=== PATIENT | female | born 1945 | race Two or more races ===

== ENCOUNTER 2016-08-28 11:53 | Inpatient (IN) | payer MEDICARE, OTHER ==
[~2016-08-28] VITALS: Ht 152.4 cm; Wt 54.4 kg
[2016-08-28] MEDS ORDERED: Solu-MEDROL 125mg Inj IVP ONE (12:00)
[2016-08-28] MEDS: Ipratropium 0.02% Inh Soln 2.5ml UD HHN SCH ×3 (12:10→12:48)
[2016-08-28] MEDS: Levalbuterol Inh UD 1.25mg/0.5ml HHN SCH ×3 (12:11→12:48)
[2016-08-28] MEDS ORDERED: ASPIR 8181 MG ORAL (12:30)
[2016-08-28] MEDS ORDERED: ATORVASTATIN CA20 MG ORAL (12:30)
[2016-08-28] MEDS ORDERED: ATENOLOL25 MG ORAL (12:30)
[2016-08-28] MEDS ORDERED: ALBUTEROL2.5 MG/3 M INH (12:30)
[2016-08-28] MEDS ORDERED: FUROSEMIDE20 M1 ORAL (12:30)
[2016-08-28] MEDS ORDERED: ATIVAN0.5 MG ORAL (12:30)
[2016-08-28] MEDS ORDERED: FLUOXETINE HCL10 MG ORAL (12:30)
[2016-08-28] MEDS ORDERED: HYDROCHLOROTH12.5 M2 ORAL (12:30)
[2016-08-28 12:40] VITALS: BP 137/40
[2016-08-28 12:50] LABS: BASOPHILS % (AUTO) 1.8 % (0.0-2.0); EOSINOPHILS % (AUTO) 12.5 % (0.0-3.0); LYMPHOCYTES % (AUTO) 28.3 % (20.0-45.0); MEAN CORPUSCULAR HEMOGLOBIN 31.3 PG (27.0-31.0); MEAN CORPUSCULAR HGB CONC 33.2 G/DL (32.0-36.0); MEAN CORPUSCULAR VOLUME 94 FL (80-99); MEAN PLATELET VOLUME 6.8 FL (6.5-10.1); MONOCYTES % (AUTO) 7.5 % (1.0-10.0); NEUTROPHILS % (AUTO) 49.9 % (45.0-75.0); PLATELET COUNT 323 K/UL (150-450); RED BLOOD COUNT 4.31 M/UL (4.20-5.40); RED CELL DISTRIBUTION WIDTH 11.5 % (11.6-14.8); WHITE BLOOD COUNT 7.8 K/UL (4.8-10.8)
[2016-08-28 13:07] LABS: TROPONIN I < 0.30 ng/mL (<=0.30)
[2016-08-28 13:10] LABS: ALANINE AMINOTRANSFERASE 5 U/L (3-33); ALBUMIN/GLOBULIN RATIO 1.3 (1.0-2.7); ANION GAP 14 (5-15); ASPARTATE AMINO TRANSFERASE 24 U/L (5-40); CALCIUM 9.8 mg/dL (8.6-10.2); CARBON DIOXIDE 30 mEQ/L (20-30); CHLORIDE 90 mEQ/L (98-107); CREATININE 0.7 mg/dL (0.5-0.9); HEMOLYSIS 4; POTASSIUM 3.8 mEQ/L (3.4-4.9); SODIUM 134 mEQ/L (135-145); TOTAL PROTEIN 7.6 g/dL (6.6-8.7)
[2016-08-28 13:32] VITALS: BP 137/48
[2016-08-28 13:44] LABS: APPEARANCE,URINE CLEAR; KETONES,URINE NEGATIVE (NEGATIVE); LEUKOCYTE ESTERASE ,URINE 1+ (NEGATIVE); NITRITE,URINE NEGATIVE (NEGATIVE); PH,URINE 8 (4.5-8.0); PROTEIN,URINE NEGATIVE (NEGATIVE); UROBILINOGEN,URINE NORMAL MG/DL (0.0-1.0)
[2016-08-28 14:09] LABS: BACTERIA,URINE FEW /HPF; SQUAMOUS EPITHELIAL CELL,UR FEW /LPF (NONE/OCC); WBC,URINE 0-2 /HPF (0 - 2)
--- NOTE | 2016-08-28 14:22 | Emergency Room Report ---
History of Present Illness General Chief Complaint: Upper Respiratory Illness Source: Patient, EMS Present Illness HPI 71-year-old female presents to ED for evaluation. Per EMS patient's pain short breaths and this morning. History of asthma. Per EMS patient was wheezing diffusely. Labored breathing. Patient was given breathing treatment x2 by EMS. Patient states she is still wheezing. Denies any fevers or chills. Denies chest pain. Denies sick contacts or recent travel. Denies cough. No other aggravating relieving factors. Denies any other associated symptom Allergies: Coded Allergies: MORPHINE (Verified Allergy, Unknown, 11/07/15) Patient History Past Medical History: DM, HTN, asthma Past Surgical History: none Pertinent Family History: none Social History: Denies: alcohol use, drug use, smoking Now: No Immunizations: UTD Reviewed Nursing Documentation: PMH: Agreed, PSxH: Agreed Nursing Documentation-PMH Past Medical History: No History, Except For Hx Hypertension: Yes Hx Asthma: Yes Hx Diabetes: Yes - Pre diabetic Hx Neurological Problems: Yes - PARKINSON Review of Systems All Other Systems: negative except mentioned in HPI Physical Exam Vital Signs Date Time Temp Pulse Resp B/P Pulse Ox O2 Delivery O2 Flow Rate FiO2 08/28/16 11:48 104 16 159/92 98 Room Air 08/28/16 12:11 21 08/28/16 12:48 2.0 Sp02 EP Interpretation: reviewed, normal General Appearance: no apparent distress, alert, GCS 15, non-toxic Head: normocephalic Eyes: bilateral eye PERRL, bilateral eye normal inspection ENT: normal ENT inspection Neck: normal inspection Respiratory: wheezing Cardiovascular #1: tachycardia Gastrointestinal: normal inspection Rectal: deferred Genitourinary: no CVA tenderness Musculoskeletal: normal inspection Neurologic: alert, oriented x3, responsive, motor strength/tone normal, sensory intact, speech normal Psychiatric: normal inspection Skin: normal inspection Lymphatic: normal inspection Medical Decision Making Diagnostic Impression: Primary Impression: Asthma exacerbation ER Course Hospital Course 71-year-old F presenting to ED with SOB. h/o asthma Differential diagnoses include: Pneumonia, CHF exacerbation, pneumothorax, fluid overload Clinical course Patient placed on stretcher. 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 After initial history and physical, I ordered nebulizer treatments. I ordered labs, IV fluids, EKG, chest x-ray, blood cultures, UA. Labs - no leukocytosis noted, hemoglobin/hematocrit stable, electrolytes okay, lactate okay, troponins negative CXR - no infiltrates EKG - tachycardia, no acute changes abx given. after multiple rounds of nebulizer treatment patient continues wheezing. Given Solu-Medrol and magnesium. Case discussed with Dr. Cloud and he agreed to the patient to his service for further care and support I feel this is a highly complex case requiring extensive working including EKG/ Rhythm strip, Xray/CT/US, Blood/urine lab work, repeat exams while in ED, and administration of strong opiates/narcotics for pain control, admission to hospital or close patient follow up. Diagnosis - asthma exacerbation Patient admitted to telemetry in serious condition Labs Test 08/28/16 12:15 08/28/16 13:25 White Blood Count 7.8 K/UL (4.8-10.8) Red Blood Count 4.31 M/UL (4.20-5.40) Hemoglobin 13.5 G/DL (12.0-16.0) Hematocrit 40.6 % (37.0-47.0) Mean Corpuscular Volume 94 FL (80-99) Mean Corpuscular Hemoglobin 31.3 PG (27.0-31.0) Mean Corpuscular Hemoglobin Concent 33.2 G/DL (32.0-36.0) Red Cell Distribution Width 11.5 % (11.6-14.8) Platelet Count 323 K/UL (150-450) Mean Platelet Volume 6.8 FL (6.5-10.1) Neutrophils (%) (Auto) 49.9 % (45.0-75.0) Lymphocytes (%) (Auto) 28.3 % (20.0-45.0) Monocytes (%) (Auto) 7.5 % (1.0-10.0) Eosinophils (%) (Auto) 12.5 % (0.0-3.0) Basophils (%) (Auto) 1.8 % (0.0-2.0) Sodium Level 134 mEQ/L (135-145) Potassium Level 3.8 mEQ/L (3.4-4.9) Chloride Level 90 mEQ/L (98-107) Carbon Dioxide Level 30 mEQ/L (20-30) Anion Gap 14 (5-15) Blood Urea Nitrogen 11 mg/dL (7-23) Creatinine 0.7 mg/dL (0.5-0.9) Estimat Glomerular Filtration Rate mL/min (>60) Glucose Level 100 mg/dL (74-106) Lactic Acid Level 1.40 mmol/L (0.66-2.22) Calcium Level 9.8 mg/dL (8.6-10.2) Total Bilirubin 0.9 mg/dL (0.0-1.2) Aspartate Amino Transf (AST/SGOT) 24 U/L (5-40) Alanine Aminotransferase (ALT/SGPT) 5 U/L (3-33) Alkaline Phosphatase 102 U/L (35-104) Total Creatine Kinase 200 U/L (26-140) Creatine Kinase MB 6.0 ng/mL (< 3.8) Creatine Kinase MB Relative Index 3.0 Troponin I < 0.30 ng/mL (<=0.30) Pro-B-Type Natriuretic Peptide 177 pg/mL (0-125) Total Protein 7.6 g/dL (6.6-8.7) Albumin 4.3 g/dL (3.5-5.2) Globulin 3.3 g/dL Albumin/Globulin Ratio 1.3 (1.0-2.7) Urine Color Pale yellow Urine Appearance Clear Urine pH 8 (4.5-8.0) Urine Specific [place] 1.010 (1.005-1.035) Urine Protein Negative (NEGATIVE) Urine Glucose (UA) Negative (NEGATIVE) Urine Ketones Negative (NEGATIVE) Urine Occult Blood 1+ (NEGATIVE) Urine Nitrite Negative (NEGATIVE) Urine Bilirubin Negative (NEGATIVE) Urine Urobilinogen Normal MG/DL (0.0-1.0) Urine Leukocyte Esterase 1+ (NEGATIVE) Urine RBC 2-4 /HPF (0 - 2) Urine WBC 0-2 /HPF (0 - 2) Urine Squamous Epithelial Cells Few /LPF (NONE/OCC) Urine Bacteria Few /HPF (NONE) EKG Diagnostic Results Rate: tachycardiac Rhythm: NSR ST Segments: no acute changes ASA given to the pt in ED: No Rhythm Strip Diag. Results EP Interpretation: yes Rhythm: NSR, no PVC's, no ectopy Chest X-Ray Diagnostic Results EP Interpretation: Yes Findings: no consolidation, no effusion, no pneumothorax, no acute cardiopulmonary disease Number of Views: 1 Last Vital Signs Date Time Temp Pulse Resp B/P Pulse Ox O2 Delivery O2 Flow Rate FiO2 08/28/16 13:32 128 25 137/48 100 Room Air 08/28/16 12:58 2.0 28 Status: improved Disposition: ADMITTED INPATIENT Condition: Serious MASHA JAIMES M.D. August 28, 2016 14:22
[2016-08-28 14:30] VITALS: BP 147/62
[2016-08-28] MEDS ORDERED: Promethazine/Codeine 5ml UD ORAL PRN ×2 (14:45→19:45)
[2016-08-28] MEDS ORDERED: Nitroglycerin Subl 0.4mg tab (Bottle Of 25) SL PRN (14:45)
[2016-08-28] MEDS ORDERED: LORazepam Inj 2mg/ml 1ml IV PRN (14:45)
[2016-08-28] MEDS ORDERED: Ketorolac 30mg Inj IV PRN (14:45)
[2016-08-28] MEDS ORDERED: DuoNeb 0.5-3(2.5)mg/3ml neb HHN PRN (14:45)
[2016-08-28 15:30] VITALS: BP 167/56
[2016-08-28 16:30] VITALS: BP 157/50
--- NOTE | 2016-08-28 16:35 | Diagnostic Imaging Report ---
Indications: Shortness of breath Technique: Portable AP chest Findings: Comparison: 11/07/2015 Cardiac silhouette remains normal in size. Pulmonary vasculature remains within normal limits. Lungs and pleura remain clear. Mild calcification and elongation of the aortic arch, mild scoliosis, fixation hardware left humerus and scapular glenoid process again noted. IMPRESSION: No evidence of acute disease, unchanged Stable chronic changes as described
[2016-08-28] MEDS ORDERED: SINEMET 25-1001 EAC1 ORAL (18:02)
--- NOTE | 2016-08-28 19:42 | History & Physical ---
History and Physical History & Physicial Dictated for Int Med - Dr Cloud no. [id number]. JOSÉ MIGUEL GUZMAN August 28, 2016 19:42
[2016-08-28] MEDS ORDERED: Norco 5mg/325mg tab ORAL PRN (19:45)
[2016-08-28] MEDS ORDERED: Atorvastatin 20mg tab ORAL SCH (21:00)
[2016-08-28] MEDS: Theophylline ER 100mg ORAL SCH (21:03)
[2016-08-28] MEDS: Solu-MEDROL 125mg Inj IV SCH (21:03)
[2016-08-28] MEDS: Zosyn 3.375gm q8h **Extended infusion IVPB SCH ×2 (21:04)
[2016-08-28] MEDS: Heparin 5000 units/ml inj SUBQ SCH (21:06)
--- NOTE | 2016-08-28 21:38 | Consultation ---
History of Present Illness General Date patient seen: August 28, 2016 Chief Complaint: Upper Respiratory Illness Referring physician: Dr. Cloud Reason for Consultation: dyspnea Present Illness HPI 71-year-old female with hx of asthma, Parkinson presented to ED for evaluation of short breaths and this morning. Per EMS patient was wheezing diffusely and had abored breathing. Patient was given breathing treatment x2 by EMS. Patient states she is still wheezing. She also has cough with yellow sputum. Pt is admitted to [facility] for acute respiratory failure. Allergies: Coded Allergies: MORPHINE (Verified Allergy, Unknown, 11/07/15) Medication History Scheduled Aspirin* (Aspir 81*), 81 MG ORAL DAILY, (Reported) Atenolol* (Tenormin*), Unknown Dose ORAL DAILY, (Reported) Atorvastatin Calcium* (Atorvastatin Calcium*), Unknown Dose ORAL BEDTIME, ( Reported) Carbidopa/Levodopa 25-100 Mg* (Sinemet 25-100 Mg Tablet*), 1 TAB ORAL THREE TIMES A DAY, (Reported) Fluoxetine Hcl* (Fluoxetine Hcl*), Unknown Dose ORAL DAILY, (Reported) Furosemide* (Lasix*), Unknown Dose ORAL DAILY, (Reported) Hydrochlorothiazide* (Hydrochlorothiazide*), Unknown Dose ORAL DAILY, (Reported) Lorazepam* (Ativan*), Unknown Dose ORAL THREE TIMES A DAY, (Reported) Scheduled PRN Albuterol Sulfate* (Albuterol Sulfate Hhn*), 3 ML INH Q4H PRN for Shortness of Breath, (Reported) Patient History Healthcare decision maker Resuscitation status Advanced Directive on File Past Medical/Surgical History Past Medical/Surgical History: (1) History of asthma (2) Parkinson disease Review of Systems Respiratory: Reports: shortness of breath, wheezing Physical Exam General Appearance: WD/WN Lines, tubes and drains: peripheral HEENT: normocephalic, atraumatic Neck: non-tender, normal alignment Respiratory/Chest: chest wall non-tender, rhonchi - left, rhonchi - right Cardiovascular/Chest: normal peripheral pulses, normal rate Abdomen: normal bowel sounds Genitourinary/Rectal: normal genital exam, normal rectal exam Extremities: normal range of motion, non-tender 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 grossly normal Last 24 Hour Vital Signs Date Time Temp Pulse Resp B/P Pulse Ox O2 Delivery O2 Flow Rate FiO2 08/28/16 19:58 Nasal Cannula 2.0 28 5/25/17 19:57 99 Nasal Cannula 2.0 08/28/16 19:55 123 16 Nasal Cannula 2.0 08/28/16 18:45 126 16 157/50 100 Nasal Cannula 2.0 08/28/16 16:30 126 16 157/50 100 Nasal Cannula 2.0 08/28/16 15:30 123 16 167/56 100 Nasal Cannula 2.0 08/28/16 14:30 123 16 147/62 99 Nasal Cannula 2.0 08/28/16 13:32 128 25 137/48 100 Nasal Cannula 2.0 08/28/16 12:58 118 20 100 Nasal Cannula 2.0 08/28/16 12:48 126 19 100 Nasal Cannula 2.0 08/28/16 12:48 21 08/28/16 12:40 126 19 137/40 100 Nasal Cannula 2.0 08/28/16 12:11 21 08/28/16 12:11 104 16 98 Room Air 08/28/16 12:11 104 16 Room Air 21 08/28/16 12:00 104 16 Room Air 08/28/16 11:48 104 16 159/92 98 Room Air Laboratory Tests Test 08/28/16 12:15 08/28/16 13:25 White Blood Count 7.8 K/UL (4.8-10.8) Red Blood Count 4.31 M/UL (4.20-5.40) Hemoglobin 13.5 G/DL (12.0-16.0) Hematocrit 40.6 % (37.0-47.0) Mean Corpuscular Volume 94 FL (80-99) Mean Corpuscular Hemoglobin 31.3 PG (27.0-31.0) H Mean Corpuscular Hemoglobin Concent 33.2 G/DL (32.0-36.0) Red Cell Distribution Width 11.5 % (11.6-14.8) L Platelet Count 323 K/UL (150-450) Mean Platelet Volume 6.8 FL (6.5-10.1) Neutrophils (%) (Auto) 49.9 % (45.0-75.0) Lymphocytes (%) (Auto) 28.3 % (20.0-45.0) Monocytes (%) (Auto) 7.5 % (1.0-10.0) Eosinophils (%) (Auto) 12.5 % (0.0-3.0) H Basophils (%) (Auto) 1.8 % (0.0-2.0) Sodium Level 134 mEQ/L (135-145) L Potassium Level 3.8 mEQ/L (3.4-4.9) Chloride Level 90 mEQ/L (98-107) L Carbon Dioxide Level 30 mEQ/L (20-30) Anion Gap 14 (5-15) Blood Urea Nitrogen 11 mg/dL (7-23) Creatinine 0.7 mg/dL (0.5-0.9) Estimat Glomerular Filtration Rate mL/min (>60) Glucose Level 100 mg/dL (74-106) Lactic Acid Level 1.40 mmol/L (0.66-2.22) Calcium Level 9.8 mg/dL (8.6-10.2) Total Bilirubin 0.9 mg/dL (0.0-1.2) Aspartate Amino Transf (AST/SGOT) 24 U/L (5-40) Alanine Aminotransferase (ALT/SGPT) 5 U/L (3-33) Alkaline Phosphatase 102 U/L (35-104) Total Creatine Kinase 200 U/L (26-140) H Creatine Kinase MB 6.0 ng/mL (< 3.8) H Creatine Kinase MB Relative Index 3.0 Troponin I < 0.30 ng/mL (<=0.30) Pro-B-Type Natriuretic Peptide 177 pg/mL (0-125) H Total Protein 7.6 g/dL (6.6-8.7) Albumin 4.3 g/dL (3.5-5.2) Globulin 3.3 g/dL Albumin/Globulin Ratio 1.3 (1.0-2.7) Urine Color Pale yellow Urine Appearance Clear Urine pH 8 (4.5-8.0) Urine Specific [place] 1.010 (1.005-1.035) Urine Protein Negative (NEGATIVE) Urine Glucose (UA) Negative (NEGATIVE) Urine Ketones Negative (NEGATIVE) Urine Occult Blood 1+ (NEGATIVE) H Urine Nitrite Negative (NEGATIVE) Urine Bilirubin Negative (NEGATIVE) Urine Urobilinogen Normal MG/DL (0.0-1.0) Urine Leukocyte Esterase 1+ (NEGATIVE) H Urine RBC 2-4 /HPF (0 - 2) H Urine WBC 0-2 /HPF (0 - 2) Urine Squamous Epithelial Cells Few /LPF (NONE/OCC) Urine Bacteria Few /HPF (NONE) Height (Feet): 5 Weight (Pounds): 120 Medications Current Medications Medications (Trade) Dose Ordered Sig/Isaiah Route PRN Reason Start Time Stop Time Status Last Admin Dose Admin Acetaminophen/ Hydrocodone Bitart ([place] 5/325) 1 tab Q4H PRN ORAL Moderate Pain (Pain Scale 4-6) 08/28/16 19:45 09/04/16 19:44 UNV Albuterol/ Ipratropium (DuoNeb 0.5-3(2.5)mg/3ml) 3 ml Q4H PRN HHN dyspnea 08/28/16 14:45 09/02/16 14:44 Atorvastatin Calcium (Lipitor) 20 mg BEDTIME ORAL 08/28/16 21:00 09/27/16 20:59 08/28/16 21:04 Dextrose STAT PRN IV Hypoglycemia 08/28/16 14:45 09/27/16 14:44 Fluoxetine HCl (PROzac) 10 mg DAILY ORAL 08/29/16 09:00 09/28/16 08:59 Furosemide (Lasix) 20 mg DAILY ORAL 08/29/16 09:00 09/28/16 08:59 Heparin Sodium (Porcine) (Heparin 5000 units/ml) 5,000 units EVERY 12 HOURS SUBQ 08/28/16 21:00 09/27/16 20:59 08/28/16 21:06 Ketorolac Tromethamine (Toradol 30mg) 30 mg Q8H PRN IV Moderate Pain (Pain Scale 4-6) 08/28/16 14:45 09/02/16 14:44 Lorazepam (Ativan 2mg/ml 1ml) 0.5 mg Q4H PRN IV Breakthrough anxiety 08/28/16 14:45 09/04/16 14:44 Lorazepam (Ativan) 1 mg THREE TIMES A DAY ORAL 08/28/16 18:00 09/04/16 17:59 Methylprednisolone Sodium Succinate (Solu-MEDROL) 60 mg EVERY 6 HOURS IV 08/28/16 18:00 09/27/16 17:59 08/28/16 21:03 Nitroglycerin (Ntg) 0.4 mg Q5M X 3 DOSES PRN SL Prn Chest Pain 08/28/16 14:45 09/27/16 14:44 Ondansetron HCl (Zofran) 4 mg Q6H PRN IVP Nausea & Vomiting 08/28/16 14:45 09/27/16 14:44 Piperacillin Sod/ Tazobactam Sod/ Dextrose (Zosyn/D5W) 110 ml @ 27.5 mls/hr EVERY 8 HOURS IVPB 08/28/16 20:00 09/02/16 19:59 08/28/16 21:04 Promethazine HCl/ Codeine (Phenergan with Codeine) 5 ml Q4H PRN ORAL For Cough 08/28/16 19:45 09/27/16 19:44 UNV Temazepam (Restoril) 15 mg HSPRN PRN ORAL Insomnia 08/28/16 21:00 09/04/16 20:59 Theophylline (Edilson-Dur) 100 mg EVERY 12 HOURS ORAL 08/28/16 21:00 09/27/16 20:59 08/28/16 21:03 Assessment/Plan Problem List: (1) Asthma exacerbation ICD Codes: J45.901 - Unspecified asthma with (acute) exacerbation SNOMED: 807091930 (2) Purulent bronchitis ICD Codes: J41.1 - Mucopurulent chronic bronchitis SNOMED: 57929560 (3) Generalized weakness ICD Codes: R53.1 - Weakness SNOMED: 47751132 (4) Parkinson disease ICD Codes: G20 - Parkinson's disease SNOMED: 06608519 Assessment/Plan IV antibiotics check sputum IV steroids neuro evaluation titrate fio2 to sat of 92% dvt prophylaxis. ELLEN RANDALL August 28, 2016 21:38
[2016-08-28] MEDS ORDERED: Piperacillin/Tazobactam 2.25 GM in D5W 55 ML IV SCH (22:00)
--- NOTE | 2016-08-28 22:17 | History and Physical Report ---
DATE OF ADMISSION: 08/28/2016 CHIEF COMPLAINT: The patient is a 71-year-old female who presents with chief complaint of cough and shortness of breath. HISTORY OF PRESENT ILLNESS: Began two weeks prior to admission, the patient began to experience nonproductive cough. The patient states she feels phlegm however is not able to bring it up. The patient also has shortness of breath. The patient complains of subjective fevers and chills. The patient presented to [place] emergency room. The patient was admitted for cough and shortness of breath to rule out pneumonia. REVIEW OF SYSTEMS: Constitutional: The patient denies weight loss or weight gain. The patient complains of subjective fevers and chills as above. HEENT: The patient denies ear or throat pain. The patient denies headache. Cardiovascular: The patient denies palpitations or chest pain. Chest: The patient complains of shortness of breath as above. The patient complains of cough as above. The patient denies wheezes. Abdomen: The patient denies nausea, vomiting, diarrhea, or constipation. Genitourinary: The patient denies dysuria or increased frequency of urination. Neuromuscular: The patient denies seizures or generalized weakness. The patient does have a history of Parkinson's. PAST MEDICAL HISTORY: Significant for: 1. Hypertension. 2. Asthma. 3. Parkinson disease. PAST SURGICAL HISTORY: Significant for left humerus fracture x2. CURRENT MEDICATIONS: 1. Albuterol metered-dose inhaler two puffs p.o. q.i.d. p.r.n. 2. Aspirin 81 mg one tablet p.o. daily. 3. Atenolol 25 mg one tablet p.o. daily. 4. Atorvastatin 20 mg one tablet p.o. at bedtime. 5. Carbidopa/levodopa 25/100 one tablet p.o. three times daily. 6. 10 mg one tablet p.o. daily. 7. Lasix 20 mg one tablet p.o. daily. 8. Hydrochlorothiazide 12.5 mg one tablet p.o. daily. 9. Lorazepam 0.5 mg one tablet p.o. daily. ALLERGIES: To morphine. SOCIAL HISTORY: The patient is . The patient is retired. The patient denies tobacco or alcohol use. PHYSICAL EXAMINATION: VITAL SIGNS: Temperature is 98.6, respirations 16, pulse 104, blood pressure 159/92. GENERAL: The patient is well-developed and well-nourished female, in no apparent distress. HEENT: Eyes, pupils are equal and responsive to light and accommodation. Extraocular movements are intact. NECK: Supple without lymphadenopathy. CHEST: Few wheezes in bilateral lung sousa. Otherwise, clear to auscultation without rales. CARDIOVASCULAR: Tachycardic. S1 and S2 normal without murmurs, rubs, or gallops. ABDOMEN: Soft, nontender, nondistended. Positive bowel sounds. No evidence of hepatosplenomegaly. Currently, no rebound or guarding. EXTREMITIES: Negative for clubbing, cyanosis, or edema. RECTAL: Refused. GENITALIA: Refused. NEUROLOGIC: Cranial nerves II through XII are grossly intact without focal deficits. Motor strength is 5/5 bilaterally. Deep tendon reflexes 2+ plantar. The patient does have a resting tremor noted. LABORATORY AND DIAGNOSTIC DATA: WBC 7.8, hemoglobin 13.5, hematocrit 40.6, platelets 323,000. Sodium 134, potassium 3.8, chloride , CO2 30, BUN 11, creatinine 0.7, glucose 100. Troponin less than 0.3. Chest x-ray, revealed no acute disease. ASSESSMENT: This is a 71-year-old female. 1. Cough. 2. Shortness of breath. 3. Right knee pain. 4. Hypertension. 5. Asthma. 6. Parkinson disease. TREATMENT: 1. Cough/shortness of breath. A Pulmonary consultation obtained with Dr. Klarissa Bose. The patient has been placed empirically on albuterol nebulized q.4 h. p.r.n. The patient is also on intravenous Solu-Medrol. We will follow recommendation of Pulmonary. This is probably bronchitis versus pneumonia. The patient has been started empirically on Zosyn. 2. Right knee pain. An x-ray of the right knee is pending. 3. Hypertension. Continue furosemide and atenolol as above. 4. Asthma and shortness of breath as above. 5. Parkinson disease. Continue Sinemet as above. Franky Saba M.D. DR: Stephanie JOB#: [id number] CC:
[2016-08-28] MEDS: LORazepam 1mg tab ORAL SCH (22:22)
[2016-08-29] VITALS (9 sets, daily range): BP systolic 123–153; BP diastolic 70–89
[2016-08-29] MEDS: Solu-MEDROL 125mg Inj IV SCH ×4 (01:01→20:12)
[2016-08-29] MEDS: Zosyn 3.375gm q8h **Extended infusion IVPB SCH ×6 (06:23→17:43)
[2016-08-29 07:23] LABS: BASOPHILS % (AUTO) 0.3 % (0.0-2.0); EOSINOPHILS % (AUTO) 0.1 % (0.0-3.0); LYMPHOCYTES % (AUTO) 13.3 % (20.0-45.0); MEAN CORPUSCULAR HEMOGLOBIN 31.9 PG (27.0-31.0); MEAN CORPUSCULAR VOLUME 94 FL (80-99); MEAN PLATELET VOLUME 6.9 FL (6.5-10.1); NEUTROPHILS % (AUTO) 84.3 % (45.0-75.0); PLATELET COUNT 306 K/UL (150-450); RED BLOOD COUNT 3.84 M/UL (4.20-5.40); RED CELL DISTRIBUTION WIDTH 11.5 % (11.6-14.8); WHITE BLOOD COUNT 5.8 K/UL (4.8-10.8)
[2016-08-29 07:43] LABS: ALANINE AMINOTRANSFERASE 15 U/L (3-33); ALBUMIN/GLOBULIN RATIO 1.3 (1.0-2.7); ANION GAP 17 (5-15); ASPARTATE AMINO TRANSFERASE 19 U/L (5-40); CARBON DIOXIDE 26 mEQ/L (20-30); CHLORIDE 91 mEQ/L (98-107); CREATININE 0.7 mg/dL (0.5-0.9); HEMOLYSIS 3; POTASSIUM 3.3 mEQ/L (3.4-4.9); SODIUM 134 mEQ/L (135-145)
[2016-08-29] MEDS ORDERED: FLUoxetine 10mg cap ORAL SCH (09:00)
[2016-08-29] MEDS: LORazepam 1mg tab ORAL SCH ×3 (09:14→20:28)
[2016-08-29] MEDS: Theophylline ER 100mg ORAL SCH (09:19)
[2016-08-29] MEDS: Heparin 5000 units/ml inj SUBQ SCH ×2 (09:22→20:11)
--- NOTE | 2016-08-29 11:09 | Diagnostic Imaging Report ---
Indication: DYSPNEA Technique: One view of the chest Comparison: 08/28/2016 Findings: Lungs and pleural spaces are clear. Heart size is borderline enlarged. Aorta is elongated tortuous and calcified. Left shoulder hardware is again demonstrated. Findings are unchanged Impression: No acute process. No significant environmental change analyst one day
--- NOTE | 2016-08-29 12:16 | Diagnostic Imaging Report ---
Indication: PAIN Technique: 3 views of the right knee Comparison: None Findings:There is severe medial compartmental degenerative change, with severe loss of the joint space, and extensive irregularity of the articular surfaces. There are associated proliferative changes. No acute fractures. No dislocations. No gross suprapatellar effusion. The bones are osteoporotic. Impression:Degenerative changes, as described. No acute bony trauma
[2016-08-29] MEDS ORDERED: guaiFENesin DM 100mg/5ml ORAL PRN ×2 (13:00→19:05)
--- NOTE | 2016-08-29 15:01 | Pulmonology Progress Note ---
Assessment/Plan Problems: (1) Asthma exacerbation (2) Purulent bronchitis (3) Generalized weakness (4) Parkinson disease Assessment/Plan improving much less wheezing IV antibiotics check sputum IV steroids neuro evaluation titrate fio2 to sat of 92% dvt prophylaxis. Subjective ROS Limited/Unobtainable: No Interval Events: feels much better, less short of breath Allergies: Coded Allergies: MORPHINE (Verified Allergy, Unknown, 11/07/15) Objective Last 24 Hour Vital Signs Date Time Temp Pulse Resp B/P Pulse Ox O2 Delivery O2 Flow Rate FiO2 08/29/16 11:39 97.2 110 20 138/81 95 Nasal Cannula 2.0 08/29/16 08:07 97.9 114 20 149/79 95 Nasal Cannula 2.0 08/29/16 07:30 112 18 Nasal Cannula 2.0 28 08/29/16 07:30 Nasal Cannula 2.0 28 08/29/16 07:30 97 Nasal Cannula 2.0 28 08/29/16 04:27 97.7 101 20 141/72 95 Room Air 08/29/16 04:00 102 08/29/16 00:00 117 08/29/16 00:00 97.0 67 20 146/72 100 Room Air 08/28/16 20:00 117 08/28/16 19:58 Nasal Cannula 2.0 28 08/28/16 19:57 99 Nasal Cannula 2.0 08/28/16 19:55 123 16 Nasal Cannula 2.0 08/28/16 18:45 126 16 157/50 100 Nasal Cannula 2.0 28 08/28/16 16:30 126 16 157/50 100 Nasal Cannula 2.0 08/28/16 15:30 123 16 167/56 100 Nasal Cannula 2.0 Intake and Output 08/28/16 08/29/16 19:00 07:00 Intake Total 1600 ml 110 ml Balance 1600 ml 110 ml IV Total 1600 ml 110 ml # Voids 3 # Bowel Movements 1 General Appearance: WD/WN HEENT: normocephalic, atraumatic Respiratory/Chest: chest wall non-tender, lungs clear, crackles/rales Cardiovascular: normal peripheral pulses, normal rate Abdomen: normal bowel sounds, soft, non tender Genitourinary: normal external genitalia Skin: no rash Neurologic/Psychiatric: 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 II-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 grossly normal Laboratory Tests 08/29/16 06:10: White Blood Count 5.8, Red Blood Count 3.84L, Hemoglobin 12.3, Hematocrit 36.0L , Mean Corpuscular Volume 94, Mean Corpuscular Hemoglobin 31.9H, Mean Corpuscular Hemoglobin Concent 34.0, Red Cell Distribution Width 11.5L, Platelet Count 306, Mean Platelet Volume 6.9, Neutrophils (%) (Auto) 84.3H, Lymphocytes (%) (Auto) 13.3L, Monocytes (%) (Auto) 2.0, Eosinophils (%) (Auto) 0.1, Basophils (%) (Auto) 0.3, Sodium Level 134L, Potassium Level 3.3L, Chloride Level 91L, Carbon Dioxide Level 26, Anion Gap 17H, Blood Urea Nitrogen 13, Creatinine 0.7, Estimat Glomerular Filtration Rate , Glucose Level 158H, Calcium Level 9.0, Total Bilirubin 0.7, Aspartate Amino Transf (AST/SGOT) 19, Alanine Aminotransferase (ALT/SGPT) 15, Alkaline Phosphatase 85, Pro-B-Type Natriuretic Peptide 742H, Total Protein 7.0, Albumin 4.0, Globulin 3.0, Albumin/ Globulin Ratio 1.3 Current Medications Medications (Trade) Dose Ordered Sig/Isaiah Route PRN Reason Start Time Stop Time Status Last Admin Dose Admin Acetaminophen/ Hydrocodone Bitart ([place] 5/325) 1 tab Q4H PRN ORAL Moderate Pain (Pain Scale 4-6) 08/28/16 19:45 09/04/16 19:44 UNV Albuterol/ Ipratropium (DuoNeb 0.5-3(2.5)mg/3ml) 3 ml Q4H PRN HHN dyspnea 08/28/16 14:45 09/02/16 14:44 Atorvastatin Calcium (Lipitor) 20 mg BEDTIME ORAL 08/28/16 21:00 09/27/16 20:59 08/28/16 21:04 Dextrose STAT PRN IV Hypoglycemia 08/28/16 14:45 09/27/16 14:44 Fluoxetine HCl (PROzac) 10 mg DAILY ORAL 08/29/16 09:00 09/28/16 08:59 08/29/16 09:14 Furosemide (Lasix) 20 mg DAILY ORAL 08/29/16 09:00 09/28/16 08:59 Guaifenesin/ Dextromethorphan (Robitussin DM) 5 ml Q4H PRN ORAL For Cough 08/29/16 13:00 09/28/16 12:59 Heparin Sodium (Porcine) (Heparin 5000 units/ml) 5,000 units EVERY 12 HOURS SUBQ 08/28/16 21:00 09/27/16 20:59 08/29/16 09:22 Ketorolac Tromethamine (Toradol 30mg) 30 mg Q8H PRN IV Moderate Pain (Pain Scale 4-6) 08/28/16 14:45 09/02/16 14:44 08/28/16 21:54 Lorazepam (Ativan 2mg/ml 1ml) 0.5 mg Q4H PRN IV Breakthrough anxiety 08/28/16 14:45 09/04/16 14:44 Lorazepam (Ativan) 1 mg THREE TIMES A DAY ORAL 08/28/16 18:00 09/04/16 17:59 08/29/16 13:08 Methylprednisolone Sodium Succinate (Solu-MEDROL) 60 mg EVERY 6 HOURS IV 08/28/16 18:00 09/27/16 17:59 08/29/16 13:08 Nitroglycerin (Ntg) 0.4 mg Q5M X 3 DOSES PRN SL Prn Chest Pain 08/28/16 14:45 09/27/16 14:44 Ondansetron HCl (Zofran) 4 mg Q6H PRN IVP Nausea & Vomiting 08/28/16 14:45 09/27/16 14:44 Piperacillin Sod/ Tazobactam Sod/ Dextrose (Zosyn/D5W) 110 ml @ 27.5 mls/hr EVERY 8 HOURS IVPB 08/28/16 20:00 09/02/16 19:59 08/29/16 07:10 Potassium Chloride (K-Dur) 40 meq TWICE A DAY ORAL 08/29/16 13:00 09/28/16 12:59 08/29/16 13:11 Temazepam (Restoril) 15 mg HSPRN PRN ORAL Insomnia 08/28/16 21:00 09/04/16 20:59 Theophylline ([place]il[place]-Dur) 100 mg EVERY 12 HOURS ORAL 08/28/16 21:00 09/27/16 20:59 08/29/16 09:19 ELLEN RANDALL August 29, 2016 15:01
--- NOTE | 2016-08-29 18:25 | Internal Med Progress Note ---
Subjective Physician Name Isaiah Cloud Attending Physician Isaiah Cloud MD Current Medications Medications (Trade) Dose Ordered Sig/Isaiah Route PRN Reason Start Time Stop Time Status Last Admin Dose Admin Albuterol/ Ipratropium (DuoNeb 0.5-3(2.5)mg/3ml) 3 ml Q4H PRN HHN dyspnea 08/28/16 14:45 09/02/16 14:44 Atorvastatin Calcium (Lipitor) 20 mg BEDTIME ORAL 08/28/16 21:00 09/27/16 20:59 08/28/16 21:04 Dextrose STAT PRN IV Hypoglycemia 08/28/16 14:45 09/27/16 14:44 Fluoxetine HCl (PROzac) 10 mg DAILY ORAL 08/29/16 09:00 09/28/16 08:59 08/29/16 09:14 Furosemide (Lasix) 20 mg DAILY ORAL 08/29/16 09:00 09/28/16 08:59 Guaifenesin/ Dextromethorphan (Robitussin DM) 5 ml Q4H PRN ORAL For Cough 08/29/16 13:00 09/28/16 12:59 Heparin Sodium (Porcine) (Heparin 5000 units/ml) 5,000 units EVERY 12 HOURS SUBQ 08/28/16 21:00 09/27/16 20:59 08/29/16 09:22 Ketorolac Tromethamine (Toradol 30mg) 30 mg Q8H PRN IV Moderate Pain (Pain Scale 4-6) 08/28/16 14:45 09/02/16 14:44 08/28/16 21:54 Lorazepam (Ativan 2mg/ml 1ml) 0.5 mg Q4H PRN IV Breakthrough anxiety 08/28/16 14:45 09/04/16 14:44 Lorazepam (Ativan) 1 mg THREE TIMES A DAY ORAL 08/28/16 18:00 09/04/16 17:59 08/29/16 13:08 Methylprednisolone Sodium Succinate (Solu-MEDROL) 60 mg EVERY 12 HOURS IV 08/29/16 21:00 09/28/16 20:59 Nitroglycerin (Ntg) 0.4 mg Q5M X 3 DOSES PRN SL Prn Chest Pain 08/28/16 14:45 09/27/16 14:44 Ondansetron HCl (Zofran) 4 mg Q6H PRN IVP Nausea & Vomiting 08/28/16 14:45 09/27/16 14:44 Piperacillin Sod/ Tazobactam Sod/ Dextrose (Zosyn/D5W) 110 ml @ 27.5 mls/hr EVERY 8 HOURS IVPB 08/28/16 20:00 09/02/16 19:59 08/29/16 17:43 Potassium Chloride (K-Dur) 40 meq TWICE A DAY ORAL 08/29/16 13:00 09/28/16 12:59 08/29/16 13:11 Temazepam (Restoril) 15 mg HSPRN PRN ORAL Insomnia 08/28/16 21:00 09/04/16 20:59 Theophylline (Edilson-Dur) 100 mg EVERY 12 HOURS ORAL 08/28/16 21:00 09/27/16 20:59 08/29/16 09:19 Allergies: Coded Allergies: MORPHINE (Verified Allergy, Unknown, 11/07/15) Subjective awake, alert, responsive, less SOB, less wheezing, K: 3.3, Na 134 Objective Last Vital Signs Date Time Temp Pulse Resp B/P Pulse Ox O2 Delivery O2 Flow Rate FiO2 08/29/16 15:22 97.2 107 20 144/76 96 Nasal Cannula 2.0 08/29/16 07:30 28 Laboratory Tests Test 08/29/16 06:10 White Blood Count 5.8 K/UL (4.8-10.8) Red Blood Count 3.84 M/UL (4.20-5.40) L Hemoglobin 12.3 G/DL (12.0-16.0) Hematocrit 36.0 % (37.0-47.0) L Mean Corpuscular Volume 94 FL (80-99) Mean Corpuscular Hemoglobin 31.9 PG (27.0-31.0) H Mean Corpuscular Hemoglobin Concent 34.0 G/DL (32.0-36.0) Red Cell Distribution Width 11.5 % (11.6-14.8) L Platelet Count 306 K/UL (150-450) Mean Platelet Volume 6.9 FL (6.5-10.1) Neutrophils (%) (Auto) 84.3 % (45.0-75.0) H Lymphocytes (%) (Auto) 13.3 % (20.0-45.0) L Monocytes (%) (Auto) 2.0 % (1.0-10.0) Eosinophils (%) (Auto) 0.1 % (0.0-3.0) Basophils (%) (Auto) 0.3 % (0.0-2.0) Sodium Level 134 mEQ/L (135-145) L Potassium Level 3.3 mEQ/L (3.4-4.9) L Chloride Level 91 mEQ/L (98-107) L Carbon Dioxide Level 26 mEQ/L (20-30) Anion Gap 17 (5-15) H Blood Urea Nitrogen 13 mg/dL (7-23) Creatinine 0.7 mg/dL (0.5-0.9) Estimat Glomerular Filtration Rate mL/min (>60) Glucose Level 158 mg/dL (74-106) H Calcium Level 9.0 mg/dL (8.6-10.2) Total Bilirubin 0.7 mg/dL (0.0-1.2) Aspartate Amino Transf (AST/SGOT) 19 U/L (5-40) Alanine Aminotransferase (ALT/SGPT) 15 U/L (3-33) Alkaline Phosphatase 85 U/L (35-104) Pro-B-Type Natriuretic Peptide 742 pg/mL (0-125) H Total Protein 7.0 g/dL (6.6-8.7) Albumin 4.0 g/dL (3.5-5.2) Globulin 3.0 g/dL Albumin/Globulin Ratio 1.3 (1.0-2.7) Intake and Output 08/28/16 08/29/16 19:00 07:00 Intake Total 1600 ml 110 ml Balance 1600 ml 110 ml IV Total 1600 ml 110 ml # Voids 3 # Bowel Movements 1 Objective GENERAL: The patient is well-developed and well-nourished female, in no apparent distress. HEENT: Eyes, pupils are equal and responsive to light and accommodation. Extraocular movements are intact. NECK: Supple without lymphadenopathy. CHEST: end expiratory wheezes in bilateral lung sousa. No rales, Bilateral air entry. CARDIOVASCULAR: S1 and S2 RR, no without murmurs ABDOMEN: Soft, nontender, nondistended. Positive bowel sounds. no rebound or guarding. EXTREMITIES: Negative for clubbing, cyanosis, or edema. RECTAL: Refused. GENITALIA: Refused. NEUROLOGIC: Cranial nerves II through XII are grossly intact without focal deficits. Motor strength is 5/5 bilaterally. resting tremor on UE's. Assessment/Plan Assessment/Plan 1. Acute asthma exacerbation 2. Purulent Bronchitis. 3. Right knee pain. 4. Hypertension. 5. hypokalemia 6. Parkinson disease. TREATMENT: Pulmonary consultation with Dr. Klarissa Bose. intravenous Solu-Medrol 60mg IV bid Neb [place] Abx: Zosyn IV Heparin SQ Full code, DC telemetry and transfer to med / surg Kcl supplements Isaiah Cloud MD August 29, 2016 18:25
[2016-08-29] MEDS ORDERED: Nitroglycerin Subl 0.4mg tab (Bottle Of 25) SL PRN (18:30)
[2016-08-29] MEDS ORDERED: rOPINIRole 0.25mg tab ORAL SCH (19:00)
--- NOTE | 2016-08-29 19:02 | Cardiology Report ---
APPROVED REPORT EKG Measurement Heart [id number] Sinus tachycardia Septal infarct, age undetermined Abnormal ECG
[2016-08-29] MEDS ORDERED: Ketorolac 30mg Inj IV PRN (19:05)
[2016-08-29] MEDS ORDERED: DuoNeb 0.5-3(2.5)mg/3ml neb HHN PRN (19:05)
[2016-08-29] MEDS ORDERED: LORazepam Inj 2mg/ml 1ml IV PRN (19:08)
[2016-08-29] MEDS: Atorvastatin 20mg tab ORAL SCH (20:12)
[2016-08-29] MEDS ORDERED: Theophylline ER 100mg ORAL SCH (21:00)
[2016-08-29] MEDS ORDERED: Solu-MEDROL 125mg Inj IV SCH (21:00)
[2016-08-29] MEDS ORDERED: Zosyn 3.375gm inj ONE (23:11)
[2016-08-29] MEDS: Piperacillin/Tazobactam 3.375 GM in D5W 110 ML IVPB SCH (23:26)
[2016-08-30] VITALS: BP 157/81
--- NOTE | 2016-08-30 03:32 | Consultation ---
DATE OF CONSULTATION: 08/29/2016 REFERRING PHYSICIAN: Isaiah Cloud M.D. HISTORY OF PRESENT ILLNESS: The patient is a 71 years old female, seen in neurological consultation for evaluation of exacerbation of Parkinson disease. The patient informs me that she was diagnosed initially with Parkinson disease about 4 years ago, but since then she progressively worsened and last couple months, she is actually unable to ambulate being wheelchair bound. There was some further worsening of shaking and tremors in the last few days coinciding with respiratory difficulties. She developed wheezing, labored breathing, and was brought to emergency room. Her vital signs on admission were stable. Heart rate 104. Her chest x-ray revealed no infiltrates. EKG, sinus tachycardia. Laboratory work included normal CBC, chemistry panel with elevated CK 200, CK-MB 6.0, and BNP 177. Her urinalysis, 1+ leukocyte esterase. Imaging studies including repeated chest x-ray, no acute process noted and no significant changes over the last day. TREATMENT PRIOR TO ADMISSION: Included albuterol, aspirin, atenolol atorvastatin, Sinemet 25/100 t.i.d., fluoxetine 10 mg, furosemide 20 mg, hydrochlorothiazide 12.5 mg, and lorazepam 0.5 mg t.i.d. The patient is unaware of using other empiric Parkinson medications in the past. Her last adjustment of her treatment was approximately year ago. The patient has a history of bronchial asthma, hypertension, hyperlipidemia, and history of depression. FAMILY HISTORY: Noncontributory. SOCIAL HISTORY: Lives at home with her . No alcohol and drug abuse. Nonsmoker. REVIEW OF SYSTEMS: Increasing difficulty ambulation, tremors of both upper extremities, being depressed, and shortness of breath on exertion. No chest pain. No palpitations. PHYSICAL EXAMINATION: GENERAL: A well developed, well nourished, pleasant lady, not in acute distress, lying comfortably in bed. HEENT: Head normocephalic. No evidence of trauma. Eyes, ears, and throat are clear. NECK: Rigid in all directions. MUSCULOSKELETAL: Examination unremarkable. There is no deformities noted. Peripheral pulses 1+, symmetric. MENTAL STATUS: The patient is alert and oriented x3. Her speech is fluent. Language is intact. There is no aphasia. No apraxia. Cognitive function normal. Mood depressed. CRANIAL NERVE II: Pupils both responding to light and accommodation. Extraocular movement intact. No nystagmus. CRANIAL NERVE V: Normal corneal responses. CRANIAL NERVE VII: Drooped nasolabial fold, poor facial expression. CRANIAL NERVE IX THROUGH XII: Tongue is in midline. Symmetric palate elevation. MOTOR EXAMINATION: Diffuse rigidity with the resting tremor of both upper extremity, more on the right side, history of bradykinesia, strength 5/5. Deep tendon reflexes 1+ bilaterally. Plantar response is flexor. No pathological responses. Sensory examination normal to pinprick light touch. Gait not tested. IMPRESSION: 1. Parkinson disease, progressive. 2. Bronchial asthma, exacerbation. 3. Bronchitis. 4. History of hypertension. 5. History of hyperlipidemia. RECOMMENDATION: Increase Sinemet 50/200 mg every morning followed by 25/100 twice a day. Start on ropinirole 0.25 mg t.i.d. PT/OT. Start mobility protocol. Continue with antidepressants. Thank you for allowing me to see this interesting patient in neurological consultation. Tone Wan M.D. DR: SUSAN JOB#: [id number] CC:
[2016-08-30 04:00] VITALS: BP 127/47
[2016-08-30] MEDS ORDERED: Zosyn 3.375gm inj ONE (05:56)
[2016-08-30] MEDS: Piperacillin/Tazobactam 3.375 GM in D5W 110 ML IVPB SCH ×3 (06:22→22:04)
[2016-08-30 08:30] VITALS: BP 125/68
[2016-08-30] MEDS: Solu-MEDROL 125mg Inj IV SCH ×2 (09:15→21:59)
[2016-08-30] MEDS: LORazepam 1mg tab ORAL SCH ×3 (09:15→17:32)
[2016-08-30] MEDS: FLUoxetine 10mg cap ORAL SCH (09:16)
[2016-08-30] MEDS: rOPINIRole 0.25mg tab ORAL SCH ×3 (09:16→17:32)
[2016-08-30] MEDS: Heparin 5000 units/ml inj SUBQ SCH ×2 (09:17→22:02)
--- NOTE | 2016-08-30 12:19 | Pulmonology Progress Note ---
Assessment/Plan Problems: (1) Asthma exacerbation (2) Purulent bronchitis (3) Generalized weakness (4) Parkinson disease Assessment/Plan improving much less wheezing IV antibiotics check sputum IV steroids neuro evaluation titrate fio2 to sat of 92% dvt prophylaxis. pt stated that she was under hospice care at home Subjective ROS Limited/Unobtainable: No Constitutional: Reports: no symptoms HEENT: Repors: no symptoms Respiratory: Reports: no symptoms Allergies: Coded Allergies: MORPHINE (Verified Allergy, Unknown, 11/07/15) Objective Last 24 Hour Vital Signs Date Time Temp Pulse Resp B/P Pulse Ox O2 Delivery O2 Flow Rate FiO2 08/30/16 08:30 97.0 105 20 125/68 99 Room Air 08/30/16 06:58 Nasal Cannula 2.0 08/30/16 06:57 102 18 Nasal Cannula 2.0 08/30/16 06:57 99 Nasal Cannula 2.0 08/30/16 04:00 97.7 97 18 127/47 96 Nasal Cannula 2.0 08/30/16 00:00 98.2 99 20 157/81 99 Nasal Cannula 2.0 08/29/16 22:30 Nasal Cannula 2.0 28 08/29/16 22:30 99 Nasal Cannula 2.0 28 08/29/16 22:30 99 16 Nasal Cannula 2.0 28 08/29/16 20:00 97.7 101 18 129/70 95 Nasal Cannula 2.0 08/29/16 18:52 98.2 100 20 153/74 95 Nasal Cannula 2.0 08/29/16 16:00 114 08/29/16 15:22 97.2 107 20 144/76 96 Nasal Cannula 2.0 Intake and Output 08/29/16 08/30/16 19:00 07:00 Intake Total 240 ml Balance 240 ml Intake Oral 240 ml # Voids 2 2 General Appearance: WD/WN HEENT: normocephalic, atraumatic Respiratory/Chest: decreased breath sounds, crackles/rales Cardiovascular: normal peripheral pulses Abdomen: normal bowel sounds, soft, non tender, no organomegaly, no scars Extremities: no cyanosis, no clubbing Skin: no rash Microbiology Date/Time Source Procedure Growth Status 08/28/16 13:00 Blood Blood Culture - Preliminary NO GROWTH AFTER 24 HOURS Resulted 08/28/16 12:45 Blood Blood Culture - Preliminary NO GROWTH AFTER 24 HOURS Resulted Current Medications Medications (Trade) Dose Ordered Sig/Isaiah Route PRN Reason Start Time Stop Time Status Last Admin Dose Admin Albuterol/ Ipratropium (DuoNeb 0.5-3(2.5)mg/3ml) 3 ml Q4H PRN HHN dyspnea 08/29/16 19:05 09/03/16 19:04 Atorvastatin Calcium (Lipitor) 20 mg BEDTIME ORAL 08/29/16 21:00 09/28/16 20:59 08/29/16 20:12 Carbidopa/Levodopa (Sinemet 25/100) 1 ea BID@1300,1800 ORAL 08/30/16 13:00 09/29/16 12:59 Carbidopa/Levodopa (Sinemet 25/250) 1 ea ACBREAKFAST ORAL 08/30/16 06:30 09/29/16 06:29 08/30/16 06:22 Dextrose (Dextrose 50%) STAT PRN IV Hypoglycemia 08/29/16 19:05 09/28/16 19:04 Fluoxetine HCl (PROzac) 10 mg DAILY ORAL 08/30/16 09:00 09/29/16 08:59 08/30/16 09:16 Furosemide (Lasix) 20 mg DAILY ORAL 08/30/16 09:00 09/29/16 08:59 08/30/16 09:16 Guaifenesin/ Dextromethorphan (Robitussin DM) 5 ml Q4H PRN ORAL For Cough 08/29/16 19:05 09/28/16 19:04 Heparin Sodium (Porcine) (Heparin 5000 units/ml) 5,000 units EVERY 12 HOURS SUBQ 08/29/16 21:00 09/28/16 20:59 08/30/16 09:17 Ketorolac Tromethamine (Toradol 30mg) 30 mg Q8H PRN IV Moderate Pain (Pain Scale 4-6) 08/29/16 19:05 09/03/16 19:04 Lorazepam (Ativan 2mg/ml 1ml) 0.5 mg Q4H PRN IV Breakthrough anxiety 08/29/16 19:08 09/05/16 19:07 Lorazepam (Ativan) 1 mg THREE TIMES A DAY ORAL 08/29/16 19:30 09/05/16 19:29 08/30/16 09:15 Methylprednisolone Sodium Succinate (Solu-MEDROL) 60 mg EVERY 12 HOURS IV 08/29/16 21:00 09/28/16 20:59 08/30/16 09:15 Nitroglycerin (Ntg) 0.4 mg Q5M X 3 DOSES PRN SL Prn Chest Pain 08/29/16 18:30 09/28/16 18:29 Ondansetron HCl (Zofran) 4 mg Q6H PRN IVP Nausea & Vomiting 08/29/16 19:07 09/28/16 19:06 Piperacillin Sod/ Tazobactam Sod/ Dextrose (Zosyn/D5W) 110 ml @ 27.5 mls/hr EVERY 8 HOURS IVPB 08/29/16 22:00 09/05/16 21:59 08/30/16 06:22 Potassium Chloride (K-Dur) 40 meq TWICE A DAY ORAL 08/29/16 19:30 09/28/16 19:29 08/30/16 09:16 Ropinirole HCl 0.25 mg 0.25 mg THREE TIMES A DAY ORAL 08/30/16 09:00 09/29/16 08:59 08/30/16 09:16 Temazepam (Restoril) 15 mg HSPRN PRN ORAL Insomnia 08/29/16 19:07 09/05/16 19:06 ELLEN RANDALL August 30, 2016 12:19
[2016-08-30 12:49] VITALS: BP 158/83
[2016-08-30] MEDS: Sinemet 25/100 tab ORAL SCH ×2 (12:56→17:32)
[2016-08-30] MEDS ORDERED: Sinemet 25/100 tab ORAL SCH (13:00)
[2016-08-30] MEDS ORDERED: Tubing IV Secondary IV ONE (16:13)
[2016-08-30] MEDS ORDERED: NS 275ml ONE (16:13)
[2016-08-30 16:51] VITALS: BP 148/93
--- NOTE | 2016-08-30 17:37 | Internal Med Progress Note ---
Subjective Date of Service: August 30, 2016 Physician Name Guzman,José Miguel Attending Physician Isaiah Cloud MD Current Medications Medications (Trade) Dose Ordered Sig/Isaiah Route PRN Reason Start Time Stop Time Status Last Admin Dose Admin Albuterol/ Ipratropium (DuoNeb 0.5-3(2.5)mg/3ml) 3 ml Q4H PRN HHN dyspnea 08/29/16 19:05 09/03/16 19:04 Atorvastatin Calcium (Lipitor) 20 mg BEDTIME ORAL 08/29/16 21:00 09/28/16 20:59 08/29/16 20:12 Carbidopa/Levodopa (Sinemet 25/100) 1 ea BID@1300,1800 ORAL 08/30/16 13:00 09/29/16 12:59 08/30/16 12:56 Carbidopa/Levodopa (Sinemet 25/250) 1 ea ACBREAKFAST ORAL 08/30/16 06:30 09/29/16 06:29 08/30/16 06:22 Dextrose (Dextrose 50%) STAT PRN IV Hypoglycemia 08/29/16 19:05 09/28/16 19:04 Fluoxetine HCl (PROzac) 10 mg DAILY ORAL 08/30/16 09:00 09/29/16 08:59 08/30/16 09:16 Furosemide (Lasix) 20 mg DAILY ORAL 08/30/16 09:00 09/29/16 08:59 08/30/16 09:16 Guaifenesin/ Dextromethorphan (Robitussin DM) 5 ml Q4H PRN ORAL For Cough 08/29/16 19:05 09/28/16 19:04 Heparin Sodium (Porcine) (Heparin 5000 units/ml) 5,000 units EVERY 12 HOURS SUBQ 08/29/16 21:00 09/28/16 20:59 08/30/16 09:17 Ketorolac Tromethamine (Toradol 30mg) 30 mg Q8H PRN IV Moderate Pain (Pain Scale 4-6) 08/29/16 19:05 09/03/16 19:04 Lorazepam (Ativan 2mg/ml 1ml) 0.5 mg Q4H PRN IV Breakthrough anxiety 08/29/16 19:08 09/05/16 19:07 Lorazepam (Ativan) 1 mg THREE TIMES A DAY ORAL 08/29/16 19:30 6/2/17 19:29 08/30/16 12:56 Methylprednisolone Sodium Succinate (Solu-MEDROL) 60 mg EVERY 12 HOURS IV 08/29/16 21:00 09/28/16 20:59 08/30/16 09:15 Nitroglycerin (Ntg) 0.4 mg Q5M X 3 DOSES PRN SL Prn Chest Pain 08/29/16 18:30 09/28/16 18:29 Ondansetron HCl (Zofran) 4 mg Q6H PRN IVP Nausea & Vomiting 08/29/16 19:07 09/28/16 19:06 Piperacillin Sod/ Tazobactam Sod/ Dextrose (Zosyn/D5W) 110 ml @ 27.5 mls/hr EVERY 8 HOURS IVPB 08/29/16 22:00 09/05/16 21:59 08/30/16 14:58 Potassium Chloride (K-Dur) 40 meq TWICE A DAY ORAL 08/29/16 19:30 09/28/16 19:29 08/30/16 09:16 Ropinirole HCl 0.25 mg 0.25 mg THREE TIMES A DAY ORAL 08/30/16 09:00 09/29/16 08:59 08/30/16 12:56 Temazepam (Restoril) 15 mg HSPRN PRN ORAL Insomnia 08/29/16 19:07 09/05/16 19:06 Allergies: Coded Allergies: MORPHINE (Verified Allergy, Unknown, 11/07/15) ROS Limited/Unobtainable: No Constitutional: Reports: no symptoms HEENT: Reports: no symptoms Cardiovascular: Reports: no symptoms Respiratory: Reports: shortness of breath Gastrointestinal/Abdominal: Reports: no symptoms Genitourinary: Reports: no symptoms Neurologic/Psychiatric: Reports: tremors Subjective 71 YO F admitted with shortness of breath. Now asthma exacerbation. Cover for Int Geovanni - Dr Cloud. Objective Last Vital Signs Date Time Temp Pulse Resp B/P Pulse Ox O2 Delivery O2 Flow Rate FiO2 08/30/16 16:51 97.7 99 15 148/93 95 Room Air 08/30/16 06:58 2.0 08/29/16 22:30 28 Microbiology Date/Time Source Procedure Growth Status 08/28/16 13:00 Blood Blood Culture - Preliminary NO GROWTH AFTER 24 HOURS Resulted 08/28/16 12:45 Blood Blood Culture - Preliminary NO GROWTH AFTER 24 HOURS Resulted Intake and Output 08/29/16 08/30/16 19:00 07:00 Intake Total 240 ml Balance 240 ml Intake Oral 240 ml # Voids 2 2 Objective General: alert, cooperative, no distress, appears stated age Head: normocephalic, without obvious abnormality, atraumatic Eyes: conjunctivae/corneas clear. PERRL, EOM's intact Throat: lips, mucosa, and tongue normal. MMM Neck: supple, symmetrical, trachea midline, and no JVD Lungs: clear to auscultation bilaterally Heart: regular rate and rhythm, S1, S2 normal, no murmur, click, rub or gallop Abdomen: soft, non-tender, non-distended, bowel sounds normal; no masses or organomegaly Extremities: extremities normal, atraumatic, no cyanosis or edema Pulses: 2+ and symmetric Skin: skin color, texture, turgor normal; no rashes or lesions Neurologic: grossly normal, no focal deficits; resting tremor Assessment/Plan Problem List: (1) Pain in right knee (2) Parkinson disease Assessment & Plan: See neuro note. Increase sinemet. Start requip (3) Asthma exacerbation (4) Purulent bronchitis Assessment & Plan: Cont zosyn (5) HTN (hypertension) Status: progressing JOSÉ MIGUEL GUZMAN August 30, 2016 17:37
[2016-08-30 20:00] VITALS: BP 143/81
[2016-08-30] MEDS: Atorvastatin 20mg tab ORAL SCH (22:04)
[2016-08-31] VITALS (7 sets, daily range): BP systolic 138–163; BP diastolic 66–91
[2016-08-31] MEDS: Piperacillin/Tazobactam 3.375 GM in D5W 110 ML IVPB SCH ×3 (06:16→21:55)
[2016-08-31 09:17] LABS: MEAN CORPUSCULAR HEMOGLOBIN 33.5 PG (27.0-31.0); MEAN CORPUSCULAR HGB CONC 35.2 G/DL (32.0-36.0); MEAN CORPUSCULAR VOLUME 95 FL (80-99); MEAN PLATELET VOLUME 6.9 FL (6.5-10.1); PLATELET COUNT 303 K/UL (150-450); RED BLOOD COUNT 3.84 M/UL (4.20-5.40); RED CELL DISTRIBUTION WIDTH 11.3 % (11.6-14.8); WHITE BLOOD COUNT 10.8 K/UL (4.8-10.8)
[2016-08-31 09:43] LABS: ANION GAP 17 (5-15); CALCIUM 8.9 mg/dL (8.6-10.2); CARBON DIOXIDE 23 mEQ/L (20-30); CHLORIDE 95 mEQ/L (98-107); CREATININE 0.7 mg/dL (0.5-0.9); HEMOLYSIS 17; SODIUM 135 mEQ/L (135-145)
[2016-08-31 09:51] LABS: BAND NEUTROPHILS % (MANUAL) 0 % (0-8); BASOPHILS % (MANUAL) 0 % (0-2); EOSINOPHILS % (MANUAL) 0 % (0-3); LYMPHOCYTES % (MANUAL) 12 % (20-45); NEUTROPHILS % (MANUAL) 87 % (45-75); PLATELET ESTIMATE ADEQUATE; PLATELET MORPHOLOGY NORMAL; TOTAL CELLS COUNTED 100
[2016-08-31] MEDS: FLUoxetine 10mg cap ORAL SCH (09:56)
[2016-08-31] MEDS: rOPINIRole 0.25mg tab ORAL SCH ×3 (09:56→17:48)
[2016-08-31] MEDS: Solu-MEDROL 125mg Inj IV SCH ×2 (09:56→21:55)
[2016-08-31] MEDS: LORazepam 1mg tab ORAL SCH ×3 (09:57→17:47)
[2016-08-31] MEDS: Heparin 5000 units/ml inj SUBQ SCH ×2 (09:58→21:58)
[2016-08-31] MEDS: Sinemet 25/100 tab ORAL SCH ×2 (13:13→17:47)
--- NOTE | 2016-08-31 17:03 | Internal Med Progress Note ---
Subjective Date of Service: August 31, 2016 Physician Name Guzman,José Miguel Attending Physician Isaiah Cloud MD Current Medications Medications (Trade) Dose Ordered Sig/Isaiah Route PRN Reason Start Time Stop Time Status Last Admin Dose Admin Albuterol/ Ipratropium (DuoNeb 0.5-3(2.5)mg/3ml) 3 ml Q4H PRN HHN dyspnea 08/29/16 19:05 09/03/16 19:04 Atorvastatin Calcium (Lipitor) 20 mg BEDTIME ORAL 08/29/16 21:00 09/28/16 20:59 08/30/16 22:04 Carbidopa/Levodopa (Sinemet 25/100) 1 ea BID@1300,1800 ORAL 08/30/16 13:00 09/29/16 12:59 08/31/16 13:13 Carbidopa/Levodopa (Sinemet 25/250) 1 ea ACBREAKFAST ORAL 08/30/16 06:30 09/29/16 06:29 08/31/16 06:16 Dextrose (Dextrose 50%) STAT PRN IV Hypoglycemia 08/29/16 19:05 09/28/16 19:04 Fluoxetine HCl (PROzac) 10 mg DAILY ORAL 08/30/16 09:00 09/29/16 08:59 08/31/16 09:56 Furosemide (Lasix) 20 mg DAILY ORAL 08/30/16 09:00 09/29/16 08:59 08/31/16 09:56 Guaifenesin/ Dextromethorphan (Robitussin DM) 5 ml Q4H PRN ORAL For Cough 08/29/16 19:05 09/28/16 19:04 Heparin Sodium (Porcine) (Heparin 5000 units/ml) 5,000 units EVERY 12 HOURS SUBQ 08/29/16 21:00 09/28/16 20:59 08/31/16 09:58 Ketorolac Tromethamine (Toradol 30mg) 30 mg Q8H PRN IV Moderate Pain (Pain Scale 4-6) 08/29/16 19:05 09/03/16 19:04 Lorazepam (Ativan 2mg/ml 1ml) 0.5 mg Q4H PRN IV Breakthrough anxiety 08/29/16 19:08 09/05/16 19:07 Lorazepam (Ativan) 1 mg THREE TIMES A DAY ORAL 08/29/16 19:30 6/2/17 19:29 08/31/16 13:13 Methylprednisolone Sodium Succinate (Solu-MEDROL) 60 mg EVERY 12 HOURS IV 08/29/16 21:00 09/28/16 20:59 08/31/16 09:56 Nitroglycerin (Ntg) 0.4 mg Q5M X 3 DOSES PRN SL Prn Chest Pain 08/29/16 18:30 09/28/16 18:29 Ondansetron HCl (Zofran) 4 mg Q6H PRN IVP Nausea & Vomiting 08/29/16 19:07 09/28/16 19:06 Piperacillin Sod/ Tazobactam Sod/ Dextrose (Zosyn/D5W) 110 ml @ 27.5 mls/hr EVERY 8 HOURS IVPB 08/29/16 22:00 09/05/16 21:59 08/31/16 14:15 Potassium Chloride (KCl 10% 40mEq Oral solution) 40 meq TWICE A DAY NG 08/31/16 18:00 09/30/16 17:59 Ropinirole HCl 0.25 mg 0.25 mg THREE TIMES A DAY ORAL 08/30/16 09:00 09/29/16 08:59 08/31/16 13:13 Temazepam (Restoril) 15 mg HSPRN PRN ORAL Insomnia 08/29/16 19:07 09/05/16 19:06 Allergies: Coded Allergies: MORPHINE (Verified Allergy, Unknown, 11/07/15) ROS Limited/Unobtainable: No Constitutional: Reports: no symptoms HEENT: Reports: no symptoms Cardiovascular: Reports: no symptoms Respiratory: Reports: cough, shortness of breath Gastrointestinal/Abdominal: Reports: no symptoms Genitourinary: Reports: no symptoms Neurologic/Psychiatric: Reports: no symptoms Subjective 71 YO F admitted with shortness of breath. Now asthma exacerbation. Cover for Int Geovanni - Dr Cloud. Objective Last Vital Signs Date Time Temp Pulse Resp B/P Pulse Ox O2 Delivery O2 Flow Rate FiO2 08/31/16 16:07 97.6 93 20 140/77 96 Nasal Cannula 2.0 08/31/16 07:42 28 Laboratory Tests Test 08/31/16 08:55 White Blood Count 10.8 K/UL (4.8-10.8) Red Blood Count 3.84 M/UL (4.20-5.40) L Hemoglobin 12.9 G/DL (12.0-16.0) Hematocrit 36.5 % (37.0-47.0) L Mean Corpuscular Volume 95 FL (80-99) Mean Corpuscular Hemoglobin 33.5 PG (27.0-31.0) H Mean Corpuscular Hemoglobin Concent 35.2 G/DL (32.0-36.0) Red Cell Distribution Width 11.3 % (11.6-14.8) L Platelet Count 303 K/UL (150-450) Mean Platelet Volume 6.9 FL (6.5-10.1) Neutrophils (%) (Auto) % (45.0-75.0) Lymphocytes (%) (Auto) % (20.0-45.0) Monocytes (%) (Auto) % (1.0-10.0) Eosinophils (%) (Auto) % (0.0-3.0) Basophils (%) (Auto) % (0.0-2.0) Differential Total Cells Counted 100 Neutrophils % (Manual) 87 % (45-75) H Lymphocytes % (Manual) 12 % (20-45) L Monocytes % (Manual) 1 % (1-10) Eosinophils % (Manual) 0 % (0-3) Basophils % (Manual) 0 % (0-2) Band Neutrophils 0 % (0-8) Platelet Estimate Adequate Platelet Morphology Normal Red Blood Cell Morphology Normal Sodium Level 135 mEQ/L (135-145) Potassium Level 4.0 mEQ/L (3.4-4.9) Chloride Level 95 mEQ/L (98-107) L Carbon Dioxide Level 23 mEQ/L (20-30) Anion Gap 17 (5-15) H Blood Urea Nitrogen 26 mg/dL (7-23) H Creatinine 0.7 mg/dL (0.5-0.9) Estimat Glomerular Filtration Rate mL/min (>60) Glucose Level 208 mg/dL (74-106) H Calcium Level 8.9 mg/dL (8.6-10.2) Microbiology Date/Time Source Procedure Growth Status 08/30/16 00:00 Sputum Gram Stain - Final Resulted 08/30/16 00:00 Sputum Sputum Culture - Preliminary NORMAL UPPER RESPIRATORY JANELLE PRESENT Resulted Intake and Output 5/27/17 5/28/17 19:00 07:00 Intake Total 1000 ml 110.0 ml Balance 1000 ml 110.0 ml Intake Oral 1000 ml IV Total 110.0 ml # Voids 50 3 # Bowel Movements 1 Objective General: alert, cooperative, no distress, appears stated age Head: normocephalic, without obvious abnormality, atraumatic Eyes: conjunctivae/corneas clear. PERRL, EOM's intact Throat: lips, mucosa, and tongue normal. MMM Neck: supple, symmetrical, trachea midline, and no JVD Lungs: clear to auscultation bilaterally Heart: regular rate and rhythm, S1, S2 normal, no murmur, click, rub or gallop Abdomen: soft, non-tender, non-distended, bowel sounds normal; no masses or organomegaly Extremities: extremities normal, atraumatic, no cyanosis or edema Pulses: 2+ and symmetric Skin: skin color, texture, turgor normal; no rashes or lesions Neurologic: grossly normal, no focal deficits; resting tremor Assessment/Plan Problem List: (1) Pain in right knee (2) Parkinson disease Assessment & Plan: See neuro note. Increase sinemet. Start requip (3) Asthma exacerbation Assessment & Plan: Continue albuterol nebs prn (4) Purulent bronchitis Assessment & Plan: Cont zosyn (5) HTN (hypertension) JOSÉ MIGUEL GUZMAN August 31, 2016 17:03
[2016-08-31] MEDS: KCl 10% 40mEq/30ml liquid NG SCH (17:47)
--- NOTE | 2016-08-31 18:34 | Pulmonology Progress Note ---
Assessment/Plan Problems: (1) Asthma exacerbation (2) Purulent bronchitis (3) Generalized weakness (4) Parkinson disease Assessment/Plan improving much less wheezing IV antibiotics check sputum IV steroids neuro evaluation titrate fio2 to sat of 92% dvt prophylaxis. pt stated that she was under hospice care at home Subjective ROS Limited/Unobtainable: No Constitutional: Reports: no symptoms HEENT: Repors: no symptoms Allergies: Coded Allergies: MORPHINE (Verified Allergy, Unknown, 11/07/15) Objective Last 24 Hour Vital Signs Date Time Temp Pulse Resp B/P Pulse Ox O2 Delivery O2 Flow Rate FiO2 08/31/16 17:11 99 20 100 Nasal Cannula 2.0 08/31/16 17:02 28 08/31/16 17:02 95 18 96 Nasal Cannula 2.0 08/31/16 16:07 97.6 93 20 140/77 96 Nasal Cannula 2.0 08/31/16 12:17 98.3 95 21 152/89 97 Nasal Cannula 2.0 08/31/16 09:53 90 138/66 08/31/16 08:15 97.6 92 20 160/87 95 Nasal Cannula 2.0 08/31/16 07:42 95 18 Nasal Cannula 2.0 08/31/16 07:42 98 Nasal Cannula 2.0 08/31/16 07:42 Nasal Cannula 2.0 08/31/16 04:00 97.5 87 20 157/91 98 Nasal Cannula 2.0 08/31/16 00:00 97.0 85 20 163/88 99 Nasal Cannula 2.0 08/30/16 20:00 98.1 93 20 143/81 99 Nasal Cannula 2.0 Intake and Output 08/30/16 08/31/16 19:00 07:00 Intake Total 1000 ml 110.0 ml Balance 1000 ml 110.0 ml Intake Oral 1000 ml IV Total 110.0 ml # Voids 50 3 # Bowel Movements 1 General Appearance: cachetic HEENT: normocephalic, atraumatic Respiratory/Chest: chest wall non-tender, crackles/rales Cardiovascular: normal peripheral pulses Abdomen: normal bowel sounds, soft, non tender Extremities: no cyanosis Skin: no rash 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 Microbiology Date/Time Source Procedure Growth Status 08/30/16 00:00 Sputum Gram Stain - Final Resulted 08/30/16 00:00 Sputum Sputum Culture - Preliminary NORMAL UPPER RESPIRATORY JANELLE PRESENT Resulted Laboratory Tests 08/31/16 08:55: White Blood Count 10.8, Red Blood Count 3.84L, Hemoglobin 12.9, Hematocrit 36.5L , Mean Corpuscular Volume 95, Mean Corpuscular Hemoglobin 33.5H, Mean Corpuscular Hemoglobin Concent 35.2, Red Cell Distribution Width 11.3L, Platelet Count 303, Mean Platelet Volume 6.9, Neutrophils (%) (Auto) , Lymphocytes (%) (Auto) , Monocytes (%) (Auto) , Eosinophils (%) (Auto) , Basophils (%) (Auto) , Differential Total Cells Counted 100, Neutrophils % ( Manual) 87H, Lymphocytes % (Manual) 12L, Monocytes % (Manual) 1, Eosinophils % ( Manual) 0, Basophils % (Manual) 0, Band Neutrophils 0, Platelet Estimate Adequate, Platelet Morphology Normal, Red Blood Cell Morphology Normal, Sodium Level 135, Potassium Level 4.0, Chloride Level 95L, Carbon Dioxide Level 23, Anion Gap 17H, Blood Urea Nitrogen 26H, Creatinine 0.7, Estimat Glomerular Filtration Rate , Glucose Level 208H, Calcium Level 8.9 Current Medications Medications (Trade) Dose Ordered Sig/Isaiah Route PRN Reason Start Time Stop Time Status Last Admin Dose Admin Albuterol/ Ipratropium (DuoNeb 0.5-3(2.5)mg/3ml) 3 ml Q4H PRN HHN dyspnea 08/29/16 19:05 09/03/16 19:04 08/31/16 17:02 Atorvastatin Calcium (Lipitor) 20 mg BEDTIME ORAL 08/29/16 21:00 09/28/16 20:59 08/30/16 22:04 Carbidopa/Levodopa (Sinemet 25/100) 1 ea BID@1300,1800 ORAL 08/30/16 13:00 09/29/16 12:59 08/31/16 17:47 Carbidopa/Levodopa (Sinemet 25/250) 1 ea ACBREAKFAST ORAL 08/30/16 06:30 09/29/16 06:29 08/31/16 06:16 Dextrose (Dextrose 50%) STAT PRN IV Hypoglycemia 08/29/16 19:05 09/28/16 19:04 Fluoxetine HCl (PROzac) 10 mg DAILY ORAL 08/30/16 09:00 09/29/16 08:59 08/31/16 09:56 Furosemide (Lasix) 20 mg DAILY ORAL 08/30/16 09:00 09/29/16 08:59 08/31/16 09:56 Guaifenesin/ Dextromethorphan (Robitussin DM) 5 ml Q4H PRN ORAL For Cough 08/29/16 19:05 09/28/16 19:04 08/31/16 17:01 Heparin Sodium (Porcine) (Heparin 5000 units/ml) 5,000 units EVERY 12 HOURS SUBQ 08/29/16 21:00 09/28/16 20:59 08/31/16 09:58 Ketorolac Tromethamine (Toradol 30mg) 30 mg Q8H PRN IV Moderate Pain (Pain Scale 4-6) 08/29/16 19:05 09/03/16 19:04 Lorazepam (Ativan 2mg/ml 1ml) 0.5 mg Q4H PRN IV Breakthrough anxiety 08/29/16 19:08 09/05/16 19:07 Lorazepam (Ativan) 1 mg THREE TIMES A DAY ORAL 08/29/16 19:30 09/05/16 19:29 08/31/16 17:47 Methylprednisolone Sodium Succinate (Solu-MEDROL) 60 mg EVERY 12 HOURS IV 08/29/16 21:00 09/28/16 20:59 08/31/16 09:56 Nitroglycerin (Ntg) 0.4 mg Q5M X 3 DOSES PRN SL Prn Chest Pain 08/29/16 18:30 09/28/16 18:29 Ondansetron HCl (Zofran) 4 mg Q6H PRN IVP Nausea & Vomiting 08/29/16 19:07 09/28/16 19:06 Piperacillin Sod/ Tazobactam Sod/ Dextrose (Zosyn/D5W) 110 ml @ 27.5 mls/hr EVERY 8 HOURS IVPB 08/29/16 22:00 09/05/16 21:59 08/31/16 14:15 Potassium Chloride (KCl 10% 40mEq Oral solution) 40 meq TWICE A DAY NG 08/31/16 18:00 09/30/16 17:59 08/31/16 17:47 Ropinirole HCl 0.25 mg 0.25 mg THREE TIMES A DAY ORAL 08/30/16 09:00 09/29/16 08:59 08/31/16 17:48 Temazepam (Restoril) 15 mg HSPRN PRN ORAL Insomnia 08/29/16 19:07 09/05/16 19:06 ELLEN RANDALL August 31, 2016 18:34
[2016-08-31] MEDS: Atorvastatin 20mg tab ORAL SCH (21:56)
[2016-09-01] VITALS: BP 159/87
[2016-09-01 04:00] VITALS: BP 139/88
[2016-09-01 06:17] LABS: MEAN CORPUSCULAR HEMOGLOBIN 32.4 PG (27.0-31.0); MEAN CORPUSCULAR HGB CONC 34.2 G/DL (32.0-36.0); MEAN CORPUSCULAR VOLUME 95 FL (80-99); PLATELET COUNT 319 K/UL (150-450); RED BLOOD COUNT 4.06 M/UL (4.20-5.40); RED CELL DISTRIBUTION WIDTH 11.4 % (11.6-14.8); WHITE BLOOD COUNT 10.4 K/UL (4.8-10.8)
[2016-09-01] MEDS: Piperacillin/Tazobactam 3.375 GM in D5W 110 ML IVPB SCH ×3 (06:19→21:13)
[2016-09-01 06:36] LABS: ANION GAP 15 (5-15); CALCIUM 9.1 mg/dL (8.6-10.2); CARBON DIOXIDE 26 mEQ/L (20-30); CHLORIDE 94 mEQ/L (98-107); CREATININE 0.9 mg/dL (0.5-0.9); HEMOLYSIS 5; POTASSIUM 4.3 mEQ/L (3.4-4.9); SODIUM 135 mEQ/L (135-145)
[2016-09-01 08:00] VITALS: BP 143/70
[2016-09-01] MEDS: rOPINIRole 0.25mg tab ORAL SCH ×3 (08:47→17:54)
[2016-09-01] MEDS: KCl 10% 40mEq/30ml liquid NG SCH ×2 (08:47→17:54)
[2016-09-01] MEDS: FLUoxetine 10mg cap ORAL SCH (08:47)
[2016-09-01] MEDS: LORazepam 1mg tab ORAL SCH ×3 (08:48→17:54)
[2016-09-01] MEDS: Solu-MEDROL 125mg Inj IV SCH ×2 (08:49→21:13)
[2016-09-01] MEDS: Heparin 5000 units/ml inj SUBQ SCH ×2 (08:52→21:12)
[2016-09-01] MEDS: Sinemet 25/100 tab ORAL SCH ×2 (12:03→17:54)
[2016-09-01 12:33] VITALS: BP 143/79
[2016-09-01 16:27] VITALS: BP 154/97
--- NOTE | 2016-09-01 17:02 | Internal Med Progress Note ---
Subjective Date of Service: September 01, 2016 Physician Name José Miguel Guzman Attending Physician Isaiah Cloud MD Current Medications Medications (Trade) Dose Ordered Sig/Isaiah Route PRN Reason Start Time Stop Time Status Last Admin Dose Admin Albuterol/ Ipratropium (DuoNeb 0.5-3(2.5)mg/3ml) 3 ml Q4H PRN HHN dyspnea 08/29/16 19:05 09/03/16 19:04 08/31/16 17:02 Atorvastatin Calcium (Lipitor) 20 mg BEDTIME ORAL 08/29/16 21:00 09/28/16 20:59 08/31/16 21:56 Bisacodyl (Dulcolax) 10 mg DAILYPRN PRN RECTAL Constipation 09/01/16 11:45 10/01/16 11:44 09/01/16 12:03 Carbidopa/Levodopa (Sinemet 25/100) 1 ea BID@1300,1800 ORAL 08/30/16 13:00 09/29/16 12:59 09/01/16 12:03 Carbidopa/Levodopa (Sinemet 25/250) 1 ea ACBREAKFAST ORAL 08/30/16 06:30 09/29/16 06:29 09/01/16 06:19 Dextrose (Dextrose 50%) STAT PRN IV Hypoglycemia 08/29/16 19:05 09/28/16 19:04 Fluoxetine HCl (PROzac) 10 mg DAILY ORAL 08/30/16 09:00 09/29/16 08:59 09/01/16 08:47 Furosemide (Lasix) 20 mg DAILY ORAL 08/30/16 09:00 09/29/16 08:59 09/01/16 08:47 Guaifenesin/ Dextromethorphan (Robitussin DM) 5 ml Q4H PRN ORAL For Cough 08/29/16 19:05 09/28/16 19:04 08/31/16 17:01 Heparin Sodium (Porcine) (Heparin 5000 units/ml) 5,000 units EVERY 12 HOURS SUBQ 08/29/16 21:00 09/28/16 20:59 09/01/16 08:52 Ketorolac Tromethamine (Toradol 30mg) 30 mg Q8H PRN IV Moderate Pain (Pain Scale 4-6) 08/29/16 19:05 09/03/16 19:04 Lorazepam (Ativan 2mg/ml 1ml) 0.5 mg Q4H PRN IV Breakthrough anxiety 08/29/16 19:08 09/05/16 19:07 Lorazepam (Ativan) 1 mg THREE TIMES A DAY ORAL 08/29/16 19:30 09/05/16 19:29 09/01/16 12:03 Methylprednisolone Sodium Succinate (Solu-MEDROL) 60 mg EVERY 12 HOURS IV 08/29/16 21:00 09/28/16 20:59 09/01/16 08:49 Nitroglycerin (Ntg) 0.4 mg Q5M X 3 DOSES PRN SL Prn Chest Pain 08/29/16 18:30 09/28/16 18:29 Ondansetron HCl (Zofran) 4 mg Q6H PRN IVP Nausea & Vomiting 08/29/16 19:07 09/28/16 19:06 Piperacillin Sod/ Tazobactam Sod/ Dextrose (Zosyn/D5W) 110 ml @ 27.5 mls/hr EVERY 8 HOURS IVPB 08/29/16 22:00 09/05/16 21:59 09/01/16 14:04 Potassium Chloride (KCl 10% 40mEq Oral solution) 40 meq TWICE A DAY NG 08/31/16 18:00 09/30/16 17:59 09/01/16 08:47 Ropinirole HCl 0.25 mg 0.25 mg THREE TIMES A DAY ORAL 08/30/16 09:00 09/29/16 08:59 09/01/16 12:03 Temazepam (Restoril) 15 mg HSPRN PRN ORAL Insomnia 08/29/16 19:07 09/05/16 19:06 Allergies: Coded Allergies: MORPHINE (Verified Allergy, Unknown, 11/07/15) ROS Limited/Unobtainable: No Constitutional: Reports: no symptoms HEENT: Reports: no symptoms Cardiovascular: Reports: no symptoms Respiratory: Reports: cough, shortness of breath Gastrointestinal/Abdominal: Reports: no symptoms Genitourinary: Reports: no symptoms Neurologic/Psychiatric: Reports: no symptoms Subjective 71 YO F admitted with shortness of breath. Now asthma exacerbation. Cover for Riley Galarza - Dr Cloud. Objective Last Vital Signs Date Time Temp Pulse Resp B/P Pulse Ox O2 Delivery O2 Flow Rate FiO2 09/01/16 16:27 96.9 99 20 154/97 96 Nasal Cannula 2.0 09/01/16 07:42 28 Laboratory Tests Test 09/01/16 05:25 White Blood Count 10.4 K/UL (4.8-10.8) Red Blood Count 4.06 M/UL (4.20-5.40) L Hemoglobin 13.2 G/DL (12.0-16.0) Hematocrit 38.4 % (37.0-47.0) Mean Corpuscular Volume 95 FL (80-99) Mean Corpuscular Hemoglobin 32.4 PG (27.0-31.0) H Mean Corpuscular Hemoglobin Concent 34.2 G/DL (32.0-36.0) Red Cell Distribution Width 11.4 % (11.6-14.8) L Platelet Count 319 K/UL (150-450) Mean Platelet Volume 7.0 FL (6.5-10.1) Neutrophils (%) (Auto) % (45.0-75.0) Lymphocytes (%) (Auto) % (20.0-45.0) Monocytes (%) (Auto) % (1.0-10.0) Eosinophils (%) (Auto) % (0.0-3.0) Basophils (%) (Auto) % (0.0-2.0) Sodium Level 135 mEQ/L (135-145) Potassium Level 4.3 mEQ/L (3.4-4.9) Chloride Level 94 mEQ/L (98-107) L Carbon Dioxide Level 26 mEQ/L (20-30) Anion Gap 15 (5-15) Blood Urea Nitrogen 24 mg/dL (7-23) H Creatinine 0.9 mg/dL (0.5-0.9) Estimat Glomerular Filtration Rate mL/min (>60) Glucose Level 152 mg/dL (74-106) H Calcium Level 9.1 mg/dL (8.6-10.2) Microbiology Date/Time Source Procedure Growth Status 08/30/16 00:00 Sputum Gram Stain - Final Resulted 08/30/16 00:00 Sputum Sputum Culture - Preliminary Resulted Intake and Output 08/31/16 09/01/16 19:00 07:00 Intake Total 747.5 ml 137.5 ml Balance 747.5 ml 137.5 ml Intake Oral 720 ml IV Total 27.5 ml 137.5 ml # Voids 6 Objective General: alert, cooperative, no distress, appears stated age Head: normocephalic, without obvious abnormality, atraumatic Eyes: conjunctivae/corneas clear. PERRL, EOM's intact Throat: lips, mucosa, and tongue normal. MMM Neck: supple, symmetrical, trachea midline, and no JVD Lungs: clear to auscultation bilaterally Heart: regular rate and rhythm, S1, S2 normal, no murmur, click, rub or gallop Abdomen: soft, non-tender, non-distended, bowel sounds normal; no masses or organomegaly Extremities: extremities normal, atraumatic, no cyanosis or edema Pulses: 2+ and symmetric Skin: skin color, texture, turgor normal; no rashes or lesions Neurologic: grossly normal, no focal deficits; resting tremor Assessment/Plan Problem List: (1) Pain in right knee (2) Parkinson disease Assessment & Plan: See neuro note. Increase sinemet. Start requip (3) Asthma exacerbation Assessment & Plan: Continue albuterol nebs prn (4) Purulent bronchitis Assessment & Plan: Cont zosyn (5) HTN (hypertension) Status: progressing JOSÉ MIGUEL GUZMAN September 01, 2016 17:02
[2016-09-01 18:49] LABS: ANION GAP 18 (5-15); CALCIUM 9.2 mg/dL (8.6-10.2); CARBON DIOXIDE 25 mEQ/L (20-30); CHLORIDE 89 mEQ/L (98-107); CREATININE 1.1 mg/dL (0.5-0.9); HEMOLYSIS 5; POTASSIUM 3.9 mEQ/L (3.4-4.9); SODIUM 132 mEQ/L (135-145)
[2016-09-01 20:00] VITALS: BP 149/79
[2016-09-01] MEDS: Atorvastatin 20mg tab ORAL SCH (21:13)
--- NOTE | 2016-09-01 22:42 | Pulmonology Progress Note ---
Assessment/Plan Problems: (1) Asthma exacerbation (2) Purulent bronchitis (3) Generalized weakness (4) Parkinson disease Assessment/Plan improving slowly much less wheezing IV antibiotics check sputum taper steroids neuro evaluation titrate fio2 to sat of 92% dvt prophylaxis. 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 Subjective ROS Limited/Unobtainable: No Interval Events: improving slowly Allergies: Coded Allergies: MORPHINE (Verified Allergy, Unknown, 11/07/15) Objective Last 24 Hour Vital Signs Date Time Temp Pulse Resp B/P Pulse Ox O2 Delivery O2 Flow Rate FiO2 09/01/16 20:00 97.2 96 16 149/79 94 Room Air 09/01/16 19:43 Nasal Cannula 2.0 09/01/16 19:43 97 Nasal Cannula 2.0 09/01/16 19:42 90 16 Nasal Cannula 2.0 09/01/16 16:27 96.9 99 20 154/97 96 Nasal Cannula 2.0 09/01/16 12:33 98.4 100 22 143/79 97 Nasal Cannula 2.0 09/01/16 08:00 97.9 107 20 143/70 95 Nasal Cannula 2.0 09/01/16 07:42 Nasal Cannula 2.0 09/01/16 07:42 97 Nasal Cannula 2.0 09/01/16 07:42 91 16 Nasal Cannula 2.0 09/01/16 04:00 97.7 97 20 139/88 98 Nasal Cannula 2.0 09/01/16 00:00 97.0 89 20 159/87 95 Room Air Intake and Output 08/31/16 09/01/16 19:00 07:00 Intake Total 747.5 ml 137.5 ml Balance 747.5 ml 137.5 ml Intake Oral 720 ml IV Total 27.5 ml 137.5 ml # Voids 6 General Appearance: cachetic HEENT: normocephalic, atraumatic Respiratory/Chest: decreased breath sounds, crackles/rales Cardiovascular: normal peripheral pulses, normal rate Abdomen: normal bowel sounds, soft, non tender, no organomegaly Extremities: no cyanosis Skin: no rash Microbiology Date/Time Source Procedure Growth Status 08/30/16 00:00 Sputum Gram Stain - Final Resulted 08/30/16 00:00 Sputum Sputum Culture - Preliminary Resulted Laboratory Tests 09/01/16 05:25: White Blood Count 10.4, Red Blood Count 4.06L, Hemoglobin 13.2, Hematocrit 38.4 , Mean Corpuscular Volume 95, Mean Corpuscular Hemoglobin 32.4H, Mean Corpuscular Hemoglobin Concent 34.2, Red Cell Distribution Width 11.4L, Platelet Count 319, Mean Platelet Volume 7.0, Neutrophils (%) (Auto) , Lymphocytes (%) (Auto) , Monocytes (%) (Auto) , Eosinophils (%) (Auto) , Basophils (%) (Auto) , Sodium Level 135, Potassium Level 4.3, Chloride Level 94L , Carbon Dioxide Level 26, Anion Gap 15, Blood Urea Nitrogen 24H, Creatinine 0.9 , Estimat Glomerular Filtration Rate , Glucose Level 152H, Calcium Level 9.1 09/01/16 17:45: Sodium Level 132L, Potassium Level 3.9, Chloride Level 89L, Carbon Dioxide Level 25, Anion Gap 18H, Blood Urea Nitrogen 26H, Creatinine 1.1H, Estimat Glomerular Filtration Rate , Glucose Level 163H, Calcium Level 9.2 Current Medications Medications (Trade) Dose Ordered Sig/Isaiah Route PRN Reason Start Time Stop Time Status Last Admin Dose Admin Albuterol/ Ipratropium (DuoNeb 0.5-3(2.5)mg/3ml) 3 ml Q4H PRN HHN dyspnea 08/29/16 19:05 09/03/16 19:04 08/31/16 17:02 Atorvastatin Calcium (Lipitor) 20 mg BEDTIME ORAL 08/29/16 21:00 09/28/16 20:59 09/01/16 21:13 Bisacodyl (Dulcolax) 10 mg DAILYPRN PRN RECTAL Constipation 09/01/16 11:45 10/01/16 11:44 09/01/16 12:03 Carbidopa/Levodopa (Sinemet 25/100) 1 ea BID@1300,1800 ORAL 08/30/16 13:00 09/29/16 12:59 09/01/16 17:54 Carbidopa/Levodopa (Sinemet 25/250) 1 ea ACBREAKFAST ORAL 08/30/16 06:30 09/29/16 06:29 09/01/16 06:19 Dextrose (Dextrose 50%) STAT PRN IV Hypoglycemia 08/29/16 19:05 09/28/16 19:04 Fluoxetine HCl (PROzac) 10 mg DAILY ORAL 08/30/16 09:00 09/29/16 08:59 09/01/16 08:47 Furosemide (Lasix) 20 mg DAILY ORAL 08/30/16 09:00 09/29/16 08:59 09/01/16 08:47 Guaifenesin/ Dextromethorphan (Robitussin DM) 5 ml Q4H PRN ORAL For Cough 08/29/16 19:05 09/28/16 19:04 08/31/16 17:01 Heparin Sodium (Porcine) (Heparin 5000 units/ml) 5,000 units EVERY 12 HOURS SUBQ 08/29/16 21:00 09/28/16 20:59 09/01/16 21:12 Ketorolac Tromethamine (Toradol 30mg) 30 mg Q8H PRN IV Moderate Pain (Pain Scale 4-6) 08/29/16 19:05 09/03/16 19:04 Lorazepam (Ativan 2mg/ml 1ml) 0.5 mg Q4H PRN IV Breakthrough anxiety 08/29/16 19:08 09/05/16 19:07 Lorazepam (Ativan) 1 mg THREE TIMES A DAY ORAL 08/29/16 19:30 09/05/16 19:29 09/01/16 17:54 Methylprednisolone Sodium Succinate (Solu-MEDROL) 60 mg EVERY 12 HOURS IV 08/29/16 21:00 09/28/16 20:59 09/01/16 21:13 Nitroglycerin (Ntg) 0.4 mg Q5M X 3 DOSES PRN SL Prn Chest Pain 08/29/16 18:30 09/28/16 18:29 Ondansetron HCl (Zofran) 4 mg Q6H PRN IVP Nausea & Vomiting 08/29/16 19:07 09/28/16 19:06 Piperacillin Sod/ Tazobactam Sod/ Dextrose (Zosyn/D5W) 110 ml @ 27.5 mls/hr EVERY 8 HOURS IVPB 08/29/16 22:00 09/05/16 21:59 09/01/16 21:13 Potassium Chloride (KCl 10% 40mEq Oral solution) 40 meq TWICE A DAY NG 08/31/16 18:00 09/30/16 17:59 09/01/16 17:54 Ropinirole HCl 0.25 mg 0.25 mg THREE TIMES A DAY ORAL 08/30/16 09:00 09/29/16 08:59 09/01/16 17:54 Temazepam (Restoril) 15 mg HSPRN PRN ORAL Insomnia 08/29/16 19:07 09/05/16 19:06 ELLEN RANDALL September 01, 2016 22:42
[2016-09-02] VITALS (8 sets, daily range): BP systolic 124–175; BP diastolic 69–95
[2016-09-02] MEDS: Piperacillin/Tazobactam 3.375 GM in D5W 110 ML IVPB SCH ×3 (05:57→22:32)
[2016-09-02 06:53] LABS: MEAN CORPUSCULAR HEMOGLOBIN 32.2 PG (27.0-31.0); MEAN CORPUSCULAR HGB CONC 34.2 G/DL (32.0-36.0); MEAN CORPUSCULAR VOLUME 94 FL (80-99); MEAN PLATELET VOLUME 6.9 FL (6.5-10.1); PLATELET COUNT 320 K/UL (150-450); RED BLOOD COUNT 4.14 M/UL (4.20-5.40); RED CELL DISTRIBUTION WIDTH 11.4 % (11.6-14.8); WHITE BLOOD COUNT 10.4 K/UL (4.8-10.8)
[2016-09-02 07:13] LABS: ANION GAP 14 (5-15); CALCIUM 8.9 mg/dL (8.6-10.2); CARBON DIOXIDE 25 mEQ/L (20-30); CHLORIDE 96 mEQ/L (98-107); CREATININE 0.9 mg/dL (0.5-0.9); HEMOLYSIS 4; POTASSIUM 4.4 mEQ/L (3.4-4.9); SODIUM 135 mEQ/L (135-145)
[2016-09-02] MEDS: Solu-MEDROL 125mg Inj IV SCH ×2 (08:49→21:20)
[2016-09-02] MEDS: rOPINIRole 0.25mg tab ORAL SCH ×3 (08:49→17:22)
[2016-09-02] MEDS: FLUoxetine 10mg cap ORAL SCH (08:49)
[2016-09-02] MEDS: LORazepam 1mg tab ORAL SCH ×3 (08:49→17:22)
[2016-09-02] MEDS: KCl 10% 40mEq/30ml liquid NG SCH ×2 (08:49→17:22)
[2016-09-02] MEDS: Heparin 5000 units/ml inj SUBQ SCH ×2 (08:50→21:19)
[2016-09-02 09:19] LABS: BAND NEUTROPHILS % (MANUAL) 0 % (0-8); BASOPHILS % (MANUAL) 0 % (0-2); EOSINOPHILS % (MANUAL) 0 % (0-3); LYMPHOCYTES % (MANUAL) 13 % (20-45); NEUTROPHILS % (MANUAL) 85 % (45-75); PLATELET ESTIMATE ADEQUATE; PLATELET MORPHOLOGY NORMAL; TOTAL CELLS COUNTED 100
[2016-09-02] MEDS: Sinemet 25/100 tab ORAL SCH ×2 (13:33→17:22)
[2016-09-02] MEDS ORDERED: PREDNISONE10 M2 PO (15:41)
--- NOTE | 2016-09-02 15:45 | Pulmonology Progress Note ---
Assessment/Plan Problems: (1) Asthma exacerbation (2) Purulent bronchitis (3) Generalized weakness (4) Parkinson disease Assessment/Plan improving slowly much less wheezing IV antibiotics sputum shows only teresa, titrate fio2 to sat of 92% dvt prophylaxis. 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 Subjective ROS Limited/Unobtainable: No Constitutional: Reports: no symptoms HEENT: Repors: no symptoms Allergies: Coded Allergies: MORPHINE (Verified Allergy, Unknown, 11/07/15) Objective Last 24 Hour Vital Signs Date Time Temp Pulse Resp B/P Pulse Ox O2 Delivery O2 Flow Rate FiO2 09/02/16 12:36 97.3 91 18 145/80 96 Room Air 09/02/16 08:35 97.5 94 17 136/75 96 Room Air 09/02/16 07:40 Nasal Cannula 2.0 09/02/16 07:40 100 16 Nasal Cannula 2.0 09/02/16 07:40 98 Nasal Cannula 2.0 09/02/16 04:30 146/85 09/02/16 04:00 97.6 82 19 169/82 95 Room Air 09/02/16 01:00 155/94 09/02/16 00:00 97.3 93 17 175/95 96 Room Air 09/01/16 20:00 97.2 96 16 149/79 94 Room Air 09/01/16 19:43 Nasal Cannula 2.0 09/01/16 19:43 97 Nasal Cannula 2.0 09/01/16 19:42 90 16 Nasal Cannula 2.0 09/01/16 16:27 96.9 99 20 154/97 96 Nasal Cannula 2.0 Intake and Output 09/01/16 09/02/16 19:00 07:00 Intake Total 912.5 ml 110.0 ml Balance 912.5 ml 110.0 ml Intake Oral 720 ml IV Total 192.5 ml 110.0 ml # Voids 6 2 General Appearance: cachetic Respiratory/Chest: chest wall non-tender, decreased breath sounds, crackles/ rales Cardiovascular: normal peripheral pulses, normal rate Abdomen: normal bowel sounds, soft, non tender Extremities: no cyanosis 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 Lymphatic: no neck adenopathy Laboratory Tests 09/01/16 17:45: Sodium Level 132L, Potassium Level 3.9, Chloride Level 89L, Carbon Dioxide Level 25, Anion Gap 18H, Blood Urea Nitrogen 26H, Creatinine 1.1H, Estimat Glomerular Filtration Rate , Glucose Level 163H, Calcium Level 9.2 09/02/16 05:40: Sodium Level 135, Potassium Level 4.4, Chloride Level 96L, Carbon Dioxide Level 25, Anion Gap 14, Blood Urea Nitrogen 32H, Creatinine 0.9, Estimat Glomerular Filtration Rate , Glucose Level 148H, Calcium Level 8.9, White Blood Count 10.4 , Red Blood Count 4.14L, Hemoglobin 13.3, Hematocrit 39.0, Mean Corpuscular Volume 94, Mean Corpuscular Hemoglobin 32.2H, Mean Corpuscular Hemoglobin Concent 34.2, Red Cell Distribution Width 11.4L, Platelet Count 320, Mean Platelet Volume 6.9, Neutrophils (%) (Auto) , Lymphocytes (%) (Auto) , Monocytes (%) (Auto) , Eosinophils (%) (Auto) , Basophils (%) (Auto) , Differential Total Cells Counted 100, Neutrophils % (Manual) 85H, Lymphocytes % (Manual) 13L, Monocytes % (Manual) 2, Eosinophils % (Manual) 0, Basophils % ( Manual) 0, Band Neutrophils 0, Platelet Estimate Adequate, Platelet Morphology Normal, Red Blood Cell Morphology Normal Current Medications Medications (Trade) Dose Ordered Sig/Isaiah Route PRN Reason Start Time Stop Time Status Last Admin Dose Admin Albuterol/ Ipratropium (DuoNeb 0.5-3(2.5)mg/3ml) 3 ml Q4H PRN HHN dyspnea 08/29/16 19:05 09/03/16 19:04 08/31/16 17:02 Atorvastatin Calcium (Lipitor) 20 mg BEDTIME ORAL 08/29/16 21:00 09/28/16 20:59 09/01/16 21:13 Bisacodyl (Dulcolax) 10 mg DAILYPRN PRN RECTAL Constipation 09/01/16 11:45 10/01/16 11:44 09/02/16 08:49 Carbidopa/ Levodopa 1 ea 1 ea ACBREAKFAST ORAL 08/30/16 06:30 09/29/16 06:29 09/02/16 05:57 Carbidopa/Levodopa (Sinemet 25/100) 1 ea BID@1300,1800 ORAL 08/30/16 13:00 09/29/16 12:59 09/02/16 13:33 Clonidine HCl (Catapres) 0.1 mg Q4H PRN ORAL SBP>160mmHg 09/02/16 07:15 10/02/16 07:14 Dextrose (Dextrose 50%) STAT PRN IV Hypoglycemia 08/29/16 19:05 09/28/16 19:04 Fluoxetine HCl (PROzac) 10 mg DAILY ORAL 08/30/16 09:00 09/29/16 08:59 09/02/16 08:49 Furosemide (Lasix) 20 mg DAILY ORAL 08/30/16 09:00 09/29/16 08:59 09/02/16 08:49 Guaifenesin/ Dextromethorphan (Robitussin DM) 5 ml Q4H PRN ORAL For Cough 08/29/16 19:05 09/28/16 19:04 08/31/16 17:01 Heparin Sodium (Porcine) (Heparin 5000 units/ml) 5,000 units EVERY 12 HOURS SUBQ 08/29/16 21:00 09/28/16 20:59 09/02/16 08:50 Ketorolac Tromethamine (Toradol 30mg) 30 mg Q8H PRN IV Moderate Pain (Pain Scale 4-6) 08/29/16 19:05 09/03/16 19:04 09/02/16 04:07 Lorazepam (Ativan 2mg/ml 1ml) 0.5 mg Q4H PRN IV Breakthrough anxiety 08/29/16 19:08 09/05/16 19:07 Lorazepam (Ativan) 1 mg THREE TIMES A DAY ORAL 08/29/16 19:30 09/05/16 19:29 09/02/16 13:33 Methylprednisolone Sodium Succinate (Solu-MEDROL) 60 mg EVERY 12 HOURS IV 08/29/16 21:00 09/28/16 20:59 09/02/16 08:49 Nitroglycerin (Ntg) 0.4 mg Q5M X 3 DOSES PRN SL Prn Chest Pain 08/29/16 18:30 09/28/16 18:29 Ondansetron HCl (Zofran) 4 mg Q6H PRN IVP Nausea & Vomiting 08/29/16 19:07 09/28/16 19:06 Piperacillin Sod/ Tazobactam Sod/ Dextrose (Zosyn/D5W) 110 ml @ 27.5 mls/hr EVERY 8 HOURS IVPB 08/29/16 22:00 09/05/16 21:59 09/02/16 13:34 Potassium Chloride (KCl 10% 40mEq Oral solution) 40 meq TWICE A DAY NG 08/31/16 18:00 09/30/16 17:59 09/02/16 08:49 Ropinirole HCl (Requip) 0.25 mg THREE TIMES A DAY ORAL 09/02/16 14:00 09/29/16 08:59 09/02/16 13:33 Temazepam (Restoril) 15 mg HSPRN PRN ORAL Insomnia 08/29/16 19:07 09/05/16 19:06 ELLEN RANDALL September 02, 2016 15:45
--- NOTE | 2016-09-02 19:18 | Internal Med Progress Note ---
Subjective Date of Service: September 02, 2016 Physician Name Franky Guzman Attending Physician Isaiah Cloud MD Current Medications Medications (Trade) Dose Ordered Sig/Isaiah Route PRN Reason Start Time Stop Time Status Last Admin Dose Admin Albuterol/ Ipratropium (DuoNeb 0.5-3(2.5)mg/3ml) 3 ml Q4H PRN HHN dyspnea 08/29/16 19:05 09/03/16 19:04 08/31/16 17:02 Atorvastatin Calcium (Lipitor) 20 mg BEDTIME ORAL 08/29/16 21:00 09/28/16 20:59 09/01/16 21:13 Bisacodyl (Dulcolax) 10 mg DAILYPRN PRN RECTAL Constipation 09/01/16 11:45 10/01/16 11:44 09/02/16 08:49 Carbidopa/ Levodopa 1 ea 1 ea ACBREAKFAST ORAL 08/30/16 06:30 09/29/16 06:29 09/02/16 05:57 Carbidopa/Levodopa (Sinemet 25/100) 1 ea BID@1300,1800 ORAL 08/30/16 13:00 09/29/16 12:59 09/02/16 17:22 Clonidine HCl (Catapres) 0.1 mg Q4H PRN ORAL SBP>160mmHg 09/02/16 07:15 10/02/16 07:14 Dextrose (Dextrose 50%) STAT PRN IV Hypoglycemia 08/29/16 19:05 09/28/16 19:04 Fluoxetine HCl (PROzac) 10 mg DAILY ORAL 08/30/16 09:00 09/29/16 08:59 09/02/16 08:49 Furosemide (Lasix) 20 mg DAILY ORAL 08/30/16 09:00 09/29/16 08:59 09/02/16 08:49 Guaifenesin/ Dextromethorphan (Robitussin DM) 5 ml Q4H PRN ORAL For Cough 08/29/16 19:05 09/28/16 19:04 08/31/16 17:01 Heparin Sodium (Porcine) (Heparin 5000 units/ml) 5,000 units EVERY 12 HOURS SUBQ 08/29/16 21:00 09/28/16 20:59 09/02/16 08:50 Ketorolac Tromethamine (Toradol 30mg) 30 mg Q8H PRN IV Moderate Pain (Pain Scale 4-6) 08/29/16 19:05 09/03/16 19:04 09/02/16 04:07 Lorazepam (Ativan 2mg/ml 1ml) 0.5 mg Q4H PRN IV Breakthrough anxiety 08/29/16 19:08 09/05/16 19:07 Lorazepam (Ativan) 1 mg THREE TIMES A DAY ORAL 08/29/16 19:30 09/05/16 19:29 09/02/16 17:22 Methylprednisolone Sodium Succinate (Solu-MEDROL) 60 mg EVERY 12 HOURS IV 08/29/16 21:00 09/28/16 20:59 09/02/16 08:49 Nitroglycerin (Ntg) 0.4 mg Q5M X 3 DOSES PRN SL Prn Chest Pain 08/29/16 18:30 09/28/16 18:29 Ondansetron HCl (Zofran) 4 mg Q6H PRN IVP Nausea & Vomiting 08/29/16 19:07 09/28/16 19:06 Piperacillin Sod/ Tazobactam Sod/ Dextrose (Zosyn/D5W) 110 ml @ 27.5 mls/hr EVERY 8 HOURS IVPB 08/29/16 22:00 09/05/16 21:59 09/02/16 13:34 Potassium Chloride (KCl 10% 40mEq Oral solution) 40 meq TWICE A DAY NG 08/31/16 18:00 09/30/16 17:59 09/02/16 17:22 Ropinirole HCl (Requip) 0.25 mg THREE TIMES A DAY ORAL 09/02/16 14:00 09/29/16 08:59 09/02/16 17:22 Temazepam (Restoril) 15 mg HSPRN PRN ORAL Insomnia 08/29/16 19:07 09/05/16 19:06 Allergies: Coded Allergies: MORPHINE (Verified Allergy, Unknown, 11/07/15) ROS Limited/Unobtainable: No Constitutional: Reports: no symptoms HEENT: Reports: no symptoms Cardiovascular: Reports: no symptoms Respiratory: Reports: shortness of breath Gastrointestinal/Abdominal: Reports: no symptoms Genitourinary: Reports: no symptoms Neurologic/Psychiatric: Reports: no symptoms Subjective 71 YO F admitted with shortness of breath. Now asthma exacerbation. Cover for Int Med - Dr Cloud.. Await discharge to [facility] nursing [facility] today. Objective Last Vital Signs Date Time Temp Pulse Resp B/P Pulse Ox O2 Delivery O2 Flow Rate FiO2 09/02/16 15:46 97.5 100 20 138/73 99 Room Air 09/02/16 07:40 2.0 28 Laboratory Tests Test 09/02/16 05:40 White Blood Count 10.4 K/UL (4.8-10.8) Red Blood Count 4.14 M/UL (4.20-5.40) L Hemoglobin 13.3 G/DL (12.0-16.0) Hematocrit 39.0 % (37.0-47.0) Mean Corpuscular Volume 94 FL (80-99) Mean Corpuscular Hemoglobin 32.2 PG (27.0-31.0) H Mean Corpuscular Hemoglobin Concent 34.2 G/DL (32.0-36.0) Red Cell Distribution Width 11.4 % (11.6-14.8) L Platelet Count 320 K/UL (150-450) Mean Platelet Volume 6.9 FL (6.5-10.1) Neutrophils (%) (Auto) % (45.0-75.0) Lymphocytes (%) (Auto) % (20.0-45.0) Monocytes (%) (Auto) % (1.0-10.0) Eosinophils (%) (Auto) % (0.0-3.0) Basophils (%) (Auto) % (0.0-2.0) Differential Total Cells Counted 100 Neutrophils % (Manual) 85 % (45-75) H Lymphocytes % (Manual) 13 % (20-45) L Monocytes % (Manual) 2 % (1-10) Eosinophils % (Manual) 0 % (0-3) Basophils % (Manual) 0 % (0-2) Band Neutrophils 0 % (0-8) Platelet Estimate Adequate Platelet Morphology Normal Red Blood Cell Morphology Normal Sodium Level 135 mEQ/L (135-145) Potassium Level 4.4 mEQ/L (3.4-4.9) Chloride Level 96 mEQ/L (98-107) L Carbon Dioxide Level 25 mEQ/L (20-30) Anion Gap 14 (5-15) Blood Urea Nitrogen 32 mg/dL (7-23) H Creatinine 0.9 mg/dL (0.5-0.9) Estimat Glomerular Filtration Rate mL/min (>60) Glucose Level 148 mg/dL (74-106) H Calcium Level 8.9 mg/dL (8.6-10.2) Intake and Output 09/01/16 09/02/16 19:00 07:00 Intake Total 912.5 ml 110.0 ml Balance 912.5 ml 110.0 ml Intake Oral 720 ml IV Total 192.5 ml 110.0 ml # Voids 6 2 Objective General: alert, cooperative, no distress, appears stated age Head: normocephalic, without obvious abnormality, atraumatic Eyes: conjunctivae/corneas clear. PERRL, EOM's intact Throat: lips, mucosa, and tongue normal. MMM Neck: supple, symmetrical, trachea midline, and no JVD Lungs: clear to auscultation bilaterally Heart: regular rate and rhythm, S1, S2 normal, no murmur, click, rub or gallop Abdomen: soft, non-tender, non-distended, bowel sounds normal; no masses or organomegaly Extremities: extremities normal, atraumatic, no cyanosis or edema Pulses: 2+ and symmetric Skin: skin color, texture, turgor normal; no rashes or lesions Neurologic: grossly normal, no focal deficits; resting tremor Assessment/Plan Problem List: (1) Pain in right knee (2) Parkinson disease Assessment & Plan: See neuro note. Increase sinemet. Start requip (3) Asthma exacerbation Assessment & Plan: Continue albuterol nebs prn (4) Purulent bronchitis Assessment & Plan: Cont zosyn (5) HTN (hypertension) Assessment/Plan Discharge today to [facility]. FRANKY GUZMAN September 02, 2016 19:18
[2016-09-02] MEDS: Atorvastatin 20mg tab ORAL SCH (21:25)
[2016-09-03] VITALS: BP 103/48
[2016-09-03 04:00] VITALS: BP 122/67
[2016-09-03] MEDS: Sinemet 25/100 tab ORAL SCH (05:59)
[2016-09-03] MEDS: Piperacillin/Tazobactam 3.375 GM in D5W 110 ML IVPB SCH (06:00)
[2016-09-03 07:05] LABS: MEAN CORPUSCULAR HEMOGLOBIN 32.4 PG (27.0-31.0); MEAN CORPUSCULAR HGB CONC 34.5 G/DL (32.0-36.0); MEAN CORPUSCULAR VOLUME 94 FL (80-99); MEAN PLATELET VOLUME 6.7 FL (6.5-10.1); PLATELET COUNT 326 K/UL (150-450); RED BLOOD COUNT 4.26 M/UL (4.20-5.40); RED CELL DISTRIBUTION WIDTH 11.5 % (11.6-14.8); WHITE BLOOD COUNT 11.7 K/UL (4.8-10.8)
[2016-09-03 07:47] LABS: ANION GAP 14 (5-15); CALCIUM 8.9 mg/dL (8.6-10.2); CARBON DIOXIDE 25 mEQ/L (20-30); CHLORIDE 97 mEQ/L (98-107); CREATININE 0.8 mg/dL (0.5-0.9); HEMOLYSIS 8; POTASSIUM 4.6 mEQ/L (3.4-4.9); SODIUM 136 mEQ/L (135-145)
[2016-09-03 08:07] VITALS: BP 143/77
[2016-09-03] MEDS: Solu-MEDROL 125mg Inj IV SCH (08:54)
[2016-09-03] MEDS: rOPINIRole 0.25mg tab ORAL SCH (08:55)
[2016-09-03] MEDS: FLUoxetine 10mg cap ORAL SCH (08:55)
[2016-09-03] MEDS: LORazepam 1mg tab ORAL SCH (08:55)
[2016-09-03] MEDS: KCl 10% 40mEq/30ml liquid NG SCH (08:55)
[2016-09-03] MEDS: Heparin 5000 units/ml inj SUBQ SCH (08:57)
[2016-09-03 09:56] LABS: BAND NEUTROPHILS % (MANUAL) 0 % (0-8); BASOPHILS % (MANUAL) 0 % (0-2); EOSINOPHILS % (MANUAL) 0 % (0-3); LYMPHOCYTES % (MANUAL) 6 % (20-45); NEUTROPHILS % (MANUAL) 91 % (45-75); PLATELET ESTIMATE ADEQUATE; PLATELET MORPHOLOGY NORMAL; TOTAL CELLS COUNTED 100
--- NOTE | 2016-09-03 15:36 | Pulmonology Progress Note ---
Assessment/Plan Problems: (1) Asthma exacerbation (2) Purulent bronchitis (3) Generalized weakness (4) Parkinson disease Assessment/Plan improving slowly much less wheezing sputum shows only teresa, titrate fio2 to sat of 92% dvt prophylaxis. wa planning to [facility] vp digital marketing social media and crm Subjective ROS Limited/Unobtainable: No Interval Events: improving gradually Constitutional: Reports: no symptoms HEENT: Repors: no symptoms Respiratory: Reports: no symptoms Allergies: Coded Allergies: MORPHINE (Verified Allergy, Unknown, 11/07/15) Objective Last 24 Hour Vital Signs Date Time Temp Pulse Resp B/P Pulse Ox O2 Delivery O2 Flow Rate FiO2 09/03/16 08:07 97.6 87 20 143/77 97 Nasal Cannula 2.0 09/03/16 07:02 98 16 Nasal Cannula 2.0 09/03/16 07:02 Nasal Cannula 2.0 28 09/03/16 07:02 98 Nasal Cannula 2.0 28 09/03/16 04:00 97.2 106 20 122/67 96 Room Air 09/03/16 00:00 97.7 77 20 103/48 97 Room Air 09/02/16 20:00 96.8 94 20 124/69 96 Room Air 09/02/16 19:41 99 Nasal Cannula 2.0 28 09/02/16 19:41 Nasal Cannula 2.0 09/02/16 19:41 98 18 Nasal Cannula 2.0 28 09/02/16 15:46 97.5 100 20 138/73 99 Room Air Intake and Output 09/02/16 09/03/16 19:00 07:00 Intake Total 1292.5 ml 137.5 ml Balance 1292.5 ml 137.5 ml Intake Oral 1100 ml IV Total 192.5 ml 137.5 ml # Voids 4 3 # Bowel Movements 2 HEENT: normocephalic, atraumatic Respiratory/Chest: chest wall non-tender, normal breath sounds Cardiovascular: normal peripheral pulses Abdomen: normal bowel sounds, soft, non tender, hyperactive bowel sounds Genitourinary: normal external genitalia Extremities: no clubbing Neurologic/Psychiatric: abnormal gait Lymphatic: no groin adenopathy Laboratory Tests 09/03/16 06:10: White Blood Count 11.7H, Red Blood Count 4.26, Hemoglobin 13.8, Hematocrit 40.1 , Mean Corpuscular Volume 94, Mean Corpuscular Hemoglobin 32.4H, Mean Corpuscular Hemoglobin Concent 34.5, Red Cell Distribution Width 11.5L, Platelet Count 326, Mean Platelet Volume 6.7, Neutrophils (%) (Auto) , Lymphocytes (%) (Auto) , Monocytes (%) (Auto) , Eosinophils (%) (Auto) , Basophils (%) (Auto) , Differential Total Cells Counted 100, Neutrophils % ( Manual) 91H, Lymphocytes % (Manual) 6L, Monocytes % (Manual) 3, Eosinophils % ( Manual) 0, Basophils % (Manual) 0, Band Neutrophils 0, Platelet Estimate Adequate, Platelet Morphology Normal, Red Blood Cell Morphology Normal, Sodium Level 136, Potassium Level 4.6, Chloride Level 97L, Carbon Dioxide Level 25, Anion Gap 14, Blood Urea Nitrogen 35H, Creatinine 0.8, Estimat Glomerular Filtration Rate , Glucose Level 147H, Calcium Level 8.9 ELLEN RANDALL September 03, 2016 15:36
--- NOTE | 2016-09-04 16:17 | Discharge Summary ---
Discharge Summary Hospital Course Date of Admission August 28, 2016 at 13:30 Date of Discharge September 03, 2016 at 10:10 Admitting Diagnosis pna, wheezing HPI Sharmila Atwood is a 71 year old female who was admitted on August 28, 2016 at 13: 30 for Pneumonia,Wheezing Hospital Course [id number] Discharge Discharge Disposition Patient was discharged to SNF/Subacute Facility(03) Discharge Diagnoses: Aracely Mcguire NP Sep 04, 2016 16:17
--- NOTE | 2016-09-05 01:30 | Discharge Summary 2 SIG ---
DATE OF ADMISSION: 08/28/2016 DATE OF DISCHARGE: 09/03/2016 CONSULTANTS: 1. Klarissa Bose M.D. 2. Tone Wan M.D. BRIEF HOSPITAL COURSE: The patient is a 71-year-old female, who presented with chief complaint of cough and shortness of breath that began two weeks prior to admission. The patient feels that there is phlegm however unable to bring it up and also had shortness of breath with subjective fevers and chills. She presented to ED. On evaluation, labs showed no leukocytosis. Chest x-ray showed no infiltrates. EKG showed tachycardia. She was given Solu-Medrol and magnesium and had multiple rounds of nebulizer treatments, however, the patient continued to have wheezing. She was given IV antibiotics and was admitted for further care and support. She was followed by Dr. Bose for pulmonary consult and was continued on IV steroids, respiratory treatment and IV Zosyn. Dr. Wan was consulted for evaluation of exacerbation of Parkinson's disease. She was diagnosed 4 years ago, but since then has progressively worsened over the last couple of months and is actually unable to ambulate and is wheelchair bound. There was further worsening of shaking and tremors in the last few days coinciding with respiratory difficulties. Sinemet was increased to 50/200 mg every a.m. followed by 25/100 mg twice a day. She was also started on ropinirole 0.125 mg t.i.d. Subsequent chest x-ray done showed no belt changer one day. She had an x-ray of the right knee that showed degenerative changes with no acute bony trauma. Sputum culture showed growth of Celina with usual upper respiratory emilio. Symptoms improved. Per social media marketing analyst evaluation, the patient lives at home alone and has family in [facility] who visits occasionally. Per family, they are unable to provide her 24 hour supervision and care. The patient was then referred to a long term facility to continue physical therapy and occupational therapy. FINAL DIAGNOSES: 1. Acute asthma exacerbation. 2. Purulent bronchitis. 3. Hypertension. 4. Parkinson's disease. 5. Hyperlipidemia. 6. Knee pain. 7. Hypokalemia. DISPOSITION: The patient was discharged to SNF. Franky Saba M.D. I have been assigned to dictate discharge summary on this account and I was not involved in the patient's management. Aracely Mcguire N.P. DR: GLADIS JOB#: [id number] CC: SABAS
== END 2016-09-03 10:10 | DRG 202 ==
LOC: EDBD 11:53 → EMR 13:00 → 2E 13:30 → EDBEDREQ 14:50 → EDBEDREQSVC 16:08 → EDBEDREQ 16:36 → 2E 17:45 → 4E 08-29 18:51
DX: J45.901 Unspecified asthma with (acute) exacerbation (principal); J96.00 Acute respiratory failure, unspecified whether with hypoxia or hypercapnia; J41.1 Mucopurulent chronic bronchitis; G20 Parkinson's disease; I10 Essential (primary) hypertension; Z88.6 Allergy status to analgesic agent; E78.5 Hyperlipidemia, unspecified; E87.6 Hypokalemia; F32.9 Major depressive disorder, single episode, unspecified; M25.561 Pain in right knee; R53.1 Weakness
CPT/HCPCS: 36415; 71010; 80048; 80053; 81003; 82550; 82553; 82962; 83605; 83880; 84484; 85007; 85025; 87040; 87070; 87205; 93005; 93306; 94640; 94664; 94760; J7620; J8499

== ENCOUNTER 2017-03-29 19:38 | Inpatient (IN) | payer MEDICARE, OTHER ==
[~2017-03-29] VITALS: Ht 162.6 cm; Wt 59.0 kg
[~2017-03-29 19:38] MED LIST: ALBUTEROL2.5 MG/3 M INH; ASPIR 8181 MG ORAL; ATENOLOL25 MG ORAL; ATIVAN0.5 MG ORAL; ATORVASTATIN CA20 MG ORAL; BISACODYL5 MG ORAL; DOCUSATE SODIU100 MG ORAL; FLUOXETINE HCL10 MG ORAL; FUROSEMIDE20 M1 ORAL; HYDROCHLOROTH12.5 M2 ORAL; PREDNISONE10 M2 PO; SINEMET 25-1001 EAC1 ORAL
--- NOTE | 2017-03-29 20:07 | Emergency Room Report ---
History of Present Illness General Chief Complaint: Fever Source: Patient, Medical Record Present Illness HPI 71-year-old female with pmhx COPD, Parkinson's, coming from [facility] p/w cough for 2 days. Pt states cough is productive, with clear non bloody sputum. + fever chills sob. Denies chest or abdominal pain. Denies runny nose or myalgias. No sick contacts or recent travel. No diarrhea no dysuria Allergies: Coded Allergies: MORPHINE (Verified Allergy, Unknown, 11/07/15) Patient History Past Medical History: see triage record Past Surgical History: none Pertinent Family History: none Now: No Reviewed Nursing Documentation: PMH: Agreed, PSxH: Agreed Nursing Documentation-PMH Past Medical History: No History, Except For Hx Cardiac Problems: Yes - Hyperlipidemia Hx Hypertension: Yes Hx Pacemaker: No Hx Asthma: Yes Hx Diabetes: Yes Hx Cancer: No Hx Gastrointestinal Problems: No - Bilateral osteoarthritis of knee Hx Neurological Problems: Yes - Parkinson's Hx Cerebrovascular Accident: Yes Hx Parkinson's Disease: Yes Hx Tremors: Yes - parkinsons Hx Weakness: Yes Hx Neurologic Surgery: No Review of Systems All Other Systems: negative except mentioned in HPI Physical Exam Vital Signs Date Time Temp Pulse Resp B/P (MAP) Pulse Ox O2 Delivery O2 Flow Rate FiO2 03/29/17 19:39 107 20 150/75 99 Nasal Cannula 2.0 Sp02 EP Interpretation: reviewed, normal General Appearance: other - Elderly female, slight respiratory distress however is speaking complete sentences Head: normocephalic, atraumatic Eyes: bilateral eye normal inspection, bilateral eye PERRL, bilateral eye EOMI ENT: normal ENT inspection, normal pharynx, normal voice, moist mucus membranes Neck: normal inspection, full range of motion, supple Respiratory: other - Expiratory wheezing bilaterally Cardiovascular #1: normal inspection, regular rate, rhythm, normal capillary refill Cardiovascular #2: 2+ radial (R), 2+ radial (L) Gastrointestinal: normal inspection, non tender, soft, non-distended, no guarding Musculoskeletal: normal inspection, back normal, normal range of motion, non- tender Neurologic: alert, oriented x3, responsive, motor strength/tone normal, sensory intact, speech normal, other - +resting tremor Psychiatric: normal inspection, judgement/insight normal, memory normal Skin: normal inspection, normal color, no rash, warm/dry, well hydrated, normal turgor Procedures Critical Care Time Critical Care Time 40 minutes of CC time 71-year-old female with cough, fever, shortness of breath VS: Tachycardic and hypertensive Airway patent. PLAN: IV access, labs, lactate, troponin, Blood/Urine Cx, Abx, IVF nebulizer treatment antibiotics Anticipate admission to Tele vs. 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 Patient has been treated with nebulizer x 3, steroids, antibiotics. Disposition: Patient will be admitted to telemetry D/W hospitalist Signed out patient to Dr Ocampo who is covering for Dr Bose Please note that this Emergency Department Report was dictated using [employer] professional technology software, occasionally this can lead to erroneous entry secondary to interpretation by the dictation equipment. EKG Diagnostic Results EP Interpretation: Yes Rate: normal Rhythm: NSR ST Segments: No acute changes ASA given to patient: no Rhythm Strip EP Interpretation: Yes Rate: 70 Rhythm: NSR, no PVCs, no ectopy Chest X-ray CXR: Ordered: Yes 1 view Indication: Cough EP interpretation: Yes Interpretation: No consolidation, no effusion, no PTX, no acute cardiopulmonary disease Impression: No acute disease Electronically signed by Criss Amanda MD Laboratory Tests Test 03/29/17 20:35 03/29/17 21:25 03/30/17 05:40 Sodium Level 131 MMOL/L (136-145) L 133 MMOL/L (136-145) L Potassium Level 4.2 MMOL/L (3.5-5.1) 3.7 MMOL/L (3.5-5.1) Chloride Level 96 MMOL/L (98-107) L 97 MMOL/L (98-107) L Carbon Dioxide Level 25 MMOL/L (21-32) 25 MMOL/L (21-32) Anion Gap 10 mmol/L (5-15) 11 mmol/L (5-15) Blood Urea Nitrogen 12 mg/dL (7-18) 13 mg/dL (7-18) Creatinine 0.9 MG/DL (0.55-1.30) 0.9 MG/DL (0.55-1.30) Estimate Glomerular Filtration Rate mL/min (>60) mL/min (>60) Glucose Level 95 MG/DL (74-106) 177 MG/DL (74-106) H Lactic Acid Level 1.20 mmol/L (0.66-2.22) Calcium Level 7.5 MG/DL (8.5-10.1) L 7.6 MG/DL (8.5-10.1) L Total Bilirubin 0.8 MG/DL (0.2-1.0) 0.5 MG/DL (0.2-1.0) Aspartate Amino Transferase (AST) 57 U/L (15-37) H 38 U/L (15-37) H Alanine Aminotransferase (ALT) 17 U/L (12-78) 26 U/L (12-78) Alkaline Phosphatase 102 U/L (46-116) 97 U/L (46-116) Troponin I 0.002 ng/mL (0.000-0.056) Total Protein 7.7 G/DL (6.4-8.2) 7.5 G/DL (6.4-8.2) Albumin 3.6 G/DL (3.4-5.0) 3.4 G/DL (3.4-5.0) Globulin 4.1 g/dL 4.1 g/dL Albumin/Globulin Ratio 0.9 (1.0-2.7) L 0.8 (1.0-2.7) L Urine Color Pale yellow Urine Appearance Clear Urine pH 7 (4.5-8.0) Urine Specific [place] 1.005 (1.005-1.035) Urine Protein 1+ (NEGATIVE) H Urine Glucose (UA) Negative (NEGATIVE) Urine Ketones Negative (NEGATIVE) Urine Occult Blood 4+ (NEGATIVE) H Urine Nitrite Positive (NEGATIVE) H Urine Bilirubin Negative (NEGATIVE) Urine Urobilinogen Normal MG/DL (0.0-1.0) Urine Leukocyte Esterase 2+ (NEGATIVE) H Urine RBC 10-15 /HPF (0 - 2) H Urine WBC 20-30 /HPF (0 - 2) H Urine Squamous Epithelial Cells Moderate /LPF (NONE/OCC) H Urine Bacteria Many /HPF (NONE) H White Blood Count 7.8 K/UL (4.8-10.8) Red Blood Count 3.78 M/UL (4.20-5.40) L Hemoglobin 11.9 G/DL (12.0-16.0) L Hematocrit 35.8 % (37.0-47.0) L Mean Corpuscular Volume 95 FL (80-99) Mean Corpuscular Hemoglobin 31.4 PG (27.0-31.0) H Mean Corpuscular Hemoglobin Concent 33.2 G/DL (32.0-36.0) Red Cell Distribution Width 12.1 % (11.6-14.8) Platelet Count 264 K/UL (150-450) Mean Platelet Volume 7.1 FL (6.5-10.1) Neutrophils (%) (Auto) % (45.0-75.0) Lymphocytes (%) (Auto) % (20.0-45.0) Monocytes (%) (Auto) % (1.0-10.0) Eosinophils (%) (Auto) % (0.0-3.0) Basophils (%) (Auto) % (0.0-2.0) Differential Total Cells Counted 100 Neutrophils % (Manual) 94 % (45-75) H Lymphocytes % (Manual) 3 % (20-45) L Monocytes % (Manual) 3 % (1-10) Eosinophils % (Manual) 0 % (0-3) Basophils % (Manual) 0 % (0-2) Band Neutrophils 0 % (0-8) Platelet Estimate Adequate Platelet Morphology Normal Hypochromasia 1+ Microbiology Date/Time Source Procedure Growth Status 03/30/17 00:50 Nasopharynx Influenza Types A,B Antigen (MICHELLE) - Final Complete Last Vital Signs Date Time Temp Pulse Resp B/P (MAP) Pulse Ox O2 Delivery O2 Flow Rate FiO2 03/29/17 19:39 107 20 150/75 99 Nasal Cannula 2.0 Disposition: ADMITTED INPATIENT Condition: Serious Criss Amanda M.D. Mar 29, 2017 20:07
[2017-03-29 21:06] LABS: ANION GAP 10 mmol/L (5-15); CALCIUM 7.5 MG/DL (8.5-10.1); CARBON DIOXIDE 25 MMOL/L (21-32); CHLORIDE 96 MMOL/L (98-107); CREATININE 0.9 MG/DL (0.55-1.30); POTASSIUM 4.2 MMOL/L (3.5-5.1); SODIUM 131 MMOL/L (136-145)
[2017-03-29 21:10] LABS: ALANINE AMINOTRANSFERASE 17 U/L (12-78); ALBUMIN/GLOBULIN RATIO 0.9 (1.0-2.7); ASPARTATE AMINO TRANSFERASE 57 U/L (15-37); TOTAL PROTEIN 7.7 G/DL (6.4-8.2)
[2017-03-29] MEDS ORDERED: Albuterol ud Inhalation ONE (21:10)
[2017-03-29 21:15] VITALS: BP 157/74
[2017-03-29] MEDS ORDERED: Ipratropium 0.02% Inh Soln 2.5ml UD HHN ONE (21:15)
[2017-03-29] MEDS ORDERED: Solu-MEDROL 125mg Inj IVP ONE (21:15)
--- NOTE | 2017-03-29 21:33 | Infectious Diseases Prog Note ---
Assessment/Plan Problems: (1) Purulent bronchitis Assessment & Plan: will send sputum for culture , screen for infulenza and start ceftriaxon with zithromax empirically (2) Pneumonia Assessment & Plan: will send sputum culture, and start ceftriaxon with zithromax (3) COPD exacerbation Assessment & Plan: due to the above, continue inhalers, and oxygen , will start antibiotics empirically , monitor cxr (4) UTI (urinary tract infection) Assessment & Plan: will send urine culture , she is already on ceftriaxon Subjective Allergies: Coded Allergies: MORPHINE (Verified Allergy, Unknown, 11/07/15) Objective Vital Signs Last 24 Hour Vital Signs Date Time Temp Pulse Resp B/P (MAP) Pulse Ox O2 Delivery O2 Flow Rate FiO2 03/29/17 19:39 107 20 150/75 99 Nasal Cannula 2.0 Height (Feet): 5 Height (Inches): 4.00 Weight (Pounds): 130 Laboratory Tests Test 03/29/17 20:35 Sodium Level 131 MMOL/L (136-145) L Potassium Level 4.2 MMOL/L (3.5-5.1) Chloride Level 96 MMOL/L (98-107) L Carbon Dioxide Level 25 MMOL/L (21-32) Anion Gap 10 mmol/L (5-15) Blood Urea Nitrogen 12 mg/dL (7-18) Creatinine 0.9 MG/DL (0.55-1.30) Estimat Glomerular Filtration Rate mL/min (>60) Glucose Level 95 MG/DL (74-106) Lactic Acid Level 1.20 mmol/L (0.66-2.22) Calcium Level 7.5 MG/DL (8.5-10.1) L Total Bilirubin 0.8 MG/DL (0.2-1.0) Aspartate Amino Transf (AST/SGOT) 57 U/L (15-37) H Alanine Aminotransferase (ALT/SGPT) 17 U/L (12-78) Alkaline Phosphatase 102 U/L (46-116) Troponin I 0.002 ng/mL (0.000-0.056) Total Protein 7.7 G/DL (6.4-8.2) Albumin 3.6 G/DL (3.4-5.0) Globulin 4.1 g/dL Albumin/Globulin Ratio 0.9 (1.0-2.7) L Current Medications Medications (Trade) Dose Ordered Sig/Isaiah Route PRN Reason Start Time Stop Time Status Last Admin Dose Admin Albuterol Sulfate (Proventil) 2.5 mg Q15M N 03/29/17 21:15 03/29/17 21:46 Antonia Flores M.D. Mar 29, 2017 21:33
[2017-03-29] MEDS: Albuterol ud Inhalation HHN SCH ×2 (21:45→21:46)
[2017-03-29 21:49] LABS: APPEARANCE,URINE CLEAR; KETONES,URINE NEGATIVE (NEGATIVE); LEUKOCYTE ESTERASE ,URINE 2+ (NEGATIVE); NITRITE,URINE POSITIVE (NEGATIVE); PH,URINE 7 (4.5-8.0); PROTEIN,URINE 1+ (NEGATIVE); UROBILINOGEN,URINE NORMAL MG/DL (0.0-1.0)
[2017-03-29 22:08] LABS: BACTERIA,URINE MANY /HPF; SQUAMOUS EPITHELIAL CELL,UR MODERATE /LPF (NONE/OCC); WBC,URINE 20-30 /HPF (0 - 2)
[2017-03-29 23:00] VITALS: BP 153/69
[2017-03-29] MEDS: cefTRIAXone 2 GM in NS 55 ML IVPB SCH (23:27)
[2017-03-30] MEDS ORDERED: Ipratropium 0.02% Inh Soln 2.5ml UD HHN PRN
[2017-03-30] MEDS ORDERED: Albuterol/Ipratropium 3ml neb HHN PRN
[2017-03-30] MEDS ORDERED: THEOPHYLLINE A100 MG ORAL (00:01)
[2017-03-30] MEDS ORDERED: GABAPENTIN100 MG ORAL (00:01)
[2017-03-30] MEDS ORDERED: NITROGLYCERIN0.4 MG SL (00:01)
[2017-03-30] MEDS ORDERED: ACETAMINOPHEN500 M7 PO (00:01)
[2017-03-30] MEDS ORDERED: PROMETH-CODEIN 65 ML PO (00:01)
[2017-03-30] MEDS ORDERED: ZOFRAN4 M3 ORAL (00:01)
[2017-03-30] MEDS ORDERED: TRAMADOL HCL50 MG ORAL (00:01)
[2017-03-30] MEDS ORDERED: ARTIFICIAL TEAR15 ML BOTH EYES (00:01)
[2017-03-30] MEDS ORDERED: CATAPRES0.1 MG ORAL (00:01)
[2017-03-30 04:00] VITALS: BP 145/90
[2017-03-30 06:52] LABS: MEAN CORPUSCULAR HEMOGLOBIN 31.4 PG (27.0-31.0); MEAN CORPUSCULAR HGB CONC 33.2 G/DL (32.0-36.0); MEAN CORPUSCULAR VOLUME 95 FL (80-99); MEAN PLATELET VOLUME 7.1 FL (6.5-10.1); PLATELET COUNT 264 K/UL (150-450); RED BLOOD COUNT 3.78 M/UL (4.20-5.40); RED CELL DISTRIBUTION WIDTH 12.1 % (11.6-14.8); WHITE BLOOD COUNT 7.8 K/UL (4.8-10.8)
[2017-03-30 07:02] LABS: ALANINE AMINOTRANSFERASE 26 U/L (12-78); ALBUMIN/GLOBULIN RATIO 0.8 (1.0-2.7); ANION GAP 11 mmol/L (5-15); ASPARTATE AMINO TRANSFERASE 38 U/L (15-37); CALCIUM 7.6 MG/DL (8.5-10.1); CARBON DIOXIDE 25 MMOL/L (21-32); CHLORIDE 97 MMOL/L (98-107); CREATININE 0.9 MG/DL (0.55-1.30); POTASSIUM 3.7 MMOL/L (3.5-5.1); SODIUM 133 MMOL/L (136-145); TOTAL PROTEIN 7.5 G/DL (6.4-8.2)
[2017-03-30 08:00] VITALS: BP 143/66
[2017-03-30] MEDS: Azithromycin 250mg tab ORAL SCH (08:21)
[2017-03-30] MEDS ORDERED: Solu-MEDROL 125mg Inj IVP ONE (09:00)
[2017-03-30] MEDS ORDERED: Azithromycin 500 MG in D5W 275 ML IV SCH (09:00)
--- NOTE | 2017-03-30 09:46 | Diagnostic Imaging Report ---
Indication: Reason For Exam: PAIN Technique: XRAY Chest 1v. Comparison: 10/27/2016 Findings: The cardiomediastinal silhouette is stable. There are no acute infiltrates. Impression: No acute abnormality. .
[2017-03-30 10:24] LABS: BAND NEUTROPHILS % (MANUAL) 0 % (0-8); BASOPHILS % (MANUAL) 0 % (0-2); EOSINOPHILS % (MANUAL) 0 % (0-3); HYPOCHROMASIA 1+; LYMPHOCYTES % (MANUAL) 3 % (20-45); NEUTROPHILS % (MANUAL) 94 % (45-75); PLATELET ESTIMATE ADEQUATE; PLATELET MORPHOLOGY NORMAL; TOTAL CELLS COUNTED 100
[2017-03-30] MEDS: NovoLOG Insulin Flexpen SUBQ SCH ×3 (11:30→21:00)
[2017-03-30 12:00] VITALS: BP 125/76
--- NOTE | 2017-03-30 12:15 | Infectious Diseases Prog Note ---
Assessment/Plan Problems: (1) Purulent bronchitis Assessment & Plan: screening for infulenza is negative , continue ceftriaxon with zithromax empirically pending sputum culture (2) Pneumonia Assessment & Plan: on ceftriaxon and zithromax pending sputum culture (3) COPD exacerbation Assessment & Plan: due to the above, continue inhalers, and oxygen , already on antibiotics , monitor CXR (4) UTI (urinary tract infection) Assessment & Plan: await urine culture , she is already on ceftriaxon Subjective Constitutional: Reports: no symptoms HEENT: Reports: no symptoms Respiratory: Reports: shortness of breath, productive cough, other - wheezing Cardiovascular: Reports: no symptoms Gastrointestinal/Abdominal: Reports: no symptoms Genitourinary: Reports: no symptoms Neurologic: Reports: other - tremor Psychiatric: Reports: no symptoms Skin: Reports: no symptoms Endocrine: Reports: no symptoms Hematologic: Reports: no symptoms Musculoskeletal: Reports: pain, stiffness Allergies: Coded Allergies: MORPHINE (Verified Allergy, Unknown, 11/07/15) Objective Vital Signs Last 24 Hour Vital Signs Date Time Temp Pulse Resp B/P (MAP) Pulse Ox O2 Delivery O2 Flow Rate FiO2 03/30/17 08:00 108 03/30/17 08:00 97.9 91 19 143/66 99 03/30/17 04:00 97.0 66 20 145/90 97 Room Air 03/30/17 03:58 110 03/30/17 03:52 102 20 99 Nasal Cannula 3.0 32 03/30/17 03:52 32 03/30/17 03:21 102 21 97 Nasal Cannula 3.0 32 03/30/17 03:20 102 21 Nasal Cannula 3.0 32 03/30/17 01:14 110 03/30/17 00:15 98.8 98 18 153/69 98 Nasal Cannula 3.0 32 03/29/17 23:00 98.8 119 18 153/69 98 Nasal Cannula 3.0 03/29/17 21:46 108 23 99 Nasal Cannula 3.0 32 03/29/17 21:46 108 23 Nasal Cannula 3.0 32 03/29/17 21:15 100.2 106 23 157/74 99 Nasal Cannula 3.0 03/29/17 19:39 107 20 150/75 99 Nasal Cannula 2.0 Height (Feet): 5 Height (Inches): 4.00 Weight (Pounds): 130 General Appearance: WD/WN, no acute distress HEENT: normocephalic, atraumatic, anicteric, mucous membranes moist, PERRL, EOMI, pharynx normal, supple, no JVD Respiratory/Chest: chest wall non-tender, no respiratory distress, no accessory muscle use, decreased breath sounds, expiratory wheezing Cardiovascular: normal peripheral pulses, normal rate, regular rhythm, no gallop/murmur, no JVD Abdomen: normal bowel sounds, soft, non tender, no organomegaly, non distended , no mass, no scars Extremities: no cyanosis, no clubbing Skin: no rash, no lesions, no ulcers Neurologic/Psychiatric: alert, oriented x 3, responsive, other - tremor Lymphatic: no neck adenopathy, no groin adenopathy Musculoskeletal: normal muscle bulk Microbiology Date/Time Source Procedure Growth Status 03/30/17 00:50 Nasopharynx Influenza Types A,B Antigen (MICHELLE) - Final Complete Laboratory Tests Test 03/29/17 20:35 03/29/17 21:25 03/30/17 05:40 Sodium Level 131 MMOL/L (136-145) L 133 MMOL/L (136-145) L Potassium Level 4.2 MMOL/L (3.5-5.1) 3.7 MMOL/L (3.5-5.1) Chloride Level 96 MMOL/L (98-107) L 97 MMOL/L (98-107) L Carbon Dioxide Level 25 MMOL/L (21-32) 25 MMOL/L (21-32) Anion Gap 10 mmol/L (5-15) 11 mmol/L (5-15) Blood Urea Nitrogen 12 mg/dL (7-18) 13 mg/dL (7-18) Creatinine 0.9 MG/DL (0.55-1.30) 0.9 MG/DL (0.55-1.30) Estimat Glomerular Filtration Rate mL/min (>60) mL/min (>60) Glucose Level 95 MG/DL (74-106) 177 MG/DL (74-106) H Lactic Acid Level 1.20 mmol/L (0.66-2.22) Calcium Level 7.5 MG/DL (8.5-10.1) L 7.6 MG/DL (8.5-10.1) L Total Bilirubin 0.8 MG/DL (0.2-1.0) 0.5 MG/DL (0.2-1.0) Aspartate Amino Transf (AST/SGOT) 57 U/L (15-37) H 38 U/L (15-37) H Alanine Aminotransferase (ALT/SGPT) 17 U/L (12-78) 26 U/L (12-78) Alkaline Phosphatase 102 U/L (46-116) 97 U/L (46-116) Troponin I 0.002 ng/mL (0.000-0.056) Total Protein 7.7 G/DL (6.4-8.2) 7.5 G/DL (6.4-8.2) Albumin 3.6 G/DL (3.4-5.0) 3.4 G/DL (3.4-5.0) Globulin 4.1 g/dL 4.1 g/dL Albumin/Globulin Ratio 0.9 (1.0-2.7) L 0.8 (1.0-2.7) L Urine Color Pale yellow Urine Appearance Clear Urine pH 7 (4.5-8.0) Urine Specific [place] 1.005 (1.005-1.035) Urine Protein 1+ (NEGATIVE) H Urine Glucose (UA) Negative (NEGATIVE) Urine Ketones Negative (NEGATIVE) Urine Occult Blood 4+ (NEGATIVE) H Urine Nitrite Positive (NEGATIVE) H Urine Bilirubin Negative (NEGATIVE) Urine Urobilinogen Normal MG/DL (0.0-1.0) Urine Leukocyte Esterase 2+ (NEGATIVE) H Urine RBC 10-15 /HPF (0 - 2) H Urine WBC 20-30 /HPF (0 - 2) H Urine Squamous Epithelial Cells Moderate /LPF (NONE/OCC) H Urine Bacteria Many /HPF (NONE) H White Blood Count 7.8 K/UL (4.8-10.8) Red Blood Count 3.78 M/UL (4.20-5.40) L Hemoglobin 11.9 G/DL (12.0-16.0) L Hematocrit 35.8 % (37.0-47.0) L Mean Corpuscular Volume 95 FL (80-99) Mean Corpuscular Hemoglobin 31.4 PG (27.0-31.0) H Mean Corpuscular Hemoglobin Concent 33.2 G/DL (32.0-36.0) Red Cell Distribution Width 12.1 % (11.6-14.8) Platelet Count 264 K/UL (150-450) Mean Platelet Volume 7.1 FL (6.5-10.1) Neutrophils (%) (Auto) % (45.0-75.0) Lymphocytes (%) (Auto) % (20.0-45.0) Monocytes (%) (Auto) % (1.0-10.0) Eosinophils (%) (Auto) % (0.0-3.0) Basophils (%) (Auto) % (0.0-2.0) Differential Total Cells Counted 100 Neutrophils % (Manual) 94 % (45-75) H Lymphocytes % (Manual) 3 % (20-45) L Monocytes % (Manual) 3 % (1-10) Eosinophils % (Manual) 0 % (0-3) Basophils % (Manual) 0 % (0-2) Band Neutrophils 0 % (0-8) Platelet Estimate Adequate Platelet Morphology Normal Hypochromasia 1+ Current Medications Medications (Trade) Dose Ordered Sig/Isaiah Route PRN Reason Start Time Stop Time Status Last Admin Dose Admin Albuterol/ Ipratropium (Albuterol/ Ipratropium) 3 ml Q4H PRN HHN Shortness of Breath 03/30/17 00:00 04/04/17 00:00 Azithromycin (Zithromax) 250 mg DAILY ORAL 03/30/17 09:00 04/03/17 08:59 03/30/17 08:21 Ceftriaxone Sodium 2 gm/ Sodium Chloride 55 ml @ 110 mls/hr Q24HRS IVPB 03/29/17 22:00 04/05/17 21:59 03/29/17 23:27 Dextrose (Dextrose 50%) STAT PRN IV Hypoglycemia 03/30/17 10:45 04/29/17 10:44 Heparin Sodium (Porcine) (Heparin 5000 units/ml) 5,000 units EVERY 8 HOURS SUBQ 03/30/17 14:00 04/29/17 13:59 UNV Insulin Aspart (NovoLOG) BEFORE MEALS AND HS SUBQ 03/30/17 11:30 04/29/17 11:29 Ipratropium [place] (Atrovent) 500 mcg Q4H PRN HHN Shortness of Breath 03/30/17 00:00 04/04/17 00:00 Antonia Flores M.D. Mar 30, 2017 12:15
--- NOTE | 2017-03-30 12:59 | Consultation ---
Consult Note Assessment/Plan DICT # [id number] MENG SCHAEFER M.D. Mar 30, 2017 12:59
[2017-03-30] MEDS: Heparin 5000 units/ml inj SUBQ SCH ×2 (13:14→22:00)
[2017-03-30] MEDS: Albuterol/Ipratropium 3ml neb HHN SCH (13:57)
[2017-03-30 16:00] VITALS: BP 147/77
--- NOTE | 2017-03-30 17:00 | Consultation ---
DATE OF CONSULTATION: 03/29/2017 INFECTIOUS DISEASES CONSULTATION CONSULTING PHYSICIAN: Antonia Flores M.D. REQUESTING PHYSICIAN: Vladimir Ocampo M.D. REASON FOR CONSULTATION: Fever, bronchitis, COPD exacerbation, recommendation for antibiotics treatment. HISTORY OF PRESENT ILLNESS: The patient is a 71-year-old female with past medical history of asthma, COPD, Parkinson disease, was sent from senior care for productive cough and fever for two days. The patient has yellowish phlegm when she coughs, sometimes green. She also had fever and chills associated with shortness of breath and wheezing. Denied any chest pain or abdominal pain. No recent travel or sick contact. She received influenza vaccination this year as per her report. The patient had chest x-ray in the emergency room, did not show any acute infiltration or effusion. No consolidation. She was started on nebulizer treatment and steroid and I was consulted by the primary admitting provider for antibiotics treatment and further management. REVIEW OF SYSTEMS: A 14-point of system reviewed were all negative apart from the one I mentioned above in my History and Physical. PAST MEDICAL HISTORY: Significant for hyperlipidemia, cardiac disease, hypertension, asthma, diabetes, osteoarthritis, CVA, Parkinson disease with tremor. PAST SURGICAL HISTORY: Negative. MEDICATIONS: The patient received zithromax and ceftriaxone in the emergency room. For the rest of the medications, please refer to MAR. ALLERGIES: She is allergic to morphine. SOCIAL HISTORY: She lives at the senior care. Denied any drugs, tobacco, or alcohol abuse. FAMILY HISTORY: Noncontributory. PHYSICAL EXAMINATION: VITAL SIGN: Temperature 100.2 degrees, pulse 106, respirations 23, blood pressure 157/74, saturation 99% on 3 L nasal cannula. GENERAL: An elderly female with resting tremor, lying in bed, awake, alert, responsive, not in acute distress. HEENT: Normocephalic and atraumatic. Pupils are reactive to light and equal. Moist oral mucosa. No exudate or thrush. NECK: Supple. No lymphadenopathy. CARDIOVASCULAR: She is tachycardic. S1 and S2 normal. No murmur. No gallop. LUNGS: She had diffuse expiratory wheezing in both lung sousa with diminished breathing sounds and poor air entry to both lungs. ABDOMEN: Soft, nontender, nondistended. Positive bowel sounds. No hepatosplenomegaly. No ascites. EXTREMITIES: No edema. No cyanosis. LABORATORY DATA: Labs showed white count of 7.8, hemoglobin of 11.9, and platelet count of 264. BUN of 13 and creatinine of 0.9. AST of 38 and ALT of 26. Urinalysis was positive for nitrite, +2 leukocyte esterase, WBC 20 to 30, and many bacteria. IMAGING: Chest x-ray showed no acute abnormalities. ASSESSMENT AND RECOMMENDATION: 1. Purulent bronchitis. We will send sputum for culture and screen for influenza. We will start the patient on ceftriaxone and Zithromax empiric treatment. 2. Possible pneumonia. We will send sputum for culture and start ceftriaxone with Zithromax. Monitor chest x-ray. We will repeat if no improvement in her condition. 3. Asthma and chronic obstructive pulmonary disease exacerbation due to the above. Continue inhalers and oxygen. We will start wide-spectrum antibiotics. Monitor chest x-ray. Pulmonary team will be following. 4. Urinary tract infection. We will send urine culture. The patient will be already on ceftriaxone. Pending culture results. Thank you for the consultation. Infectious Disease will continue to follow. Antonia Flores M.D. DR: Boni JOB#: [id number] CC: SABAS
--- NOTE | 2017-03-30 18:00 | Consultation ---
DATE OF CONSULTATION: 03/30/2017 PULMONARY CONSULTATION CONSULTING PHYSICIAN: Thompson Cruz M.D. ATTENDING/REFERRING PHYSICIAN: Vladimir Ocampo M.D. REASON FOR CONSULTATION: Respiratory illness. HISTORY OF PRESENT ILLNESS: The patient is a 71-year-old female with history of COPD, Parkinson disease, who is a shelter resident, presenting with cough x2 days. Cough is productive, clear nonbloody phlegm. She has also had some low-grade fevers, chills, some mild wheezing. She states the breathing treatments and inhalers have not helped her. She denies any rhinorrhea or congestion. No myalgias. She denies any recent ill contacts or travel. She was seen in the ER and admitted for treatment of COPD exacerbation. She was given DuoNebs, steroids, and IV antibiotics in the ER. Chest x-ray was unchanged from prior and essentially was normal. Vital signs were stable. She has been requiring O2 at 2 liters, T-max of 100.2, and pulse was 119. White count was 7.8. Prior to admission, medications reviewed. Rapid influenza A and B swab was negative in the emergency department. The patient has been admitted and is currently on Rocephin and azithromycin for community-acquired pneumonia plus is getting p.r.n. DuoNebs. PAST MEDICAL HISTORY: 1. COPD. 2. Parkinson disease. 3. [facility]. 4. Hypertension. 5. Generalized failure to thrive. ALLERGIES: Morphine. MEDICATIONS: Prior to admission medications: Acetaminophen, albuterol, aspirin, atenolol, atorvastatin, Dulcolax, Sinemet, clonidine, dextran, docusate, fluoxetine, Lasix, Neurontin, hydrochlorothiazide, lorazepam, nitroglycerin, ondansetron, p.o. prednisone, Phenergan With Codeine, theophylline, and tramadol. SOCIAL HISTORY: She denies any tobacco, alcohol, or drug use. FAMILY HISTORY: Noncontributory. REVIEW OF SYSTEMS: Negative other than history of present illness. PHYSICAL EXAMINATION: VITAL SIGNS: Temperature 97, pulse 66, blood pressure 145/90, respiratory rate 20, and saturating 97% on room air. GENERAL: She is an elderly female with parkinsonian tremor. HEENT: Normocephalic, atraumatic. Oropharynx is clear. Moist mucous membranes. NECK: Supple without lymphadenopathy or JVD. CHEST: Clear to auscultation but distant. Faint end-expiratory wheezing. HEART: Regular rate and rhythm. ABDOMEN: Soft, nontender, nondistended. EXTREMITIES: No cyanosis, clubbing, or edema. ANCILLARY DATA: Laboratories reviewed. Rapid influenza, negative. Chest x-ray, no acute findings. ASSESSMENT: The patient is a 71-year-old female with presumed history of chronic obstructive pulmonary disease, shelter resident, Parkinson disease, presenting with respiratory illness likely chronic obstructive pulmonary disease exacerbation in the setting of an antecedent upper respiratory infection versus tracheobronchitis. PROBLEM LIST: 1. Chronic obstructive pulmonary disease with acute exacerbation. 2. Antecedent upper respiratory infection versus tracheobronchitis. 3. Parkinson disease. 4. Hypertension. 5. [facility] resident. TREATMENT PLAN: 1. Optimize pulmonary hygiene/mobilize as tolerated. 2. P.r.n. O2 to keep saturations greater than 90%. 3. [id number] and p.r.n. DuoNebs. 4. Prednisone 60 mg p.o. daily (today is day #1 of #5). 5. Continue Rocephin and azithromycin for now, however, if the patient remains stable and cultures are negative, we would consider discontinuing Rocephin and completing a 5-day course of azithromycin only. 6. The patient should be on a maintenance regimen for her chronic obstructive pulmonary disease. I will defer this to the primary data review specialist. 7. Monitor volumes. 8. Heparin subcutaneous for DVT prophylaxis. 9. Aspiration precautions. 10. The patient is DNAR. Dr. Ocampo, thank you for allowing me to assist in the care of your patient. If I may be of any assistance in the future, please do not hesitate to ask. Melinda Carver, nurse practitioner, and Dr. Bose, primary data review specialist, will assume care in the morning. I will sign-out to them this evening. Romero Gonzales JOB#: [id number] CC:
--- NOTE | 2017-03-30 19:12 | Cardiology Report ---
APPROVED REPORT EKG Measurement Heart [id number] Sinus tachycardia Septal infarct, age undetermined Abnormal ECG
[2017-03-30 20:00] VITALS: BP 154/76
--- NOTE | 2017-03-30 21:45 | History and Physical Report ---
DATE OF ADMISSION: 03/29/2017 INTERNAL MEDICINE HISTORY AND PHYSICAL IDENTIFICATION DATA: The patient is a pleasant 71-year-old female with past medical history significant for asthma, COPD, Parkinson disease, was sent from alf with fever, productive cough for the past several days with yellowish phlegm, but it was also green. The patient noted to have fever, chills, shortness of breath, and wheezing. Denies any chest pain that is acute. No sick contacts. Received influenza vaccination as well in the past. She had a chest x-ray that did not show any active infiltration or consolidation. She was started on nebulizer treatment and steroids. ID Service was consulted regarding antibiotics. Currently on ceftriaxone and Zithromax. Also the patient with UTI noted. Pulmonary team has been consulted given COPD exacerbation. The patient is on oxygen p.r.n., prednisone, and [id number] DuoNebs. PAST MEDICAL HISTORY: COPD, Parkinson disease, alf resident, hypertension, generalized pain, and osteoarthritis. MEDICATIONS: Tylenol, albuterol, atenolol, atorvastatin, Dulcolax, Sinemet, clonidine, dextran, Colace, fluoxetine, . ALLERGIES: Morphine. SOCIAL HISTORY: Denies any alcohol, tobacco, or illicit drug use. FAMILY HISTORY: Noncontributory. REVIEW OF SYSTEMS: A 12-point review of systems is otherwise negative. PHYSICAL EXAMINATION: GENERAL: No distress. VITAL SIGNS: Reviewed. PULMONARY: Decreased breath sounds noted at the bilateral bases. CARDIOVASCULAR: Regular rate. No S3 or S4. ABDOMEN: Soft, nontender, and nondistended. EXTREMITIES: A 1+ edema. LABORATORY AND DIAGNOSTIC DATA: WBC 7.8 and hemoglobin 11.9. BUN of 12 and creatinine 0.9. ASSESSMENT AND RECOMMENDATIONS: 1. Chronic obstructive pulmonary disease exacerbation, being seen by Pulmonary team, Dr. Cruz, currently on prednisone five-day course in addition to DuoNebs [id number] in addition to oxygen as needed. 2. Upper respiratory infection versus tracheobronchitis. Continue Zithromax and ceftriaxone as per Infectious Disease team. 3. Parkinson disease. Neurology service evaluation if altered mental status worsens. 4. Hypertension. 5. [facility] resident. 6. Deep venous thrombosis prophylaxis with heparin. 7. Urinary tract infection, send for urine culture. Continue ceftriaxone. Vladimir Ocampo M.D. DR: Glynn JOB#: [id number] CC:
[2017-03-30] MEDS: cefTRIAXone 2 GM in NS 55 ML IVPB SCH (22:00)
[2017-03-31] VITALS (7 sets, daily range): BP systolic 127–171; BP diastolic 69–99
[2017-03-31] MEDS: Albuterol/Ipratropium 3ml neb HHN SCH ×4 (01:00→19:00)
[2017-03-31] MEDS: Heparin 5000 units/ml inj SUBQ SCH ×3 (06:00→21:28)
[2017-03-31] MEDS: NovoLOG Insulin Flexpen SUBQ SCH ×4 (06:30→21:00)
[2017-03-31] MEDS: Azithromycin 250mg tab ORAL SCH (08:15)
--- NOTE | 2017-03-31 10:48 | Infectious Diseases Prog Note ---
Assessment/Plan Problems: (1) Purulent bronchitis Assessment & Plan: screening for infulenza is negative , continue ceftriaxon with zithromax empirically pending sputum culture (2) Pneumonia Assessment & Plan: on ceftriaxon and zithromax pending sputum culture , monitor CXR (3) COPD exacerbation Assessment & Plan: due to the above, continue inhalers, and oxygen , already on antibiotics , monitor CXR (4) UTI (urinary tract infection) Assessment & Plan: urine culture is growing gram negative rods , she is already on ceftriaxon Subjective Constitutional: Reports: fatigue HEENT: Reports: no symptoms Respiratory: Reports: productive cough, other - wheezing Breasts: Reports: no symptoms Cardiovascular: Reports: no symptoms Gastrointestinal/Abdominal: Reports: no symptoms Genitourinary: Reports: no symptoms Neurologic: Reports: no symptoms Psychiatric: Reports: no symptoms Skin: Reports: no symptoms Endocrine: Reports: no symptoms Hematologic: Reports: no symptoms Musculoskeletal: Reports: no symptoms Allergies: Coded Allergies: MORPHINE (Verified Allergy, Unknown, 11/07/15) Objective Vital Signs Last 24 Hour Vital Signs Date Time Temp Pulse Resp B/P (MAP) Pulse Ox O2 Delivery O2 Flow Rate FiO2 03/31/17 08:00 97.6 69 16 131/69 95 03/31/17 06:39 80 20 99 Nasal Cannula 3.0 32 03/31/17 06:32 80 20 97 Nasal Cannula 3.0 32 03/31/17 04:00 97.0 69 16 127/69 95 03/31/17 04:00 62 03/31/17 01:20 Nasal Cannula 3.0 32 03/31/17 01:20 Nasal Cannula 3.0 32 03/31/17 00:00 83 03/31/17 00:00 97.0 89 20 157/91 97 03/30/17 20:00 87 03/30/17 20:00 97.7 89 20 154/76 100 03/30/17 19:35 80 18 99 Nasal Cannula 3.0 32 03/30/17 19:20 80 20 97 Nasal Cannula 3.0 32 03/30/17 16:00 86 03/30/17 16:00 98.0 90 18 147/77 98 Nasal Cannula 2.0 03/30/17 14:08 83 18 99 Nasal Cannula 3.0 32 03/30/17 14:07 81 20 Nasal Cannula 3.0 32 03/30/17 13:57 81 20 97 Nasal Cannula 3.0 32 03/30/17 12:00 97.5 67 20 125/76 99 Nasal Cannula 2.0 03/30/17 12:00 93 Height (Feet): 5 Height (Inches): 4.00 Weight (Pounds): 130 General Appearance: WD/WN, no acute distress HEENT: normocephalic, atraumatic, anicteric, mucous membranes moist, PERRL, EOMI, pharynx normal, supple, no JVD Respiratory/Chest: chest wall non-tender, no respiratory distress, no accessory muscle use, decreased breath sounds, expiratory wheezing Cardiovascular: normal peripheral pulses, normal rate, regular rhythm, no gallop/murmur, no JVD Abdomen: normal bowel sounds, soft, non tender, no organomegaly, non distended , no mass, no scars Extremities: no cyanosis, no clubbing Skin: no rash, no lesions, no ulcers Neurologic/Psychiatric: alert, responsive Microbiology Date/Time Source Procedure Growth Status 03/29/17 20:35 Blood Blood Culture - Preliminary NO GROWTH AFTER 24 HOURS Resulted 03/29/17 20:20 Blood Blood Culture - Preliminary NO GROWTH AFTER 24 HOURS Resulted 03/30/17 00:50 Nasopharynx Influenza Types A,B Antigen (MICHELLE) - Final Complete 03/29/17 21:25 Urine,Catheterized Urine Culture - Preliminary Gram Negative Bacillus 1 Resulted Current Medications Medications (Trade) Dose Ordered Sig/Isaiah Route PRN Reason Start Time Stop Time Status Last Admin Dose Admin Acetaminophen (Tylenol) 650 mg Q8H PRN ORAL Fever/Headache/Mild Pain 03/30/17 16:45 04/29/17 16:44 03/30/17 17:42 Albuterol/ Ipratropium (Albuterol/ Ipratropium) 3 ml Q4H PRN HHN Shortness of Breath 03/30/17 00:00 04/04/17 00:00 Albuterol/ Ipratropium (Albuterol/ Ipratropium) 3 ml Q6HRT HHN 03/30/17 19:00 04/04/17 18:59 03/31/17 06:32 Azithromycin (Zithromax) 250 mg DAILY ORAL 03/30/17 09:00 04/03/17 08:59 03/31/17 08:15 Ceftriaxone Sodium 2 gm/ Sodium Chloride 55 ml @ 110 mls/hr Q24HRS IVPB 03/29/17 22:00 04/05/17 21:59 03/30/17 22:00 Dextrose (Dextrose 50%) STAT PRN IV Hypoglycemia 03/30/17 10:45 04/29/17 10:44 Heparin Sodium (Porcine) (Heparin 5000 units/ml) 5,000 units EVERY 8 HOURS SUBQ 03/30/17 14:00 04/29/17 13:59 Insulin Aspart (NovoLOG) BEFORE MEALS AND HS SUBQ 03/30/17 11:30 04/29/17 11:29 Prednisone (predniSONE) 60 mg DAILY ORAL 03/31/17 09:00 04/30/17 08:59 03/31/17 08:15 Antonia Flores M.D. Mar 31, 2017 10:47
--- NOTE | 2017-03-31 16:27 | Pulmonology Progress Note ---
Assessment/Plan Assessment/Plan ASSESSMENT acute COPD exacerbation possible purulent bronchitis possible tracheobronchitis UTI Parkinson disease. Hypertensive, urgency . PLAN OF CARE: abx fup with cx urine cx +GNR, sputum cx pending blood cx prel negative influenza screen negative ID follows O2 prn pulmonary toilet fup with CXR taper steroids BS management with SS of insulin BP management with BB and Clonidine prn, will watch HR closely monitor volumes, cardiorenal parameters correct e/lytes as needed resume Sinemet PT/OT DVT prophylaxis DNR/DNI status transfer to [place] case discussed and evaluated by supervising physician Subjective Allergies: Coded Allergies: MORPHINE (Verified Allergy, Unknown, 11/07/15) Subjective afebrile no leukocytosis no signs of respiratory distress Objective Last 24 Hour Vital Signs Date Time Temp Pulse Resp B/P (MAP) Pulse Ox O2 Delivery O2 Flow Rate FiO2 03/31/17 14:16 Nasal Cannula 03/31/17 14:16 Nasal Cannula 03/31/17 12:00 97.7 91 20 171/85 98 03/31/17 08:00 97.6 69 16 131/69 95 03/31/17 08:00 107 03/31/17 06:39 80 20 99 Nasal Cannula 3.0 32 03/31/17 06:32 80 20 97 Nasal Cannula 3.0 32 03/31/17 04:00 97.0 69 16 127/69 95 03/31/17 04:00 62 03/31/17 01:20 Nasal Cannula 3.0 32 03/31/17 01:20 Nasal Cannula 3.0 32 03/31/17 00:00 83 03/31/17 00:00 97.0 89 20 157/91 97 03/30/17 20:00 87 03/30/17 20:00 97.7 89 20 154/76 100 03/30/17 19:35 80 18 99 Nasal Cannula 3.0 32 03/30/17 19:20 80 20 97 Nasal Cannula 3.0 32 Intake and Output 03/30/17 03/31/17 19:00 07:00 Intake Total 400 ml Balance 400 ml Intake Oral 400 ml # Voids 2 2 # Bowel Movements 1 General Appearance: no acute distress HEENT: normocephalic, atraumatic, anicteric Respiratory/Chest: lungs clear, no respiratory distress, no accessory muscle use Cardiovascular: normal peripheral pulses, normal rate - SR with occas PVC , no JVD Abdomen: normal bowel sounds, soft, non tender, non distended Extremities: no edema, pedal pulses normal Neurologic/Psychiatric: abnormal gait, alert, responsive Musculoskeletal: atrophy - BLE Microbiology Date/Time Source Procedure Growth Status 03/29/17 20:35 Blood Blood Culture - Preliminary NO GROWTH AFTER 24 HOURS Resulted 03/29/17 20:20 Blood Blood Culture - Preliminary NO GROWTH AFTER 24 HOURS Resulted 03/30/17 14:30 Sputum Expectorated Gram Stain - Final Resulted 03/30/17 14:30 Sputum Expectorated Sputum Culture Pending Resulted 03/30/17 00:50 Nasopharynx Influenza Types A,B Antigen (MICHELLE) - Final Complete 03/29/17 21:25 Urine,Catheterized Urine Culture - Preliminary Gram Negative Bacillus 1 Resulted Current Medications Medications (Trade) Dose Ordered Sig/Isaiah Route PRN Reason Start Time Stop Time Status Last Admin Dose Admin Acetaminophen (Tylenol) 650 mg Q8H PRN ORAL Fever/Headache/Mild Pain 03/30/17 16:45 04/29/17 16:44 03/31/17 10:55 Albuterol/ Ipratropium (Albuterol/ Ipratropium) 3 ml Q4H PRN HHN Shortness of Breath 03/30/17 00:00 04/04/17 00:00 Albuterol/ Ipratropium (Albuterol/ Ipratropium) 3 ml Q6HRT HHN 03/30/17 19:00 04/04/17 18:59 03/31/17 06:32 Azithromycin (Zithromax) 250 mg DAILY ORAL 03/30/17 09:00 04/03/17 08:59 03/31/17 08:15 Ceftriaxone Sodium 2 gm/ Sodium Chloride 55 ml @ 110 mls/hr Q24HRS IVPB 03/29/17 22:00 04/05/17 21:59 03/30/17 22:00 Dextrose (Dextrose 50%) STAT PRN IV Hypoglycemia 03/30/17 10:45 04/29/17 10:44 Heparin Sodium (Porcine) (Heparin 5000 units/ml) 5,000 units EVERY 8 HOURS SUBQ 03/30/17 14:00 04/29/17 13:59 Insulin Aspart (NovoLOG) BEFORE MEALS AND HS SUBQ 03/30/17 11:30 04/29/17 11:29 Prednisone (predniSONE) 60 mg DAILY ORAL 03/31/17 09:00 04/30/17 08:59 03/31/17 08:15 Mehul ([facility])Melinda NP Mar 31, 2017 16:27
[2017-03-31] MEDS ORDERED: D5W 275ml ONE (17:00)
[2017-03-31] MEDS ORDERED: Tubing IV Secondary IV ONE (17:00)
[2017-03-31] MEDS ORDERED: LORazepam 0.5mg tab ORAL PRN (17:45)
[2017-03-31] MEDS: Nitroglycerin Subl 0.4mg tab SL SCH ×8 (17:45→18:20)
[2017-03-31] MEDS ORDERED: Artificial Tears 1.4% Op Soln BOTH EYES SCH (18:00)
[2017-03-31] MEDS ORDERED: Nitroglycerin Subl 0.4mg tab SL PRN (18:25)
[2017-03-31] MEDS: Atorvastatin 20mg tab ORAL SCH (21:27)
[2017-03-31] MEDS: cefTRIAXone 2 GM in NS 55 ML IVPB SCH (21:28)
--- NOTE | 2017-03-31 23:08 | Consultation ---
History of Present Illness General Date patient seen: Mar 31, 2017 Chief Complaint: Fever Present Illness HPI 71-year-old female with past medical history depression, asthma, COPD, Parkinson disease, was sent from retirement with fever, productive cough. the pt is pw anxiety and depressed mood. Allergies: Coded Allergies: MORPHINE (Verified Allergy, Unknown, 11/07/15) Medication History Scheduled Acetaminophen (Acetaminophen), 325 MG PO NEEDED, (Reported) Aspirin* (Aspir 81*), 81 MG ORAL DAILY, (Reported) Atenolol* (Tenormin*), Unknown Dose ORAL DAILY, (Reported) Atorvastatin Calcium* (Atorvastatin Calcium*), Unknown Dose ORAL BEDTIME, ( Reported) Carbidopa/Levodopa 25-100 Mg* (Sinemet 25-100 Mg Tablet*), 1 TAB ORAL THREE TIMES A DAY, (Reported) Clonidine Hcl* (Catapres*), 0.1 MG ORAL EVERY 6 HOURS, (Reported) Docusate Sodium* (Docusate Sodium*), 100 MG ORAL DAILY, (Reported) Fluoxetine Hcl* (Fluoxetine Hcl*), Unknown Dose ORAL DAILY, (Reported) Furosemide* (Lasix*), Unknown Dose ORAL DAILY, (Reported) Gabapentin* (Gabapentin*), 100 MG ORAL BID, (Reported) Hydrochlorothiazide* (Hydrochlorothiazide*), Unknown Dose ORAL DAILY, (Reported) Lorazepam* (Ativan*), Unknown Dose ORAL THREE TIMES A DAY, (Reported) Nitroglycerin (Nitroglycerin), 0.4 MG SL NEEDED, (Reported) Prednisone (Prednisone), 10 MG PO DAILY Promethazine HCl/Codeine (Prometh-Codein 6.25-10 mg/5 ml), 5 ML PO EVERY 6 HOURS , (Reported) Theophylline (Theodur*), 100 MG ORAL TWICE A DAY, (Reported) Scheduled PRN Albuterol Sulfate* (Albuterol Sulfate Hhn*), 3 ML INH Q4H PRN for Shortness of Breath, (Reported) Bisacodyl* (Dulcolax*), 5 MG ORAL DAILY PRN for Constipation, (Reported) Ondansetron* (Zofran*), 4 MG ORAL Q6H PRN for Nausea & Vomiting, (Reported) Tramadol Hcl* (Ultram*), 50 MG ORAL EVERY 12 HOURS PRN for For Pain, (Reported) Miscellaneous Medications Dextran 70/Hypromellose (Artificial Tears Eye Drops*), 1 DROP BOTH EYES, ( Reported) Patient History History Provided By: Patient, Medical Record, PMD Healthcare decision maker N Resuscitation status Do Not Resuscitate Advanced Directive on File No Past Medical/Surgical History Past Medical/Surgical History: (1) Pain in right knee (2) Parkinson disease (3) HTN (hypertension) (4) History of asthma (5) Generalized weakness (6) Pneumonia (7) Purulent bronchitis (8) Sepsis (9) UTI (urinary tract infection) (10) Viral upper respiratory infection (11) COPD exacerbation Review of Systems Psychiatric: Reports: prior hx, anxiety, depressed feelings Physical Exam General Appearance: no apparent distress, alert Neurologic: alert, oriented x 3, responsive, depressed affect Last 24 Hour Vital Signs Date Time Temp Pulse Resp B/P (MAP) Pulse Ox O2 Delivery O2 Flow Rate FiO2 03/31/17 20:40 97.2 93 20 153/86 99 03/31/17 20:00 97.5 90 21 162/99 94 Nasal Cannula 3.0 03/31/17 19:00 86 18 96 Nasal Cannula 3.0 32 03/31/17 19:00 Nasal Cannula 3.0 32 03/31/17 16:00 77 03/31/17 16:00 97.7 74 20 153/89 98 03/31/17 14:16 Nasal Cannula 03/31/17 14:16 Nasal Cannula 03/31/17 12:00 97.7 91 20 171/85 98 03/31/17 12:00 90 03/31/17 08:00 97.6 69 16 131/69 95 03/31/17 08:00 107 03/31/17 06:39 80 20 99 Nasal Cannula 3.0 32 03/31/17 06:32 80 20 97 Nasal Cannula 3.0 32 03/31/17 04:00 97.0 69 16 127/69 95 03/31/17 04:00 62 03/31/17 01:20 Nasal Cannula 3.0 32 03/31/17 01:20 Nasal Cannula 3.0 32 03/31/17 00:00 83 03/31/17 00:00 97.0 89 20 157/91 97 Intake and Output 03/30/17 03/31/17 19:00 07:00 Intake Total 400 ml Balance 400 ml Intake Oral 400 ml # Voids 2 2 # Bowel Movements 1 Height (Feet): 5 Height (Inches): 4.00 Weight (Pounds): 130 Medications Current Medications Medications (Trade) Dose Ordered Sig/Isaiah Route PRN Reason Start Time Stop Time Status Last Admin Dose Admin Acetaminophen (Tylenol) 650 mg Q8H PRN ORAL Fever/Headache/Mild Pain 03/30/17 16:45 04/29/17 16:44 03/31/17 21:53 Albuterol/ Ipratropium (Albuterol/ Ipratropium) 3 ml Q4H PRN HHN Shortness of Breath 03/30/17 00:00 04/04/17 00:00 Albuterol/ Ipratropium (Albuterol/ Ipratropium) 3 ml Q6HRT HHN 03/30/17 19:00 04/04/17 18:59 03/31/17 06:32 Artificial Tears (Akwa-Tears) 1 drop QID BOTH EYES 04/01/17 09:00 05/01/17 08:59 Aspirin (Ecotrin) 81 mg DAILY ORAL 04/01/17 09:00 05/01/17 08:59 Atenolol (Tenormin) 25 mg DAILY ORAL 04/01/17 09:00 05/01/17 08:59 Atorvastatin Calcium (Lipitor) 20 mg BEDTIME ORAL 03/31/17 21:00 04/30/17 20:59 03/31/17 21:27 Azithromycin (Zithromax) 250 mg DAILY ORAL 03/30/17 09:00 04/03/17 08:59 03/31/17 08:15 Carbidopa/Levodopa (Sinemet 25/100) 1 ea THREE TIMES A DAY ORAL 04/01/17 09:00 05/01/17 08:59 Ceftriaxone Sodium 2 gm/ Sodium Chloride 55 ml @ 110 mls/hr Q24HRS IVPB 03/29/17 22:00 04/05/17 21:59 03/31/17 21:28 Clonidine HCl (Catapres) 0.1 mg Q6H PRN ORAL sbp above 160 03/31/17 17:45 04/30/17 17:44 Dextrose (Dextrose 50%) STAT PRN IV Hypoglycemia 03/30/17 10:45 04/29/17 10:44 Docusate Sodium (Colace) 100 mg DAILY ORAL 04/01/17 09:00 05/01/17 08:59 Fluoxetine HCl (PROzac) 10 mg DAILY ORAL 04/01/17 09:00 05/01/17 08:59 Gabapentin (Neurontin) 100 mg BID ORAL 03/31/17 18:00 04/30/17 17:59 03/31/17 18:03 Heparin Sodium (Porcine) (Heparin 5000 units/ml) 5,000 units EVERY 8 HOURS SUBQ 03/30/17 14:00 04/29/17 13:59 Insulin Aspart (NovoLOG) BEFORE MEALS AND HS SUBQ 03/30/17 11:30 04/29/17 11:29 Lorazepam (Ativan) 0.5 mg TIDPRN PRN ORAL anxiety 03/31/17 17:45 04/07/17 17:44 Nitroglycerin (Ntg) 0.4 mg Q5M PRN SL Prn Chest Pain 03/31/17 18:25 04/30/17 18:24 Prednisone (predniSONE) 50 mg DAILY ORAL 04/01/17 09:00 05/01/17 08:59 Assessment/Plan Status: stable Assessment/Plan mdd anxiety d/o lorazepam fluoxetine Lauren Amado M.D. Mar 31, 2017 23:07
--- NOTE | 2017-03-31 23:31 | General Progress Note ---
Assessment/Plan Assessment/Plan ASSESSMENT AND RECOMMENDATIONS: 1. Chronic obstructive pulmonary disease exacerbation, being seen by Pulmonary team. 2. Upper respiratory infection versus tracheobronchitis. Continue Zithromax and ceftriaxone as per Infectious Disease team. 3. Parkinson disease. Neurology service evaluation if altered mental status worsens. 4. Hypertension. 5. Deep venous thrombosis prophylaxis with heparin. 6. Urinary tract infection 7. Anemia currently mild. Subjective Allergies: Coded Allergies: MORPHINE (Verified Allergy, Unknown, 11/07/15) All Systems: reviewed and negative except above Subjective afebrile Objective Last 24 Hour Vital Signs Date Time Temp Pulse Resp B/P (MAP) Pulse Ox O2 Delivery O2 Flow Rate FiO2 03/31/17 20:40 97.2 93 20 153/86 99 03/31/17 20:00 97.5 90 21 162/99 94 Nasal Cannula 3.0 03/31/17 19:00 86 18 96 Nasal Cannula 3.0 32 03/31/17 19:00 Nasal Cannula 3.0 32 03/31/17 16:00 77 03/31/17 16:00 97.7 74 20 153/89 98 03/31/17 14:16 Nasal Cannula 03/31/17 14:16 Nasal Cannula 03/31/17 12:00 97.7 91 20 171/85 98 03/31/17 12:00 90 03/31/17 08:00 97.6 69 16 131/69 95 03/31/17 08:00 107 03/31/17 06:39 80 20 99 Nasal Cannula 3.0 32 03/31/17 06:32 80 20 97 Nasal Cannula 3.0 32 03/31/17 04:00 97.0 69 16 127/69 95 03/31/17 04:00 62 03/31/17 01:20 Nasal Cannula 3.0 32 03/31/17 01:20 Nasal Cannula 3.0 32 03/31/17 00:00 83 03/31/17 00:00 97.0 89 20 157/91 97 Intake and Output 03/30/17 03/31/17 19:00 07:00 Intake Total 400 ml Balance 400 ml Intake Oral 400 ml # Voids 2 2 # Bowel Movements 1 Height (Feet): 5 Height (Inches): 4.00 Weight (Pounds): 130 General Appearance: no apparent distress EENT: normal ENT inspection Neck: normal alignment Cardiovascular: normal peripheral pulses Extremities: non-tender 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
[2017-04-01] VITALS: BP 154/92
[2017-04-01] MEDS: Albuterol/Ipratropium 3ml neb HHN SCH ×5 (01:00→20:04)
[2017-04-01 04:19] VITALS: BP 170/84
[2017-04-01] MEDS: guaiFENesin DM 100mg/5ml ORAL PRN ×2 (05:43→20:40)
[2017-04-01] MEDS: NovoLOG Insulin Flexpen SUBQ SCH ×4 (06:29→20:41)
[2017-04-01 06:42] LABS: ANION GAP 11 mmol/L (5-15); CALCIUM 7.7 MG/DL (8.5-10.1); CARBON DIOXIDE 26 MMOL/L (21-32); CHLORIDE 100 MMOL/L (98-107); CREATININE 0.9 MG/DL (0.55-1.30); POTASSIUM 3.6 MMOL/L (3.5-5.1); SODIUM 137 MMOL/L (136-145)
[2017-04-01 06:51] LABS: BASOPHILS % (AUTO) 0.5 % (0.0-2.0); EOSINOPHILS % (AUTO) 0.2 % (0.0-3.0); LYMPHOCYTES % (AUTO) 26.6 % (20.0-45.0); MEAN CORPUSCULAR HEMOGLOBIN 31.4 PG (27.0-31.0); MEAN CORPUSCULAR HGB CONC 32.9 G/DL (32.0-36.0); MEAN CORPUSCULAR VOLUME 95 FL (80-99); MEAN PLATELET VOLUME 6.8 FL (6.5-10.1); MONOCYTES % (AUTO) 10.2 % (1.0-10.0); NEUTROPHILS % (AUTO) 62.5 % (45.0-75.0); PLATELET COUNT 305 K/UL (150-450); RED BLOOD COUNT 4.24 M/UL (4.20-5.40); RED CELL DISTRIBUTION WIDTH 12.1 % (11.6-14.8); WHITE BLOOD COUNT 7.1 K/UL (4.8-10.8)
[2017-04-01 08:07] VITALS: BP 140/72
[2017-04-01] MEDS: Artificial Tears 1.4% Op Soln BOTH EYES SCH ×4 (09:00→20:40)
[2017-04-01] MEDS: Aspirin EC 81mg tab ORAL SCH (09:17)
[2017-04-01] MEDS: Azithromycin 250mg tab ORAL SCH (09:17)
[2017-04-01] MEDS: Sinemet 25/100 tab ORAL SCH ×3 (09:17→18:29)
[2017-04-01] MEDS: FLUoxetine 10mg cap ORAL SCH (09:17)
[2017-04-01] MEDS: Docusate 100mg cap ORAL SCH (09:17)
[2017-04-01] MEDS: Atenolol 25mg tab ORAL SCH (09:17)
--- NOTE | 2017-04-01 09:55 | Pulmonology Progress Note ---
Assessment/Plan Assessment/Plan ASSESSMENT acute COPD exacerbation possible purulent bronchitis possible tracheobronchitis UTI with E coli Parkinson disease. Hypertensive, urgency . PLAN OF CARE: [place] floor abx urine cx +E coli, sputum cx + Celina blood cx prel negative influenza screen negative ID follows O2 prn pulmonary toilet fup with CXR taper steroids BS management with SS of insulin BP management with BB and Clonidine prn, will watch HR closely monitor volumes, cardiorenal parameters correct e/lytes as needed resume Sinemet PT/OT DVT prophylaxis dc plan for am DNR/DNI status case discussed and evaluated by supervising physician Subjective Allergies: Coded Allergies: MORPHINE (Verified Allergy, Unknown, 11/07/15) Subjective afebrile no leukocytosis no signs of respiratory distress improving Objective Last 24 Hour Vital Signs Date Time Temp Pulse Resp B/P (MAP) Pulse Ox O2 Delivery O2 Flow Rate FiO2 04/01/17 09:17 70 140/72 04/01/17 08:07 97.9 70 21 140/72 99 04/01/17 07:20 75 18 99 Nasal Cannula 3.0 32 04/01/17 07:20 72 18 99 Nasal Cannula 3.0 32 04/01/17 04:21 154/92 04/01/17 04:19 97.8 85 20 170/84 98 Room Air 04/01/17 04:00 Nasal Cannula 2.0 04/01/17 01:18 Nasal Cannula 3.0 32 04/01/17 01:18 Nasal Cannula 3.0 32 04/01/17 00:00 97.0 85 20 154/92 98 04/01/17 00:00 Nasal Cannula 2.0 03/31/17 20:40 97.2 93 20 153/86 99 03/31/17 20:00 97.5 90 21 162/99 94 Nasal Cannula 3.0 03/31/17 19:00 86 18 96 Nasal Cannula 3.0 32 03/31/17 19:00 Nasal Cannula 3.0 32 03/31/17 16:00 77 03/31/17 16:00 97.7 74 20 153/89 98 03/31/17 14:16 Nasal Cannula 03/31/17 14:16 Nasal Cannula 03/31/17 12:00 97.7 91 20 171/85 98 03/31/17 12:00 90 Intake and Output 03/31/17 04/01/17 19:00 07:00 Intake Total 720 ml 55 ml Balance 720 ml 55 ml Intake Oral 720 ml IV Total 55 ml # Voids 2 Objective General Appearance: no acute distress HEENT: normocephalic, atraumatic, anicteric Respiratory/Chest: lungs clear, no respiratory distress, no accessory muscle use Cardiovascular: normal peripheral pulses, normal rate - SR with occas PVC , no JVD Abdomen: normal bowel sounds, soft, non tender, non distended Extremities: no edema, pedal pulses normal Neurologic/Psychiatric: abnormal gait, alert, responsive Musculoskeletal: atrophy - BLE Microbiology Date/Time Source Procedure Growth Status 03/29/17 20:35 Blood Blood Culture - Preliminary NO GROWTH AFTER 48 HOURS Resulted 03/29/17 20:20 Blood Blood Culture - Preliminary NO GROWTH AFTER 48 HOURS Resulted 03/30/17 14:30 Sputum Expectorated Gram Stain - Final Complete 03/30/17 14:30 Sputum Culture - Final Celina Albicans Usual Upper Respiratory Blanca Complete 03/30/17 00:50 Nasopharynx Influenza Types A,B Antigen (MICHELLE) - Final Complete 03/30/17 00:00 Nasal Nares MRSA Culture - Final NO METHICILLIN RESISTANT STAPH AUREUS... Complete 03/29/17 21:25 Urine,Catheterized Urine Culture - Final Escherichia Coli Complete Laboratory Tests 04/01/17 05:10: White Blood Count 7.1, Red Blood Count 4.24, Hemoglobin 13.3, Hematocrit 40.4, Mean Corpuscular Volume 95, Mean Corpuscular Hemoglobin 31.4H, Mean Corpuscular Hemoglobin Concent 32.9, Red Cell Distribution Width 12.1, Platelet Count 305, Mean Platelet Volume 6.8, Neutrophils (%) (Auto) 62.5, Lymphocytes (%) (Auto) 26.6, Monocytes (%) (Auto) 10.2H, Eosinophils (%) (Auto) 0.2, Basophils (%) ( Auto) 0.5, Sodium Level 137, Potassium Level 3.6, Chloride Level 100, Carbon Dioxide Level 26, Anion Gap 11, Blood Urea Nitrogen 18, Creatinine 0.9, Estimat Glomerular Filtration Rate , Glucose Level 104, Hemoglobin A1c 5.9, Calcium Level 7.7L Current Medications Medications (Trade) Dose Ordered Sig/Isaiah Route PRN Reason Start Time Stop Time Status Last Admin Dose Admin Acetaminophen (Tylenol) 650 mg Q8H PRN ORAL Fever/Headache/Mild Pain 03/30/17 16:45 04/29/17 16:44 03/31/17 21:53 Albuterol/ Ipratropium (Albuterol/ Ipratropium) 3 ml Q4H PRN HHN Shortness of Breath 03/30/17 00:00 04/04/17 00:00 Albuterol/ Ipratropium (Albuterol/ Ipratropium) 3 ml Q6HRT HHN 03/30/17 19:00 04/04/17 18:59 04/01/17 07:46 Artificial Tears (Akwa-Tears) 1 drop QID BOTH EYES 04/01/17 09:00 05/01/17 08:59 Aspirin (Ecotrin) 81 mg DAILY ORAL 04/01/17 09:00 05/01/17 08:59 04/01/17 09:17 Atenolol (Tenormin) 25 mg DAILY ORAL 04/01/17 09:00 05/01/17 08:59 04/01/17 09:17 Atorvastatin Calcium (Lipitor) 20 mg BEDTIME ORAL 03/31/17 21:00 04/30/17 20:59 03/31/17 21:27 Azithromycin (Zithromax) 250 mg DAILY ORAL 03/30/17 09:00 04/03/17 08:59 04/01/17 09:17 Carbidopa/Levodopa (Sinemet 25/100) 1 ea THREE TIMES A DAY ORAL 04/01/17 09:00 05/01/17 08:59 04/01/17 09:17 Ceftriaxone Sodium 2 gm/ Sodium Chloride 55 ml @ 110 mls/hr Q24HRS IVPB 03/29/17 22:00 04/05/17 21:59 03/31/17 21:28 Clonidine HCl (Catapres) 0.1 mg Q6H PRN ORAL sbp above 160 03/31/17 17:45 04/30/17 17:44 04/01/17 04:21 Dextrose (Dextrose 50%) STAT PRN IV Hypoglycemia 03/30/17 10:45 04/29/17 10:44 Docusate Sodium (Colace) 100 mg DAILY ORAL 04/01/17 09:00 05/01/17 08:59 12/27/17 09:17 Fluoxetine HCl (PROzac) 10 mg DAILY ORAL 04/01/17 09:00 05/01/17 08:59 04/01/17 09:17 Gabapentin (Neurontin) 100 mg BID ORAL 03/31/17 18:00 04/30/17 17:59 04/01/17 09:17 Guaifenesin/ Dextromethorphan (Robitussin DM) 5 ml Q4H PRN ORAL For Cough 04/01/17 05:30 05/01/17 05:29 04/01/17 05:43 Insulin Aspart (NovoLOG) BEFORE MEALS AND HS SUBQ 03/30/17 11:30 04/29/17 11:29 Lorazepam (Ativan) 0.5 mg TIDPRN PRN ORAL anxiety 03/31/17 17:45 04/07/17 17:44 Nitroglycerin (Ntg) 0.4 mg Q5M PRN SL Prn Chest Pain 03/31/17 18:25 04/30/17 18:24 Prednisone (predniSONE) 50 mg DAILY ORAL 04/01/17 09:00 05/01/17 08:59 04/01/17 09:17 Mehul ([facility])Melinda NP Apr 01, 2017 09:55
--- NOTE | 2017-04-01 12:47 | Diagnostic Imaging Report ---
Indication: Dyspnea Comparison: 03/29/2017 A single view chest radiograph was obtained. Findings: No definite infiltrate or pulmonary vascular congestion identified. The heart is enlarged. The aorta is mildly enlarged consistent with atherosclerotic vascular disease. The bones are osteopenic. Impression: No acute disease
--- NOTE | 2017-04-01 15:54 | Infectious Diseases Prog Note ---
Assessment/Plan Problems: (1) Purulent bronchitis Assessment & Plan: screening for infulenza is negative , continue ceftriaxon with zithromax empirically for 7 days , sputum culture grew teresa which is colonizer (2) Pneumonia Assessment & Plan: on ceftriaxon and zithromax , sputum culture grew teresa which is colonizer , monitor CXR (3) COPD exacerbation Assessment & Plan: due to the above, continue inhalers, and oxygen , already on antibiotics , monitor CXR (4) UTI (urinary tract infection) Assessment & Plan: urine culture grew E coli , she is already on ceftriaxon Subjective Constitutional: Reports: fatigue HEENT: Reports: no symptoms Respiratory: Reports: productive cough Breasts: Reports: no symptoms Cardiovascular: Reports: no symptoms Gastrointestinal/Abdominal: Reports: other - umblical hernia Genitourinary: Reports: no symptoms Neurologic: Reports: no symptoms Psychiatric: Reports: no symptoms Skin: Reports: no symptoms Endocrine: Reports: no symptoms Hematologic: Reports: no symptoms Musculoskeletal: Reports: no symptoms Allergies: Coded Allergies: MORPHINE (Verified Allergy, Unknown, 11/07/15) Objective Vital Signs Last 24 Hour Vital Signs Date Time Temp Pulse Resp B/P (MAP) Pulse Ox O2 Delivery O2 Flow Rate FiO2 04/01/17 13:05 Nasal Cannula 3.0 32 04/01/17 13:04 Nasal Cannula 3.0 32 04/01/17 10:58 80 18 99 Nasal Cannula 3.0 32 04/01/17 09:17 70 140/72 04/01/17 08:07 97.9 70 21 140/72 99 04/01/17 07:20 75 18 99 Nasal Cannula 3.0 32 04/01/17 04:21 154/92 04/01/17 04:19 97.8 85 20 170/84 98 Room Air 04/01/17 04:00 Nasal Cannula 2.0 04/01/17 01:18 Nasal Cannula 3.0 32 04/01/17 01:18 Nasal Cannula 3.0 32 04/01/17 00:00 97.0 85 20 154/92 98 04/01/17 00:00 Nasal Cannula 2.0 03/31/17 20:40 97.2 93 20 153/86 99 03/31/17 20:00 97.5 90 21 162/99 94 Nasal Cannula 3.0 03/31/17 19:00 86 18 96 Nasal Cannula 3.0 32 03/31/17 19:00 Nasal Cannula 3.0 32 03/31/17 16:00 77 03/31/17 16:00 97.7 74 20 153/89 98 Height (Feet): 5 Height (Inches): 4.00 Weight (Pounds): 130 General Appearance: WD/WN, no acute distress HEENT: normocephalic, atraumatic, anicteric, mucous membranes moist, PERRL, EOMI, pharynx normal, supple Respiratory/Chest: chest wall non-tender, no respiratory distress, no accessory muscle use, decreased breath sounds, expiratory wheezing Cardiovascular: normal peripheral pulses, normal rate, regular rhythm, no gallop/murmur, no JVD Abdomen: normal bowel sounds, soft, non tender, no organomegaly, non distended , no mass, no scars Extremities: no cyanosis, no clubbing Skin: no rash, no lesions, no ulcers Neurologic/Psychiatric: alert, responsive Lymphatic: no neck adenopathy, no groin adenopathy Microbiology Date/Time Source Procedure Growth Status 03/29/17 20:35 Blood Blood Culture - Preliminary NO GROWTH AFTER 48 HOURS Resulted 03/29/17 20:20 Blood Blood Culture - Preliminary NO GROWTH AFTER 48 HOURS Resulted 03/30/17 14:30 Sputum Expectorated Gram Stain - Final Complete 03/30/17 14:30 Sputum Culture - Final Teresa Albicans Usual Upper Respiratory Blanca Complete 03/30/17 00:50 Nasopharynx Influenza Types A,B Antigen (MICHELLE) - Final Complete 03/30/17 00:00 Nasal Nares MRSA Culture - Final NO METHICILLIN RESISTANT STAPH AUREUS... Complete 03/29/17 21:25 Urine,Catheterized Urine Culture - Final Escherichia Coli Complete 03/30/17 00:00 Rectum VRE Culture - Final NO VANCOMYCIN RESISTANT ENTEROCOCCUS ... Complete Laboratory Tests Test 04/01/17 05:10 White Blood Count 7.1 K/UL (4.8-10.8) Red Blood Count 4.24 M/UL (4.20-5.40) Hemoglobin 13.3 G/DL (12.0-16.0) Hematocrit 40.4 % (37.0-47.0) Mean Corpuscular Volume 95 FL (80-99) Mean Corpuscular Hemoglobin 31.4 PG (27.0-31.0) H Mean Corpuscular Hemoglobin Concent 32.9 G/DL (32.0-36.0) Red Cell Distribution Width 12.1 % (11.6-14.8) Platelet Count 305 K/UL (150-450) Mean Platelet Volume 6.8 FL (6.5-10.1) Neutrophils (%) (Auto) 62.5 % (45.0-75.0) Lymphocytes (%) (Auto) 26.6 % (20.0-45.0) Monocytes (%) (Auto) 10.2 % (1.0-10.0) H Eosinophils (%) (Auto) 0.2 % (0.0-3.0) Basophils (%) (Auto) 0.5 % (0.0-2.0) Sodium Level 137 MMOL/L (136-145) Potassium Level 3.6 MMOL/L (3.5-5.1) Chloride Level 100 MMOL/L (98-107) Carbon Dioxide Level 26 MMOL/L (21-32) Anion Gap 11 mmol/L (5-15) Blood Urea Nitrogen 18 mg/dL (7-18) Creatinine 0.9 MG/DL (0.55-1.30) Estimat Glomerular Filtration Rate mL/min (>60) Glucose Level 104 MG/DL (74-106) Hemoglobin A1c 5.9 % (4.3-6.0) Calcium Level 7.7 MG/DL (8.5-10.1) L Current Medications Medications (Trade) Dose Ordered Sig/Isaiah Route PRN Reason Start Time Stop Time Status Last Admin Dose Admin Acetaminophen (Tylenol) 650 mg Q8H PRN ORAL Fever/Headache/Mild Pain 03/30/17 16:45 04/29/17 16:44 04/01/17 14:29 Albuterol/ Ipratropium (Albuterol/ Ipratropium) 3 ml Q4H PRN HHN Shortness of Breath 03/30/17 00:00 04/04/17 00:00 Albuterol/ Ipratropium (Albuterol/ Ipratropium) 3 ml Q6HRT HHN 03/30/17 19:00 04/04/17 18:59 04/01/17 07:46 Artificial Tears (Akwa-Tears) 1 drop QID BOTH EYES 04/01/17 09:00 05/01/17 08:59 04/01/17 12:30 Aspirin (Ecotrin) 81 mg DAILY ORAL 04/01/17 09:00 05/01/17 08:59 04/01/17 09:17 Atenolol (Tenormin) 25 mg DAILY ORAL 04/01/17 09:00 05/01/17 08:59 04/01/17 09:17 Atorvastatin Calcium (Lipitor) 20 mg BEDTIME ORAL 03/31/17 21:00 04/30/17 20:59 03/31/17 21:27 Azithromycin (Zithromax) 250 mg DAILY ORAL 03/30/17 09:00 04/03/17 08:59 04/01/17 09:17 Carbidopa/Levodopa (Sinemet 25/100) 1 ea THREE TIMES A DAY ORAL 04/01/17 09:00 05/01/17 08:59 04/01/17 12:26 Ceftriaxone Sodium 2 gm/ Sodium Chloride 55 ml @ 110 mls/hr Q24HRS IVPB 03/29/17 22:00 04/05/17 21:59 03/31/17 21:28 Clonidine HCl (Catapres) 0.1 mg Q6H PRN ORAL sbp above 160 03/31/17 17:45 04/30/17 17:44 04/01/17 04:21 Dextrose (Dextrose 50%) STAT PRN IV Hypoglycemia 03/30/17 10:45 04/29/17 10:44 Docusate Sodium (Colace) 100 mg DAILY ORAL 04/01/17 09:00 05/01/17 08:59 04/01/17 09:17 Fluoxetine HCl (PROzac) 10 mg DAILY ORAL 04/01/17 09:00 05/01/17 08:59 04/01/17 09:17 Gabapentin (Neurontin) 100 mg BID ORAL 03/31/17 18:00 04/30/17 17:59 04/01/17 09:17 Guaifenesin/ Dextromethorphan (Robitussin DM) 5 ml Q4H PRN ORAL For Cough 04/01/17 05:30 05/01/17 05:29 04/01/17 05:43 Insulin Aspart (NovoLOG) BEFORE MEALS AND HS SUBQ 03/30/17 11:30 04/29/17 11:29 04/01/17 12:27 Lorazepam (Ativan) 0.5 mg TIDPRN PRN ORAL anxiety 03/31/17 17:45 04/07/17 17:44 04/01/17 15:13 Nitroglycerin (Ntg) 0.4 mg Q5M PRN SL Prn Chest Pain 03/31/17 18:25 04/30/17 18:24 Prednisone (predniSONE) 40 mg DAILY ORAL 04/02/17 09:00 05/02/17 08:59 Antonia Flores M.D. Apr 01, 2017 15:54
[2017-04-01 16:00] VITALS: BP 154/75
--- NOTE | 2017-04-01 17:27 | General Progress Note ---
Assessment/Plan Assessment/Plan ASSESSMENT AND RECOMMENDATIONS: 1. Chronic obstructive pulmonary disease exacerbation, being seen by Pulmonary team. 2. Upper respiratory infection versus tracheobronchitis. ID and Pulm following 3. Parkinson disease. Neurology service evaluation if altered mental status worsens. 4. Hypertension. 5. Deep venous thrombosis prophylaxis with heparin. 6. Urinary tract infection 7. Anemia currently mild. Subjective Respiratory: Reports: cough Hematologic/Lymphatic: Reports: anemia Allergies: Coded Allergies: MORPHINE (Verified Allergy, Unknown, 11/07/15) Subjective on 2L NC, with cough Objective Last 24 Hour Vital Signs Date Time Temp Pulse Resp B/P (MAP) Pulse Ox O2 Delivery O2 Flow Rate FiO2 04/01/17 16:00 97.5 62 19 154/75 94 04/01/17 13:05 Nasal Cannula 3.0 32 04/01/17 13:04 Nasal Cannula 3.0 32 04/01/17 10:58 80 18 99 Nasal Cannula 3.0 32 04/01/17 09:17 70 140/72 04/01/17 08:07 97.9 70 21 140/72 99 04/01/17 07:20 75 18 99 Nasal Cannula 3.0 32 04/01/17 04:21 154/92 04/01/17 04:19 97.8 85 20 170/84 98 Room Air 04/01/17 04:00 Nasal Cannula 2.0 04/01/17 01:18 Nasal Cannula 3.0 32 04/01/17 01:18 Nasal Cannula 3.0 32 04/01/17 00:00 97.0 85 20 154/92 98 04/01/17 00:00 Nasal Cannula 2.0 03/31/17 20:40 97.2 93 20 153/86 99 03/31/17 20:00 97.5 90 21 162/99 94 Nasal Cannula 3.0 03/31/17 19:00 86 18 96 Nasal Cannula 3.0 32 03/31/17 19:00 Nasal Cannula 3.0 32 Intake and Output 03/31/17 04/01/17 19:00 07:00 Intake Total 720 ml 55 ml Balance 720 ml 55 ml Intake Oral 720 ml IV Total 55 ml # Voids 2 Laboratory Tests 04/01/17 05:10: White Blood Count 7.1, Red Blood Count 4.24, Hemoglobin 13.3, Hematocrit 40.4, Mean Corpuscular Volume 95, Mean Corpuscular Hemoglobin 31.4H, Mean Corpuscular Hemoglobin Concent 32.9, Red Cell Distribution Width 12.1, Platelet Count 305, Mean Platelet Volume 6.8, Neutrophils (%) (Auto) 62.5, Lymphocytes (%) (Auto) 26.6, Monocytes (%) (Auto) 10.2H, Eosinophils (%) (Auto) 0.2, Basophils (%) ( Auto) 0.5, Sodium Level 137, Potassium Level 3.6, Chloride Level 100, Carbon Dioxide Level 26, Anion Gap 11, Blood Urea Nitrogen 18, Creatinine 0.9, Estimat Glomerular Filtration Rate , Glucose Level 104, Hemoglobin A1c 5.9, Calcium Level 7.7L Height (Feet): 5 Height (Inches): 4.00 Weight (Pounds): 130 General Appearance: no apparent distress EENT: normal ENT inspection Neck: normal alignment Cardiovascular: normal peripheral pulses Abdomen: normal bowel sounds Skin: normal pigmentation Vladimir Ocampo Apr 01, 2017 17:27
[2017-04-01 20:00] VITALS: BP 150/73
[2017-04-01] MEDS: Atorvastatin 20mg tab ORAL SCH (20:40)
[2017-04-01] MEDS: cefTRIAXone 2 GM in NS 55 ML IVPB SCH (20:40)
[2017-04-02] VITALS: BP 125/65
[2017-04-02] MEDS: Albuterol/Ipratropium 3ml neb HHN SCH ×2 (01:14→08:32)
[2017-04-02 04:00] VITALS: BP 153/79
[2017-04-02] MEDS: NovoLOG Insulin Flexpen SUBQ SCH ×2 (06:30→11:30)
--- NOTE | 2017-04-02 07:39 | Pulmonology Progress Note ---
Assessment/Plan Assessment/Plan ASSESSMENT acute COPD exacerbation possible purulent bronchitis possible tracheobronchitis UTI with E coli Parkinson disease. Hypertensive, urgency . PLAN OF CARE: MS floor abx urine cx +E coli, sputum cx + Celina blood cx prel negative influenza screen negative ID follows O2 prn pulmonary toilet fup with CXR taper steroids BS management with SS of insulin BP management with BB and Clonidine prn, will watch HR closely monitor volumes, cardiorenal parameters correct e/lytes as needed resume Sinemet PT/OT DVT prophylaxis dc plan for am DNR/DNI status case discussed and evaluated by supervising physician Subjective Allergies: Coded Allergies: MORPHINE (Verified Allergy, Unknown, 11/07/15) Subjective afebrile no leukocytosis no signs of respiratory distress improving Objective Last 24 Hour Vital Signs Date Time Temp Pulse Resp B/P (MAP) Pulse Ox O2 Delivery O2 Flow Rate FiO2 04/02/17 04:00 97.9 77 20 153/79 96 Nasal Cannula 2.0 04/02/17 04:00 Nasal Cannula 2.0 04/02/17 01:25 84 18 99 Nasal Cannula 3.0 32 04/02/17 01:14 81 18 96 Nasal Cannula 3.0 32 04/02/17 00:00 97.7 77 18 125/65 98 04/02/17 00:00 Nasal Cannula 2.0 04/01/17 20:33 82 18 99 Nasal Cannula 3.0 32 04/01/17 20:04 79 18 96 Nasal Cannula 3.0 32 04/01/17 20:00 Nasal Cannula 2.0 04/01/17 20:00 97.5 74 19 150/73 99 04/01/17 16:00 97.5 62 19 154/75 94 04/01/17 13:05 Nasal Cannula 3.0 32 04/01/17 13:04 Nasal Cannula 3.0 32 04/01/17 10:58 80 18 99 Nasal Cannula 3.0 32 04/01/17 09:17 70 140/72 04/01/17 08:07 97.9 70 21 140/72 99 Intake and Output 04/01/17 04/02/17 19:00 07:00 Intake Total 842 ml 55 ml Balance 842 ml 55 ml Intake Oral 842 ml IV Total 55 ml # Voids 7 1 Objective General Appearance: no acute distress HEENT: normocephalic, atraumatic, anicteric Respiratory/Chest: lungs clear, no respiratory distress, no accessory muscle use Cardiovascular: normal peripheral pulses, normal rate - SR with occas PVC , no JVD Abdomen: normal bowel sounds, soft, non tender, non distended Extremities: no edema, pedal pulses normal Neurologic/Psychiatric: abnormal gait, alert, responsive Musculoskeletal: atrophy - BLE Microbiology Date/Time Source Procedure Growth Status 03/30/17 14:30 Sputum Expectorated Gram Stain - Final Complete 03/30/17 14:30 Sputum Culture - Final Celina Albicans Usual Upper Respiratory Blanca Complete Current Medications Medications (Trade) Dose Ordered Sig/Isaiah Route PRN Reason Start Time Stop Time Status Last Admin Dose Admin Acetaminophen (Tylenol) 650 mg Q8H PRN ORAL Fever/Headache/Mild Pain 03/30/17 16:45 04/29/17 16:44 04/01/17 14:29 Albuterol/ Ipratropium (Albuterol/ Ipratropium) 3 ml Q4H PRN HHN Shortness of Breath 03/30/17 00:00 04/04/17 00:00 Albuterol/ Ipratropium (Albuterol/ Ipratropium) 3 ml Q6HRT HHN 03/30/17 19:00 04/04/17 18:59 04/02/17 01:14 Artificial Tears (Akwa-Tears) 1 drop QID BOTH EYES 04/01/17 09:00 05/01/17 08:59 04/01/17 20:40 Aspirin (Ecotrin) 81 mg DAILY ORAL 04/01/17 09:00 05/01/17 08:59 04/01/17 09:17 Atenolol (Tenormin) 25 mg DAILY ORAL 04/01/17 09:00 05/01/17 08:59 04/01/17 09:17 Atorvastatin Calcium (Lipitor) 20 mg BEDTIME ORAL 03/31/17 21:00 04/30/17 20:59 04/01/17 20:40 Azithromycin (Zithromax) 250 mg DAILY ORAL 03/30/17 09:00 04/03/17 08:59 04/01/17 09:17 Carbidopa/Levodopa (Sinemet 25/100) 1 ea THREE TIMES A DAY ORAL 04/01/17 09:00 05/01/17 08:59 04/01/17 18:29 Ceftriaxone Sodium 2 gm/ Sodium Chloride 55 ml @ 110 mls/hr Q24HRS IVPB 03/29/17 22:00 04/05/17 21:59 04/01/17 20:40 Clonidine HCl (Catapres) 0.1 mg Q6H PRN ORAL sbp above 160 03/31/17 17:45 04/30/17 17:44 04/01/17 04:21 Dextrose (Dextrose 50%) STAT PRN IV Hypoglycemia 03/30/17 10:45 04/29/17 10:44 Docusate Sodium (Colace) 100 mg DAILY ORAL 04/01/17 09:00 05/01/17 08:59 04/01/17 09:17 Fluoxetine HCl (PROzac) 10 mg DAILY ORAL 04/01/17 09:00 05/01/17 08:59 04/01/17 09:17 Gabapentin (Neurontin) 100 mg BID ORAL 03/31/17 18:00 04/30/17 17:59 04/01/17 18:29 Guaifenesin/ Dextromethorphan (Robitussin DM) 5 ml Q4H PRN ORAL For Cough 04/01/17 05:30 05/01/17 05:29 04/01/17 20:40 Insulin Aspart (NovoLOG) BEFORE MEALS AND HS SUBQ 03/30/17 11:30 04/29/17 11:29 04/01/17 18:31 Lorazepam (Ativan) 0.5 mg TIDPRN PRN ORAL anxiety 03/31/17 17:45 04/07/17 17:44 04/01/17 15:13 Nitroglycerin (Ntg) 0.4 mg Q5M PRN SL Prn Chest Pain 03/31/17 18:25 04/30/17 18:24 Prednisone (predniSONE) 40 mg DAILY ORAL 04/02/17 09:00 05/02/17 08:59 [facility] NguyenWhite [facility] HospitalMelinda Barrera NP Apr 02, 2017 07:39
[2017-04-02 08:00] VITALS: BP 140/86
[2017-04-02 08:11] LABS: BASOPHILS % (AUTO) 0.5 % (0.0-2.0); EOSINOPHILS % (AUTO) 0.3 % (0.0-3.0); LYMPHOCYTES % (AUTO) 32.5 % (20.0-45.0); MEAN CORPUSCULAR HEMOGLOBIN 31.8 PG (27.0-31.0); MEAN CORPUSCULAR HGB CONC 33.4 G/DL (32.0-36.0); MEAN CORPUSCULAR VOLUME 95 FL (80-99); MEAN PLATELET VOLUME 6.9 FL (6.5-10.1); MONOCYTES % (AUTO) 11.5 % (1.0-10.0); NEUTROPHILS % (AUTO) 55.2 % (45.0-75.0); PLATELET COUNT 277 K/UL (150-450); RED BLOOD COUNT 4.02 M/UL (4.20-5.40); RED CELL DISTRIBUTION WIDTH 11.9 % (11.6-14.8)
[2017-04-02 08:28] LABS: ANION GAP 9 mmol/L (5-15); CALCIUM 7.7 MG/DL (8.5-10.1); CARBON DIOXIDE 28 MMOL/L (21-32); CHLORIDE 100 MMOL/L (98-107); CREATININE 0.8 MG/DL (0.55-1.30); POTASSIUM 3.3 MMOL/L (3.5-5.1); SODIUM 137 MMOL/L (136-145)
[2017-04-02] MEDS: Docusate 100mg cap ORAL SCH (09:08)
[2017-04-02] MEDS: Sinemet 25/100 tab ORAL SCH (09:08)
[2017-04-02] MEDS: Atenolol 25mg tab ORAL SCH (09:08)
[2017-04-02] MEDS: FLUoxetine 10mg cap ORAL SCH (09:08)
[2017-04-02] MEDS: Aspirin EC 81mg tab ORAL SCH (09:08)
--- NOTE | 2017-04-02 09:08 | Pulmonology Progress Note ---
Assessment/Plan Assessment/Plan ASSESSMENT acute COPD exacerbation possible purulent bronchitis possible tracheobronchitis UTI with E coli Parkinson disease. Hypertensive, urgency . PLAN OF CARE: MS floor abx urine cx +E coli, sputum cx + Celina blood cx prel negative influenza screen negative ID follows O2 prn pulmonary toilet fup with CXR taper steroids BS management with SS of insulin BP management with BB and Clonidine prn, will watch HR closely monitor volumes, cardiorenal parameters correct e/lytes as needed, replace K today resume Sinemet PT/OT DVT prophylaxis dc to SNF today DNR/DNI status case discussed and evaluated by supervising physician Subjective Allergies: Coded Allergies: MORPHINE (Verified Allergy, Unknown, 11/07/15) Subjective afebrile no leukocytosis no signs of respiratory distress feeling better K-3.3 Objective Last 24 Hour Vital Signs Date Time Temp Pulse Resp B/P (MAP) Pulse Ox O2 Delivery O2 Flow Rate FiO2 04/02/17 08:50 89 18 99 Nasal Cannula 2.0 28 04/02/17 08:33 83 18 97 Nasal Cannula 2.0 28 04/02/17 08:00 97.7 84 18 140/86 95 04/02/17 04:00 97.9 77 20 153/79 96 Nasal Cannula 2.0 04/02/17 04:00 Nasal Cannula 2.0 04/02/17 01:25 84 18 99 Nasal Cannula 3.0 32 04/02/17 01:14 81 18 96 Nasal Cannula 3.0 32 04/02/17 00:00 97.7 77 18 125/65 98 04/02/17 00:00 Nasal Cannula 2.0 04/01/17 20:33 82 18 99 Nasal Cannula 3.0 32 04/01/17 20:04 79 18 96 Nasal Cannula 3.0 32 04/01/17 20:00 Nasal Cannula 2.0 04/01/17 20:00 97.5 74 19 150/73 99 04/01/17 16:00 97.5 62 19 154/75 94 04/01/17 13:05 Nasal Cannula 3.0 32 04/01/17 13:04 Nasal Cannula 3.0 32 04/01/17 10:58 80 18 99 Nasal Cannula 3.0 32 04/01/17 09:17 70 140/72 Intake and Output 04/01/17 04/02/17 19:00 07:00 Intake Total 842 ml 55 ml Balance 842 ml 55 ml Intake Oral 842 ml IV Total 55 ml # Voids 7 1 Objective General Appearance: no acute distress HEENT: normocephalic, atraumatic, anicteric Respiratory/Chest: lungs clear, no respiratory distress, no accessory muscle use Cardiovascular: normal peripheral pulses, normal rate - SR with occas PVC , no JVD Abdomen: normal bowel sounds, soft, non tender, non distended Extremities: no edema, pedal pulses normal Neurologic/Psychiatric: abnormal gait, alert, responsive Musculoskeletal: atrophy - BLE Microbiology Date/Time Source Procedure Growth Status 03/30/17 14:30 Sputum Expectorated Gram Stain - Final Complete 03/30/17 14:30 Sputum Culture - Final Celina Albicans Usual Upper Respiratory Blanca Complete Laboratory Tests 04/02/17 06:44: White Blood Count 8.0, Red Blood Count 4.02L, Hemoglobin 12.8, Hematocrit 38.2, Mean Corpuscular Volume 95, Mean Corpuscular Hemoglobin 31.8H, Mean Corpuscular Hemoglobin Concent 33.4, Red Cell Distribution Width 11.9, Platelet Count 277, Mean Platelet Volume 6.9, Neutrophils (%) (Auto) 55.2, Lymphocytes (%) (Auto) 32.5, Monocytes (%) (Auto) 11.5H, Eosinophils (%) (Auto) 0.3, Basophils (%) ( Auto) 0.5, Sodium Level 137, Potassium Level 3.3L, Chloride Level 100, Carbon Dioxide Level 28, Anion Gap 9, Blood Urea Nitrogen 19H, Creatinine 0.8, Estimat Glomerular Filtration Rate , Glucose Level 99, Calcium Level 7.7L Current Medications Medications (Trade) Dose Ordered Sig/Isaiah Route PRN Reason Start Time Stop Time Status Last Admin Dose Admin Acetaminophen (Tylenol) 650 mg Q8H PRN ORAL Fever/Headache/Mild Pain 03/30/17 16:45 04/29/17 16:44 04/01/17 14:29 Albuterol/ Ipratropium (Albuterol/ Ipratropium) 3 ml Q4H PRN HHN Shortness of Breath 03/30/17 00:00 04/04/17 00:00 Albuterol/ Ipratropium (Albuterol/ Ipratropium) 3 ml Q6HRT HHN 03/30/17 19:00 04/04/17 18:59 04/02/17 08:32 Artificial Tears (Akwa-Tears) 1 drop QID BOTH EYES 04/01/17 09:00 05/01/17 08:59 04/01/17 20:40 Aspirin (Ecotrin) 81 mg DAILY ORAL 04/01/17 09:00 05/01/17 08:59 04/01/17 09:17 Atenolol (Tenormin) 25 mg DAILY ORAL 04/01/17 09:00 05/01/17 08:59 04/01/17 09:17 Atorvastatin Calcium (Lipitor) 20 mg BEDTIME ORAL 03/31/17 21:00 04/30/17 20:59 04/01/17 20:40 Azithromycin (Zithromax) 250 mg DAILY ORAL 03/30/17 09:00 04/03/17 08:59 04/01/17 09:17 Carbidopa/Levodopa (Sinemet 25/100) 1 ea THREE TIMES A DAY ORAL 04/01/17 09:00 05/01/17 08:59 04/01/17 18:29 Ceftriaxone Sodium 2 gm/ Sodium Chloride 55 ml @ 110 mls/hr Q24HRS IVPB 03/29/17 22:00 04/05/17 21:59 04/01/17 20:40 Clonidine HCl (Catapres) 0.1 mg Q6H PRN ORAL sbp above 160 03/31/17 17:45 04/30/17 17:44 04/01/17 04:21 Dextrose (Dextrose 50%) STAT PRN IV Hypoglycemia 03/30/17 10:45 04/29/17 10:44 Docusate Sodium (Colace) 100 mg DAILY ORAL 04/01/17 09:00 05/01/17 08:59 04/01/17 09:17 Fluoxetine HCl (PROzac) 10 mg DAILY ORAL 04/01/17 09:00 05/01/17 08:59 04/01/17 09:17 Gabapentin (Neurontin) 100 mg BID ORAL 03/31/17 18:00 04/30/17 17:59 04/01/17 18:29 Guaifenesin/ Dextromethorphan (Robitussin DM) 5 ml Q4H PRN ORAL For Cough 04/01/17 05:30 05/01/17 05:29 04/01/17 20:40 Insulin Aspart (NovoLOG) BEFORE MEALS AND HS SUBQ 03/30/17 11:30 04/29/17 11:29 04/01/17 18:31 Lorazepam (Ativan) 0.5 mg TIDPRN PRN ORAL anxiety 03/31/17 17:45 04/07/17 17:44 04/01/17 15:13 Nitroglycerin (Ntg) 0.4 mg Q5M PRN SL Prn Chest Pain 03/31/17 18:25 04/30/17 18:24 Prednisone (predniSONE) 40 mg DAILY ORAL 04/02/17 09:00 05/02/17 08:59 Mehul ([facility])Melinda NP Apr 02, 2017 09:08
[2017-04-02] MEDS: Azithromycin 250mg tab ORAL SCH (09:09)
[2017-04-02] MEDS: guaiFENesin DM 100mg/5ml ORAL PRN (09:09)
[2017-04-02] MEDS: Artificial Tears 1.4% Op Soln BOTH EYES SCH (09:21)
[2017-04-02 12:00] VITALS: BP 148/88
[2017-04-02] MEDS ORDERED: Tubing IV Secondary IV ONE (12:29)
--- NOTE | 2017-04-02 16:30 | General Progress Note ---
Assessment/Plan Status: stable, progressing Assessment/Plan mdd anxiety d/o -cont current -provided ro/st. Subjective Date patient seen: Apr 02, 2017 Neurologic/Psychiatric: Reports: anxiety, depressed, emotional problems Allergies: Coded Allergies: MORPHINE (Verified Allergy, Unknown, 11/07/15) Subjective the pt is doing well no behavioral issues. Objective Last 24 Hour Vital Signs Date Time Temp Pulse Resp B/P (MAP) Pulse Ox O2 Delivery O2 Flow Rate FiO2 04/02/17 12:00 98.1 77 20 148/88 100 04/02/17 10:02 Nasal Cannula 2.0 28 04/02/17 09:08 89 140/86 04/02/17 08:50 89 18 99 Nasal Cannula 2.0 28 04/02/17 08:33 83 18 97 Nasal Cannula 2.0 28 04/02/17 08:00 97.7 84 18 140/86 95 04/02/17 04:00 97.9 77 20 153/79 96 Nasal Cannula 2.0 04/02/17 04:00 Nasal Cannula 2.0 04/02/17 01:25 84 18 99 Nasal Cannula 3.0 32 04/02/17 01:14 81 18 96 Nasal Cannula 3.0 32 04/02/17 00:00 97.7 77 18 125/65 98 04/02/17 00:00 Nasal Cannula 2.0 04/01/17 20:33 82 18 99 Nasal Cannula 3.0 32 04/01/17 20:04 79 18 96 Nasal Cannula 3.0 32 04/01/17 20:00 Nasal Cannula 2.0 04/01/17 20:00 97.5 74 19 150/73 99 Intake and Output 04/01/17 04/02/17 19:00 07:00 Intake Total 842 ml 55 ml Balance 842 ml 55 ml Intake Oral 842 ml IV Total 55 ml # Voids 7 1 Laboratory Tests 04/02/17 06:44: White Blood Count 8.0, Red Blood Count 4.02L, Hemoglobin 12.8, Hematocrit 38.2, Mean Corpuscular Volume 95, Mean Corpuscular Hemoglobin 31.8H, Mean Corpuscular Hemoglobin Concent 33.4, Red Cell Distribution Width 11.9, Platelet Count 277, Mean Platelet Volume 6.9, Neutrophils (%) (Auto) 55.2, Lymphocytes (%) (Auto) 32.5, Monocytes (%) (Auto) 11.5H, Eosinophils (%) (Auto) 0.3, Basophils (%) ( Auto) 0.5, Sodium Level 137, Potassium Level 3.3L, Chloride Level 100, Carbon Dioxide Level 28, Anion Gap 9, Blood Urea Nitrogen 19H, Creatinine 0.8, Estimat Glomerular Filtration Rate , Glucose Level 99, Calcium Level 7.7L Height (Feet): 5 Height (Inches): 4.00 Weight (Pounds): 130 General Appearance: no apparent distress, alert Neurologic: alert, oriented x 3, responsive, depressed affect Lauren Amado M.D. Apr 02, 2017 16:30
--- NOTE | 2017-04-02 16:33 | Geriatric Progress Note ---
Assessment/Plan Discussed with: patient Subjective Interval Events 04/01 Mood/Memory: Reports: prior hx, anxiety, depressed feelings Geriatric Geriatric Last 24 Hour Vital Signs Date Time Temp Pulse Resp B/P (MAP) Pulse Ox O2 Delivery O2 Flow Rate FiO2 04/02/17 12:00 98.1 77 20 148/88 100 04/02/17 10:02 Nasal Cannula 2.0 28 04/02/17 09:08 89 140/86 04/02/17 08:50 89 18 99 Nasal Cannula 2.0 28 04/02/17 08:33 83 18 97 Nasal Cannula 2.0 28 04/02/17 08:00 97.7 84 18 140/86 95 04/02/17 04:00 97.9 77 20 153/79 96 Nasal Cannula 2.0 04/02/17 04:00 Nasal Cannula 2.0 04/02/17 01:25 84 18 99 Nasal Cannula 3.0 32 04/02/17 01:14 81 18 96 Nasal Cannula 3.0 32 04/02/17 00:00 97.7 77 18 125/65 98 04/02/17 00:00 Nasal Cannula 2.0 04/01/17 20:33 82 18 99 Nasal Cannula 3.0 32 04/01/17 20:04 79 18 96 Nasal Cannula 3.0 32 04/01/17 20:00 Nasal Cannula 2.0 04/01/17 20:00 97.5 74 19 150/73 99 Intake and Output 04/01/17 04/02/17 19:00 07:00 Intake Total 842 ml 55 ml Balance 842 ml 55 ml Intake Oral 842 ml IV Total 55 ml # Voids 7 1 Laboratory Tests Test 04/02/17 06:44 White Blood Count 8.0 K/UL (4.8-10.8) Red Blood Count 4.02 M/UL (4.20-5.40) L Hemoglobin 12.8 G/DL (12.0-16.0) Hematocrit 38.2 % (37.0-47.0) Mean Corpuscular Volume 95 FL (80-99) Mean Corpuscular Hemoglobin 31.8 PG (27.0-31.0) H Mean Corpuscular Hemoglobin Concent 33.4 G/DL (32.0-36.0) Red Cell Distribution Width 11.9 % (11.6-14.8) Platelet Count 277 K/UL (150-450) Mean Platelet Volume 6.9 FL (6.5-10.1) Neutrophils (%) (Auto) 55.2 % (45.0-75.0) Lymphocytes (%) (Auto) 32.5 % (20.0-45.0) Monocytes (%) (Auto) 11.5 % (1.0-10.0) H Eosinophils (%) (Auto) 0.3 % (0.0-3.0) Basophils (%) (Auto) 0.5 % (0.0-2.0) Sodium Level 137 MMOL/L (136-145) Potassium Level 3.3 MMOL/L (3.5-5.1) L Chloride Level 100 MMOL/L (98-107) Carbon Dioxide Level 28 MMOL/L (21-32) Anion Gap 9 mmol/L (5-15) Blood Urea Nitrogen 19 mg/dL (7-18) H Creatinine 0.8 MG/DL (0.55-1.30) Estimat Glomerular Filtration Rate mL/min (>60) Glucose Level 99 MG/DL (74-106) Calcium Level 7.7 MG/DL (8.5-10.1) L Height (Feet): 5 Height (Inches): 4.00 Weight (Pounds): 130 General Appearance: well appearing, well dressed, well groomed, no apparent distress, alert Neurologic: alert, oriented x3 Lauren Amado M.D. Apr 02, 2017 16:33
--- NOTE | 2017-04-03 08:18 | General Progress Note ---
Assessment/Plan Assessment/Plan LATE ENTRY ASSESSMENT AND RECOMMENDATIONS: 1. Chronic obstructive pulmonary disease exacerbation, being seen by Pulmonary team. 2. Upper respiratory infection versus tracheobronchitis. ID and Pulm following 3. Parkinson disease. Neurology service evaluation if altered mental status worsens. 4. Hypertension. 5. Deep venous thrombosis prophylaxis with heparin. 6. Urinary tract infection 7. Anemia currently mild. Subjective Date patient seen: Apr 02, 2017 Allergies: Coded Allergies: MORPHINE (Verified Allergy, Unknown, 11/07/15) All Systems: reviewed and negative except above Subjective on 2L NC, with cough Objective Last 24 Hour Vital Signs Date Time Temp Pulse Resp B/P (MAP) Pulse Ox O2 Delivery O2 Flow Rate FiO2 04/02/17 12:00 98.1 77 20 148/88 100 04/02/17 10:02 Nasal Cannula 2.0 28 04/02/17 09:08 89 140/86 04/02/17 08:50 89 18 99 Nasal Cannula 2.0 28 04/02/17 08:33 83 18 97 Nasal Cannula 2.0 28 Height (Feet): 5 Height (Inches): 4.00 Weight (Pounds): 130 General Appearance: no apparent distress EENT: normal ENT inspection Neck: normal alignment Cardiovascular: normal peripheral pulses Abdomen: normal bowel sounds Skin: normal pigmentation Vladimir Ocampo Apr 03, 2017 08:18
--- NOTE | 2017-04-03 14:47 | Discharge Summary ---
Discharge Summary Hospital Course Date of Admission Mar 29, 2017 at 22:34 Date of Discharge Apr 02, 2017 at 12:30 Admitting Diagnosis sepsis HPI Sharmila Atwood is a 71 year old female who was admitted on Mar 29, 2017 at 22: 34 for Sepsis Hospital Course The patient is a pleasant 71-year-old female with past medical history significant for asthma, COPD, Parkinson disease, was sent from detention with fever, productive cough for the past several days with yellowish phlegm, but it was also green. The patient noted to have fever, chills, shortness of breath, and wheezing. Denies any chest pain that is acute. No sick contacts. Received influenza vaccination as well in the past. She had a chest x-ray that did not show any active infiltration or consolidation. She was started on nebulizer treatment and steroids. ID Service was consulted regarding antibiotics. She was given ceftriaxone and Zithromax. Also the patient with UTI noted. Pulmonary team has been consulted given COPD exacerbation. The patient is on oxygen p.r.n., prednisone, and [id number] DuoNebs. Rapid influenza test done was negative. Sputum culture grew teresa which is colonizer. Urine culture with E. coli. Patient has major depressive disorder and anxiety disorder. She was given lorazepam and fluoxetine. She has Parkinson's and was continued on sinemet. ASSESSMENT: 1. Acute Chronic obstructive pulmonary disease exacerbation 2. Pneumonia 3. Urinary tract infection with E coli 4. Possible Tracheobronchitis 5. Purulent bronchitis 6. Parkinson disease. 7. Anemia currently mild. 8. Hypertension --I have been assignd to complete a DC summary on this account,I was not involved with the patient management--RACIEL Pringle. Discharge Discharge Disposition Patient was discharged to SNF/Subacute Facility(03) Discharge Diagnoses: Aracely Mcguire NP Apr 03, 2017 14:46
== END 2017-04-02 12:30 | DRG 190 ==
LOC: EDBD 19:38 → EDUNIT# 19:38 → EMR 20:00 → EDBEDREQ 21:41 → 2E 22:34 → 4E 03-31 20:25
DX: J44.1 Chronic obstructive pulmonary disease with (acute) exacerbation (principal); J18.9 Pneumonia, unspecified organism; G20 Parkinson's disease; N39.0 Urinary tract infection, site not specified; J44.0 Chronic obstructive pulmonary disease with (acute) lower respiratory infection; J41.1 Mucopurulent chronic bronchitis; B96.20 Unspecified Escherichia coli [E. coli] as the cause of diseases classified elsewhere; I16.0 Hypertensive urgency; F32.9 Major depressive disorder, single episode, unspecified; F41.9 Anxiety disorder, unspecified; Z66 Do not resuscitate; D64.9 Anemia, unspecified
CPT/HCPCS: 36415; 71010; 80048; 80053; 81003; 82962; 83036; 83605; 84484; 85007; 85025; 86710; 87040; 87070; 87081; 87086; 87181; 87205; 93005; 94640; 94664; J1815; J7620

== ENCOUNTER 2017-06-23 04:32 | Inpatient (IN) | payer MEDICARE, OTHER ==
[~2017-06-23] VITALS: Ht 149.9 cm; Wt 61.7 kg
[~2017-06-23 04:32] MED LIST changes: +ACETAMINOPHEN500 M7 PO; +ARTIFICIAL TEAR15 ML BOTH EYES; +CATAPRES0.1 MG ORAL; +GABAPENTIN100 MG ORAL; +NITROGLYCERIN0.4 MG SL; +PROMETH-CODEIN 65 ML PO; +THEOPHYLLINE A100 MG ORAL; +TRAMADOL HCL50 MG ORAL; +ZOFRAN4 M3 ORAL
[2017-06-23] MEDS ORDERED: Sodium Chloride 500ML 500 ML IV ONE (04:41)
[2017-06-23] MEDS ORDERED: ARTIFICIAL TEAR15 ML BOTH EYES (04:44)
[2017-06-23] MEDS ORDERED: ACETAMINOPHEN325 M1 ORAL (04:44)
[2017-06-23] MEDS ORDERED: ASPIRIN81 MG ORAL (04:44)
[2017-06-23] MEDS ORDERED: ALBUTEROL2.5 MG/3 M INH (04:44)
[2017-06-23] MEDS ORDERED: Solu-MEDROL 125mg Inj IVP ONE (04:45)
[2017-06-23] MEDS: Ipratropium 0.02% Inh Soln 2.5ml UD HHN SCH ×3 (04:47→05:27)
[2017-06-23] MEDS: Albuterol ud Inhalation HHN SCH ×3 (04:47→05:27)
[2017-06-23] MEDS ORDERED: FLUOXETINE HCL10 MG ORAL (04:48)
[2017-06-23] MEDS ORDERED: GABAPENTIN100 MG ORAL (04:48)
[2017-06-23] MEDS ORDERED: SINEMET 25/1001 EA ORAL (04:48)
[2017-06-23] MEDS ORDERED: ATORVASTATIN CA20 MG ORAL (04:48)
[2017-06-23] MEDS ORDERED: DOCUSATE SODIU100 MG ORAL (04:48)
[2017-06-23] MEDS ORDERED: TRAMADOL HCL50 MG ORAL (05:00)
[2017-06-23] MEDS ORDERED: NITROSTAT0.4 M2 SL (05:00)
[2017-06-23] MEDS ORDERED: GUAIFENESI100 MG/5 M ORAL (05:00)
[2017-06-23] MEDS ORDERED: ATENOLOL25 MG ORAL (05:00)
[2017-06-23] MEDS ORDERED: CATAPRES0.1 MG ORAL (05:00)
[2017-06-23 05:13] LABS: BASOPHILS % (AUTO) 1.9 % (0.0-2.0); EOSINOPHILS % (AUTO) 11.9 % (0.0-3.0); HEMATOCRIT 38.2 % (37.0-47.0); HEMOGLOBIN 12.8 G/DL (12.0-16.0); LYMPHOCYTES % (AUTO) 26.9 % (20.0-45.0); MEAN CORPUSCULAR VOLUME 95 FL (80-99); MONOCYTES % (AUTO) 9.1 % (1.0-10.0); NEUTROPHILS % (AUTO) 50.3 % (45.0-75.0); PLATELET COUNT 290 K/UL (150-450); RED BLOOD COUNT 4.03 M/UL (4.20-5.40); RED CELL DISTRIBUTION WIDTH 12.3 % (11.6-14.8); WHITE BLOOD COUNT 7.6 K/UL (4.8-10.8)
[2017-06-23 05:29] VITALS: BP 188/77
[2017-06-23 05:33] LABS: ANION GAP 8 mmol/L (5-15); BLOOD UREA NITROGEN 14 mg/dL (7-18); CALCIUM 8.3 MG/DL (8.5-10.1); CARBON DIOXIDE 29 MMOL/L (21-32); CHLORIDE 96 MMOL/L (98-107); CREATININE 0.8 MG/DL (0.55-1.30); POTASSIUM 4.7 MMOL/L (3.5-5.1); SODIUM 133 MMOL/L (136-145)
[2017-06-23 05:47] LABS: ALANINE AMINOTRANSFERASE 22 U/L (12-78); ALBUMIN 3.8 G/DL (3.4-5.0); ALKALINE PHOSPHATASE 138 U/L (46-116); ASPARTATE AMINO TRANSFERASE 33 U/L (15-37); BILIRUBIN,TOTAL 0.7 MG/DL (0.2-1.0); CKMB 2.4 NG/ML (0.0-3.6); CREATINE KINASE 223 U/L (26-308)
[2017-06-23 05:56] LABS: APPEARANCE,URINE SLIGHTLY CLOUDY; COLOR,URINE YELLOW; GLUCOSE, URINE (UA) NEGATIVE (NEGATIVE); KETONES,URINE NEGATIVE (NEGATIVE); PH,URINE 6.5 (4.5-8.0); PROTEIN,URINE 1+ (NEGATIVE)
[2017-06-23 05:57] LABS: BILIRUBIN, URINE NEGATIVE (NEGATIVE); LEUKOCYTE ESTERASE ,URINE 2+ (NEGATIVE); NITRITE,URINE NEGATIVE (NEGATIVE); UROBILINOGEN,URINE NORMAL MG/DL (0.0-1.0)
[2017-06-23] MEDS ORDERED: Levalbuterol Inh UD 1.25mg/0.5ml HHN ONE (06:00)
[2017-06-23] MEDS ORDERED: traMADol 50mg tab ORAL ONE (06:00)
--- NOTE | 2017-06-23 06:29 | Emergency Room Report ---
History of Present Illness General Chief Complaint: Dyspnea/Respdistress Source: Patient Present Illness HPI 72-year-old female presents ED for evaluation. Per EMS patient brought in with wheezing and shortness of breath from the retirement. O2 sat is low. Patient started on breathing treatments. Patient arrival O2 sats improved. History of asthma/COPD. Patient is DO NOT RESUSCITATE/comfort measures. Denies fevers or chills. Denies chest pain. No other aggravating or relieving factors. Denies any other associated symptoms Allergies: Coded Allergies: MORPHINE (Verified Allergy, Unknown, 11/07/15) Patient History Past Medical History: COPD Past Surgical History: none Pertinent Family History: none Social History: Denies: smoking, alcohol use, drug use Last Menstrual Period: NA Now: No Immunizations: UTD Reviewed Nursing Documentation: PMH: Agreed, PSxH: Agreed Nursing Documentation-PMH Hx COPD: Yes Review of Systems All Other Systems: negative except mentioned in HPI Physical Exam Vital Signs Date Time Temp Pulse Resp B/P (MAP) Pulse Ox O2 Delivery O2 Flow Rate FiO2 06/23/17 04:26 98.5 138 24 180/88 100 Simple Mask 8.0 98.4 06/23/17 04:47 21 Sp02 EP Interpretation: reviewed, normal General Appearance: no apparent distress, alert, GCS 15, non-toxic Head: normocephalic, atraumatic Eyes: bilateral eye normal inspection, bilateral eye PERRL ENT: hearing grossly normal, normal pharynx, no angioedema, normal voice Neck: full range of motion, supple/symm/no masses Respiratory: chest non-tender, speaking full sentences, wheezing Cardiovascular #1: regular rate, rhythm, no edema Cardiovascular #2: 2+ carotid (R), 2+ carotid (L), 2+ radial (R), 2+ radial (L) , 2+ dorsalis pedis (R), 2+ dorsalis pedis (L) Gastrointestinal: normal bowel sounds, non tender, soft, non-distended, no guarding, no rebound Rectal: deferred Genitourinary: normal inspection, no CVA tenderness Musculoskeletal: back normal, gait/station normal, normal range of motion, non- tender Neurologic: alert, oriented x3, responsive, motor strength/tone normal, sensory intact, speech normal Psychiatric: judgement/insight normal, memory normal, mood/affect normal, no suicidal/homicidal ideation Reflexes: 3+ bicep (R), 3+ bicep (L), 3+ tricep (R), 3+ tricep (L), 3+ knee (R) , 3+ knee (L) Skin: normal color, no rash, warm/dry, well hydrated Lymphatic: no adenopathy Medical Decision Making Diagnostic Impression: Primary Impression: COPD exacerbation Additional Impression: UTI (urinary tract infection) Qualified Codes: N39.0 - Urinary tract infection, site not specified ER Course Hospital Course 72-year-old F presenting to ED with SOB. h/o COPD Differential diagnoses include: Pneumonia, CHF exacerbation, pneumothorax, fluid overload Clinical course Patient placed on stretcher. On desk monitor with stable vitals. After initial history and physical, I ordered nebulizer treatments. I ordered labs, IV fluids, EKG, chest x-ray, blood cultures, UA. Labs - no leukocytosis noted, hemoglobin/hematocrit stable, electrolytes okay, lactate okay, troponins negative, UA + bacteria CXR - no acute process EKG - sinus tachycardia, no acute ischemic changes interpreted by me IV fluids given. Antibiotics given Case discussed with Dr. Bose and he agreed to the patient to his service for further care and support I feel this is a highly complex case requiring extensive working including EKG/ Rhythm strip, Xray/CT/US, Blood/urine lab work, repeat exams while in ED, and administration of strong opiates/narcotics for pain control, admission to hospital or close patient follow up. Diagnosis - COPD exacerbation, UTI Patient admitted to floor in serious condition Labs Test 06/23/17 04:35 06/23/17 05:19 White Blood Count 7.6 K/UL (4.8-10.8) Red Blood Count 4.03 M/UL (4.20-5.40) Hemoglobin 12.8 G/DL (12.0-16.0) Hematocrit 38.2 % (37.0-47.0) Mean Corpuscular Volume 95 FL (80-99) Mean Corpuscular Hemoglobin 31.8 PG (27.0-31.0) Mean Corpuscular Hemoglobin Concent 33.6 G/DL (32.0-36.0) Red Cell Distribution Width 12.3 % (11.6-14.8) Platelet Count 290 K/UL (150-450) Mean Platelet Volume 6.6 FL (6.5-10.1) Neutrophils (%) (Auto) 50.3 % (45.0-75.0) Lymphocytes (%) (Auto) 26.9 % (20.0-45.0) Monocytes (%) (Auto) 9.1 % (1.0-10.0) Eosinophils (%) (Auto) 11.9 % (0.0-3.0) Basophils (%) (Auto) 1.9 % (0.0-2.0) Sodium Level 133 MMOL/L (136-145) Potassium Level 4.7 MMOL/L (3.5-5.1) Chloride Level 96 MMOL/L (98-107) Carbon Dioxide Level 29 MMOL/L (21-32) Anion Gap 8 mmol/L (5-15) Blood Urea Nitrogen 14 mg/dL (7-18) Creatinine 0.8 MG/DL (0.55-1.30) Estimat Glomerular Filtration Rate mL/min (>60) Glucose Level 92 MG/DL (74-106) Lactic Acid Level 1.10 mmol/L (0.66-2.22) Calcium Level 8.3 MG/DL (8.5-10.1) Total Bilirubin 0.7 MG/DL (0.2-1.0) Aspartate Amino Transf (AST/SGOT) 33 U/L (15-37) Alanine Aminotransferase (ALT/SGPT) 22 U/L (12-78) Alkaline Phosphatase 138 U/L (46-116) Total Creatine Kinase 223 U/L (26-308) Creatine Kinase MB 2.4 NG/ML (0.0-3.6) Creatine Kinase MB Relative Index 1.0 Troponin I 0.000 ng/mL (0.000-0.056) Pro-B-Type Natriuretic Peptide 97 pg/mL (0-125) Total Protein 7.5 G/DL (6.4-8.2) Albumin 3.8 G/DL (3.4-5.0) Globulin 3.7 g/dL Albumin/Globulin Ratio 1.0 (1.0-2.7) Urine Color Yellow Urine Appearance Slightly cloudy Urine pH 6.5 (4.5-8.0) Urine Specific [place] 1.015 (1.005-1.035) Urine Protein 1+ (NEGATIVE) Urine Glucose (UA) Negative (NEGATIVE) Urine Ketones Negative (NEGATIVE) Urine Occult Blood 2+ (NEGATIVE) Urine Nitrite Negative (NEGATIVE) Urine Bilirubin Negative (NEGATIVE) Urine Urobilinogen Normal MG/DL (0.0-1.0) Urine Leukocyte Esterase 2+ (NEGATIVE) Urine RBC 0-2 /HPF (0 - 2) Urine WBC 10-15 /HPF (0 - 2) Urine Squamous Epithelial Cells Few /LPF (NONE/OCC) Urine Amorphous Sediment Moderate /LPF (NONE) Urine Bacteria Moderate /HPF (NONE) EKG Diagnostic Results Rate: tachycardiac Rhythm: NSR ST Segments: no acute changes ASA given to the pt in ED: No Rhythm Strip Diag. Results EP Interpretation: yes Rhythm: NSR, no PVC's, no ectopy Chest X-Ray Diagnostic Results Chest X-Ray Diagnostic Results : Chest X-Ray Ordered: Yes # of Views/Limited/Complete: 1 View Indication: Shortness of Breath EP Interpretation: Yes Interpretation: no consolidation, no effusion, no pneumothorax, no acute cardiopulmonary disease Impression: No acute disease Electronically Signed by: Electronically signed by Juan Carlos Guzman MD Last Vital Signs Date Time Temp Pulse Resp B/P (MAP) Pulse Ox O2 Delivery O2 Flow Rate FiO2 06/23/17 05:29 152 15 188/77 100 Simple Mask 10.0 06/23/17 05:26 21 06/23/17 04:26 98.5 98.4 Status: improved Disposition: ADMITTED INPATIENT Condition: Serious Referrals: Klarissa Bose MD (PCP) JUAN CARLOS GUZMAN M.D. Jun 23, 2017 06:28
[2017-06-23 07:13] VITALS: BP 140/51
[2017-06-23] MEDS ORDERED: Morphine Sulfate 2mg/ml Inj IVP PRN (07:45)
[2017-06-23] MEDS ORDERED: Miralax 17gm pkt ORAL PRN (07:45)
[2017-06-23] MEDS ORDERED: Acetaminophen 500mg (ES) tab ORAL ONE (08:30)
[2017-06-23] MEDS: Heparin 5000 units/ml inj SUBQ SCH ×2 (09:06→21:00)
[2017-06-23] MEDS: Theophylline ER 100mg ORAL SCH ×2 (09:10→18:52)
[2017-06-23] MEDS: Levodopa/Carbidopa 25/100 tab ORAL SCH ×3 (09:10→18:52)
[2017-06-23] MEDS ORDERED: Cefepime 2gm ONE (09:14)
[2017-06-23] MEDS ORDERED: Cefepime HCl 2 GM in D5W 110 ML IV ONE (09:15)
[2017-06-23 09:36] VITALS: BP 156/69
[2017-06-23] MEDS ORDERED: Vancomycin 1gm inj IVPB ONE (09:50)
[2017-06-23] MEDS ORDERED: Vancomycin 1 GM in D5W 275 ML IVPB ONE (10:00)
[2017-06-23] MEDS ORDERED: Methocarbamol 750mg tab ORAL ONE (10:30)
[2017-06-23] MEDS ORDERED: LORazepam Inj 2mg/ml 1ml IV ONE (10:45)
[2017-06-23 13:52] VITALS: BP 134/69
[2017-06-23] MEDS: Albuterol/Ipratropium 3ml neb HHN PRN (16:28)
[2017-06-23 18:27] VITALS: BP 130/72
--- NOTE | 2017-06-23 18:30 | Cardiology Report ---
APPROVED REPORT EKG Measurement Heart [id number] UT 168P [id number] Sinus tachycardia Septal infarct, age undetermined Abnormal ECG
[2017-06-23 20:00] VITALS: BP 138/69
[2017-06-23] MEDS: traMADol 50mg tab ORAL PRN (23:52)
[2017-06-24] VITALS: BP 143/83
[2017-06-24 08:52] LABS: BASOPHILS % (AUTO) 0.5 % (0.0-2.0); EOSINOPHILS % (AUTO) 0.5 % (0.0-3.0); HEMATOCRIT 33.1 % (37.0-47.0); HEMOGLOBIN 11.4 G/DL (12.0-16.0); LYMPHOCYTES % (AUTO) 19.6 % (20.0-45.0); MEAN CORPUSCULAR VOLUME 96 FL (80-99); MONOCYTES % (AUTO) 10.8 % (1.0-10.0); NEUTROPHILS % (AUTO) 68.6 % (45.0-75.0); PLATELET COUNT 287 K/UL (150-450); RED BLOOD COUNT 3.46 M/UL (4.20-5.40); RED CELL DISTRIBUTION WIDTH 12.5 % (11.6-14.8); WHITE BLOOD COUNT 9.2 K/UL (4.8-10.8)
[2017-06-24] MEDS: Levodopa/Carbidopa 25/100 tab ORAL SCH ×3 (08:52→17:03)
[2017-06-24] MEDS: Theophylline ER 100mg ORAL SCH ×2 (08:52→17:03)
[2017-06-24] MEDS: Albuterol/Ipratropium 3ml neb HHN PRN ×3 (08:52→19:43)
[2017-06-24] MEDS: Heparin 5000 units/ml inj SUBQ SCH ×2 (08:53→21:00)
[2017-06-24 09:09] LABS: ALANINE AMINOTRANSFERASE 23 U/L (12-78); ALBUMIN 3.6 G/DL (3.4-5.0); ALBUMIN/GLOBULIN RATIO 1.2 (1.0-2.7); ALKALINE PHOSPHATASE 101 U/L (46-116); ANION GAP 10 mmol/L (5-15); ASPARTATE AMINO TRANSFERASE 31 U/L (15-37); BILIRUBIN,TOTAL 0.8 MG/DL (0.2-1.0); BLOOD UREA NITROGEN 16 mg/dL (7-18); CARBON DIOXIDE 26 MMOL/L (21-32); CHLORIDE 99 MMOL/L (98-107); CREATININE 0.8 MG/DL (0.55-1.30); POTASSIUM 4.3 MMOL/L (3.5-5.1); SODIUM 135 MMOL/L (136-145)
[2017-06-24 09:28] LABS: CALCIUM 8.7 MG/DL (8.5-10.1)
[2017-06-24] MEDS ORDERED: Vancomycin 750mg/NS 250ml IVPB SCH ×2 (10:00→12:00)
[2017-06-24] MEDS: Cefepime HCl 1 GM in NS 55 ML IVPB SCH (10:44)
--- NOTE | 2017-06-24 12:43 | Consultation ---
History of Present Illness General Date patient seen: Jun 24, 2017 Time patient seen: 12:40 Chief Complaint: Dyspnea/Respdistress Present Illness HPI 72 y/o F with hx of COPD/asthma,[facility] resident presents to ED on 06/23 with SOB, wheezing and hypoxia. Denies f/c, CP. +dysuria. afebrile, no leukocytosis. Allergies: Coded Allergies: MORPHINE (Verified Allergy, Unknown, 11/07/15) Medication History Scheduled Acetaminophen (Acetaminophen), 325 MG PO NEEDED, (Reported) Aspirin* (Aspir 81*), 81 MG ORAL DAILY, (Reported) Aspirin* (Aspirin*), 81 MG ORAL DAILY, (Reported) Atenolol* (Tenormin*), Unknown Dose ORAL DAILY, (Reported) Atenolol* (Tenormin*), 25 MG ORAL DAILY, (Reported) Atorvastatin Calcium* (Atorvastatin Calcium*), Unknown Dose ORAL BEDTIME, ( Reported) Atorvastatin Calcium* (Atorvastatin Calcium*), 20 MG ORAL BEDTIME, (Reported) Carbidopa/Levodopa 25-100 Mg* (Sinemet 25-100 Mg Tablet*), 1 TAB ORAL THREE TIMES A DAY, (Reported) Clonidine Hcl* (Catapres*), 0.1 MG ORAL EVERY 6 HOURS, (Reported) Docusate Sodium* (Docusate Sodium*), 100 MG ORAL DAILY, (Reported) Docusate Sodium* (Docusate Sodium*), 100 MG ORAL DAILY, (Reported) Fluoxetine Hcl* (Fluoxetine Hcl*), Unknown Dose ORAL DAILY, (Reported) Fluoxetine Hcl* (Fluoxetine Hcl*), 5 MG ORAL DAILY, (Reported) Furosemide* (Lasix*), Unknown Dose ORAL DAILY, (Reported) Gabapentin* (Gabapentin*), 100 MG ORAL BID, (Reported) Gabapentin* (Gabapentin*), 100 MG ORAL TWICE A DAY, (Reported) Hydrochlorothiazide* (Hydrochlorothiazide*), Unknown Dose ORAL DAILY, (Reported) Levodopa/Carbidopa (Carbidopa-Levodopa 25-100 Tab), 1 TAB ORAL THREE TIMES A DAY , (Reported) Lorazepam* (Ativan*), Unknown Dose ORAL THREE TIMES A DAY, (Reported) Nitroglycerin (Nitroglycerin), 0.4 MG SL NEEDED, (Reported) Prednisone (Prednisone), 10 MG PO DAILY Promethazine HCl/Codeine (Prometh-Codein 6.25-10 mg/5 ml), 5 ML PO EVERY 6 HOURS , (Reported) Theophylline (Theodur*), 100 MG ORAL TWICE A DAY, (Reported) Tramadol Hcl* (Ultram*), 50 MG ORAL Q12HR, (Reported) Scheduled PRN Acetaminophen* (Acetaminophen 325MG Tablet*), 650 MG ORAL Q4H PRN for For Pain, (Reported) Albuterol Sulfate* (Albuterol Sulfate Hhn*), 3 ML INH Q4H PRN for Shortness of Breath, (Reported) Albuterol Sulfate* (Albuterol Sulfate Hhn*), 3 ML INH Q4H PRN for Shortness of Breath, (Reported) Bisacodyl* (Dulcolax*), 5 MG ORAL DAILY PRN for Constipation, (Reported) Clonidine Hcl* (Catapres*), 0.1 MG ORAL EVERY 6 HOURS PRN for For High Blood Pressure, (Reported) Guaifenesin* (Guaifenesin), 5 ML ORAL Q4H PRN for For Cough, (Reported) Nitroglycerin (Nitrostat), 0.4 MG SL every 5 mins PRN for chest pain, (Reported) Ondansetron* (Zofran*), 4 MG ORAL Q6H PRN for Nausea & Vomiting, (Reported) Tramadol Hcl* (Ultram*), 50 MG ORAL EVERY 12 HOURS PRN for For Pain, (Reported) Miscellaneous Medications Dextran 70/Hypromellose (Artificial Tears Eye Drops*), 1 DROP BOTH EYES, ( Reported) Dextran 70/Hypromellose (Artificial Tears Eye Drops*), 1 DROP BOTH EYES, ( Reported) Patient History Healthcare decision maker Resuscitation status Full Code Advanced Directive on File Patient History Narrative Pmhx : as above Shx: Denies: smoking, alcohol use, drug use Fhx: Non contributory Review of Systems All Other Systems: negative except mentioned in HPI Physical Exam Physical Exam Narrative General Appearance: no apparent distress, alert, non-toxic HEENT:normocephalic, atraumatic, PERRL, normal pharynx Neck: full range of motion, supple/symm/no masses Respiratory: chest non-tender, speaking full sentences, wheezing Cardiovascular : regular rate, rhythm, no edema Gastrointestinal: normal bowel sounds, non tender, soft, non-distended, no guarding, no rebound Genitourinary: normal inspection, no CVA tenderness Musculoskeletal: back normal, gait/station normal, normal range of motion, non- tender Neurologic: alert, oriented x3, responsive Skin: normal color, no rash, warm/dry, well hydrated Last 24 Hour Vital Signs Date Time Temp Pulse Resp B/P (MAP) Pulse Ox O2 Delivery O2 Flow Rate FiO2 06/24/17 09:15 105 20 99 Nasal Cannula 2.0 28 06/24/17 09:06 Nasal Cannula 3.0 32 06/24/17 09:06 98 Nasal Cannula 3.0 32 06/24/17 09:06 103 20 98 Nasal Cannula 3.0 32 06/24/17 09:06 103 20 Nasal Cannula 3.0 32 06/24/17 08:00 94 06/24/17 04:00 94 06/24/17 00:00 97.9 111 18 143/83 99 Nasal Cannula 2.0 97.9 06/24/17 00:00 106 06/23/17 20:00 97.9 119 18 138/69 96 Nasal Cannula 2.0 97.9 06/23/17 20:00 119 06/23/17 18:58 116 06/23/17 18:27 120 15 130/72 98 Nasal Cannula 2.0 06/23/17 18:00 98.5 116 16 160/90 96 Nasal Cannula 2.0 06/23/17 16:30 117 22 99 Nasal Cannula 2.0 28 06/23/17 16:29 28 06/23/17 16:28 117 22 98 Nasal Cannula 2.0 28 06/23/17 13:52 115 15 134/69 98 Nasal Cannula 2.0 Intake and Output 06/23/17 06/24/17 19:00 07:00 Intake Total 1150 ml 100 ml Balance 1150 ml 100 ml Intake Oral 100 ml IV Total 1150 ml # Voids 2 Laboratory Tests Test 06/24/17 06:20 White Blood Count 9.2 K/UL (4.8-10.8) Red Blood Count 3.46 M/UL (4.20-5.40) L Hemoglobin 11.4 G/DL (12.0-16.0) L Hematocrit 33.1 % (37.0-47.0) L Mean Corpuscular Volume 96 FL (80-99) Mean Corpuscular Hemoglobin 33.0 PG (27.0-31.0) H Mean Corpuscular Hemoglobin Concent 34.4 G/DL (32.0-36.0) Red Cell Distribution Width 12.5 % (11.6-14.8) Platelet Count 287 K/UL (150-450) Mean Platelet Volume 6.3 FL (6.5-10.1) L Neutrophils (%) (Auto) 68.6 % (45.0-75.0) Lymphocytes (%) (Auto) 19.6 % (20.0-45.0) L Monocytes (%) (Auto) 10.8 % (1.0-10.0) H Eosinophils (%) (Auto) 0.5 % (0.0-3.0) Basophils (%) (Auto) 0.5 % (0.0-2.0) Sodium Level 135 MMOL/L (136-145) L Potassium Level 4.3 MMOL/L (3.5-5.1) Chloride Level 99 MMOL/L (98-107) Carbon Dioxide Level 26 MMOL/L (21-32) Anion Gap 10 mmol/L (5-15) Blood Urea Nitrogen 16 mg/dL (7-18) Creatinine 0.8 MG/DL (0.55-1.30) Estimat Glomerular Filtration Rate mL/min (>60) Glucose Level 89 MG/DL (74-106) Calcium Level 8.7 MG/DL (8.5-10.1) Total Bilirubin 0.8 MG/DL (0.2-1.0) Aspartate Amino Transf (AST/SGOT) 31 U/L (15-37) Alanine Aminotransferase (ALT/SGPT) 23 U/L (12-78) Alkaline Phosphatase 101 U/L (46-116) Total Protein 6.7 G/DL (6.4-8.2) Albumin 3.6 G/DL (3.4-5.0) Globulin 3.1 g/dL Albumin/Globulin Ratio 1.2 (1.0-2.7) Height (Feet): 4 Height (Inches): 11.00 Weight (Pounds): 136 Medications Current Medications Medications (Trade) Dose Ordered Sig/Isaiah Route PRN Reason Start Time Stop Time Status Last Admin Dose Admin Acetaminophen (Tylenol) 650 mg Q4H PRN ORAL fever 06/23/17 07:45 07/23/17 07:44 Albuterol/ Ipratropium (Albuterol/ Ipratropium) 3 ml EVERY 4 HOURS PRN HHN Shortness of Breath 06/23/17 07:45 06/28/17 07:44 06/24/17 09:06 Carbidopa/Levodopa (Sinemet 25/100) 1 tab THREE TIMES A DAY ORAL 06/23/17 09:00 07/23/17 08:59 06/24/17 08:52 Cefepime HCl 1 gm/ Sodium Chloride 55 ml @ 110 mls/hr DAILY IVPB 06/24/17 09:00 07/01/17 08:59 06/24/17 10:44 Gabapentin (Neurontin) 100 mg BID ORAL 06/23/17 09:00 07/23/17 08:59 06/24/17 08:52 Heparin Sodium (Porcine) (Heparin 5000 units/ml) 5,000 units EVERY 12 HOURS SUBQ 06/23/17 09:00 07/23/17 08:59 06/24/17 08:53 Ondansetron HCl (Zofran) 4 mg Q6H PRN ORAL Nausea & Vomiting 06/23/17 07:45 07/23/17 07:44 Phenazopyridine HCl (Pyridium) 100 mg TID PRN ORAL dysuria 06/23/17 07:45 06/26/17 07:44 Polyethylene Glycol (Miralax) 17 gm DAILYPRN PRN ORAL Constipation 06/23/17 07:45 07/23/17 07:44 Temazepam (Restoril) 15 mg HSPRN PRN ORAL Insomnia 06/23/17 07:45 06/30/17 07:44 06/24/17 00:50 Theophylline (Edilson-Dur) 100 mg TWICE A DAY ORAL 06/23/17 09:00 07/23/17 08:59 06/24/17 08:52 Tramadol HCl (Ultram) 50 mg Q6H PRN ORAL Severe Pain 7-10 06/23/17 20:30 06/30/17 20:29 06/23/17 23:52 Vancomycin/Sodium Chloride 250 ml @ 166.667 mls/hr Q24H IVPB 06/24/17 12:00 06/29/17 11:59 Assessment/Plan Assessment/Plan Abx: IV Vancomcyin 06/23- Cefepime 06/23- Assessment: Acute hypoxic resp distress 2ry to COPD exacerbation -CXR: no acute process -influenza sc neg Afebrile, no leukocytosis ?UTI (+dysuria) -u/a WB 10-15, nit neg, leuk +2 COPD/[facility] resident Plan: -d/c IV Vancomycin #2 -Continue Cefepime #2 pending ucx -f/u cx -Monitor CBC/BMP, temperatures -aspiration precautions Thank you for this consultation. Will continue to follow along with you. Discussed with DORIE. Jaylyn Lombardo M.D. Jun 24, 2017 12:43
--- NOTE | 2017-06-24 13:57 | History and Physical ---
History of Present Illness General Date patient seen: Jun 23, 2017 Reason for Hospitalization: Dyspnea/Respdistress Present Illness HPI 72-year-old female with hx of COPD, severe arthritis, Parkinson disease presents ED for evaluation of wheezing and shortness of breath from the [facility]. Her O2 sat was low. Patient started on breathing treatments in ER . She is admitted to telemetry for acute on chronic respiratory failure. she is heavy shaking in her right arm and c/o of severe back pain. Allergies: Coded Allergies: MORPHINE (Verified Allergy, Unknown, 11/07/15) Medication History Scheduled Acetaminophen (Acetaminophen), 325 MG PO NEEDED, (Reported) Aspirin* (Aspir 81*), 81 MG ORAL DAILY, (Reported) Aspirin* (Aspirin*), 81 MG ORAL DAILY, (Reported) Atenolol* (Tenormin*), Unknown Dose ORAL DAILY, (Reported) Atenolol* (Tenormin*), 25 MG ORAL DAILY, (Reported) Atorvastatin Calcium* (Atorvastatin Calcium*), Unknown Dose ORAL BEDTIME, ( Reported) Atorvastatin Calcium* (Atorvastatin Calcium*), 20 MG ORAL BEDTIME, (Reported) Carbidopa/Levodopa 25-100 Mg* (Sinemet 25-100 Mg Tablet*), 1 TAB ORAL THREE TIMES A DAY, (Reported) Clonidine Hcl* (Catapres*), 0.1 MG ORAL EVERY 6 HOURS, (Reported) Docusate Sodium* (Docusate Sodium*), 100 MG ORAL DAILY, (Reported) Docusate Sodium* (Docusate Sodium*), 100 MG ORAL DAILY, (Reported) Fluoxetine Hcl* (Fluoxetine Hcl*), Unknown Dose ORAL DAILY, (Reported) Fluoxetine Hcl* (Fluoxetine Hcl*), 5 MG ORAL DAILY, (Reported) Furosemide* (Lasix*), Unknown Dose ORAL DAILY, (Reported) Gabapentin* (Gabapentin*), 100 MG ORAL BID, (Reported) Gabapentin* (Gabapentin*), 100 MG ORAL TWICE A DAY, (Reported) Hydrochlorothiazide* (Hydrochlorothiazide*), Unknown Dose ORAL DAILY, (Reported) Levodopa/Carbidopa (Carbidopa-Levodopa 25-100 Tab), 1 TAB ORAL THREE TIMES A DAY , (Reported) Lorazepam* (Ativan*), Unknown Dose ORAL THREE TIMES A DAY, (Reported) Nitroglycerin (Nitroglycerin), 0.4 MG SL NEEDED, (Reported) Prednisone (Prednisone), 10 MG PO DAILY Promethazine HCl/Codeine (Prometh-Codein 6.25-10 mg/5 ml), 5 ML PO EVERY 6 HOURS , (Reported) Theophylline (Theodur*), 100 MG ORAL TWICE A DAY, (Reported) Tramadol Hcl* (Ultram*), 50 MG ORAL Q12HR, (Reported) Scheduled PRN Acetaminophen* (Acetaminophen 325MG Tablet*), 650 MG ORAL Q4H PRN for For Pain, (Reported) Albuterol Sulfate* (Albuterol Sulfate Hhn*), 3 ML INH Q4H PRN for Shortness of Breath, (Reported) Albuterol Sulfate* (Albuterol Sulfate Hhn*), 3 ML INH Q4H PRN for Shortness of Breath, (Reported) Bisacodyl* (Dulcolax*), 5 MG ORAL DAILY PRN for Constipation, (Reported) Clonidine Hcl* (Catapres*), 0.1 MG ORAL EVERY 6 HOURS PRN for For High Blood Pressure, (Reported) Guaifenesin* (Guaifenesin), 5 ML ORAL Q4H PRN for For Cough, (Reported) Nitroglycerin (Nitrostat), 0.4 MG SL every 5 mins PRN for chest pain, (Reported) Ondansetron* (Zofran*), 4 MG ORAL Q6H PRN for Nausea & Vomiting, (Reported) Tramadol Hcl* (Ultram*), 50 MG ORAL EVERY 12 HOURS PRN for For Pain, (Reported) Miscellaneous Medications Dextran 70/Hypromellose (Artificial Tears Eye Drops*), 1 DROP BOTH EYES, ( Reported) Dextran 70/Hypromellose (Artificial Tears Eye Drops*), 1 DROP BOTH EYES, ( Reported) Patient History Healthcare decision maker Resuscitation status Full Code Advanced Directive on File Past Medical/Surgical History Past Medical/Surgical History: (1) Pain in right knee (2) History of asthma (3) Parkinson disease Review of Systems Constitutional: Reports: no symptoms All Other Systems: negative except mentioned in HPI Physical Exam General Appearance: WD/WN Lines, tubes and drains: peripheral HEENT: normocephalic, atraumatic Neck: non-tender, normal alignment Respiratory/Chest: chest wall non-tender, lungs clear Cardiovascular/Chest: normal peripheral pulses Abdomen: normal bowel sounds Extremities: normal range of motion, non-pitting 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 Last 24 Hour Vital Signs Date Time Temp Pulse Resp B/P (MAP) Pulse Ox O2 Delivery O2 Flow Rate FiO2 06/24/17 12:00 94 06/24/17 09:15 105 20 99 Nasal Cannula 2.0 28 06/24/17 09:06 Nasal Cannula 3.0 32 06/24/17 09:06 98 Nasal Cannula 3.0 32 06/24/17 09:06 103 20 98 Nasal Cannula 3.0 32 06/24/17 09:06 103 20 Nasal Cannula 3.0 32 06/24/17 08:00 94 06/24/17 04:00 94 06/24/17 00:00 97.9 111 18 143/83 99 Nasal Cannula 2.0 97.9 06/24/17 00:00 106 06/23/17 20:00 97.9 119 18 138/69 96 Nasal Cannula 2.0 97.9 06/23/17 20:00 119 06/23/17 18:58 116 06/23/17 18:27 120 15 130/72 98 Nasal Cannula 2.0 06/23/17 18:00 98.5 116 16 160/90 96 Nasal Cannula 2.0 06/23/17 16:30 117 22 99 Nasal Cannula 2.0 28 06/23/17 16:29 28 06/23/17 16:28 117 22 98 Nasal Cannula 2.0 28 06/23/17 13:52 115 15 134/69 98 Nasal Cannula 2.0 Intake and Output 06/23/17 06/24/17 19:00 07:00 Intake Total 1150 ml 100 ml Balance 1150 ml 100 ml Intake Oral 100 ml IV Total 1150 ml # Voids 2 Laboratory Tests Test 06/24/17 06:20 White Blood Count 9.2 K/UL (4.8-10.8) Red Blood Count 3.46 M/UL (4.20-5.40) L Hemoglobin 11.4 G/DL (12.0-16.0) L Hematocrit 33.1 % (37.0-47.0) L Mean Corpuscular Volume 96 FL (80-99) Mean Corpuscular Hemoglobin 33.0 PG (27.0-31.0) H Mean Corpuscular Hemoglobin Concent 34.4 G/DL (32.0-36.0) Red Cell Distribution Width 12.5 % (11.6-14.8) Platelet Count 287 K/UL (150-450) Mean Platelet Volume 6.3 FL (6.5-10.1) L Neutrophils (%) (Auto) 68.6 % (45.0-75.0) Lymphocytes (%) (Auto) 19.6 % (20.0-45.0) L Monocytes (%) (Auto) 10.8 % (1.0-10.0) H Eosinophils (%) (Auto) 0.5 % (0.0-3.0) Basophils (%) (Auto) 0.5 % (0.0-2.0) Sodium Level 135 MMOL/L (136-145) L Potassium Level 4.3 MMOL/L (3.5-5.1) Chloride Level 99 MMOL/L (98-107) Carbon Dioxide Level 26 MMOL/L (21-32) Anion Gap 10 mmol/L (5-15) Blood Urea Nitrogen 16 mg/dL (7-18) Creatinine 0.8 MG/DL (0.55-1.30) Estimat Glomerular Filtration Rate mL/min (>60) Glucose Level 89 MG/DL (74-106) Calcium Level 8.7 MG/DL (8.5-10.1) Total Bilirubin 0.8 MG/DL (0.2-1.0) Aspartate Amino Transf (AST/SGOT) 31 U/L (15-37) Alanine Aminotransferase (ALT/SGPT) 23 U/L (12-78) Alkaline Phosphatase 101 U/L (46-116) Total Protein 6.7 G/DL (6.4-8.2) Albumin 3.6 G/DL (3.4-5.0) Globulin 3.1 g/dL Albumin/Globulin Ratio 1.2 (1.0-2.7) Height (Feet): 4 Height (Inches): 11.00 Weight (Pounds): 136 Medications Current Medications Medications (Trade) Dose Ordered Sig/Isaiah Route PRN Reason Start Time Stop Time Status Last Admin Dose Admin Acetaminophen (Tylenol) 650 mg Q4H PRN ORAL fever 06/23/17 07:45 07/23/17 07:44 Albuterol/ Ipratropium (Albuterol/ Ipratropium) 3 ml EVERY 4 HOURS PRN HHN Shortness of Breath 06/23/17 07:45 06/28/17 07:44 06/24/17 09:06 Carbidopa/Levodopa (Sinemet 25/100) 1 tab THREE TIMES A DAY ORAL 06/23/17 09:00 07/23/17 08:59 06/24/17 12:39 Cefepime HCl 1 gm/ Sodium Chloride 55 ml @ 110 mls/hr DAILY IVPB 06/24/17 09:00 07/01/17 08:59 06/24/17 10:44 Gabapentin (Neurontin) 100 mg BID ORAL 06/23/17 09:00 07/23/17 08:59 06/24/17 08:52 Heparin Sodium (Porcine) (Heparin 5000 units/ml) 5,000 units EVERY 12 HOURS SUBQ 06/23/17 09:00 07/23/17 08:59 06/24/17 08:53 Ondansetron HCl (Zofran) 4 mg Q6H PRN ORAL Nausea & Vomiting 06/23/17 07:45 07/23/17 07:44 Phenazopyridine HCl (Pyridium) 100 mg TID PRN ORAL dysuria 06/23/17 07:45 06/26/17 07:44 Polyethylene Glycol (Miralax) 17 gm DAILYPRN PRN ORAL Constipation 06/23/17 07:45 07/23/17 07:44 Temazepam (Restoril) 15 mg HSPRN PRN ORAL Insomnia 06/23/17 07:45 06/30/17 07:44 06/24/17 00:50 Theophylline (Edilson-Dur) 100 mg TWICE A DAY ORAL 06/23/17 09:00 07/23/17 08:59 06/24/17 08:52 Tramadol HCl (Ultram) 50 mg Q6H PRN ORAL Severe Pain 7-10 06/23/17 20:30 06/30/17 20:29 06/23/17 23:52 Vancomycin/Sodium Chloride 250 ml @ 166.667 mls/hr Q24H IVPB 06/24/17 12:00 06/29/17 11:59 06/24/17 12:39 Assessment/Plan Problem List: (1) Acute and chronic respiratory failure ICD Codes: J96.20 - Acute and chronic respiratory failure, unspecified whether with hypoxia or hypercapnia SNOMED: 04823568 (2) COPD exacerbation ICD Codes: J44.1 - Chronic obstructive pulmonary disease with (acute) exacerbation SNOMED: 042380965 (3) Parkinson disease ICD Codes: G20 - Parkinson's disease SNOMED: 14651896 (4) HTN (hypertension) ICD Codes: I10 - Essential (primary) hypertension SNOMED: 53070470 Assessment/Plan respiratory treatment iv steroids iv abx check electrolytes neuro to follow check sputum titrate fio2 to sat of 92% DNI/DNR is appropriate. Klarissa Bose MD Jun 24, 2017 13:57
--- NOTE | 2017-06-24 13:58 | Pulmonology Progress Note ---
Assessment/Plan Problems: (1) Acute and chronic respiratory failure (2) COPD exacerbation (3) Parkinson disease (4) HTN (hypertension) Assessment/Plan respiratory treatment iv steroids iv abx check electrolytes neuro to follow check sputum titrate fio2 to sat of 92% DNI/DNR is appropriate. awaiting neuro evaluation check echo, check cxr Subjective Interval Events: slightly better Constitutional: Reports: no symptoms Allergies: Coded Allergies: MORPHINE (Verified Allergy, Unknown, 11/07/15) Objective Last 24 Hour Vital Signs Date Time Temp Pulse Resp B/P (MAP) Pulse Ox O2 Delivery O2 Flow Rate FiO2 06/24/17 12:00 94 06/24/17 09:15 105 20 99 Nasal Cannula 2.0 28 06/24/17 09:06 Nasal Cannula 3.0 32 06/24/17 09:06 98 Nasal Cannula 3.0 32 06/24/17 09:06 103 20 98 Nasal Cannula 3.0 32 06/24/17 09:06 103 20 Nasal Cannula 3.0 32 06/24/17 08:00 94 06/24/17 04:00 94 06/24/17 00:00 97.9 111 18 143/83 99 Nasal Cannula 2.0 97.9 06/24/17 00:00 106 06/23/17 20:00 97.9 119 18 138/69 96 Nasal Cannula 2.0 97.9 06/23/17 20:00 119 06/23/17 18:58 116 06/23/17 18:27 120 15 130/72 98 Nasal Cannula 2.0 06/23/17 18:00 98.5 116 16 160/90 96 Nasal Cannula 2.0 06/23/17 16:30 117 22 99 Nasal Cannula 2.0 28 06/23/17 16:29 28 06/23/17 16:28 117 22 98 Nasal Cannula 2.0 28 Intake and Output 06/23/17 06/24/17 19:00 07:00 Intake Total 1150 ml 100 ml Balance 1150 ml 100 ml Intake Oral 100 ml IV Total 1150 ml # Voids 2 Objective General Appearance: WD/WN Lines, tubes and drains: peripheral HEENT: normocephalic, atraumatic Neck: non-tender, normal alignment Respiratory/Chest: chest wall non-tender + rhonchi and wheezing Cardiovascular/Chest: normal peripheral pulses Abdomen: normal bowel sounds Extremities: normal range of motion, non-pitting 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 normal Microbiology Date/Time Source Procedure Growth Status 06/23/17 04:45 Blood Blood Culture - Preliminary NO GROWTH AFTER 24 HOURS Resulted 06/23/17 04:35 Blood Blood Culture - Preliminary NO GROWTH AFTER 24 HOURS Resulted 06/23/17 04:49 Nasal Nares Influenza Types A,B Antigen (MICHELLE) - Final Complete Laboratory Tests 06/24/17 06:20: White Blood Count 9.2, Red Blood Count 3.46L, Hemoglobin 11.4L, Hematocrit 33.1L , Mean Corpuscular Volume 96, Mean Corpuscular Hemoglobin 33.0H, Mean Corpuscular Hemoglobin Concent 34.4, Red Cell Distribution Width 12.5, Platelet Count 287, Mean Platelet Volume 6.3L, Neutrophils (%) (Auto) 68.6, Lymphocytes ( %) (Auto) 19.6L, Monocytes (%) (Auto) 10.8H, Eosinophils (%) (Auto) 0.5, Basophils (%) (Auto) 0.5, Sodium Level 135L, Potassium Level 4.3, Chloride Level 99, Carbon Dioxide Level 26, Anion Gap 10, Blood Urea Nitrogen 16, Creatinine 0.8, Estimat Glomerular Filtration Rate , Glucose Level 89, Calcium Level 8.7, Total Bilirubin 0.8, Aspartate Amino Transf (AST/SGOT) 31, Alanine Aminotransferase (ALT/SGPT) 23, Alkaline Phosphatase 101, Total Protein 6.7, Albumin 3.6, Globulin 3.1, Albumin/Globulin Ratio 1.2 Current Medications Medications (Trade) Dose Ordered Sig/Isaiah Route PRN Reason Start Time Stop Time Status Last Admin Dose Admin Acetaminophen (Tylenol) 650 mg Q4H PRN ORAL fever 06/23/17 07:45 07/23/17 07:44 Albuterol/ Ipratropium (Albuterol/ Ipratropium) 3 ml EVERY 4 HOURS PRN HHN Shortness of Breath 06/23/17 07:45 06/28/17 07:44 06/24/17 09:06 Carbidopa/Levodopa (Sinemet 25/100) 1 tab THREE TIMES A DAY ORAL 06/23/17 09:00 07/23/17 08:59 06/24/17 12:39 Cefepime HCl 1 gm/ Sodium Chloride 55 ml @ 110 mls/hr DAILY IVPB 06/24/17 09:00 07/01/17 08:59 06/24/17 10:44 Gabapentin (Neurontin) 100 mg BID ORAL 06/23/17 09:00 07/23/17 08:59 06/24/17 08:52 Heparin Sodium (Porcine) (Heparin 5000 units/ml) 5,000 units EVERY 12 HOURS SUBQ 06/23/17 09:00 07/23/17 08:59 06/24/17 08:53 Ondansetron HCl (Zofran) 4 mg Q6H PRN ORAL Nausea & Vomiting 06/23/17 07:45 07/23/17 07:44 Phenazopyridine HCl (Pyridium) 100 mg TID PRN ORAL dysuria 06/23/17 07:45 06/26/17 07:44 Polyethylene Glycol (Miralax) 17 gm DAILYPRN PRN ORAL Constipation 06/23/17 07:45 07/23/17 07:44 Temazepam (Restoril) 15 mg HSPRN PRN ORAL Insomnia 06/23/17 07:45 06/30/17 07:44 06/24/17 00:50 Theophylline (Edilson-Dur) 100 mg TWICE A DAY ORAL 06/23/17 09:00 07/23/17 08:59 06/24/17 08:52 Tramadol HCl (Ultram) 50 mg Q6H PRN ORAL Severe Pain 7-10 06/23/17 20:30 06/30/17 20:29 06/23/17 23:52 Vancomycin/Sodium Chloride 250 ml @ 166.667 mls/hr Q24H IVPB 06/24/17 12:00 06/29/17 11:59 06/24/17 12:39 Klarissa Bose MD Jun 24, 2017 13:58
--- NOTE | 2017-06-24 14:52 | Diagnostic Imaging Report ---
Indication: Dyspnea Technique: One view of the chest Comparison: 04/01/2017 Findings: No acute infiltrates, effusions, or congestion. Tortuous calcified aorta. Normal heart size. Upper mediastinum unremarkable. There is evidence of prior left shoulder surgery. No significant interim change Impression: No acute process.
[2017-06-24 16:43] VITALS: BP 159/81
[2017-06-24 20:00] VITALS: BP 144/58
[2017-06-25] VITALS: BP 136/72
[2017-06-25 04:00] VITALS: BP 158/102
[2017-06-25] MEDS: Albuterol/Ipratropium 3ml neb HHN PRN ×2 (05:52→22:32)
[2017-06-25 08:00] VITALS: BP 148/83
[2017-06-25] MEDS: Levodopa/Carbidopa 25/100 tab ORAL SCH ×4 (09:09→23:32)
[2017-06-25] MEDS: Cefepime HCl 1 GM in NS 55 ML IVPB SCH (09:09)
[2017-06-25] MEDS: Theophylline ER 100mg ORAL SCH ×2 (09:09→17:04)
[2017-06-25] MEDS: Heparin 5000 units/ml inj SUBQ SCH ×2 (09:10→21:44)
--- NOTE | 2017-06-25 11:48 | Neurology Progress Note ---
Objective Physical Exam Last Vital Signs Date Time Temp Pulse Resp B/P (MAP) Pulse Ox O2 Delivery O2 Flow Rate FiO2 06/25/17 08:00 97.9 100 18 148/83 97 Nasal Cannula 2.0 97.9 06/25/17 06:03 28 Impression/Recommendations Recommendations #[id number] MALCOLM SARKAR Jun 25, 2017 11:48
[2017-06-25 12:00] VITALS: BP 143/79
[2017-06-25] MEDS: traMADol 50mg tab ORAL PRN ×2 (12:23→23:32)
--- NOTE | 2017-06-25 13:16 | Pulmonology Progress Note ---
Assessment/Plan Problems: (1) Acute and chronic respiratory failure (2) COPD exacerbation (3) Parkinson disease (4) HTN (hypertension) Assessment/Plan respiratory treatment iv steroids/ taper slow iv abx f/u urine cultures check electrolytes neuro to follow check sputum titrate fio2 to sat of 92% DNI/DNR is appropriate. neuro evaluation appreciated dvt prophylaxis Subjective ROS Limited/Unobtainable: No Interval Events: less cough Allergies: Coded Allergies: MORPHINE (Verified Allergy, Unknown, 11/07/15) Objective Last 24 Hour Vital Signs Date Time Temp Pulse Resp B/P (MAP) Pulse Ox O2 Delivery O2 Flow Rate FiO2 06/25/17 12:23 97.9 06/25/17 12:00 97.0 93 18 143/79 98 Nasal Cannula 2.0 97.0 06/25/17 12:00 91 06/25/17 08:00 97.9 100 18 148/83 97 Nasal Cannula 2.0 97.9 06/25/17 08:00 102 06/25/17 06:03 92 20 99 Nasal Cannula 2.0 28 06/25/17 05:52 90 20 99 Nasal Cannula 3.0 32 06/25/17 04:00 88 06/25/17 04:00 97.0 90 21 158/102 93 Nasal Cannula 2.0 97.0 06/25/17 00:00 97.5 91 20 136/72 100 Nasal Cannula 2.0 97.5 06/25/17 00:00 100 06/24/17 20:00 97.9 91 20 144/58 98 Nasal Cannula 2.0 97.9 06/24/17 20:00 89 06/24/17 19:59 89 20 99 Nasal Cannula 2.0 28 06/24/17 19:44 Nasal Cannula 3.0 32 06/24/17 19:44 99 Nasal Cannula 3.0 32 06/24/17 19:44 89 20 99 Nasal Cannula 3.0 32 06/24/17 19:43 87 20 Nasal Cannula 3.0 32 06/24/17 16:43 98.0 93 18 159/81 94 Nasal Cannula 2.0 98.0 93 06/24/17 16:30 89 Intake and Output 06/24/17 06/25/17 19:00 07:00 Intake Total 900 ml Balance 900 ml Intake Oral 900 ml # Voids 6 2 Objective General Appearance: WD/WN Lines, tubes and drains: peripheral HEENT: normocephalic, atraumatic Neck: non-tender, normal alignment Respiratory/Chest: chest wall non-tender + rhonchi and wheezing Cardiovascular/Chest: normal peripheral pulses Abdomen: normal bowel sounds Extremities: normal range of motion, non-pitting 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 Complete 06/23/17 04:49 Nasal Nares Influenza Types A,B Antigen (MICHELLE) - Final Complete 06/23/17 05:19 Urine,Clean Catch Urine Culture - Preliminary Resulted 06/23/17 05:53 Rectum VRE Culture - Final NO VANCOMYCIN RESISTANT ENTEROCOCCUS ... Complete Current Medications Medications (Trade) Dose Ordered Sig/Isaiah Route PRN Reason Start Time Stop Time Status Last Admin Dose Admin Acetaminophen (Tylenol) 650 mg Q4H PRN ORAL fever 06/23/17 07:45 07/23/17 07:44 06/24/17 15:16 Albuterol/ Ipratropium (Albuterol/ Ipratropium) 3 ml EVERY 4 HOURS PRN HHN Shortness of Breath 06/23/17 07:45 06/28/17 07:44 06/25/17 05:52 Carbidopa/Levodopa (Sinemet 25/100) 1 tab EVERY 6 HOURS ORAL 06/25/17 13:00 07/23/17 12:59 Cefepime HCl 1 gm/ Sodium Chloride 55 ml @ 110 mls/hr DAILY IVPB 06/24/17 09:00 07/01/17 08:59 06/25/17 09:09 Gabapentin (Neurontin) 100 mg BID ORAL 06/23/17 09:00 07/23/17 08:59 06/25/17 09:09 Heparin Sodium (Porcine) (Heparin 5000 units/ml) 5,000 units EVERY 12 HOURS SUBQ 06/23/17 09:00 07/23/17 08:59 06/25/17 09:10 Ondansetron HCl (Zofran) 4 mg Q6H PRN ORAL Nausea & Vomiting 06/23/17 07:45 07/23/17 07:44 Phenazopyridine HCl (Pyridium) 100 mg TID PRN ORAL dysuria 06/23/17 07:45 06/26/17 07:44 Polyethylene Glycol (Miralax) 17 gm DAILYPRN PRN ORAL Constipation 06/23/17 07:45 07/23/17 07:44 06/25/17 09:08 Temazepam (Restoril) 15 mg HSPRN PRN ORAL Insomnia 06/23/17 07:45 06/30/17 07:44 06/24/17 23:48 Theophylline (Edilson-Dur) 100 mg TWICE A DAY ORAL 06/23/17 09:00 07/23/17 08:59 06/25/17 09:09 Tramadol HCl (Ultram) 50 mg Q6H PRN ORAL Severe Pain 7-10 06/23/17 20:30 06/30/17 20:29 06/25/17 12:23 Trihexyphenidyl HCl (Artane) 1 mg THREE TIMES A DAY ORAL 06/25/17 13:00 07/25/17 12:59 Klarissa Bose MD Jun 25, 2017 13:16
[2017-06-25] MEDS ORDERED: Fleet's Enema 133ml RECTAL ONE (14:00)
[2017-06-25] MEDS: Trihexyphenidyl 2mg tab ORAL SCH ×2 (14:08→17:04)
--- NOTE | 2017-06-25 15:00 | Infectious Diseases Prog Note ---
Assessment/Plan Assessment/Plan Assessment: Acute hypoxic resp distress 2ry to COPD exacerbation -CXR: no acute process -influenza sc neg -Bcx nTD Afebrile, no leukocytosis ?UTI (+dysuria) -u/a WB 10-15, nit neg, leuk +2; ucx p COPD/[facility] resident Plan: -Switch Cefepime #06/08 to PO Cefdinir 300mg bid for COPD exacerbation and possible UTI -06/24 SP IV Vancomycin #2 -f/u cx -Monitor CBC/BMP, temperatures -aspiration precautions Thank you for this consultation. Will continue to follow along with you. Discussed with RN. Subjective Allergies: Coded Allergies: MORPHINE (Verified Allergy, Unknown, 11/07/15) Subjective feels better afebrile no leukocytosis bcx NTD ucx p Objective Vital Signs Last 24 Hour Vital Signs Date Time Temp Pulse Resp B/P (MAP) Pulse Ox O2 Delivery O2 Flow Rate FiO2 06/25/17 12:23 97.9 06/25/17 12:00 97.0 93 18 143/79 98 Nasal Cannula 2.0 97.0 06/25/17 12:00 91 06/25/17 08:06 80 18 Nasal Cannula 3.0 32 06/25/17 08:06 Nasal Cannula 3.0 32 06/25/17 08:06 98 Nasal Cannula 3.0 32 06/25/17 08:00 97.9 100 18 148/83 97 Nasal Cannula 2.0 97.9 06/25/17 08:00 102 06/25/17 06:03 92 20 99 Nasal Cannula 2.0 28 06/25/17 05:52 90 20 99 Nasal Cannula 3.0 32 06/25/17 04:00 88 06/25/17 04:00 97.0 90 21 158/102 93 Nasal Cannula 2.0 97.0 06/25/17 00:00 97.5 91 20 136/72 100 Nasal Cannula 2.0 97.5 06/25/17 00:00 100 06/24/17 20:00 97.9 91 20 144/58 98 Nasal Cannula 2.0 97.9 06/24/17 20:00 89 06/24/17 19:59 89 20 99 Nasal Cannula 2.0 28 06/24/17 19:44 Nasal Cannula 3.0 32 06/24/17 19:44 99 Nasal Cannula 3.0 32 06/24/17 19:44 89 20 99 Nasal Cannula 3.0 32 06/24/17 19:43 87 20 Nasal Cannula 3.0 32 06/24/17 16:43 98.0 93 18 159/81 94 Nasal Cannula 2.0 98.0 93 06/24/17 16:30 89 Height (Feet): 4 Height (Inches): 11.00 Weight (Pounds): 136 Objective General Appearance: no apparent distress, alert, non-toxic HEENT:normocephalic, atraumatic, PERRL, normal pharynx Neck: full range of motion, supple/symm/no masses Respiratory: chest non-tender, speaking full sentences, wheezing Cardiovascular : regular rate, rhythm, no edema Gastrointestinal: normal bowel sounds, non tender, soft, non-distended, no guarding, no rebound Genitourinary: normal inspection, no CVA tenderness Musculoskeletal: back normal, gait/station normal, normal range of motion, non- tender Neurologic: alert, oriented x3, responsive Skin: normal color, no rash, warm/dry, well hydrated Microbiology Date/Time Source Procedure Growth Status 06/23/17 04:45 Blood Blood Culture - Preliminary NO GROWTH AFTER 48 HOURS Resulted 06/23/17 04:35 Blood Blood Culture - Preliminary NO GROWTH AFTER 48 HOURS Resulted 06/23/17 05:52 Nasal Nares MRSA Culture - Final NO METHICILLIN RESISTANT STAPH AUREUS... Complete 06/23/17 04:49 Nasal Nares Influenza Types A,B Antigen (MICHELLE) - Final Complete 06/23/17 05:19 Urine,Clean Catch Urine Culture - Preliminary Resulted 06/23/17 05:53 Rectum VRE Culture - Final NO VANCOMYCIN RESISTANT ENTEROCOCCUS ... Complete Current Medications Medications (Trade) Dose Ordered Sig/Isaiah Route PRN Reason Start Time Stop Time Status Last Admin Dose Admin Acetaminophen (Tylenol) 650 mg Q4H PRN ORAL fever 06/23/17 07:45 07/23/17 07:44 06/24/17 15:16 Albuterol/ Ipratropium (Albuterol/ Ipratropium) 3 ml EVERY 4 HOURS PRN HHN Shortness of Breath 06/23/17 07:45 06/28/17 07:44 06/25/17 05:52 Carbidopa/Levodopa (Sinemet 25/100) 1 tab EVERY 6 HOURS ORAL 06/25/17 13:00 07/23/17 12:59 06/25/17 14:08 Cefepime HCl 1 gm/ Sodium Chloride 55 ml @ 110 mls/hr DAILY IVPB 06/24/17 09:00 07/01/17 08:59 06/25/17 09:09 Gabapentin (Neurontin) 100 mg BID ORAL 06/23/17 09:00 07/23/17 08:59 06/25/17 09:09 Heparin Sodium (Porcine) (Heparin 5000 units/ml) 5,000 units EVERY 12 HOURS SUBQ 06/23/17 09:00 07/23/17 08:59 06/25/17 09:10 Ondansetron HCl (Zofran) 4 mg Q6H PRN ORAL Nausea & Vomiting 06/23/17 07:45 07/23/17 07:44 Phenazopyridine HCl (Pyridium) 100 mg TID PRN ORAL dysuria 06/23/17 07:45 06/26/17 07:44 Polyethylene Glycol (Miralax) 17 gm DAILYPRN PRN ORAL Constipation 06/23/17 07:45 07/23/17 07:44 06/25/17 09:08 Temazepam (Restoril) 15 mg HSPRN PRN ORAL Insomnia 06/23/17 07:45 06/30/17 07:44 06/24/17 23:48 Theophylline (Edilson-Dur) 100 mg TWICE A DAY ORAL 06/23/17 09:00 07/23/17 08:59 06/25/17 09:09 Tramadol HCl (Ultram) 50 mg Q6H PRN ORAL Severe Pain 7-10 06/23/17 20:30 06/30/17 20:29 06/25/17 12:23 Trihexyphenidyl HCl (Artane) 1 mg THREE TIMES A DAY ORAL 06/25/17 13:00 07/25/17 12:59 06/25/17 14:08 Jaylyn Lombardo M.D. Jun 25, 2017 15:00
[2017-06-25 16:00] VITALS: BP 152/82
--- NOTE | 2017-06-25 17:22 | Diagnostic Imaging Report ---
Indication: Neck pain Technique: Spiral acquisitions obtained through the cervical spine. No IV contrast utilized. Multiplanar reconstructions were generated. Total dose length product 279.95 mGycm. CTDIvol(s) 14.59 mGy. Dose reduction achieved using automated exposure control. Comparison: none Findings: There is reversal of the normal cervical lordosis. There is slight anterior offset of C3 on C4, C4-C5, C5 on C6. No acute fractures. No dislocations. There is degenerative narrowing of the anterior atlantoaxial joint. At C2-3, there is posterior disc protrusion. This does not significantly compromise the spinal canal, however. The neural foramina are preserved. The disc space is preserved. There is bilateral facet arthrosis. At C3-4, the disc spaces preserved. There is mild central posterior disc protrusion which results in borderline narrowing of the spinal canal but probably does not significantly compromise the cord. The neural foramina are preserved. There is mild bilateral facet arthrosis. At C4-5, the disc spaces preserved. No significant disc bulge or protrusion, spinal stenosis, or neural foraminal narrowing. There is bilateral degenerative facet arthrosis. At C5-6, no significant disc bulge or protrusion, spinal stenosis, or neural foraminal narrowing. There is mild bilateral facet arthrosis. At C6-7, there is moderate degenerative disc narrowing. No significant disc bulge or protrusion, spinal stenosis, or neural foraminal compromise. There is bilateral bilateral facet arthrosis At C7-T1, no significant disc bulge or protrusion, spinal stenosis, or neural foraminal stenosis. Included extraspinal soft tissues are unremarkable for left maxillary sinus disease. Impression: No acute bony trauma Mild degenerative changes as described above Incidental finding of left maxillary sinus disease The CT scanner at [facility] is accredited by the [employer] and the scans are performed using protocols designed to limit radiation exposure to as low as reasonably achievable to attain images of sufficient resolution adequate for diagnostic evaluation.
[2017-06-25 20:00] VITALS: BP 126/65
[2017-06-25] MEDS ORDERED: Cefdinir 300mg cap ORAL SCH (21:00)
[2017-06-25] MEDS ORDERED: Miralax 17gm pkt ORAL PRN (21:00)
--- NOTE | 2017-06-25 21:01 | Consultation ---
DATE OF CONSULTATION: 06/25/2017 NEUROLOGICAL CONSULTATION CONSULTING PHYSICIAN: Tone Wan M.D. REQUESTING PHYSICIAN: Klarissa Bose M.D. HISTORY OF PRESENT ILLNESS: This is a 72-year-old lady, resident of nursing facility, seen in neurological consultation to evaluate evidence of progressive Parkinson disease. The patient was brought to this facility with exacerbation of COPD. She was complaining of wheezing, shortness of breath, and has a low oxygen saturation. Her vital signs on admission included blood pressure 180/88, heart rate of 138, respiration 24, and temperature 98 degrees. [place] coma scale was 15. Her initial workup included CBC study, which were unremarkable. Chemistry panel with sodium 133, chloride 96, alkaline phosphatase 138, otherwise normal including lactic acid, and troponins. Her urinalysis, 10 to 15 wbcs, 1+ protein and 2+ leukocyte esterase. The patient's chest x-ray revealed no evidence of acute process. There was evidence of prior left shoulder surgery and a tortuous calcified aorta. The patient has a history of Parkinson disease for the last 5-6 years with gradual progression of symptomatology in spite of adjustment of treatment. Gradually she developed increasing difficulties ambulation, become bedridden, using wheelchair only last one year. 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 PAST MEDICAL HISTORY: History of COPD, bronchial asthma, hyperlipidemia, Parkinson disease, severe degenerative joint disease predominantly right knee. MEDICATIONS: The patient's treatment prior to admission included albuterol, aspirin, atenolol, atorvastatin, Dulcolax, Sinemet 25/100 mg t.i.d., clonidine, docusate, she is on fluoxetine 10 mg, furosemide, gabapentin 100 mg b.i.d., hydrochlorothiazide and Ativan 0.5 mg t.i.d. Maintain on a small dose of prednisone 10 mg, and tramadol 50 mg p.r.n. ALLERGIES: Morphine. FAMILY HISTORY: Noncontributory. REVIEW OF SYSTEMS: Increasing tremors, disability of right upper extremity, aches in her left shoulder area, severe aches in her right knee where she is "bone on bone", told that she needs surgery. She has no chest pain. No palpitation, but has respiratory difficulties with shortness of breath. Inability to ambulate. PHYSICAL EXAMINATION: GENERAL: A well-developed and well-nourished, pleasant lady, not in acute distress, lying comfortably in bed. MUSCULOSKELETAL: Tilting the head to the right. Postoperative scarring in the left shoulder with palpable tenderness. Upper and lower extremities without clubbing, cyanosis, or edema. There is acute tenderness on palpation of the right knee area with a cracking sensation with movement. Peripheral pulses 1+ symmetric. MENTAL STATUS: She is alert and oriented x3 with no evidence of aphasia or apraxia. Cognitive function normal. The patient is upset with her condition. CRANIAL NERVE II: Pupils both responding to light and accommodation. Extraocular movement intact. No nystagmus. CRANIAL NERVE V: Normal corneal responses. CRANIAL NERVE VII: No facial asymmetry. CRANIAL NERVE VIII: Grossly normal hearing. CRANIAL NERVES IX THROUGH XII: Tongue is in midline. Symmetric palate elevation. Denies dysphagia. MOTOR EXAMINATION: Revealed limited range of motion of the left arm, but strength 5/5 distal aspect of both upper extremities. There is a continuous resting large amplitude tremor in the right arm. There is significant rigidity and spasticity in both lower extremities, but with strength in the distal aspect 5/5. Deep tendon reflexes brisk bilaterally slightly higher on the right. Plantar response is mute. SENSORY EXAMINATION: Normal to pinprick and light touch in upper and lower extremities. Gait not tested. IMPRESSION: 1. Parkinson disease, advanced. 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 3. Right torticollis. 4. COPD exacerbation. 5. Polypharmacy. 6. UTI. DISCUSSION: The patient maintained on very low dose of Sinemet. Attempt to adjust this dose was made last year, but apparently not done. I will increase Sinemet up 25/100 mg q.i.d., add Artane for excessive tremor of right arm and 1 mg b.i.d. Further titration of parkinsonian medications is expected as outpatient. The patient to continue with the fluoxetine. The patient has torticollis and evidence of myelopathy, we will obtain CT scan of the cervical spine to rule out a cord compression. Thank you for allowing me to see this interesting patient in neurological consultation. Tone Wan M.D. DR: NATHANIEL JOB#: [id number] CC:
[2017-06-25] MEDS: Cefdinir 300mg cap ORAL SCH (21:43)
[2017-06-26] VITALS: BP 139/68
[2017-06-26 03:57] VITALS: BP 127/65
[2017-06-26] MEDS: Levodopa/Carbidopa 25/100 tab ORAL SCH ×4 (05:20→23:54)
[2017-06-26] MEDS: traMADol 50mg tab ORAL PRN ×2 (05:20→16:59)
[2017-06-26] MEDS ORDERED: Guaifenesin/DM 10ml syrup ORAL PRN (06:45)
--- NOTE | 2017-06-26 06:49 | Pulmonology Progress Note ---
Assessment/Plan Assessment/Plan ASSESSMENT Acute resp failure due to COPD exacerbation, requiring mask-resolved acute COPD exacerbation HTN Parkinson disease, advanced severe DJD Right torticollis. bacteriuria ? UTI PLAN OF CARE [facility] floor IV steroids and taper O2 HHN trial of Theophylline a/tussive prn sputum cx if able empiric abx , ID follows influenza negative, blood cx negative, urine pending CXR no acute CP pathology neuro follows on Sinemet and added Artane CT C spine ( done due to possible myelopathy and R torticollis to r/o cord compression as per neuro) - no acute process bowel regimen symptomatic treatment DNR/DNI status dc plan for am case discussed and evaluated by supervising physician Subjective Allergies: Coded Allergies: MORPHINE (Verified Allergy, Unknown, 11/07/15) Subjective afebrile, no leucocytosis on O2 via NC pulse ox stable no signs of resp distress Objective Last 24 Hour Vital Signs Date Time Temp Pulse Resp B/P (MAP) Pulse Ox O2 Delivery O2 Flow Rate FiO2 06/26/17 06:26 96.3 06/26/17 05:20 96.3 06/26/17 03:57 96.3 92 20 127/65 94 Room Air 96.3 06/26/17 00:00 97.3 98 17 139/68 97.3 06/25/17 23:32 97.7 06/25/17 22:32 94 20 98 Room Air 21 06/25/17 20:13 Nasal Cannula 2.0 28 06/25/17 20:13 97 18 Nasal Cannula 2.0 28 06/25/17 20:13 98 Nasal Cannula 2.0 28 06/25/17 20:00 97.7 99 19 126/65 91 97.7 06/25/17 16:00 97.5 100 19 152/82 100 Nasal Cannula 2.0 97.5 06/25/17 16:00 97 06/25/17 12:23 97.9 06/25/17 12:00 97.0 93 18 143/79 98 Nasal Cannula 2.0 97.0 06/25/17 12:00 91 06/25/17 08:06 80 18 Nasal Cannula 3.0 32 06/25/17 08:06 Nasal Cannula 3.0 32 06/25/17 08:06 98 Nasal Cannula 3.0 32 06/25/17 08:00 97.9 100 18 148/83 97 Nasal Cannula 2.0 97.9 06/25/17 08:00 102 Intake and Output 06/25/17 06/26/17 19:00 07:00 Intake Total 352 ml 236 ml Balance 352 ml 236 ml Intake Oral 352 ml 236 ml # Voids 3 1 # Bowel Movements 1 General Appearance: no acute distress HEENT: normocephalic, atraumatic, anicteric, other - tilting the head to the right Respiratory/Chest: no accessory muscle use Cardiovascular: normal rate, no JVD Abdomen: normal bowel sounds, soft, non tender Extremities: other - R hand resting tremor, rigidity and spasticity BLE Neurologic/Psychiatric: abnormal gait, alert, responsive, other - spastic paraparesis Musculoskeletal: atrophy - VLE Current Medications Medications (Trade) Dose Ordered Sig/Isaiah Route PRN Reason Start Time Stop Time Status Last Admin Dose Admin Acetaminophen (Tylenol) 650 mg Q4H PRN ORAL fever 06/25/17 21:00 07/23/17 20:59 Albuterol/ Ipratropium (Albuterol/ Ipratropium) 3 ml Q4H PRN HHN Shortness of Breath 06/25/17 21:00 06/30/17 20:59 06/25/17 22:32 Carbidopa/Levodopa (Sinemet 25/100) 1 tab EVERY 6 HOURS ORAL 06/26/17 00:00 07/23/17 12:59 06/26/17 05:20 Cefdinir (Cefdinir) 300 mg Q12HR ORAL 06/25/17 22:00 07/02/17 21:59 06/25/17 21:43 Gabapentin (Neurontin) 100 mg BID ORAL 06/26/17 09:00 07/23/17 08:59 Heparin Sodium (Porcine) (Heparin 5000 units/ml) 5,000 units EVERY 12 HOURS SUBQ 06/25/17 21:00 07/23/17 08:59 06/25/17 21:44 Ondansetron HCl (Zofran) 4 mg Q6H PRN ORAL Nausea & Vomiting 06/26/17 01:45 07/23/17 07:44 Phenazopyridine HCl (Pyridium) 100 mg TIDPRN PRN ORAL dysuria 06/26/17 09:00 07/26/17 08:59 Polyethylene Glycol (Miralax) 17 gm DAILYPRN PRN ORAL Constipation 06/25/17 21:00 07/25/17 20:59 Temazepam (Restoril) 15 mg HSPRN PRN ORAL Insomnia 06/25/17 21:00 07/02/17 20:59 Theophylline (Edilson-Dur) 100 mg TWICE A DAY ORAL 06/26/17 09:00 07/23/17 08:59 Tramadol HCl (Ultram) 50 mg Q6H PRN ORAL Severe Pain 7-10 06/25/17 20:30 06/30/17 20:29 06/26/17 05:20 Trihexyphenidyl HCl (Artane) 1 mg THREE TIMES A DAY ORAL 06/26/17 09:00 07/25/17 12:59 Mehul ([facility])Melinda NP Jun 26, 2017 06:49
[2017-06-26 07:39] LABS: BASOPHILS % (AUTO) 0.7 % (0.0-2.0); EOSINOPHILS % (AUTO) 7.7 % (0.0-3.0); HEMATOCRIT 36.1 % (37.0-47.0); HEMOGLOBIN 12.4 G/DL (12.0-16.0); LYMPHOCYTES % (AUTO) 28.4 % (20.0-45.0); MEAN CORPUSCULAR VOLUME 96 FL (80-99); MONOCYTES % (AUTO) 9.6 % (1.0-10.0); NEUTROPHILS % (AUTO) 53.5 % (45.0-75.0); PLATELET COUNT 329 K/UL (150-450); RED BLOOD COUNT 3.76 M/UL (4.20-5.40); RED CELL DISTRIBUTION WIDTH 12.1 % (11.6-14.8); WHITE BLOOD COUNT 9.1 K/UL (4.8-10.8)
[2017-06-26 08:00] VITALS: BP 155/71
[2017-06-26 08:08] LABS: ALANINE AMINOTRANSFERASE 14 U/L (12-78); ALBUMIN 3.5 G/DL (3.4-5.0); ALBUMIN/GLOBULIN RATIO 1.1 (1.0-2.7); ALKALINE PHOSPHATASE 101 U/L (46-116); ANION GAP 10 mmol/L (5-15); ASPARTATE AMINO TRANSFERASE 29 U/L (15-37); BILIRUBIN,TOTAL 0.9 MG/DL (0.2-1.0); BLOOD UREA NITROGEN 19 mg/dL (7-18); CALCIUM 8.7 MG/DL (8.5-10.1); CARBON DIOXIDE 28 MMOL/L (21-32); CHLORIDE 99 MMOL/L (98-107); CREATININE 0.8 MG/DL (0.55-1.30); PHOSPHORUS 4.1 MG/DL (2.5-4.9); SODIUM 137 MMOL/L (136-145)
[2017-06-26] MEDS: Albuterol/Ipratropium 3ml neb HHN PRN ×2 (08:28→20:06)
[2017-06-26] MEDS: Theophylline ER 100mg ORAL SCH ×2 (08:36→16:59)
[2017-06-26] MEDS: Heparin 5000 units/ml inj SUBQ SCH ×2 (08:46→20:57)
[2017-06-26] MEDS: Trihexyphenidyl 2mg tab ORAL SCH ×3 (11:07→17:00)
[2017-06-26] MEDS: Cefdinir 300mg cap ORAL SCH ×2 (11:07→20:47)
[2017-06-26 12:00] VITALS: BP 146/86
[2017-06-26] MEDS ORDERED: Solu-MEDROL 40mg Inj IVP SCH (14:00)
[2017-06-26 16:00] VITALS: BP 154/92
--- NOTE | 2017-06-26 16:37 | Infectious Diseases Prog Note ---
Assessment/Plan Assessment/Plan Assessment: Acute hypoxic resp distress 2ry to COPD exacerbation -CXR: no acute process -influenza sc neg -Bcx nTD Afebrile, no leukocytosis ?UTI (+dysuria) -u/a WB 10-15, nit neg, leuk +2; ucx Organism 1 GRAM POSITIVE COCCI COLONY COUNT: 20,000 - 30,000 CFU/ML Organism 2 MIXED UROGENITAL CONTAMINANTS COLONY COUNT: 10,000 - 20,000 CFU/ML COPD/[facility] resident Plan: -Continue PO Cefdinir 300mg bid abx d#4/5 for COPD exacerbation and possible UTI -06/25 SP Cefepime #3 -06/24 SP IV Vancomycin #2 -f/u cx -Monitor CBC/BMP, temperatures -aspiration precautions Thank you for this consultation. Will continue to follow along with you. Discussed with RN. Subjective Allergies: Coded Allergies: MORPHINE (Verified Allergy, Unknown, 11/07/15) Subjective feels better afebrile no leukocytosis bcx NTD Objective Vital Signs Last 24 Hour Vital Signs Date Time Temp Pulse Resp B/P (MAP) Pulse Ox O2 Delivery O2 Flow Rate FiO2 06/26/17 15:47 97.7 06/26/17 14:48 97.7 06/26/17 12:00 97.7 110 19 146/86 97 97.7 06/26/17 08:38 96 20 99 Room Air 06/26/17 08:29 96 20 98 Room Air 21 06/26/17 08:00 96.6 107 19 155/71 97 96.6 06/26/17 07:45 Room Air 21 06/26/17 07:45 108 18 Room Air 21 06/26/17 07:45 99 Room Air 21 06/26/17 06:26 96.3 06/26/17 05:20 96.3 06/26/17 03:57 96.3 92 20 127/65 94 Room Air 96.3 06/26/17 00:00 97.3 98 17 139/68 97.3 06/25/17 23:32 97.7 06/25/17 22:32 94 20 98 Room Air 21 06/25/17 20:13 Nasal Cannula 2.0 28 06/25/17 20:13 97 18 Nasal Cannula 2.0 28 06/25/17 20:13 98 Nasal Cannula 2.0 28 06/25/17 20:00 97.7 99 19 126/65 91 97.7 Height (Feet): 4 Height (Inches): 11.00 Weight (Pounds): 136 Objective General Appearance: no apparent distress, alert, non-toxic HEENT:normocephalic, atraumatic, PERRL, normal pharynx Neck: full range of motion, supple/symm/no masses Respiratory: chest non-tender, speaking full sentences, wheezing Cardiovascular : regular rate, rhythm, no edema Gastrointestinal: normal bowel sounds, non tender, soft, non-distended, no guarding, no rebound Genitourinary: normal inspection, no CVA tenderness Musculoskeletal: back normal, gait/station normal, normal range of motion, non- tender Neurologic: alert, oriented x3, responsive Skin: normal color, no rash, warm/dry, well hydrated Laboratory Tests Test 06/26/17 05:25 White Blood Count 9.1 K/UL (4.8-10.8) Red Blood Count 3.76 M/UL (4.20-5.40) L Hemoglobin 12.4 G/DL (12.0-16.0) Hematocrit 36.1 % (37.0-47.0) L Mean Corpuscular Volume 96 FL (80-99) Mean Corpuscular Hemoglobin 32.9 PG (27.0-31.0) H Mean Corpuscular Hemoglobin Concent 34.3 G/DL (32.0-36.0) Red Cell Distribution Width 12.1 % (11.6-14.8) Platelet Count 329 K/UL (150-450) Mean Platelet Volume 6.4 FL (6.5-10.1) L Neutrophils (%) (Auto) 53.5 % (45.0-75.0) Lymphocytes (%) (Auto) 28.4 % (20.0-45.0) Monocytes (%) (Auto) 9.6 % (1.0-10.0) Eosinophils (%) (Auto) 7.7 % (0.0-3.0) H Basophils (%) (Auto) 0.7 % (0.0-2.0) Sodium Level 137 MMOL/L (136-145) Potassium Level 4.0 MMOL/L (3.5-5.1) Chloride Level 99 MMOL/L (98-107) Carbon Dioxide Level 28 MMOL/L (21-32) Anion Gap 10 mmol/L (5-15) Blood Urea Nitrogen 19 mg/dL (7-18) H Creatinine 0.8 MG/DL (0.55-1.30) Estimat Glomerular Filtration Rate mL/min (>60) Glucose Level 90 MG/DL (74-106) Calcium Level 8.7 MG/DL (8.5-10.1) Phosphorus Level 4.1 MG/DL (2.5-4.9) Magnesium Level 1.8 MG/DL (1.8-2.4) Total Bilirubin 0.9 MG/DL (0.2-1.0) Aspartate Amino Transf (AST/SGOT) 29 U/L (15-37) Alanine Aminotransferase (ALT/SGPT) 14 U/L (12-78) Alkaline Phosphatase 101 U/L (46-116) Total Protein 6.7 G/DL (6.4-8.2) Albumin 3.5 G/DL (3.4-5.0) Globulin 3.2 g/dL Albumin/Globulin Ratio 1.1 (1.0-2.7) Current Medications Medications (Trade) Dose Ordered Sig/Isaiah Route PRN Reason Start Time Stop Time Status Last Admin Dose Admin Acetaminophen (Tylenol) 650 mg Q4H PRN ORAL fever 06/25/17 21:00 07/23/17 20:59 06/26/17 14:48 Albuterol/ Ipratropium (Albuterol/ Ipratropium) 3 ml Q4H PRN HHN Shortness of Breath 06/25/17 21:00 06/30/17 20:59 06/26/17 08:28 Carbidopa/Levodopa (Sinemet 25/100) 1 tab EVERY 6 HOURS ORAL 06/26/17 00:00 07/23/17 12:59 06/26/17 13:22 Cefdinir (Cefdinir) 300 mg Q12HR ORAL 06/25/17 22:00 07/02/17 21:59 06/26/17 11:07 Gabapentin (Neurontin) 100 mg BID ORAL 06/26/17 09:00 07/23/17 08:59 06/26/17 08:36 Guaifenesin/ Dextromethorphan (Robitussin DM Syrup) 10 ml Q4H PRN ORAL For Cough 06/26/17 06:45 07/26/17 06:44 Heparin Sodium (Porcine) (Heparin 5000 units/ml) 5,000 units EVERY 12 HOURS SUBQ 06/25/17 21:00 07/23/17 08:59 06/26/17 08:46 Methylprednisolone Sodium Succinate (Solu-MEDROL) 40 mg Q12HR IVP 06/26/17 21:00 07/26/17 20:59 Ondansetron HCl (Zofran) 4 mg Q6H PRN ORAL Nausea & Vomiting 06/26/17 01:45 07/23/17 07:44 Phenazopyridine HCl (Pyridium) 100 mg TIDPRN PRN ORAL dysuria 06/26/17 09:00 07/26/17 08:59 Polyethylene Glycol (Miralax) 17 gm DAILYPRN PRN ORAL Constipation 06/25/17 21:00 07/25/17 20:59 Temazepam (Restoril) 15 mg HSPRN PRN ORAL Insomnia 06/25/17 21:00 07/02/17 20:59 Theophylline (Edilson-Dur) 100 mg TWICE A DAY ORAL 06/26/17 09:00 07/23/17 08:59 06/26/17 08:36 Tramadol HCl (Ultram) 50 mg Q6H PRN ORAL Severe Pain 7-10 06/25/17 20:30 06/30/17 20:29 06/26/17 05:20 Trihexyphenidyl HCl (Artane) 1 mg THREE TIMES A DAY ORAL 06/26/17 09:00 07/25/17 12:59 06/26/17 13:22 Jaylyn Lombardo M.D. Jun 26, 2017 16:37
[2017-06-26 20:24] VITALS: BP 153/79
[2017-06-26] MEDS: Solu-MEDROL 40mg Inj IVP SCH (20:48)
[2017-06-27] VITALS: BP 150/108
[2017-06-27 04:00] VITALS: BP 161/94
[2017-06-27] MEDS: Levodopa/Carbidopa 25/100 tab ORAL SCH ×2 (06:13→12:15)
[2017-06-27] MEDS: Albuterol/Ipratropium 3ml neb HHN PRN (06:53)
[2017-06-27 08:00] VITALS: BP 144/90
[2017-06-27] MEDS: Solu-MEDROL 40mg Inj IVP SCH (08:21)
[2017-06-27] MEDS: traMADol 50mg tab ORAL PRN (08:21)
[2017-06-27] MEDS: Trihexyphenidyl 2mg tab ORAL SCH ×2 (08:21→12:15)
[2017-06-27] MEDS: Cefdinir 300mg cap ORAL SCH (08:21)
[2017-06-27] MEDS: Theophylline ER 100mg ORAL SCH (08:21)
[2017-06-27] MEDS: Heparin 5000 units/ml inj SUBQ SCH (08:30)
[2017-06-27 12:00] VITALS: BP 142/92
--- NOTE | 2017-06-27 12:29 | Infectious Diseases Prog Note ---
Assessment/Plan Assessment/Plan Assessment: Acute hypoxic resp distress 2ry to COPD exacerbation -CXR: no acute process -influenza sc neg -Bcx nTD Afebrile, no leukocytosis ?UTI (+dysuria) -u/a WB 10-15, nit neg, leuk +2; ucx Organism 1 E.fecalis (S levo, nitro, amp, vanco) COLONY COUNT: 20,000 - 30,000 CFU/ML Organism 2 MIXED UROGENITAL CONTAMINANTS COLONY COUNT: 10,000 - 20,000 CFU/ML COPD/[facility] resident Plan: -Continue PO Cefdinir 300mg bid abx d#08/08 for COPD exacerbation and possible UTI -06/25 SP Cefepime #3 -06/24 SP IV Vancomycin #2 -f/u cx -Monitor CBC/BMP, temperatures -aspiration precautions Thank you for this consultation. Will continue to follow along with you. Discussed with RN. Subjective Allergies: Coded Allergies: MORPHINE (Verified Allergy, Unknown, 11/07/15) Subjective feels better afebrile no leukocytosis bcx NTD wants to go home Objective Vital Signs Last 24 Hour Vital Signs Date Time Temp Pulse Resp B/P (MAP) Pulse Ox O2 Delivery O2 Flow Rate FiO2 06/27/17 09:20 97.0 06/27/17 08:21 97.0 06/27/17 08:00 98.1 95 19 144/90 97 98.1 06/27/17 07:05 90 20 99 Nasal Cannula 2.0 28 06/27/17 06:50 98 Nasal Cannula 2.0 28 06/27/17 06:50 90 20 Nasal Cannula 2.0 28 06/27/17 06:50 90 20 98 Nasal Cannula 2.0 28 06/27/17 06:50 Nasal Cannula 2.0 28 06/27/17 04:00 97.0 95 20 161/94 97 97.0 06/27/17 00:00 97.3 100 20 150/108 94 Room Air 97.3 06/26/17 20:24 97.7 103 22 153/79 95 Room Air 97.7 06/26/17 20:14 92 20 99 Room Air 06/26/17 20:08 Nasal Cannula 2.0 28 06/26/17 20:08 91 20 99 Nasal Cannula 2.0 28 06/26/17 20:08 98 Nasal Cannula 2.0 28 06/26/17 20:07 95 18 Nasal Cannula 2.0 06/26/17 20:00 Room Air 06/26/17 16:59 97.7 06/26/17 16:00 97.6 112 19 154/92 98 Room Air 97.6 06/26/17 15:47 97.7 06/26/17 14:48 97.7 Height (Feet): 4 Height (Inches): 11.00 Weight (Pounds): 136 Objective General Appearance: no apparent distress, alert, non-toxic HEENT:normocephalic, atraumatic, PERRL, normal pharynx Neck: full range of motion, supple/symm/no masses Respiratory: chest non-tender, speaking full sentences, wheezing Cardiovascular : regular rate, rhythm, no edema Gastrointestinal: normal bowel sounds, non tender, soft, non-distended, no guarding, no rebound Genitourinary: normal inspection, no CVA tenderness Musculoskeletal: back normal, gait/station normal, normal range of motion, non- tender Neurologic: alert, oriented x3, responsive Skin: normal color, no rash, warm/dry, well hydrated Current Medications Medications (Trade) Dose Ordered Sig/Isaiah Route PRN Reason Start Time Stop Time Status Last Admin Dose Admin Acetaminophen (Tylenol) 650 mg Q4H PRN ORAL fever 06/25/17 21:00 07/23/17 20:59 06/26/17 14:48 Albuterol/ Ipratropium (Albuterol/ Ipratropium) 3 ml Q4H PRN HHN Shortness of Breath 06/25/17 21:00 06/30/17 20:59 06/27/17 06:53 Carbidopa/Levodopa (Sinemet 25/100) 1 tab EVERY 6 HOURS ORAL 06/26/17 00:00 07/23/17 12:59 06/27/17 12:15 Cefdinir (Cefdinir) 300 mg Q12HR ORAL 06/25/17 22:00 07/02/17 21:59 06/27/17 08:21 Gabapentin (Neurontin) 100 mg BID ORAL 06/26/17 09:00 07/23/17 08:59 06/27/17 08:21 Guaifenesin/ Dextromethorphan (Robitussin DM Syrup) 10 ml Q4H PRN ORAL For Cough 06/26/17 06:45 07/26/17 06:44 Heparin Sodium (Porcine) (Heparin 5000 units/ml) 5,000 units EVERY 12 HOURS SUBQ 06/25/17 21:00 07/23/17 08:59 06/27/17 08:30 Methylprednisolone Sodium Succinate (Solu-MEDROL) 40 mg Q12HR IVP 06/26/17 21:00 07/26/17 20:59 06/27/17 08:21 Ondansetron HCl (Zofran) 4 mg Q6H PRN ORAL Nausea & Vomiting 06/26/17 01:45 07/23/17 07:44 Phenazopyridine HCl (Pyridium) 100 mg TIDPRN PRN ORAL dysuria 06/26/17 09:00 07/26/17 08:59 Polyethylene Glycol (Miralax) 17 gm DAILYPRN PRN ORAL Constipation 06/25/17 21:00 07/25/17 20:59 Temazepam (Restoril) 15 mg HSPRN PRN ORAL Insomnia 06/25/17 21:00 07/02/17 20:59 Theophylline (Edilson-Dur) 100 mg TWICE A DAY ORAL 06/26/17 09:00 07/23/17 08:59 06/27/17 08:21 Tramadol HCl (Ultram) 50 mg Q6H PRN ORAL Severe Pain 7-10 06/25/17 20:30 06/30/17 20:29 06/27/17 08:21 Trihexyphenidyl HCl (Artane) 1 mg THREE TIMES A DAY ORAL 06/26/17 09:00 07/25/17 12:59 06/27/17 12:15 Jaylyn Lombardo M.D. Jun 27, 2017 12:29
--- NOTE | 2017-06-27 12:49 | Pulmonology Progress Note ---
Assessment/Plan Assessment/Plan ASSESSMENT Acute resp failure due to COPD exacerbation, requiring mask-resolved acute COPD exacerbation HTN Parkinson disease, advanced severe DJD Right torticollis. bacteriuria ? UTI PLAN OF CARE [facility] floor IV steroids and taper O2 HHN trial of Theophylline a/tussive prn sputum cx if able empiric abx , ID follows influenza negative, blood cx negative, urine pending CXR no acute CP pathology neuro follows on Sinemet and added Artane CT C spine ( done due to possible myelopathy and R torticollis to r/o cord compression as per neuro) - no acute process bowel regimen symptomatic treatment DNR/DNI status dc today case discussed and evaluated by supervising physician Subjective Allergies: Coded Allergies: MORPHINE (Verified Allergy, Unknown, 11/07/15) Subjective afebrile, no leucocytosis on O2 via NC pulse ox stable no signs of resp distress Objective Last 24 Hour Vital Signs Date Time Temp Pulse Resp B/P (MAP) Pulse Ox O2 Delivery O2 Flow Rate FiO2 06/27/17 12:00 97.9 95 18 142/92 99 97.9 06/27/17 09:20 97.0 06/27/17 08:21 97.0 06/27/17 08:00 98.1 95 19 144/90 97 98.1 06/27/17 07:05 90 20 99 Nasal Cannula 2.0 28 06/27/17 06:50 98 Nasal Cannula 2.0 28 06/27/17 06:50 90 20 Nasal Cannula 2.0 28 06/27/17 06:50 90 20 98 Nasal Cannula 2.0 28 06/27/17 06:50 Nasal Cannula 2.0 28 06/27/17 04:00 97.0 95 20 161/94 97 97.0 06/27/17 00:00 97.3 100 20 150/108 94 Room Air 97.3 06/26/17 20:24 97.7 103 22 153/79 95 Room Air 97.7 06/26/17 20:14 92 20 99 Room Air 06/26/17 20:08 Nasal Cannula 2.0 28 06/26/17 20:08 91 20 99 Nasal Cannula 2.0 28 06/26/17 20:08 98 Nasal Cannula 2.0 28 06/26/17 20:07 95 18 Nasal Cannula 2.0 06/26/17 20:00 Room Air 06/26/17 16:59 97.7 06/26/17 16:00 97.6 112 19 154/92 98 Room Air 97.6 06/26/17 15:47 97.7 06/26/17 14:48 97.7 Intake and Output 06/26/17 06/27/17 19:00 07:00 Intake Total 240 ml 240 ml Balance 240 ml 240 ml Intake Oral 240 ml 240 ml # Voids 2 Objective General Appearance: no acute distress HEENT: normocephalic, atraumatic, anicteric, other - tilting the head to the right Respiratory/Chest: no accessory muscle use Cardiovascular: normal rate, no JVD Abdomen: normal bowel sounds, soft, non tender Extremities: other - R hand resting tremor, rigidity and spasticity BLE Neurologic/Psychiatric: abnormal gait, alert, responsive, other - spastic paraparesis Musculoskeletal: atrophy - VLE Current Medications Medications (Trade) Dose Ordered Sig/Isaiah Route PRN Reason Start Time Stop Time Status Last Admin Dose Admin Acetaminophen (Tylenol) 650 mg Q4H PRN ORAL fever 06/25/17 21:00 07/23/17 20:59 06/26/17 14:48 Albuterol/ Ipratropium (Albuterol/ Ipratropium) 3 ml Q4H PRN HHN Shortness of Breath 06/25/17 21:00 06/30/17 20:59 06/27/17 06:53 Carbidopa/Levodopa (Sinemet 25/100) 1 tab EVERY 6 HOURS ORAL 06/26/17 00:00 07/23/17 12:59 06/27/17 12:15 Cefdinir (Cefdinir) 300 mg Q12HR ORAL 06/25/17 22:00 07/02/17 21:59 06/27/17 08:21 Gabapentin (Neurontin) 100 mg BID ORAL 06/26/17 09:00 07/23/17 08:59 06/27/17 08:21 Guaifenesin/ Dextromethorphan (Robitussin DM Syrup) 10 ml Q4H PRN ORAL For Cough 06/26/17 06:45 07/26/17 06:44 Heparin Sodium (Porcine) (Heparin 5000 units/ml) 5,000 units EVERY 12 HOURS SUBQ 06/25/17 21:00 4/19/18 08:59 06/27/17 08:30 Methylprednisolone Sodium Succinate (Solu-MEDROL) 40 mg Q12HR IVP 06/26/17 21:00 07/26/17 20:59 06/27/17 08:21 Ondansetron HCl (Zofran) 4 mg Q6H PRN ORAL Nausea & Vomiting 06/26/17 01:45 07/23/17 07:44 Phenazopyridine HCl (Pyridium) 100 mg TIDPRN PRN ORAL dysuria 06/26/17 09:00 07/26/17 08:59 Polyethylene Glycol (Miralax) 17 gm DAILYPRN PRN ORAL Constipation 06/25/17 21:00 07/25/17 20:59 Temazepam (Restoril) 15 mg HSPRN PRN ORAL Insomnia 06/25/17 21:00 07/02/17 20:59 Theophylline (Edilson-Dur) 100 mg TWICE A DAY ORAL 06/26/17 09:00 07/23/17 08:59 06/27/17 08:21 Tramadol HCl (Ultram) 50 mg Q6H PRN ORAL Severe Pain 7-10 06/25/17 20:30 06/30/17 20:29 06/27/17 08:21 Trihexyphenidyl HCl (Artane) 1 mg THREE TIMES A DAY ORAL 06/26/17 09:00 07/25/17 12:59 06/27/17 12:15 [facility] NguyenWest[facility] CenterMelinda Barrera NP Jun 27, 2017 12:48
[2017-06-27] MEDS ORDERED: THEOPHYLLINE A100 MG ORAL (12:54)
[2017-06-27] MEDS ORDERED: CEFDINIR300 MG ORAL (12:54)
[2017-06-27] MEDS ORDERED: ARTANE2 MG ORAL (12:54)
[2017-06-27] MEDS ORDERED: MEDROL4 MG ORAL (12:54)
[2017-06-27] MEDS ORDERED: SINEMET 25/1001 EA ORAL (12:54)
[2017-06-27] MEDS ORDERED: Tubing IV Secondary IV ONE (15:59)
--- NOTE | 2017-06-30 14:57 | Discharge Summary ---
Discharge Summary Hospital Course Date of Admission Jun 23, 2017 at 05:39 Date of Discharge Jun 27, 2017 at 16:00 Admitting Diagnosis SHORTNESS OF BREATH HPI Sharmila Atwood is a 72 year old female who was admitted on Jun 23, 2017 at 05: 39 for Shortness Of Breath Hospital Course dc summary #[id number] Discharge Medications New Medications: Methylprednisolone* (Medrol*) 4 Mg Tablet 4 MG ORAL DAILY, #10 TAB 0 Refills Cefdinir (Cefdinir) 300 Mg Capsule 300 MG ORAL Q12HR, #2 CAP Levodopa/Carbidopa (Carbidopa-Levodopa 25-100 Tab) 1 Each Tablet 1 TAB ORAL EVERY 6 HOURS, #120 TAB Theophylline (Theodur*) 100 Mg Tab.er.12h 100 MG ORAL TWICE A DAY, #20 TAB Trihexyphenidyl HCl (Trihexyphenidyl HCl) 2 Mg Tablet 1 MG ORAL THREE TIMES A DAY, #90 TAB Continued Medications: Acetaminophen* (Acetaminophen 325MG Tablet*) 325 Mg Tablet 650 MG ORAL Q4H PRN for For Pain, TAB Albuterol Sulfate* (Albuterol Sulfate Hhn*) 2.5 Mg/3 Ml Vial.neb 3 ML INH Q4H PRN for Shortness of Breath, EA (This prescription has been renewed ) Aspirin* (Aspir 81*) 81 Mg Tablet.dr 81 MG ORAL DAILY, TAB (This prescription has been renewed) Atenolol* (Tenormin*) 25 Mg Tablet Unknown Dose ORAL DAILY, TAB (This prescription has been renewed) Atorvastatin Calcium* (Atorvastatin Calcium*) 20 Mg Tablet Unknown Dose ORAL BEDTIME, TAB (This prescription has been renewed) Bisacodyl* (Dulcolax*) 5 Mg Tablet.dr 5 MG ORAL DAILY PRN for Constipation, #10 TAB 0 Refills (This prescription has been renewed) Dextran 70/Hypromellose (Artificial Tears Eye Drops*) 15 Ml Drops 1 DROP BOTH EYES, #15 ML 0 Refills (This prescription has been renewed) Docusate Sodium* (Docusate Sodium*) 100 Mg Capsule 100 MG ORAL DAILY, CAP (This prescription has been renewed) Fluoxetine Hcl* (Fluoxetine Hcl*) 10 Mg Capsule Unknown Dose ORAL DAILY, CAP (This prescription has been renewed) Furosemide* (Lasix*) 20 Mg Tablet Unknown Dose ORAL DAILY, TAB (This prescription has been renewed) Gabapentin* (Gabapentin*) 100 Mg Capsule 100 MG ORAL BID, CAP (This prescription has been renewed) Guaifenesin* (Guaifenesin) 100 Mg/5 Ml Liquid 5 ML ORAL Q4H PRN for For Cough, #120 ML 0 Refills Nitroglycerin (Nitroglycerin) 0.4 Mg Tab.subl 0.4 MG SL NEEDED, TAB (This prescription has been renewed) Discontinued Medications: Carbidopa/Levodopa 25-100 Mg* (Sinemet 25-100 Mg Tablet*) 1 Each Tablet 1 TAB ORAL THREE TIMES A DAY Clonidine Hcl* (Catapres*) 0.1 Mg Tablet 0.1 MG ORAL EVERY 6 HOURS, TAB Discharge Condition Upon Discharge: stable Discharge Disposition Patient was discharged to SNF/Subacute Facility(03) Mehul PeñaMelinda falcon NP Jun 30, 2017 14:57
--- NOTE | 2017-07-01 04:00 | Discharge Summary 2 SIG ---
DATE OF ADMISSION: 06/23/2017 DATE OF DISCHARGE: 06/27/2017 REASON FOR ADMISSION: The patient is a 72-year-old female with past medical history of hypertension, hypercholesterolemia, Parkinson disease, history of CVA, diabetes, and hypertension, presented to emergency room with wheezing and shortness of breath from the [facility] facility. The patient was hypoxic and tachycardic. No leukocytosis. Stable hemoglobin and hematocrit. Stable electrolytes. Lactate within normal limits. Troponin negative. Urinalysis revealed bacteria. Chest x-ray revealed no acute cardiopulmonary process. EKG shows sinus tachycardia. No acute ischemic changes. The patient was placed on oxygen via simple mask to maintain pulse oximetry above 92%. The patient was started on the IV fluids and IV antibiotics and the patient was admitted with the diagnoses of acute on chronic respiratory failure, chronic obstructive pulmonary disease exacerbation, Parkinson disease, and hypertension. CONSULTANTS: 1. Tone Wan M.D., Neurologist. 2. Ashok Segovia M.D., Infectious Disease specialist. HOSPITAL COURSE: The patient was admitted to Med/Surg floor. The patient was started on empiric antibiotics. The patient was on supplemental oxygen, which was titrated to keep pulse oximetry above 92%. The patient was on the pulmonary toilet with handheld nebulizing and chest physical therapy. The patient was started on IV steroids, which were quickly tapered down. Sputum culture was not collected since cough was dry. Blood cultures were negative. Influenza screen test was negative. Urine culture shows Enterococcus faecalis only with 20 to 30 colony count. Infectious Disease specialist closely followed. Recommended to continue oral antibiotics for chronic obstructive pulmonary disease exacerbation along with the possible urinary tract infection. The patient was on trial of theophylline. Antitussives provided as needed. Chest x-ray revealed no acute cardiopulmonary pathology. Neurology closely followed the patient. Per Neurology, the patient had advanced Parkinson disease along with severe degenerative joint disease and right torticollis. CT of the spine was done due to the possible myelopathy and right torticollis to rule out cord compression, but it revealed no acute process. The patient was on the Sinemet and Artane was added by neurologist. Bowel regimen instituted. Symptomatic treatment provided. The patient was maintained on the very low dose of the Sinemet. Neurologist increased Sinemet to 25/100 q.i.d. and added Artane for excessive tremor of the right arm. The patient was stable for discharge and discharged back to [facility] facility. DISCHARGE MEDICATIONS: See medication reconciliation list. DISCHARGE INSTRUCTION: The patient was discharged to [facility] facility. FOLLOWUP: Follow up with medical doctor at the facility. FINAL DIAGNOSES: 1. Acute respiratory failure due to chronic obstructive pulmonary disease exacerbation, requiring mask, resolved. 2. Acute chronic obstructive pulmonary disease exacerbation. 3. Hypertension. 4. Parkinson disease, advanced. 5. Severe degenerative joint disease. 6. Right torticollis. 7. Bacteriuria, possible urinary tract infection. Of note, pain management provided and pain was addressed. Bowel regimen instituted. DVT and GI prophylaxis provided. Blood pressure was closely monitored and managed. Klarissa Bose M.D. I have been assigned to dictate discharge summary on this account and I was not involved in the patient's management. Melinda Nguyencohen children's medical centerHolly NPrashanth DR: UYEN JOB#: [id number] CC:
== END 2017-06-27 16:00 | DRG 190 ==
LOC: EDBD 04:32 → EMR 04:51 → EDUNIT# 04:51 → 2E 05:39 → 4E 05:39 → UNDOADMIN 05:39 → EDBEDREQ 06:06 → 4W 06-25 20:22
DX: J44.1 Chronic obstructive pulmonary disease with (acute) exacerbation (principal); J96.01 Acute respiratory failure with hypoxia; J96.20 Acute and chronic respiratory failure, unspecified whether with hypoxia or hypercapnia; N39.0 Urinary tract infection, site not specified; I10 Essential (primary) hypertension; Z66 Do not resuscitate; G20 Parkinson's disease; Z88.6 Allergy status to analgesic agent; E78.5 Hyperlipidemia, unspecified; M17.11 Unilateral primary osteoarthritis, right knee; M43.6 Torticollis
CPT/HCPCS: 36415; 71045; 72125; 80053; 81003; 82550; 82553; 83605; 83735; 83880; 84100; 84484; 85025; 86710; 87040; 87081; 87086; 87181; 93005; 94640; 94664; 94760; 99285; J7620

== ENCOUNTER 2017-11-14 07:54 | Inpatient (IN) | payer MEDICARE, OTHER ==
[~2017-11-14] VITALS: Ht 162.6 cm; Wt 72.6 kg
[~2017-11-14 07:54] MED LIST changes: +ACETAMINOPHEN325 M1 ORAL; +ARTANE2 MG ORAL; +ASPIRIN81 MG ORAL; +CEFDINIR300 MG ORAL; +GUAIFENESI100 MG/5 M ORAL; +MEDROL4 MG ORAL; +NITROSTAT0.4 M2 SL; +SINEMET 25/1001 EA ORAL
[2017-11-14] MEDS ORDERED: SINEMET 25-1001 EAC1 ORAL (08:02)
--- NOTE | 2017-11-14 08:06 | Emergency Room Report ---
History of Present Illness General Chief Complaint: Upper Respiratory Illness Source: Patient, Medical Record Present Illness HPI Patient presents with complaints of increased shortness of breath Patient has history of significant COPD previous CVA and Parkinson's disease Denies any chest pain at this time denies any vomiting or diarrhea patient however does report that she has had off-and-on midsternal chest discomfort over the past 2 days Denies any change with rest or position Denies any recent travel Patient lives in a nursing facility Breathing treatments were not significantly helping her symptoms and patient was sent in for further evaluation Allergies: Coded Allergies: MORPHINE (Verified Allergy, Unknown, 11/07/15) Patient History Past Medical History: see triage record Pertinent Family History: none Reviewed Nursing Documentation: PMH: Agreed; PSxH: Agreed Nursing Documentation-PMH Past Medical History: No History, Except For Hx Cardiac Problems: Yes - Hyperlipidemia Hx Hypertension: Yes Hx Pacemaker: No Hx Asthma: Yes Hx COPD: Yes Hx Diabetes: Yes Hx Cancer: No Hx Gastrointestinal Problems: No - Bilateral osteoarthritis of knee Hx Cerebrovascular Accident: Yes Hx Parkinson's Disease: Yes Hx Tremors: Yes - parkinsons Hx Weakness: Yes Hx Neurologic Surgery: No Review of Systems All Other Systems: negative except mentioned in HPI Physical Exam Vital Signs Date Time Temp Pulse Resp B/P (MAP) Pulse Ox O2 Delivery O2 Flow Rate FiO2 11/14/17 07:50 98.2 98 24 174/85 94 98.2 Sp02 EP Interpretation: reviewed, normal General Appearance: mild distress - Appears short of breath Head: normocephalic, atraumatic Eyes: bilateral eye PERRL, bilateral eye EOMI ENT: normal pharynx, no angioedema Neck: supple Respiratory: no retraction, wheezing - Diffusely, mildly tachypneic Cardiovascular #1: regular rate, rhythm, no edema Gastrointestinal: non tender, soft Musculoskeletal: other - Patient has limited mobility however moves both upper extremities without focal deficit Neurologic: alert, oriented x3 Skin: normal color, no rash Lymphatic: no adenopathy Medical Decision Making Diagnostic Impression: Primary Impression: COPD exacerbation Additional Impression: Dyspnea ER Course Patient is a fairly complex patient with multiple differential to consideration including but not limited to cardiac cardiopulmonary and vascular emergencies Patient's x-ray does not reveal any obvious acute pathology Patient requiring multiple repeat breathing treatments oral steroids have been provided Patient at this time is further stabilized and requiring admission for further care Labs Test 11/14/17 08:15 11/14/17 09:15 White Blood Count 9.6 K/UL (4.8-10.8) Red Blood Count 4.01 M/UL (4.20-5.40) Hemoglobin 12.9 G/DL (12.0-16.0) Hematocrit 37.3 % (37.0-47.0) Mean Corpuscular Volume 93 FL (80-99) Mean Corpuscular Hemoglobin 32.2 PG (27.0-31.0) Mean Corpuscular Hemoglobin Concent 34.5 G/DL (32.0-36.0) Red Cell Distribution Width 11.4 % (11.6-14.8) Platelet Count 333 K/UL (150-450) Mean Platelet Volume 6.9 FL (6.5-10.1) Neutrophils (%) (Auto) 80.1 % (45.0-75.0) Lymphocytes (%) (Auto) 11.0 % (20.0-45.0) Monocytes (%) (Auto) 5.6 % (1.0-10.0) Eosinophils (%) (Auto) 1.8 % (0.0-3.0) Basophils (%) (Auto) 1.5 % (0.0-2.0) Sodium Level 126 MMOL/L (136-145) Potassium Level 4.8 MMOL/L (3.5-5.1) Chloride Level 94 MMOL/L (98-107) Carbon Dioxide Level 24 MMOL/L (21-32) Anion Gap 9 mmol/L (5-15) Blood Urea Nitrogen 18 mg/dL (7-18) Creatinine 0.9 MG/DL (0.55-1.30) Estimat Glomerular Filtration Rate mL/min (>60) Glucose Level 112 MG/DL (74-106) Lactic Acid Level 1.40 mmol/L (0.4-2.0) Calcium Level 9.0 MG/DL (8.5-10.1) Total Bilirubin 0.6 MG/DL (0.2-1.0) Aspartate Amino Transf (AST/SGOT) 35 U/L (15-37) Alanine Aminotransferase (ALT/SGPT) 22 U/L (12-78) Alkaline Phosphatase 140 U/L (46-116) Total Creatine Kinase 214 U/L (26-308) Creatine Kinase MB 2.3 NG/ML (0.0-3.6) Creatine Kinase MB Relative Index 1.0 Troponin I 0.000 ng/mL (0.000-0.056) Pro-B-Type Natriuretic Peptide 241 pg/mL (0-125) Total Protein 8.3 G/DL (6.4-8.2) Albumin 4.0 G/DL (3.4-5.0) Globulin 4.3 g/dL Albumin/Globulin Ratio 0.9 (1.0-2.7) Lipase 120 U/L (73-393) Urine Color Pale yellow Urine Appearance Clear Urine pH 8 (4.5-8.0) Urine Specific [place] 1.010 (1.005-1.035) Urine Protein Negative (NEGATIVE) Urine Glucose (UA) Negative (NEGATIVE) Urine Ketones Negative (NEGATIVE) Urine Occult Blood 1+ (NEGATIVE) Urine Nitrite Negative (NEGATIVE) Urine Bilirubin Negative (NEGATIVE) Urine Urobilinogen Normal MG/DL (0.0-1.0) Urine Leukocyte Esterase 1+ (NEGATIVE) Urine RBC 0-2 /HPF (0 - 2) Urine WBC 0-2 /HPF (0 - 2) Urine Squamous Epithelial Cells Occasional /LPF Urine Bacteria Few /HPF (NONE) EKG Diagnostic Results Rate: normal Rhythm: NSR ST Segments: other - Nonspecific ST and T WAVE CHANGEWS Chest X-Ray Diagnostic Results Chest X-Ray Diagnostic Results : Chest X-Ray Ordered: Yes # of Views/Limited/Complete: 1 View Indication: Chest Pain EP Interpretation: Yes Interpretation: no consolidation, no effusion, no pneumothorax Impression: No acute disease Electronically Signed by: Halie Chavez DO Last Vital Signs Date Time Temp Pulse Resp B/P (MAP) Pulse Ox O2 Delivery O2 Flow Rate FiO2 11/14/17 07:50 98.2 98 24 174/85 94 98.2 Status: improved Disposition: ADMITTED INPATIENT Condition: Halie Vazquez DO Nov 14, 2017 08:06
[2017-11-14] MEDS ORDERED: Albuterol ud Inhalation HHN ONE (08:15)
[2017-11-14] MEDS ORDERED: Ipratropium 0.02% Inh Soln 2.5ml UD HHN ONE (08:15)
[2017-11-14] MEDS ORDERED: Solu-MEDROL 125mg Inj IVP ONE (08:15)
[2017-11-14 08:20] VITALS: BP 156/76
[2017-11-14] MEDS ORDERED: FISH OIL CAP1000 MG ORAL (08:31)
[2017-11-14] MEDS ORDERED: PROZAC10 MG ORAL (08:31)
[2017-11-14] MEDS ORDERED: MULTIVITAMINS1 EAC8 ORAL (08:31)
[2017-11-14 09:05] LABS: BASOPHILS % (AUTO) 1.5 % (0.0-2.0); EOSINOPHILS % (AUTO) 1.8 % (0.0-3.0); HEMATOCRIT 37.3 % (37.0-47.0); HEMOGLOBIN 12.9 G/DL (12.0-16.0); MEAN CORPUSCULAR VOLUME 93 FL (80-99); MONOCYTES % (AUTO) 5.6 % (1.0-10.0); NEUTROPHILS % (AUTO) 80.1 % (45.0-75.0); PLATELET COUNT 333 K/UL (150-450); RED BLOOD COUNT 4.01 M/UL (4.20-5.40); RED CELL DISTRIBUTION WIDTH 11.4 % (11.6-14.8); WHITE BLOOD COUNT 9.6 K/UL (4.8-10.8)
[2017-11-14 09:25] LABS: APPEARANCE,URINE CLEAR; BILIRUBIN, URINE NEGATIVE (NEGATIVE); COLOR,URINE PALE YELLOW; GLUCOSE, URINE (UA) NEGATIVE (NEGATIVE); KETONES,URINE NEGATIVE (NEGATIVE); LEUKOCYTE ESTERASE ,URINE 1+ (NEGATIVE); NITRITE,URINE NEGATIVE (NEGATIVE); PH,URINE 8 (4.5-8.0); PROTEIN,URINE NEGATIVE (NEGATIVE); UROBILINOGEN,URINE NORMAL MG/DL (0.0-1.0)
[2017-11-14 09:27] LABS: ANION GAP 9 mmol/L (5-15); BLOOD UREA NITROGEN 18 mg/dL (7-18); CARBON DIOXIDE 24 MMOL/L (21-32); CHLORIDE 94 MMOL/L (98-107); CREATININE 0.9 MG/DL (0.55-1.30); POTASSIUM 4.8 MMOL/L (3.5-5.1); SODIUM 126 MMOL/L (136-145)
[2017-11-14] MEDS ORDERED: Albuterol/Ipratropium 3ml neb HHN PRN (09:30)
[2017-11-14] MEDS ORDERED: Promethazine/Codeine 5ml UD ORAL PRN (09:30)
[2017-11-14] MEDS ORDERED: Levalbuterol Inh UD 1.25mg/0.5ml HHN ONE (09:30)
[2017-11-14] MEDS ORDERED: Nitroglycerin Subl 0.4mg tab SL PRN (09:30)
[2017-11-14] MEDS ORDERED: LORazepam Inj 2mg/ml 1ml IV PRN (09:30)
[2017-11-14 09:44] LABS: ALANINE AMINOTRANSFERASE 22 U/L (12-78); ALBUMIN/GLOBULIN RATIO 0.9 (1.0-2.7); ALKALINE PHOSPHATASE 140 U/L (46-116); ASPARTATE AMINO TRANSFERASE 35 U/L (15-37); BILIRUBIN,TOTAL 0.6 MG/DL (0.2-1.0); CKMB 2.3 NG/ML (0.0-3.6); CREATINE KINASE 214 U/L (26-308)
[2017-11-14 09:51] VITALS: BP 161/77
--- NOTE | 2017-11-14 09:55 | Diagnostic Imaging Report ---
EXAM: XR Chest, 1 View CLINICAL HISTORY: SOB TECHNIQUE: Frontal view of the chest. COMPARISON: Chest x-ray , 06-24-17 FINDINGS: Lungs: Unremarkable. No consolidation. Pleural space: Unremarkable. No pneumothorax. Heart: Mild cardiomegaly. Mediastinum: Unremarkable. Bones/joints: Left shoulder postop changes and hardware. IMPRESSION: No acute process.
[2017-11-14] MEDS ORDERED: traMADol 50mg tab ORAL ONE (10:00)
[2017-11-14] MEDS: Ketorolac 30mg Inj IV PRN ×3 (10:04→18:36)
--- NOTE | 2017-11-14 10:09 | History and Physical ---
History of Present Illness General Reason for Hospitalization: Upper Respiratory Illness Present Illness Allergies: Coded Allergies: MORPHINE (Verified Allergy, Unknown, 11/07/15) Medication History Scheduled Acetaminophen (Acetaminophen), 325 MG PO NEEDED, (Reported) Aspirin* (Aspir 81*), 81 MG ORAL DAILY, (Reported) Aspirin* (Aspirin*), 81 MG ORAL DAILY, (Reported) Atenolol* (Tenormin*), Unknown Dose ORAL DAILY, (Reported) Atenolol* (Tenormin*), 25 MG ORAL DAILY, (Reported) Atorvastatin Calcium* (Atorvastatin Calcium*), Unknown Dose ORAL BEDTIME, ( Reported) Atorvastatin Calcium* (Atorvastatin Calcium*), 20 MG ORAL BEDTIME, (Reported) Carbidopa/Levodopa 25-100 Mg* (Sinemet 25-100 Mg Tablet*), 1 TAB ORAL EVERY 6 HOURS, (Reported) Cefdinir (Cefdinir), 300 MG ORAL Q12HR Docusate Sodium* (Docusate Sodium*), 100 MG ORAL DAILY, (Reported) Docusate Sodium* (Docusate Sodium*), 100 MG ORAL DAILY, (Reported) Fish Oil (Fish Oil 1,000 mg Capsule), 500 MG ORAL DAILY, (Reported) Fluoxetine Hcl* (Fluoxetine Hcl*), Unknown Dose ORAL DAILY, (Reported) Fluoxetine Hcl* (Fluoxetine Hcl*), 5 MG ORAL DAILY, (Reported) Fluoxetine Hcl* (Prozac*), 10 MG ORAL DAILY, (Reported) Furosemide* (Lasix*), Unknown Dose ORAL DAILY, (Reported) Gabapentin* (Gabapentin*), 100 MG ORAL BID, (Reported) Gabapentin* (Gabapentin*), 100 MG ORAL DAILY, (Reported) Hydrochlorothiazide* (Hydrochlorothiazide*), Unknown Dose ORAL DAILY, (Reported) Levodopa/Carbidopa (Carbidopa-Levodopa 25-100 Tab), 1 TAB ORAL THREE TIMES A DAY , (Reported) Levodopa/Carbidopa (Carbidopa-Levodopa 25-100 Tab), 1 TAB ORAL EVERY 6 HOURS Lorazepam* (Ativan*), Unknown Dose ORAL THREE TIMES A DAY, (Reported) Methylprednisolone* (Medrol*), 4 MG ORAL DAILY Multivitamin With Minerals (Multivitamins With Minerals*), 1 TAB ORAL DAILY, ( Reported) Nitroglycerin (Nitroglycerin), 0.4 MG SL NEEDED, (Reported) Prednisone (Prednisone), 10 MG PO DAILY Promethazine HCl/Codeine (Prometh-Codein 6.25-10 mg/5 ml), 5 ML PO EVERY 6 HOURS , (Reported) Theophylline (Theodur*), 100 MG ORAL TWICE A DAY, (Reported) Theophylline (Theodur*), 100 MG ORAL TWICE A DAY Tramadol Hcl* (Ultram*), 50 MG ORAL Q12HR, (Reported) Trihexyphenidyl HCl (Trihexyphenidyl HCl), 1 MG ORAL THREE TIMES A DAY Scheduled PRN Acetaminophen* (Acetaminophen 325MG Tablet*), 650 MG ORAL Q4H PRN for For Pain, (Reported) Albuterol Sulfate* (Albuterol Sulfate Hhn*), 3 ML INH Q4H PRN for Shortness of Breath, (Reported) Albuterol Sulfate* (Albuterol Sulfate Hhn*), 3 ML INH Q4H PRN for Shortness of Breath, (Reported) Bisacodyl* (Dulcolax*), 5 MG ORAL DAILY PRN for Constipation, (Reported) Clonidine Hcl* (Catapres*), 0.1 MG ORAL EVERY 6 HOURS PRN for For High Blood Pressure, (Reported) Guaifenesin* (Guaifenesin), 5 ML ORAL Q4H PRN for For Cough, (Reported) Nitroglycerin (Nitrostat), 0.4 MG SL every 5 mins PRN for chest pain, (Reported) Ondansetron* (Zofran*), 4 MG ORAL Q6H PRN for Nausea & Vomiting, (Reported) Tramadol Hcl* (Ultram*), 50 MG ORAL EVERY 12 HOURS PRN for For Pain, (Reported) Miscellaneous Medications Dextran 70/Hypromellose (Artificial Tears Eye Drops*), 1 DROP BOTH EYES, ( Reported) Dextran 70/Hypromellose (Artificial Tears Eye Drops*), 1 DROP BOTH EYES, ( Reported) Patient History Healthcare decision maker Resuscitation status Advanced Directive on File Physical Exam Last 24 Hour Vital Signs Date Time Temp Pulse Resp B/P (MAP) Pulse Ox O2 Delivery O2 Flow Rate FiO2 11/14/17 10:04 98.2 11/14/17 09:51 104 14 161/77 99 Room Air 11/14/17 09:43 101 18 99 Room Air 21 18 09:31 99 13 95 Room Air 11/14/17 08:58 100 15 98 Room Air 11/14/17 08:30 90 13 95 Room Air 11/14/17 08:29 90 13 Room Air 11/14/17 08:20 99 14 Room Air 11/14/17 08:20 99 14 156/76 97 Room Air 11/14/17 07:50 98.2 98 24 174/85 94 98.2 Laboratory Tests Test 11/14/17 08:15 11/14/17 09:15 White Blood Count 9.6 K/UL (4.8-10.8) Red Blood Count 4.01 M/UL (4.20-5.40) L Hemoglobin 12.9 G/DL (12.0-16.0) Hematocrit 37.3 % (37.0-47.0) Mean Corpuscular Volume 93 FL (80-99) Mean Corpuscular Hemoglobin 32.2 PG (27.0-31.0) H Mean Corpuscular Hemoglobin Concent 34.5 G/DL (32.0-36.0) Red Cell Distribution Width 11.4 % (11.6-14.8) L Platelet Count 333 K/UL (150-450) Mean Platelet Volume 6.9 FL (6.5-10.1) Neutrophils (%) (Auto) 80.1 % (45.0-75.0) H Lymphocytes (%) (Auto) 11.0 % (20.0-45.0) L Monocytes (%) (Auto) 5.6 % (1.0-10.0) Eosinophils (%) (Auto) 1.8 % (0.0-3.0) Basophils (%) (Auto) 1.5 % (0.0-2.0) Sodium Level 126 MMOL/L (136-145) L Potassium Level 4.8 MMOL/L (3.5-5.1) Chloride Level 94 MMOL/L (98-107) L Carbon Dioxide Level 24 MMOL/L (21-32) Anion Gap 9 mmol/L (5-15) Blood Urea Nitrogen 18 mg/dL (7-18) Creatinine 0.9 MG/DL (0.55-1.30) Estimat Glomerular Filtration Rate mL/min (>60) Glucose Level 112 MG/DL (74-106) H Lactic Acid Level 1.40 mmol/L (0.4-2.0) Calcium Level 9.0 MG/DL (8.5-10.1) Total Bilirubin 0.6 MG/DL (0.2-1.0) Aspartate Amino Transf (AST/SGOT) 35 U/L (15-37) Alanine Aminotransferase (ALT/SGPT) 22 U/L (12-78) Alkaline Phosphatase 140 U/L (46-116) H Total Creatine Kinase 214 U/L (26-308) Creatine Kinase MB 2.3 NG/ML (0.0-3.6) Creatine Kinase MB Relative Index 1.0 Troponin I 0.000 ng/mL (0.000-0.056) Pro-B-Type Natriuretic Peptide 241 pg/mL (0-125) H Total Protein 8.3 G/DL (6.4-8.2) H Albumin 4.0 G/DL (3.4-5.0) Globulin 4.3 g/dL Albumin/Globulin Ratio 0.9 (1.0-2.7) L Lipase 120 U/L (73-393) Urine Color Pale yellow Urine Appearance Clear Urine pH 8 (4.5-8.0) Urine Specific [place] 1.010 (1.005-1.035) Urine Protein Negative (NEGATIVE) Urine Glucose (UA) Negative (NEGATIVE) Urine Ketones Negative (NEGATIVE) Urine Occult Blood 1+ (NEGATIVE) H Urine Nitrite Negative (NEGATIVE) Urine Bilirubin Negative (NEGATIVE) Urine Urobilinogen Normal MG/DL (0.0-1.0) Urine Leukocyte Esterase 1+ (NEGATIVE) H Urine RBC 0-2 /HPF (0 - 2) Urine WBC 0-2 /HPF (0 - 2) Urine Squamous Epithelial Cells Occasional /LPF Urine Bacteria Few /HPF (NONE) Height (Feet): 5 Height (Inches): 4.00 Weight (Pounds): 160 Medications Current Medications Medications (Trade) Dose Ordered Sig/Isaiah Route PRN Reason Start Time Stop Time Status Last Admin Dose Admin Albuterol/ Ipratropium (Albuterol/ Ipratropium) 3 ml Q4H PRN HHN dyspnea 11/14/17 09:30 11/19/17 09:29 Carbidopa/Levodopa (Sinemet 25/100) 1 tab EVERY 6 HOURS ORAL 11/14/17 12:00 12/14/17 11:59 Dextrose (Dextrose 50%) STAT PRN IV Hypoglycemia 11/14/17 09:30 12/14/17 09:29 UNV Fluoxetine HCl (PROzac) 5 mg DAILY ORAL 11/15/17 09:00 12/15/17 08:59 UNV Gabapentin (Neurontin) 100 mg BID ORAL 11/14/17 18:00 12/14/17 17:59 Heparin Sodium (Porcine) (Heparin 5000 units/ml) 5,000 units EVERY 12 HOURS SUBQ 11/14/17 21:00 12/14/17 20:59 Ketorolac Tromethamine (Toradol 30mg) 30 mg Q8H PRN IV moderate pain 4-6 11/14/17 09:30 11/19/17 09:29 11/14/17 10:04 Lorazepam (Ativan 2mg/ml 1ml) 0.5 mg Q4H PRN IV For Anxiety 11/14/17 09:30 11/21/17 09:29 Methylprednisolone Sodium Succinate (Solu-MEDROL) 60 mg EVERY 6 HOURS 11/14/17 12:00 12/14/17 11:59 UNV Nitroglycerin (Ntg) 0.4 mg Q5M X 3 DOSES PRN SL Prn Chest Pain 11/14/17 09:30 12/14/17 09:29 Ondansetron HCl (Zofran) 4 mg Q6H PRN IVP Nausea & Vomiting 11/14/17 09:30 12/14/17 09:29 Piperacillin Sod/ Tazobactam Sod 2.25 gm/Dextrose 55 ml @ 110 mls/hr EVERY 8 HOURS IV 11/14/17 14:00 11/19/17 13:59 UNV Promethazine HCl/ Codeine (Phenergan with Codeine) 5 ml Q6H PRN ORAL cough 11/14/17 09:30 12/14/17 09:29 UNV Temazepam (Restoril) 15 mg HSPRN PRN ORAL Insomnia 11/14/17 09:30 11/21/17 09:29 Theophylline ([place]-Dur) 100 mg EVERY 12 HOURS ORAL 11/14/17 21:00 12/14/17 20:59 Klarissa Bose MD Nov 14, 2017 10:09
[2017-11-14 12:00] VITALS: BP 157/89
[2017-11-14] MEDS: Levodopa/Carbidopa 25/100 tab ORAL SCH ×3 (12:01→23:31)
[2017-11-14] MEDS: Solu-MEDROL 125mg Inj IVP SCH ×3 (12:01→23:31)
[2017-11-14] MEDS ORDERED: Piperacillin/Tazobactam 2.25 GM in D5W 55 ML IV SCH (14:00)
[2017-11-14] MEDS: Zosyn 3.375gm q8h **Extended infusion IVPB SCH ×4 (14:15→21:38)
[2017-11-14] MEDS ORDERED: Albuterol/Ipratropium 3ml neb HHN SCH (15:00)
[2017-11-14 16:00] VITALS: BP 152/83
[2017-11-14] MEDS ORDERED: Montelukast 10mg tablet ORAL SCH (16:30)
[2017-11-14] MEDS ORDERED: Ipratropium 0.02% Inh Soln 2.5ml UD HHN PRN (17:30)
[2017-11-14] MEDS ORDERED: Theophylline ER 100mg ORAL SCH (18:00)
[2017-11-14 20:00] VITALS: BP 133/73
[2017-11-14] MEDS: Theophylline ER 100mg ORAL SCH (20:40)
[2017-11-14] MEDS: Heparin 5000 units/ml inj SUBQ SCH (20:41)
[2017-11-14] MEDS: Ipratropium 0.02% Inh Soln 2.5ml UD HHN SCH (22:06)
[2017-11-15] VITALS: BP 129/83
--- NOTE | 2017-11-15 01:16 | Consultation ---
History of Present Illness General Date patient seen: Nov 14, 2017 Time patient seen: 14:52 Chief Complaint: Upper Respiratory Illness Present Illness HPI 72 year old female presents with CP and COPD wheezing chest tightness. Initial tropoinin negative, EKG no ischemia, CXR clear. No fevers, no N/V/D/C, no travel history Allergies: Coded Allergies: MORPHINE (Verified Allergy, Unknown, 11/07/15) Medication History Scheduled Acetaminophen (Acetaminophen), 325 MG PO NEEDED, (Reported) Aspirin* (Aspir 81*), 81 MG ORAL DAILY, (Reported) Aspirin* (Aspirin*), 81 MG ORAL DAILY, (Reported) Atenolol* (Tenormin*), Unknown Dose ORAL DAILY, (Reported) Atenolol* (Tenormin*), 25 MG ORAL DAILY, (Reported) Atorvastatin Calcium* (Atorvastatin Calcium*), Unknown Dose ORAL BEDTIME, ( Reported) Atorvastatin Calcium* (Atorvastatin Calcium*), 20 MG ORAL BEDTIME, (Reported) Carbidopa/Levodopa 25-100 Mg* (Sinemet 25-100 Mg Tablet*), 1 TAB ORAL EVERY 6 HOURS, (Reported) Cefdinir (Cefdinir), 300 MG ORAL Q12HR Docusate Sodium* (Docusate Sodium*), 100 MG ORAL DAILY, (Reported) Docusate Sodium* (Docusate Sodium*), 100 MG ORAL DAILY, (Reported) Fish Oil (Fish Oil 1,000 mg Capsule), 500 MG ORAL DAILY, (Reported) Fluoxetine Hcl* (Fluoxetine Hcl*), Unknown Dose ORAL DAILY, (Reported) Fluoxetine Hcl* (Fluoxetine Hcl*), 5 MG ORAL DAILY, (Reported) Fluoxetine Hcl* (Prozac*), 10 MG ORAL DAILY, (Reported) Furosemide* (Lasix*), Unknown Dose ORAL DAILY, (Reported) Gabapentin* (Gabapentin*), 100 MG ORAL BID, (Reported) Gabapentin* (Gabapentin*), 100 MG ORAL DAILY, (Reported) Hydrochlorothiazide* (Hydrochlorothiazide*), Unknown Dose ORAL DAILY, (Reported) Levodopa/Carbidopa (Carbidopa-Levodopa 25-100 Tab), 1 TAB ORAL THREE TIMES A DAY , (Reported) Levodopa/Carbidopa (Carbidopa-Levodopa 25-100 Tab), 1 TAB ORAL EVERY 6 HOURS Lorazepam* (Ativan*), Unknown Dose ORAL THREE TIMES A DAY, (Reported) Methylprednisolone* (Medrol*), 4 MG ORAL DAILY Multivitamin With Minerals (Multivitamins With Minerals*), 1 TAB ORAL DAILY, ( Reported) Nitroglycerin (Nitroglycerin), 0.4 MG SL NEEDED, (Reported) Prednisone (Prednisone), 10 MG PO DAILY Promethazine HCl/Codeine (Prometh-Codein 6.25-10 mg/5 ml), 5 ML PO EVERY 6 HOURS , (Reported) Theophylline (Theodur*), 100 MG ORAL TWICE A DAY, (Reported) Theophylline (Theodur*), 100 MG ORAL TWICE A DAY Tramadol Hcl* (Ultram*), 50 MG ORAL Q12HR, (Reported) Trihexyphenidyl HCl (Trihexyphenidyl HCl), 1 MG ORAL THREE TIMES A DAY Scheduled PRN Acetaminophen* (Acetaminophen 325MG Tablet*), 650 MG ORAL Q4H PRN for For Pain, (Reported) Albuterol Sulfate* (Albuterol Sulfate Hhn*), 3 ML INH Q4H PRN for Shortness of Breath, (Reported) Albuterol Sulfate* (Albuterol Sulfate Hhn*), 3 ML INH Q4H PRN for Shortness of Breath, (Reported) Bisacodyl* (Dulcolax*), 5 MG ORAL DAILY PRN for Constipation, (Reported) Clonidine Hcl* (Catapres*), 0.1 MG ORAL EVERY 6 HOURS PRN for For High Blood Pressure, (Reported) Guaifenesin* (Guaifenesin), 5 ML ORAL Q4H PRN for For Cough, (Reported) Nitroglycerin (Nitrostat), 0.4 MG SL every 5 mins PRN for chest pain, (Reported) Ondansetron* (Zofran*), 4 MG ORAL Q6H PRN for Nausea & Vomiting, (Reported) Tramadol Hcl* (Ultram*), 50 MG ORAL EVERY 12 HOURS PRN for For Pain, (Reported) Miscellaneous Medications Dextran 70/Hypromellose (Artificial Tears Eye Drops*), 1 DROP BOTH EYES, ( Reported) Dextran 70/Hypromellose (Artificial Tears Eye Drops*), 1 DROP BOTH EYES, ( Reported) Patient History Healthcare decision maker Resuscitation status Chemical (Meds Only) Advanced Directive on File Review of Systems Constitutional: Reports: no symptoms Eye: Reports: no symptoms ENT: Reports: no symptoms Respiratory: Reports: shortness of breath, wheezing, [place] Cardiovascular: Reports: chest pain Genitourinary: Reports: no symptoms Musculoskeletal: Reports: no symptoms Skin: Reports: no symptoms Psychiatric: Reports: no symptoms Neurological: Reports: no symptoms Endocrine: Reports: no symptoms Hematologic/Lymphatic: Reports: no symptoms Physical Exam General Appearance: WD/WN, no apparent distress Lines, tubes and drains: peripheral HEENT: normocephalic, atraumatic, anicteric, mucous membranes moist Neck: non-tender, normal alignment Respiratory/Chest: chest wall non-tender, lungs clear Cardiovascular/Chest: normal peripheral pulses, normal rate, regular rhythm Abdomen: normal bowel sounds, non tender Extremities: normal range of motion, non-tender 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 grossly normal, no motor/sensory deficits Last 24 Hour Vital Signs Date Time Temp Pulse Resp B/P (MAP) Pulse Ox O2 Delivery O2 Flow Rate FiO2 11/15/17 00:00 99.5 110 18 129/83 (98) 94 99.5 11/15/17 00:00 104 11/14/17 22:17 101 20 98 Room Air 21 11/14/17 22:07 104 22 94 Room Air 21 11/14/17 21:00 Room Air 11/14/17 20:01 102 20 94 Room Air 21 11/14/17 20:00 102 20 93 Room Air 21 11/14/17 20:00 103 11/14/17 20:00 98.5 103 20 133/73 (93) 97 98.5 11/14/17 16:00 107 11/14/17 16:00 98.5 110 20 152/83 (106) 95 98.5 11/14/17 15:30 99 20 99 Room Air 21 11/14/17 15:25 105 20 95 Room Air 21 11/14/17 12:00 98.7 100 20 157/89 (111) 95 98.7 11/14/17 12:00 110 11/14/17 10:54 Room Air 11/14/17 10:10 98.2 104 14 161/77 99 Room Air 21 208.8 11/14/17 10:04 98.2 11/14/17 09:51 104 14 161/77 99 Room Air 11/14/17 09:43 101 18 99 Room Air 21 11/14/17 09:31 99 13 95 Room Air 21 11/14/17 08:58 100 15 98 Room Air 21 11/14/17 08:30 90 13 95 Room Air 21 11/14/17 08:29 90 13 Room Air 21 11/14/17 08:20 99 14 Room Air 11/14/17 08:20 99 14 156/76 97 Room Air 11/14/17 08:00 105 11/14/17 07:50 98.2 98 24 174/85 94 98.2 Intake and Output 11/14/17 11/15/17 19:00 07:00 Intake Total 240 ml 84 ml Output Total 700 ml Balance -460 ml 84 ml Intake Oral 240 ml IV Total 84 ml Output Urine Total 700 ml # Voids 1 Laboratory Tests Test 11/14/17 08:15 11/14/17 09:15 White Blood Count 9.6 K/UL (4.8-10.8) Red Blood Count 4.01 M/UL (4.20-5.40) L Hemoglobin 12.9 G/DL (12.0-16.0) Hematocrit 37.3 % (37.0-47.0) Mean Corpuscular Volume 93 FL (80-99) Mean Corpuscular Hemoglobin 32.2 PG (27.0-31.0) H Mean Corpuscular Hemoglobin Concent 34.5 G/DL (32.0-36.0) Red Cell Distribution Width 11.4 % (11.6-14.8) L Platelet Count 333 K/UL (150-450) Mean Platelet Volume 6.9 FL (6.5-10.1) Neutrophils (%) (Auto) 80.1 % (45.0-75.0) H Lymphocytes (%) (Auto) 11.0 % (20.0-45.0) L Monocytes (%) (Auto) 5.6 % (1.0-10.0) Eosinophils (%) (Auto) 1.8 % (0.0-3.0) Basophils (%) (Auto) 1.5 % (0.0-2.0) Sodium Level 126 MMOL/L (136-145) L Potassium Level 4.8 MMOL/L (3.5-5.1) Chloride Level 94 MMOL/L (98-107) L Carbon Dioxide Level 24 MMOL/L (21-32) Anion Gap 9 mmol/L (5-15) Blood Urea Nitrogen 18 mg/dL (7-18) Creatinine 0.9 MG/DL (0.55-1.30) Estimat Glomerular Filtration Rate mL/min (>60) Glucose Level 112 MG/DL (74-106) H Lactic Acid Level 1.40 mmol/L (0.4-2.0) Calcium Level 9.0 MG/DL (8.5-10.1) Total Bilirubin 0.6 MG/DL (0.2-1.0) Aspartate Amino Transf (AST/SGOT) 35 U/L (15-37) Alanine Aminotransferase (ALT/SGPT) 22 U/L (12-78) Alkaline Phosphatase 140 U/L (46-116) H Total Creatine Kinase 214 U/L (26-308) Creatine Kinase MB 2.3 NG/ML (0.0-3.6) Creatine Kinase MB Relative Index 1.0 Troponin I 0.000 ng/mL (0.000-0.056) Pro-B-Type Natriuretic Peptide 241 pg/mL (0-125) H Total Protein 8.3 G/DL (6.4-8.2) H Albumin 4.0 G/DL (3.4-5.0) Globulin 4.3 g/dL Albumin/Globulin Ratio 0.9 (1.0-2.7) L Lipase 120 U/L (73-393) Urine Color Pale yellow Urine Appearance Clear Urine pH 8 (4.5-8.0) Urine Specific [place] 1.010 (1.005-1.035) Urine Protein Negative (NEGATIVE) Urine Glucose (UA) Negative (NEGATIVE) Urine Ketones Negative (NEGATIVE) Urine Occult Blood 1+ (NEGATIVE) H Urine Nitrite Negative (NEGATIVE) Urine Bilirubin Negative (NEGATIVE) Urine Urobilinogen Normal MG/DL (0.0-1.0) Urine Leukocyte Esterase 1+ (NEGATIVE) H Urine RBC 0-2 /HPF (0 - 2) Urine WBC 0-2 /HPF (0 - 2) Urine Squamous Epithelial Cells Occasional /LPF Urine Bacteria Few /HPF (NONE) Height (Feet): 5 Height (Inches): 4.00 Weight (Pounds): 160 Medications Current Medications Medications (Trade) Dose Ordered Sig/Isaiah Route PRN Reason Start Time Stop Time Status Last Admin Dose Admin Acetaminophen (Tylenol) 650 mg Q6H PRN ORAL Fever/Headache/Mild Pain 11/14/17 17:15 12/14/17 17:14 11/14/17 17:34 Budesonide/ Formoterol Fumarate (Symbicort 160/ 4.5) 2 puff TWICE A DAY INH 11/14/17 18:00 12/14/17 17:59 11/14/17 20:00 Carbidopa/Levodopa (Sinemet 25/100) 1 tab EVERY 6 HOURS ORAL 11/14/17 12:00 12/14/17 11:59 11/14/17 23:31 Dextrose (Dextrose 50%) 25 ml STAT PRN IV Hypoglycemia 11/14/17 09:30 12/14/17 09:29 Dextrose (Dextrose 50%) 50 ml STAT PRN IV Hypoglycemia 11/14/17 10:15 12/14/17 10:14 Fluoxetine HCl (PROzac) 10 mg DAILY ORAL 11/15/17 09:00 12/15/17 08:59 Gabapentin (Neurontin) 100 mg BID ORAL 11/14/17 18:00 12/14/17 17:59 11/14/17 17:33 Heparin Sodium (Porcine) (Heparin 5000 units/ml) 5,000 units EVERY 12 HOURS SUBQ 11/14/17 21:00 12/14/17 20:59 11/14/17 20:41 Ipratropium [place] (Atrovent) 500 mcg Q4H PRN HHN Shortness of Breath 11/14/17 17:30 11/19/17 17:29 Ipratropium [place] (Atrovent) 500 mcg Q8HRT HHN 11/14/17 23:00 11/19/17 22:59 11/14/17 22:06 Ketorolac Tromethamine (Toradol 30mg) 30 mg Q8H PRN IV moderate pain 4-6 11/14/17 09:30 11/19/17 09:29 11/14/17 18:36 Lorazepam (Ativan 2mg/ml 1ml) 0.5 mg Q4H PRN IV For Anxiety 11/14/17 09:30 11/21/17 09:29 Methylprednisolone Sodium Succinate (Solu-MEDROL) 60 mg EVERY 6 HOURS IVP 11/14/17 12:00 12/14/17 11:59 11/14/17 23:31 Montelukast Sodium (Singulair) 10 mg QPM ORAL 11/14/17 16:30 12/14/17 16:29 11/14/17 17:33 Nitroglycerin (Ntg) 0.4 mg Q5M X 3 DOSES PRN SL Prn Chest Pain 11/14/17 09:30 12/14/17 09:29 Ondansetron HCl (Zofran) 4 mg Q6H PRN IVP Nausea & Vomiting 11/14/17 09:30 12/14/17 09:29 Piperacillin Sod/ Tazobactam Sod 3.375 gm/Sodium Chloride 110 ml @ 27.5 mls/hr EVERY 8 HOURS IVPB 11/14/17 14:00 11/19/17 13:59 11/14/17 21:38 Promethazine HCl/ Codeine (Phenergan with Codeine) 5 ml Q6H PRN ORAL cough 11/14/17 09:30 12/14/17 09:29 11/14/17 21:43 Temazepam (Restoril) 15 mg HSPRN PRN ORAL Insomnia 11/14/17 09:30 11/21/17 09:29 Theophylline ([place]-Dur) 100 mg EVERY 12 HOURS ORAL 11/14/17 21:00 12/14/17 20:59 11/14/17 20:40 Assessment/Plan Status: stable Assessment/Plan Assessment: Chest pain Shortness of breath Wheezing Plan: Serial EKG/Tropinin Duo nebs Aspirin Echocardiogram Singulair Steroids Ambulate James Mixon M.D. Nov 15, 2017 01:16
[2017-11-15 04:00] VITALS: BP 142/70
[2017-11-15] MEDS: Solu-MEDROL 125mg Inj IVP SCH ×4 (05:31→23:33)
[2017-11-15] MEDS: Zosyn 3.375gm q8h **Extended infusion IVPB SCH ×2 (05:31)
[2017-11-15] MEDS: Levodopa/Carbidopa 25/100 tab ORAL SCH ×4 (05:33→23:33)
[2017-11-15] MEDS: Ipratropium 0.02% Inh Soln 2.5ml UD HHN SCH ×2 (07:58→15:47)
[2017-11-15 08:00] VITALS: BP 138/72
[2017-11-15] MEDS: Theophylline ER 100mg ORAL SCH ×2 (08:10→21:02)
[2017-11-15] MEDS: Heparin 5000 units/ml inj SUBQ SCH ×2 (08:13→21:03)
[2017-11-15] MEDS ORDERED: FLUoxetine 10mg cap ORAL SCH ×2 (09:00)
--- NOTE | 2017-11-15 11:10 | Cardiology Progress Note ---
Assessment/Plan Status: stable Assessment/Plan Assessment: Chest pain Shortness of breath Wheezing Plan: Serial EKG/Tropinin Duo nebs Aspirin Echocardiogram Singulair Steroids Ambulate Transfer to floor Outpatient stress test Dispo planning Subjective Cardiovascular: Reports: no symptoms Respiratory: Reports: no symptoms Gastrointestinal/Abdominal: Reports: no symptoms Genitourinary: Reports: no symptoms Subjective No acute events, CP resolved, breathing improved, vitals stable Objective Last 24 Hour Vital Signs Date Time Temp Pulse Resp B/P (MAP) Pulse Ox O2 Delivery O2 Flow Rate FiO2 11/15/17 10:26 98.6 11/15/17 09:27 98.6 11/15/17 09:00 Room Air 11/15/17 08:19 106 20 96 Room Air 21 11/15/17 08:12 103 20 96 Room Air 21 11/15/17 08:08 103 20 98 Room Air 21 11/15/17 08:00 101 11/15/17 08:00 98.6 103 16 138/72 (94) 94 98.6 11/15/17 07:58 105 22 94 Room Air 21 11/15/17 04:00 98.7 101 23 142/70 (94) 92 98.7 11/15/17 04:00 94 11/15/17 00:00 99.5 110 18 129/83 (98) 94 99.5 11/15/17 00:00 104 11/14/17 22:17 101 20 98 Room Air 11/14/17 22:07 104 22 94 Room Air 21 11/14/17 21:00 Room Air 11/14/17 20:01 102 20 94 Room Air 11/14/17 20:00 102 20 93 Room Air 11/14/17 20:00 103 11/14/17 20:00 98.5 103 20 133/73 (93) 97 98.5 11/14/17 16:00 107 11/14/17 16:00 98.5 110 20 152/83 (106) 95 98.5 11/14/17 15:30 99 20 99 Room Air 21 11/14/17 15:25 105 20 95 Room Air 21 11/14/17 12:00 98.7 100 20 157/89 (111) 95 98.7 11/14/17 12:00 110 General Appearance: no apparent distress, alert EENT: PERRL/EOMI, normal ENT inspection Neck: non-tender, normal alignment, supple Rhythm: NSR Cardiovascular: normal peripheral pulses, normal rate, regular rhythm Respiratory/Chest: chest wall non-tender, lungs clear Abdomen: normal bowel sounds, non tender Extremities: normal range of motion, non-tender 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 Nov 15, 2017 11:10
[2017-11-15 12:00] VITALS: BP 146/76
--- NOTE | 2017-11-15 13:24 | Pulmonology Progress Note ---
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 Subjective ROS Limited/Unobtainable: No Constitutional: Reports: no symptoms HEENT: Repors: no symptoms Respiratory: Reports: productive cough, shortness of breath Allergies: Coded Allergies: MORPHINE (Verified Allergy, Unknown, 11/07/15) Objective Last 24 Hour Vital Signs Date Time Temp Pulse Resp B/P (MAP) Pulse Ox O2 Delivery O2 Flow Rate FiO2 11/15/17 12:00 97.2 117 20 146/76 (99) 96 97.2 11/15/17 10:26 98.6 11/15/17 09:27 98.6 11/15/17 09:00 Room Air 11/15/17 08:19 106 20 96 Room Air 21 11/15/17 08:12 103 20 96 Room Air 21 11/15/17 08:08 103 20 98 Room Air 21 11/15/17 08:00 101 11/15/17 08:00 98.6 103 16 138/72 (94) 94 98.6 11/15/17 07:58 105 22 94 Room Air 21 11/15/17 04:00 98.7 101 23 142/70 (94) 92 98.7 11/15/17 04:00 94 11/15/17 00:00 99.5 110 18 129/83 (98) 94 99.5 11/15/17 00:00 104 11/14/17 22:17 101 20 98 Room Air 21 11/14/17 22:07 104 22 94 Room Air 21 11/14/17 21:00 Room Air 11/14/17 20:01 102 20 94 Room Air 21 11/14/17 20:00 102 20 93 Room Air 21 11/14/17 20:00 103 11/14/17 20:00 98.5 103 20 133/73 (93) 97 98.5 11/14/17 16:00 107 11/14/17 16:00 98.5 110 20 152/83 (106) 95 98.5 11/14/17 15:30 99 20 99 Room Air 21 11/14/17 15:25 105 20 95 Room Air 21 Intake and Output 11/14/17 11/15/17 19:00 07:00 Intake Total 240 ml 258 ml Output Total 700 ml 400 ml Balance -460 ml -142 ml Intake Oral 240 ml 120 ml IV Total 138 ml Output Urine Total 700 ml 400 ml # Voids 1 General Appearance: WD/WN HEENT: normocephalic, mucous membranes moist Respiratory/Chest: chest wall non-tender, normal breath sounds, crackles/rales , rhonchi Cardiovascular: normal peripheral pulses, normal rate Abdomen: normal bowel sounds, soft, non tender Genitourinary: normal external genitalia Extremities: no clubbing 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 Lymphatic: no neck adenopathy Current Medications Medications (Trade) Dose Ordered Sig/Isaiah Route PRN Reason Start Time Stop Time Status Last Admin Dose Admin Acetaminophen (Tylenol) 650 mg Q6H PRN ORAL Fever/Headache/Mild Pain 11/14/17 17:15 12/14/17 17:14 11/15/17 09:27 Budesonide/ Formoterol Fumarate (Symbicort 160/ 4.5) 2 puff TWICE A DAY INH 11/14/17 18:00 12/14/17 17:59 11/15/17 08:12 Carbidopa/Levodopa (Sinemet 25/100) 1 tab EVERY 6 HOURS ORAL 11/14/17 12:00 12/14/17 11:59 11/15/17 11:10 Dextrose (Dextrose 50%) 25 ml STAT PRN IV Hypoglycemia 11/14/17 09:30 12/14/17 09:29 Dextrose (Dextrose 50%) 50 ml STAT PRN IV Hypoglycemia 11/14/17 10:15 12/14/17 10:14 Fluoxetine HCl (PROzac) 10 mg DAILY ORAL 11/15/17 09:00 12/15/17 08:59 11/15/17 08:10 Gabapentin (Neurontin) 100 mg BID ORAL 11/14/17 18:00 12/14/17 17:59 11/15/17 08:10 Heparin Sodium (Porcine) (Heparin 5000 units/ml) 5,000 units EVERY 12 HOURS SUBQ 11/14/17 21:00 12/14/17 20:59 11/15/17 08:13 Ipratropium [place] (Atrovent) 500 mcg Q4H PRN HHN Shortness of Breath 11/14/17 17:30 11/19/17 17:29 Ipratropium [place] (Atrovent) 500 mcg Q8HRT HHN 11/14/17 23:00 11/19/17 22:59 11/15/17 07:58 Ketorolac Tromethamine (Toradol 30mg) 30 mg Q8H PRN IV moderate pain 4-6 11/14/17 09:30 11/19/17 09:29 11/14/17 18:36 Lorazepam (Ativan 2mg/ml 1ml) 0.5 mg Q4H PRN IV For Anxiety 11/14/17 09:30 11/21/17 09:29 Methylprednisolone Sodium Succinate (Solu-MEDROL) 60 mg EVERY 6 HOURS IVP 11/14/17 12:00 12/14/17 11:59 11/15/17 11:10 Montelukast Sodium (Singulair) 10 mg QPM ORAL 11/14/17 16:30 12/14/17 16:29 11/14/17 17:33 Nitroglycerin (Ntg) 0.4 mg Q5M X 3 DOSES PRN SL Prn Chest Pain 11/14/17 09:30 12/14/17 09:29 Ondansetron HCl (Zofran) 4 mg Q6H PRN IVP Nausea & Vomiting 11/14/17 09:30 12/14/17 09:29 Piperacillin Sod/ Tazobactam Sod 3.375 gm/Sodium Chloride 110 ml @ 27.5 mls/hr EVERY 8 HOURS IVPB 11/14/17 14:00 11/19/17 13:59 11/15/17 05:31 Promethazine HCl/ Codeine (Phenergan with Codeine) 5 ml Q6H PRN ORAL cough 11/14/17 09:30 12/14/17 09:29 11/14/17 21:43 Temazepam (Restoril) 15 mg HSPRN PRN ORAL Insomnia 11/14/17 09:30 11/21/17 09:29 Theophylline (Edilson-Dur) 100 mg EVERY 12 HOURS ORAL 11/14/17 21:00 12/14/17 20:59 11/15/17 08:10 Klarissa Bose MD Nov 15, 2017 13:24
[2017-11-15] MEDS ORDERED: Nitroglycerin Subl 0.4mg tab SL PRN (13:45)
[2017-11-15] MEDS ORDERED: Ipratropium 0.02% Inh Soln 2.5ml UD HHN PRN (14:00)
[2017-11-15] MEDS ORDERED: LORazepam Inj 2mg/ml 1ml IV PRN (14:00)
[2017-11-15] MEDS: Piperacillin/Tazobactam 3.375 GM in NS 110 ML IVPB SCH ×2 (14:19→21:38)
[2017-11-15] MEDS: Promethazine/Codeine 5ml UD ORAL PRN ×2 (14:47→22:14)
[2017-11-15 16:00] VITALS: BP 143/77
[2017-11-15] MEDS: Montelukast 10mg tablet ORAL SCH (17:05)
[2017-11-15 18:27] LABS: APPEARANCE,URINE SLIGHTLY CLOUDY; BILIRUBIN, URINE NEGATIVE (NEGATIVE); GLUCOSE, URINE (UA) 1+ (NEGATIVE); KETONES,URINE 1+ (NEGATIVE); LEUKOCYTE ESTERASE ,URINE 2+ (NEGATIVE); NITRITE,URINE NEGATIVE (NEGATIVE); PH,URINE 5 (4.5-8.0); PROTEIN,URINE 1+ (NEGATIVE); UROBILINOGEN,URINE NORMAL MG/DL (0.0-1.0)
[2017-11-15 18:30] LABS: COLOR,URINE YELLOW
[2017-11-15 20:00] VITALS: BP 153/77
[2017-11-15] MEDS: Ketorolac 30mg Inj IV PRN (21:37)
[2017-11-16] VITALS: BP 152/85
[2017-11-16] MEDS: Ipratropium 0.02% Inh Soln 2.5ml UD HHN SCH ×4 (00:12→21:53)
[2017-11-16 04:00] VITALS: BP 134/77
[2017-11-16] MEDS: Solu-MEDROL 125mg Inj IVP SCH ×2 (05:47→11:02)
[2017-11-16] MEDS: Levodopa/Carbidopa 25/100 tab ORAL SCH ×3 (05:47→17:02)
[2017-11-16] MEDS: Piperacillin/Tazobactam 3.375 GM in NS 110 ML IVPB SCH ×3 (05:48→22:07)
[2017-11-16 07:56] LABS: HEMATOCRIT 33.9 % (37.0-47.0); HEMOGLOBIN 11.4 G/DL (12.0-16.0); MEAN CORPUSCULAR VOLUME 94 FL (80-99); PLATELET COUNT 304 K/UL (150-450); RED BLOOD COUNT 3.62 M/UL (4.20-5.40); WHITE BLOOD COUNT 11.1 K/UL (4.8-10.8)
[2017-11-16 08:00] VITALS: BP 137/91
[2017-11-16 08:39] LABS: ALANINE AMINOTRANSFERASE 12 U/L (12-78); ALBUMIN 3.2 G/DL (3.4-5.0); ALBUMIN/GLOBULIN RATIO 0.8 (1.0-2.7); ALKALINE PHOSPHATASE 82 U/L (46-116); ANION GAP 11 mmol/L (5-15); ASPARTATE AMINO TRANSFERASE 19 U/L (15-37); BILIRUBIN,TOTAL 0.7 MG/DL (0.2-1.0); BLOOD UREA NITROGEN 35 mg/dL (7-18); CALCIUM 8.1 MG/DL (8.5-10.1); CARBON DIOXIDE 26 MMOL/L (21-32); CHLORIDE 100 MMOL/L (98-107); CREATININE 1.1 MG/DL (0.55-1.30); SODIUM 137 MMOL/L (136-145)
[2017-11-16] MEDS: Theophylline ER 100mg ORAL SCH ×2 (08:54→20:25)
[2017-11-16] MEDS: FLUoxetine 10mg cap ORAL SCH (08:54)
[2017-11-16] MEDS: Heparin 5000 units/ml inj SUBQ SCH ×2 (08:57→20:26)
--- NOTE | 2017-11-16 10:48 | Cardiology Progress Note ---
Assessment/Plan Status: stable Assessment/Plan Assessment: Chest pain Shortness of breath Wheezing Plan: Serial EKG/Troponin Duo nebs Aspirin Singulair Steroids Ambulate Outpatient stress test and echocardiogram Neuro consult pending for tremors Dispo planning Subjective Cardiovascular: Reports: no symptoms Respiratory: Reports: no symptoms Subjective No acute events, CP resolved, breathing improved, vitals stable Transferred to floor, UA positive for LE Neuro consult pending for tremors Objective Last 24 Hour Vital Signs Date Time Temp Pulse Resp B/P (MAP) Pulse Ox O2 Delivery O2 Flow Rate FiO2 11/16/17 08:32 91 18 98 Room Air 21 11/16/17 08:20 93 20 94 Room Air 11/16/17 08:20 93 20 94 Room Air 11/16/17 08:20 93 20 94 Room Air 11/16/17 08:00 96.4 98 20 137/91 (106) 96 96.4 11/16/17 04:00 97.0 74 19 134/77 (96) 93 97.0 11/16/17 00:20 95 20 99 Room Air 11/16/17 00:18 95 20 95 Room Air 11/16/17 00:17 95 20 96 Room Air 11/16/17 00:16 95 20 95 Room Air 11/16/17 00:00 97.9 91 18 152/85 (107) 94 97.9 11/15/17 21:00 Room Air 11/15/17 20:00 97.8 86 17 153/77 (102) 97 97.8 11/15/17 16:05 98 20 98 Room Air 11/15/17 16:00 97.0 88 20 143/77 (99) 94 97.0 11/15/17 15:47 101 20 95 Room Air 11/15/17 12:00 97.2 117 20 146/76 (99) 96 97.2 General Appearance: no apparent distress, alert EENT: PERRL/EOMI, normal ENT inspection Neck: non-tender, normal alignment Rhythm: NSR Cardiovascular: normal peripheral pulses, normal rate Respiratory/Chest: chest wall non-tender, expiratory wheezing Abdomen: normal bowel sounds, non tender Extremities: normal range of motion, non-tender 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 Intake and Output 11/15/17 11/16/17 19:00 07:00 Intake Total 590.0 ml 405.0 ml Output Total 300 ml Balance 590.0 ml 105.0 ml Intake Oral 480 ml 240 ml IV Total 110.0 ml 165.0 ml Output Urine Total 300 ml # Voids 2 Laboratory Tests Test 11/15/17 15:01 11/15/17 18:10 11/16/17 06:10 Osmolality 295 mOsm/kg (297-317) L Uric Acid 2.1 MG/DL (2.6-7.2) L Thyroid Stimulating Hormone (TSH) 0.263 uiU/mL (0.358-3.740) Free Thyroxine 1.09 NG/DL (0.76-1.46) Free Triiodothyronine 1.3 pg/mL (2.3-4.2) L Cortisol Pending Urine Color Yellow Urine Appearance Slightly cloudy Urine pH 5 (4.5-8.0) Urine Specific [place] 1.020 (1.005-1.035) Urine Protein 1+ (NEGATIVE) H Urine Glucose (UA) 1+ (NEGATIVE) H Urine Ketones 1+ (NEGATIVE) H Urine Occult Blood 1+ (NEGATIVE) H Urine Nitrite Negative (NEGATIVE) Urine Bilirubin Negative (NEGATIVE) Urine Urobilinogen Normal MG/DL (0.0-1.0) Urine Leukocyte Esterase 2+ (NEGATIVE) H Urine RBC 0-2 /HPF (0 - 2) Urine WBC 0-2 /HPF (0 - 2) Urine Squamous Epithelial Cells Few /LPF (NONE/OCC) Urine Bacteria Moderate /HPF (NONE) H Urine Osmolality 1041 mOsm/kg (429-449) H Urine Random Sodium 51 mmol/L (20-110) White Blood Count 11.1 K/UL (4.8-10.8) H Red Blood Count 3.62 M/UL (4.20-5.40) L Hemoglobin 11.4 G/DL (12.0-16.0) L Hematocrit 33.9 % (37.0-47.0) L Mean Corpuscular Volume 94 FL (80-99) Mean Corpuscular Hemoglobin 31.4 PG (27.0-31.0) H Mean Corpuscular Hemoglobin Concent 33.5 G/DL (32.0-36.0) Red Cell Distribution Width 12.0 % (11.6-14.8) Platelet Count 304 K/UL (150-450) Mean Platelet Volume 6.8 FL (6.5-10.1) Neutrophils (%) (Auto) % (45.0-75.0) Lymphocytes (%) (Auto) % (20.0-45.0) Monocytes (%) (Auto) % (1.0-10.0) Eosinophils (%) (Auto) % (0.0-3.0) Basophils (%) (Auto) % (0.0-2.0) Neutrophils % (Manual) Pending Lymphocytes % (Manual) Pending Platelet Estimate Pending Platelet Morphology Pending Sodium Level 137 MMOL/L (136-145) Potassium Level 4.0 MMOL/L (3.5-5.1) Chloride Level 100 MMOL/L (98-107) Carbon Dioxide Level 26 MMOL/L (21-32) Anion Gap 11 mmol/L (5-15) Blood Urea Nitrogen 35 mg/dL (7-18) H Creatinine 1.1 MG/DL (0.55-1.30) Estimat Glomerular Filtration Rate mL/min (>60) Glucose Level 140 MG/DL (74-106) H Calcium Level 8.1 MG/DL (8.5-10.1) L Total Bilirubin 0.7 MG/DL (0.2-1.0) Aspartate Amino Transf (AST/SGOT) 19 U/L (15-37) Alanine Aminotransferase (ALT/SGPT) 12 U/L (12-78) Alkaline Phosphatase 82 U/L (46-116) Pro-B-Type Natriuretic Peptide 729 pg/mL (0-125) H Total Protein 7.1 G/DL (6.4-8.2) Albumin 3.2 G/DL (3.4-5.0) L Globulin 3.9 g/dL Albumin/Globulin Ratio 0.8 (1.0-2.7) L Microbiology Date/Time Source Procedure Growth Status 11/14/17 08:15 Blood Blood Culture - Preliminary NO GROWTH AFTER 24 HOURS Resulted 11/14/17 08:15 Blood Blood Culture - Preliminary NO GROWTH AFTER 24 HOURS Resulted 11/14/17 09:15 Nasal Nares MRSA Culture - Final Staphylococcus Aureus - Mrsa Complete 11/15/17 18:10 Urine,Clean Catch Urine Culture - Preliminary NO GROWTH Resulted 11/14/17 09:15 Rectum VRE Culture - Final NO VANCOMYCIN RESISTANT ENTEROCOCCUS ... Complete 11/14/17 09:15 Rectum - Final NO CARBAPENEM-RESISTANT ENTEROBACTERI... Complete James Mixon M.D. Nov 16, 2017 10:48
[2017-11-16] MEDS: Ketorolac 30mg Inj IV PRN ×2 (11:04→22:07)
[2017-11-16 12:00] VITALS: BP 170/71
--- NOTE | 2017-11-16 12:55 | Consultation ---
History of Present Illness General Date patient seen: Nov 16, 2017 Chief Complaint: Upper Respiratory Illness Present Illness HPI 72 yo male patient presents with complaints of increased shortness of breath. Patient has history of significant COPD previous CVA and Parkinson's disease. the pt pw depressed mood, anxiety and fatigue the pt was able to provide hx. she is currently on psych meds Allergies: Coded Allergies: MORPHINE (Verified Allergy, Unknown, 11/07/15) Medication History Scheduled Acetaminophen (Acetaminophen), 325 MG PO NEEDED, (Reported) Aspirin* (Aspir 81*), 81 MG ORAL DAILY, (Reported) Aspirin* (Aspirin*), 81 MG ORAL DAILY, (Reported) Atenolol* (Tenormin*), Unknown Dose ORAL DAILY, (Reported) Atenolol* (Tenormin*), 25 MG ORAL DAILY, (Reported) Atorvastatin Calcium* (Atorvastatin Calcium*), Unknown Dose ORAL BEDTIME, ( Reported) Atorvastatin Calcium* (Atorvastatin Calcium*), 20 MG ORAL BEDTIME, (Reported) Carbidopa/Levodopa 25-100 Mg* (Sinemet 25-100 Mg Tablet*), 1 TAB ORAL EVERY 6 HOURS, (Reported) Cefdinir (Cefdinir), 300 MG ORAL Q12HR Docusate Sodium* (Docusate Sodium*), 100 MG ORAL DAILY, (Reported) Docusate Sodium* (Docusate Sodium*), 100 MG ORAL DAILY, (Reported) Fish Oil (Fish Oil 1,000 mg Capsule), 500 MG ORAL DAILY, (Reported) Fluoxetine Hcl* (Fluoxetine Hcl*), Unknown Dose ORAL DAILY, (Reported) Fluoxetine Hcl* (Fluoxetine Hcl*), 5 MG ORAL DAILY, (Reported) Fluoxetine Hcl* (Prozac*), 10 MG ORAL DAILY, (Reported) Furosemide* (Lasix*), Unknown Dose ORAL DAILY, (Reported) Gabapentin* (Gabapentin*), 100 MG ORAL BID, (Reported) Gabapentin* (Gabapentin*), 100 MG ORAL DAILY, (Reported) Hydrochlorothiazide* (Hydrochlorothiazide*), Unknown Dose ORAL DAILY, (Reported) Levodopa/Carbidopa (Carbidopa-Levodopa 25-100 Tab), 1 TAB ORAL THREE TIMES A DAY , (Reported) Levodopa/Carbidopa (Carbidopa-Levodopa 25-100 Tab), 1 TAB ORAL EVERY 6 HOURS Lorazepam* (Ativan*), Unknown Dose ORAL THREE TIMES A DAY, (Reported) Methylprednisolone* (Medrol*), 4 MG ORAL DAILY Multivitamin With Minerals (Multivitamins With Minerals*), 1 TAB ORAL DAILY, ( Reported) Nitroglycerin (Nitroglycerin), 0.4 MG SL NEEDED, (Reported) Prednisone (Prednisone), 10 MG PO DAILY Promethazine HCl/Codeine (Prometh-Codein 6.25-10 mg/5 ml), 5 ML PO EVERY 6 HOURS , (Reported) Theophylline (Theodur*), 100 MG ORAL TWICE A DAY, (Reported) Theophylline (Theodur*), 100 MG ORAL TWICE A DAY Tramadol Hcl* (Ultram*), 50 MG ORAL Q12HR, (Reported) Trihexyphenidyl HCl (Trihexyphenidyl HCl), 1 MG ORAL THREE TIMES A DAY Scheduled PRN Acetaminophen* (Acetaminophen 325MG Tablet*), 650 MG ORAL Q4H PRN for For Pain, (Reported) Albuterol Sulfate* (Albuterol Sulfate Hhn*), 3 ML INH Q4H PRN for Shortness of Breath, (Reported) Albuterol Sulfate* (Albuterol Sulfate Hhn*), 3 ML INH Q4H PRN for Shortness of Breath, (Reported) Bisacodyl* (Dulcolax*), 5 MG ORAL DAILY PRN for Constipation, (Reported) Clonidine Hcl* (Catapres*), 0.1 MG ORAL EVERY 6 HOURS PRN for For High Blood Pressure, (Reported) Guaifenesin* (Guaifenesin), 5 ML ORAL Q4H PRN for For Cough, (Reported) Nitroglycerin (Nitrostat), 0.4 MG SL every 5 mins PRN for chest pain, (Reported) Ondansetron* (Zofran*), 4 MG ORAL Q6H PRN for Nausea & Vomiting, (Reported) Tramadol Hcl* (Ultram*), 50 MG ORAL EVERY 12 HOURS PRN for For Pain, (Reported) Miscellaneous Medications Dextran 70/Hypromellose (Artificial Tears Eye Drops*), 1 DROP BOTH EYES, ( Reported) Dextran 70/Hypromellose (Artificial Tears Eye Drops*), 1 DROP BOTH EYES, ( Reported) Patient History Healthcare decision maker Resuscitation status Chemical (Meds Only) Advanced Directive on File Review of Systems Psychiatric: Reports: prior hx, anxiety, depressed feelings, emotional problems Physical Exam General Appearance: no apparent distress, alert Neurologic: oriented x 3, responsive, depressed affect Last 24 Hour Vital Signs Date Time Temp Pulse Resp B/P (MAP) Pulse Ox O2 Delivery O2 Flow Rate FiO2 11/16/17 12:00 97.3 76 19 170/71 (104) 96 97.3 11/16/17 11:04 96.4 11/16/17 09:00 Room Air 11/16/17 08:32 91 18 98 Room Air 21 11/16/17 08:20 93 20 94 Room Air 21 11/16/17 08:20 93 20 94 Room Air 21 11/16/17 08:20 93 20 94 Room Air 21 11/16/17 08:00 96.4 98 20 137/91 (106) 96 96.4 11/16/17 04:00 97.0 74 19 134/77 (96) 93 97.0 11/16/17 00:20 95 20 99 Room Air 21 11/16/17 00:18 95 20 95 Room Air 21 11/16/17 00:17 95 20 96 Room Air 21 11/16/17 00:16 95 20 95 Room Air 21 11/16/17 00:00 97.9 91 18 152/85 (107) 94 97.9 11/15/17 21:00 Room Air 11/15/17 20:00 97.8 86 17 153/77 (102) 97 97.8 11/15/17 16:05 98 20 98 Room Air 21 11/15/17 16:00 97.0 88 20 143/77 (99) 94 97.0 11/15/17 15:47 101 20 95 Room Air 21 Intake and Output 11/15/17 11/16/17 19:00 07:00 Intake Total 590.0 ml 405.0 ml Output Total 300 ml Balance 590.0 ml 105.0 ml Intake Oral 480 ml 240 ml IV Total 110.0 ml 165.0 ml Output Urine Total 300 ml # Voids 2 Laboratory Tests Test 11/15/17 15:01 11/15/17 18:10 11/16/17 06:10 Osmolality 295 mOsm/kg (297-317) L Uric Acid 2.1 MG/DL (2.6-7.2) L Thyroid Stimulating Hormone (TSH) 0.263 uiU/mL (0.358-3.740) Free Thyroxine 1.09 NG/DL (0.76-1.46) Free Triiodothyronine 1.3 pg/mL (2.3-4.2) L Cortisol Pending Urine Color Yellow Urine Appearance Slightly cloudy Urine pH 5 (4.5-8.0) Urine Specific [place] 1.020 (1.005-1.035) Urine Protein 1+ (NEGATIVE) H Urine Glucose (UA) 1+ (NEGATIVE) H Urine Ketones 1+ (NEGATIVE) H Urine Occult Blood 1+ (NEGATIVE) H Urine Nitrite Negative (NEGATIVE) Urine Bilirubin Negative (NEGATIVE) Urine Urobilinogen Normal MG/DL (0.0-1.0) Urine Leukocyte Esterase 2+ (NEGATIVE) H Urine RBC 0-2 /HPF (0 - 2) Urine WBC 0-2 /HPF (0 - 2) Urine Squamous Epithelial Cells Few /LPF (NONE/OCC) Urine Bacteria Moderate /HPF (NONE) H Urine Osmolality 1041 mOsm/kg (429-449) H Urine Random Sodium 51 mmol/L (20-110) White Blood Count 11.1 K/UL (4.8-10.8) H Red Blood Count 3.62 M/UL (4.20-5.40) L Hemoglobin 11.4 G/DL (12.0-16.0) L Hematocrit 33.9 % (37.0-47.0) L Mean Corpuscular Volume 94 FL (80-99) Mean Corpuscular Hemoglobin 31.4 PG (27.0-31.0) H Mean Corpuscular Hemoglobin Concent 33.5 G/DL (32.0-36.0) Red Cell Distribution Width 12.0 % (11.6-14.8) Platelet Count 304 K/UL (150-450) Mean Platelet Volume 6.8 FL (6.5-10.1) Neutrophils (%) (Auto) % (45.0-75.0) Lymphocytes (%) (Auto) % (20.0-45.0) Monocytes (%) (Auto) % (1.0-10.0) Eosinophils (%) (Auto) % (0.0-3.0) Basophils (%) (Auto) % (0.0-2.0) Differential Total Cells Counted 100 Neutrophils % (Manual) 91 % (45-75) H Lymphocytes % (Manual) 6 % (20-45) L Monocytes % (Manual) 3 % (1-10) Eosinophils % (Manual) 0 % (0-3) Basophils % (Manual) 0 % (0-2) Band Neutrophils 0 % (0-8) Platelet Estimate Adequate Platelet Morphology Normal Red Blood Cell Morphology Normal Sodium Level 137 MMOL/L (136-145) Potassium Level 4.0 MMOL/L (3.5-5.1) Chloride Level 100 MMOL/L (98-107) Carbon Dioxide Level 26 MMOL/L (21-32) Anion Gap 11 mmol/L (5-15) Blood Urea Nitrogen 35 mg/dL (7-18) H Creatinine 1.1 MG/DL (0.55-1.30) Estimat Glomerular Filtration Rate mL/min (>60) Glucose Level 140 MG/DL (74-106) H Calcium Level 8.1 MG/DL (8.5-10.1) L Total Bilirubin 0.7 MG/DL (0.2-1.0) Aspartate Amino Transf (AST/SGOT) 19 U/L (15-37) Alanine Aminotransferase (ALT/SGPT) 12 U/L (12-78) Alkaline Phosphatase 82 U/L (46-116) Pro-B-Type Natriuretic Peptide 729 pg/mL (0-125) H Total Protein 7.1 G/DL (6.4-8.2) Albumin 3.2 G/DL (3.4-5.0) L Globulin 3.9 g/dL Albumin/Globulin Ratio 0.8 (1.0-2.7) L Microbiology Date/Time Source Procedure Growth Status 11/15/17 18:10 Urine,Clean Catch Urine Culture - Preliminary NO GROWTH Resulted Height (Feet): 5 Height (Inches): 4.00 Weight (Pounds): 160 Medications Current Medications Medications (Trade) Dose Ordered Sig/Isaiah Route PRN Reason Start Time Stop Time Status Last Admin Dose Admin Acetaminophen (Tylenol) 650 mg Q6H PRN ORAL Fever/Headache/Mild Pain 11/15/17 17:15 12/14/17 17:14 Budesonide/ Formoterol Fumarate (Symbicort 160/ 4.5) 2 puff TWICE A DAY INH 11/15/17 18:00 12/14/17 17:59 11/16/17 08:26 Carbidopa/Levodopa (Sinemet 25/100) 1 tab EVERY 6 HOURS ORAL 11/15/17 18:00 12/14/17 11:59 11/16/17 11:02 Dextrose (Dextrose 50%) 25 ml STAT PRN IV Hypoglycemia 11/15/17 14:00 12/15/17 13:59 Dextrose (Dextrose 50%) 50 ml STAT PRN IV Hypoglycemia 11/15/17 14:00 12/15/17 13:59 Fluoxetine HCl (PROzac) 10 mg DAILY ORAL 11/16/17 09:00 12/15/17 08:59 11/16/17 08:54 Gabapentin (Neurontin) 100 mg BID ORAL 11/15/17 18:00 12/14/17 17:59 11/16/17 08:54 Heparin Sodium (Porcine) (Heparin 5000 units/ml) 5,000 units EVERY 12 HOURS SUBQ 11/15/17 21:00 12/14/17 20:59 11/16/17 08:57 Ipratropium [place] (Atrovent) 500 mcg Q4H PRN HHN Shortness of Breath 11/15/17 14:00 11/19/17 13:59 Ipratropium [place] (Atrovent) 500 mcg Q8HRT HHN 11/15/17 15:00 11/19/17 22:59 11/16/17 08:26 Ketorolac Tromethamine (Toradol 30mg) 30 mg Q8H PRN IV moderate pain 4-6 11/15/17 14:00 11/19/17 13:59 11/16/17 11:04 Lorazepam (Ativan 2mg/ml 1ml) 0.5 mg Q4H PRN IV For Anxiety 11/15/17 14:00 11/21/17 13:59 Methylprednisolone Sodium Succinate (Solu-MEDROL) 60 mg EVERY 6 HOURS IVP 11/15/17 18:00 12/14/17 11:59 11/16/17 11:02 Montelukast Sodium (Singulair) 10 mg QPM ORAL 11/15/17 16:30 12/14/17 16:29 11/15/17 17:05 Nitroglycerin (Ntg) 0.4 mg Q5M X 3 DOSES PRN SL Prn Chest Pain 11/15/17 13:45 12/14/17 09:29 Ondansetron HCl (Zofran) 4 mg Q6H PRN IVP Nausea & Vomiting 11/15/17 14:00 12/14/17 13:59 Piperacillin Sod/ Tazobactam Sod 3.375 gm/Sodium Chloride 110 ml @ 27.5 mls/hr EVERY 8 HOURS IVPB 11/15/17 14:00 11/19/17 13:59 11/16/17 05:48 Promethazine HCl/ Codeine (Phenergan with Codeine) 5 ml Q6H PRN ORAL cough 11/15/17 14:00 12/14/17 13:59 11/15/17 22:14 Temazepam (Restoril) 15 mg HSPRN PRN ORAL Insomnia 11/15/17 21:00 11/22/17 20:59 Theophylline (Edilson-Dur) 100 mg EVERY 12 HOURS ORAL 11/15/17 21:00 12/14/17 20:59 11/16/17 08:54 Assessment/Plan Assessment/Plan MDD Anxiety Prozac ativan prn provided morgan/Lauren Iyer MD Nov 16, 2017 12:55
--- NOTE | 2017-11-16 14:48 | Pulmonology Progress Note ---
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 Subjective ROS Limited/Unobtainable: No Constitutional: Reports: no symptoms HEENT: Repors: no symptoms Respiratory: Reports: no symptoms Allergies: Coded Allergies: MORPHINE (Verified Allergy, Unknown, 11/07/15) Objective Last 24 Hour Vital Signs Date Time Temp Pulse Resp B/P (MAP) Pulse Ox O2 Delivery O2 Flow Rate FiO2 11/16/17 13:27 170/71 11/16/17 12:00 97.3 76 19 170/71 (104) 96 97.3 11/16/17 11:34 97.3 11/16/17 11:04 96.4 11/16/17 09:00 Room Air 11/16/17 08:32 91 18 98 Room Air 11/16/17 08:20 93 20 94 Room Air 11/16/17 08:20 93 20 94 Room Air 21 11/16/17 08:20 93 20 94 Room Air 21 11/16/17 08:00 96.4 98 20 137/91 (106) 96 96.4 11/16/17 04:00 97.0 74 19 134/77 (96) 93 97.0 11/16/17 00:20 95 20 99 Room Air 21 11/16/17 00:18 95 20 95 Room Air 21 11/16/17 00:17 95 20 96 Room Air 11/16/17 00:16 95 20 95 Room Air 21 11/16/17 00:00 97.9 91 18 152/85 (107) 94 97.9 11/15/17 21:00 Room Air 11/15/17 20:00 97.8 86 17 153/77 (102) 97 97.8 11/15/17 16:05 98 20 98 Room Air 21 11/15/17 16:00 97.0 88 20 143/77 (99) 94 97.0 11/15/17 15:47 101 20 95 Room Air 21 Intake and Output 11/15/17 11/16/17 19:00 07:00 Intake Total 590.0 ml 405.0 ml Output Total 300 ml Balance 590.0 ml 105.0 ml Intake Oral 480 ml 240 ml IV Total 110.0 ml 165.0 ml Output Urine Total 300 ml # Voids 2 General Appearance: WD/WN HEENT: normocephalic, atraumatic Respiratory/Chest: chest wall non-tender, crackles/rales Cardiovascular: normal peripheral pulses, normal rate Abdomen: normal bowel sounds, no organomegaly Genitourinary: normal external genitalia Skin: no rash Microbiology Date/Time Source Procedure Growth Status 11/14/17 08:15 Blood Blood Culture - Preliminary NO GROWTH AFTER 24 HOURS Resulted 11/14/17 08:15 Blood Blood Culture - Preliminary NO GROWTH AFTER 24 HOURS Resulted 11/14/17 09:15 Nasal Nares MRSA Culture - Final Staphylococcus Aureus - Mrsa Complete 11/15/17 18:10 Urine,Clean Catch Urine Culture - Preliminary NO GROWTH Resulted 11/14/17 09:15 Rectum VRE Culture - Final NO VANCOMYCIN RESISTANT ENTEROCOCCUS ... Complete 11/14/17 09:15 Rectum - Final NO CARBAPENEM-RESISTANT ENTEROBACTERI... Complete Laboratory Tests 11/15/17 15:01: Osmolality 295L, Uric Acid 2.1L, Thyroid Stimulating Hormone (TSH) 0.263L, Free Thyroxine 1.09, Free Triiodothyronine 1.3L, Cortisol [Pending] 11/15/17 18:10: Urine Color Yellow, Urine Appearance Slightly cloudy, Urine pH 5, Urine Specific [place] 1.020, Urine Protein 1+H, Urine Glucose (UA) 1+H, Urine Ketones 1+H, Urine Occult Blood 1+H, Urine Nitrite Negative, Urine Bilirubin Negative, Urine Urobilinogen Normal, Urine Leukocyte Esterase 2+H, Urine RBC 0-2 , Urine WBC 0-2, Urine Squamous Epithelial Cells Few, Urine Bacteria ModerateH, Urine Osmolality 1041H, Urine Random Sodium 51 11/16/17 06:10: White Blood Count 11.1H, Red Blood Count 3.62L, Hemoglobin 11.4L, Hematocrit 33.9L, Mean Corpuscular Volume 94, Mean Corpuscular Hemoglobin 31.4H, Mean Corpuscular Hemoglobin Concent 33.5, Red Cell Distribution Width 12.0, Platelet Count 304, Mean Platelet Volume 6.8, Neutrophils (%) (Auto) , Lymphocytes (%) ( Auto) , Monocytes (%) (Auto) , Eosinophils (%) (Auto) , Basophils (%) (Auto) , Differential Total Cells Counted 100, Neutrophils % (Manual) 91H, Lymphocytes % (Manual) 6L, Monocytes % (Manual) 3, Eosinophils % (Manual) 0, Basophils % ( Manual) 0, Band Neutrophils 0, Platelet Estimate Adequate, Platelet Morphology Normal, Red Blood Cell Morphology Normal, Sodium Level 137, Potassium Level 4.0 , Chloride Level 100, Carbon Dioxide Level 26, Anion Gap 11, Blood Urea Nitrogen 35H, Creatinine 1.1, Estimat Glomerular Filtration Rate , Glucose Level 140H, Calcium Level 8.1L, Total Bilirubin 0.7, Aspartate Amino Transf (AST /SGOT) 19, Alanine Aminotransferase (ALT/SGPT) 12, Alkaline Phosphatase 82, Pro- B-Type Natriuretic Peptide 729H, Total Protein 7.1, Albumin 3.2L, Globulin 3.9, Albumin/Globulin Ratio 0.8L Current Medications Medications (Trade) Dose Ordered Sig/Isaiah Route PRN Reason Start Time Stop Time Status Last Admin Dose Admin Acetaminophen (Tylenol) 650 mg Q6H PRN ORAL Fever/Headache/Mild Pain 11/15/17 17:15 12/14/17 17:14 Budesonide/ Formoterol Fumarate (Symbicort 160/ 4.5) 2 puff TWICE A DAY INH 11/15/17 18:00 12/14/17 17:59 11/16/17 08:26 Carbidopa/Levodopa (Sinemet 25/100) 1 tab EVERY 6 HOURS ORAL 11/15/17 18:00 12/14/17 11:59 11/16/17 11:02 Clonidine HCl (Catapres Tab) 0.1 mg Q6H PRN ORAL For High Blood Pressure 11/16/17 13:00 12/16/17 12:59 11/16/17 13:27 Dextrose (Dextrose 50%) 25 ml STAT PRN IV Hypoglycemia 11/15/17 14:00 12/15/17 13:59 Dextrose (Dextrose 50%) 50 ml STAT PRN IV Hypoglycemia 11/15/17 14:00 12/15/17 13:59 Fluoxetine HCl (PROzac) 10 mg DAILY ORAL 11/16/17 09:00 12/15/17 08:59 11/16/17 08:54 Gabapentin (Neurontin) 100 mg BID ORAL 11/15/17 18:00 9/10/18 17:59 11/16/17 08:54 Heparin Sodium (Porcine) (Heparin 5000 units/ml) 5,000 units EVERY 12 HOURS SUBQ 11/15/17 21:00 12/14/17 20:59 11/16/17 08:57 Ipratropium [place] (Atrovent) 500 mcg Q4H PRN HHN Shortness of Breath 11/15/17 14:00 11/19/17 13:59 Ipratropium [place] (Atrovent) 500 mcg Q8HRT HHN 11/15/17 15:00 11/19/17 22:59 11/16/17 08:26 Ketorolac Tromethamine (Toradol 30mg) 30 mg Q8H PRN IV moderate pain 4-6 11/15/17 14:00 11/19/17 13:59 11/16/17 11:04 Lorazepam (Ativan 2mg/ml 1ml) 0.5 mg Q4H PRN IV For Anxiety 11/15/17 14:00 11/21/17 13:59 Methylprednisolone Sodium Succinate (Solu-MEDROL) 60 mg EVERY 6 HOURS IVP 11/15/17 18:00 12/14/17 11:59 11/16/17 11:02 Montelukast Sodium (Singulair) 10 mg QPM ORAL 11/15/17 16:30 12/14/17 16:29 11/15/17 17:05 Nitroglycerin (Ntg) 0.4 mg Q5M X 3 DOSES PRN SL Prn Chest Pain 11/15/17 13:45 12/14/17 09:29 Ondansetron HCl (Zofran) 4 mg Q6H PRN IVP Nausea & Vomiting 11/15/17 14:00 12/14/17 13:59 Piperacillin Sod/ Tazobactam Sod 3.375 gm/Sodium Chloride 110 ml @ 27.5 mls/hr EVERY 8 HOURS IVPB 11/15/17 14:00 11/19/17 13:59 11/16/17 14:31 Promethazine HCl/ Codeine (Phenergan with Codeine) 5 ml Q6H PRN ORAL cough 11/15/17 14:00 12/14/17 13:59 11/15/17 22:14 Temazepam (Restoril) 15 mg HSPRN PRN ORAL Insomnia 11/15/17 21:00 11/22/17 20:59 Theophylline (Edilson-Dur) 100 mg EVERY 12 HOURS ORAL 11/15/17 21:00 12/14/17 20:59 11/16/17 08:54 Klarissa Bose MD Nov 16, 2017 14:48
[2017-11-16 16:00] VITALS: BP 161/74
[2017-11-16] MEDS: Montelukast 10mg tablet ORAL SCH (17:02)
[2017-11-16 20:00] VITALS: BP 160/87
[2017-11-16] MEDS: Promethazine/Codeine 5ml UD ORAL PRN (21:41)
--- NOTE | 2017-11-16 21:53 | Consultation ---
Consult Note Consult Note NEUROLOGY CONSULTATION: Full note dictated #[id number] 72 y/o, RH, HF who does have a PH of HTN, DM, DL, COPD, a stroke, and a parkinsonian syndrome involving her right side more than the left. She was hospitalized for an acute exacerbation of COPD. Recently her tremor has also worsened. ON EXAM: Problems with orientation, recent and remote memory, HCF, VSF Right hemiparesis. Brisker DTRs on right. Parkinsonian tremor involving RUE. Mild ET involving BUE. 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 Mild ET. REC: Sinemet 25/100 - 1.5 q 7AM, 12 Noon, 5 PM Rx of intercurrent illness. CT brain Observe. Eliane John M.D., M.S.P.H. ELIANE JOHN Nov 16, 2017 21:53
[2017-11-17] VITALS: BP 127/60
[2017-11-17 04:00] VITALS: BP 119/81
[2017-11-17] MEDS: Piperacillin/Tazobactam 3.375 GM in NS 110 ML IVPB SCH (05:43)
[2017-11-17] MEDS: Levodopa/Carbidopa 25/100 tab ORAL SCH ×2 (06:47→12:14)
[2017-11-17] MEDS: Ipratropium 0.02% Inh Soln 2.5ml UD HHN SCH (07:36)
[2017-11-17 08:00] VITALS: BP 160/76
[2017-11-17] MEDS: Theophylline ER 100mg ORAL SCH (08:16)
[2017-11-17] MEDS: FLUoxetine 10mg cap ORAL SCH (08:16)
[2017-11-17] MEDS: Heparin 5000 units/ml inj SUBQ SCH (08:17)
[2017-11-17] MEDS ORDERED: Solu-MEDROL 125mg Inj IVP SCH (09:00)
[2017-11-17] MEDS: Ketorolac 30mg Inj IV PRN (09:38)
--- NOTE | 2017-11-17 10:57 | Consultation ---
DATE OF CONSULTATION: 11/16/2017 NEUROLOGY CONSULTATION CONSULTING PHYSICIAN: Kedar John M.D. REQUESTING PHYSICIAN: Klarissa Bose M.D. HISTORY: Ms. Sharmila Atwood is a 72-year-old, right-handed, lady, who does have a past history of hypertension, diabetes mellitus, dyslipidemia, chronic obstructive pulmonary disease, a stroke that has been poorly defined, and a parkinsonian syndrome involving predominantly her right side. She was hospitalized for an acute exacerbation of chronic obstructive pulmonary disease. Recently, her tremor has worsened significantly and thus this consultation was requested by Dr. Bose. The patient herself is unable to give me much of a history. She does not even remember that she has had a stroke. She has however noticed that she has lost her ability to walk and tells me that she has not walked for more than a year. The tremor is predominantly in the right upper extremity and it at times bothers her quite a lot. PAST MEDICAL HISTORY: Significant for hypertension, diabetes mellitus, dyslipidemia, chronic obstructive pulmonary disease, stroke, parkinsonian syndrome, and possible cognitive dysfunction. FAMILY HISTORY: Nothing significant as per the patient. PERSONAL HISTORY: Home: She lives in a [place]. 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 Habits: She denies use of alcohol, tobacco, or illicit drugs. MEDICATIONS: Solu-Medrol 60 mg daily, clonidine, Prozac, heparin for DVT prophylaxis, Restoril p.r.n., theophylline 100 mg q.12 h., Symbicort 2 puffs twice a day, Neurontin 100 mg twice a day, Sinemet 25/100 mg given every 6 hours around the clock, Tylenol p.r.n., Singulair p.r.n., Atrovent p.r.n., Zosyn, Toradol p.r.n., lorazepam p.r.n., Zofran p.r.n., Phenergan with codeine cough syrup p.r.n and nitroglycerin p.r.n. PHYSICAL EXAMINATION: GENERAL: She is a well-developed, well-nourished, slightly obese lady, lying in bed with the head turned to the right side exhibiting a right upper extremity Parkinsonian tremor at rest. VITAL SIGNS: Pulse 78/minute, blood pressure 161/74 mmHg, respirations 18/minute, and temperature 98.1 degrees Fahrenheit. HEAD: Normocephalic and atraumatic. EENT: Examination benign. NECK: No neck rigidity was observed. NEUROLOGICAL EXAMINATION: MENTAL STATUS EXAMINATION: She was awake and alert. She was oriented to [facility] and [facility]. She did not know the date, month, or year. She was able to recall 3/3 words immediately, but could only remember 2/3 words in 1 minute and 3 minutes even on the third trial. She was unable to tell me who the present President was and who prior presidents were. Her mathematical skills were impaired. Her visuospatial function was also impaired. SPEECH: She had a mild dysarthria. LANGUAGE: Could not be tested adequately. CRANIAL NERVE EXAMINATION: II: The visual sousa were intact to confrontation testing. III, IV & : The external ocular movements were full and the pupils 3 mm in diameter, equal, round, regular, and reactive to light. V: She had normal facial sensations and the temporales, masseters, and pterygoids functioned normally. VII: She had right VII central facial paresis. VIII: She was able to hear well bilaterally and had no nystagmus. IX: The palate moved symmetrically on phonation. X: She had no hoarseness of voice. XI: The sternocleidomastoids and trapezii functioned normally. XII: The tongue was in the midline without any fasciculations or atrophy. MOTOR SYSTEM: The tone was normal in all four extremities. Examination of muscle mass revealed no focal wasting. Examination of power revealed G 4-/5 power in the right finger extensors, G 3/5 power in the right iliopsoas, G 4+/5 power in the left iliopsoas. SENSORY EXAMINATION: She had intact sensations to pinprick, light touch, and graphesthesia. COORDINATION: [id number] testing was difficult, but she was able to perform it. She was unable to perform [id number] testing. REFLEXES: 2++ on the right and 1+ on the left at the biceps, triceps, and brachioradialis, 1++ on the right and trace+ on the left at the knees, 0 at both ankles. The plantar responses were flexor bilaterally. STANCE & GAIT: Could not be tested. ABNORMAL MOVEMENTS: Tremor (4-5 Hz): G 2/4 at rest in the upper extremity decreasing to G 1/4 with effort. Tremor (7-8 Hz): G 0/4 at rest increasing to G 1/4 with effort. Rigidity, bradykinesia, hyperammonemia, hypophonia: G 0/4. DIAGNOSTIC IMPRESSION: 1. Ms. Sharmila Atwood is a 72-year-old, right-handed, lady, who does have a past history of hypertension, diabetes mellitus, dyslipidemia, chronic obstructive pulmonary disease, and stroke - the exact details of which are unknown to us, and a parkinsonian syndrome involving predominantly the right side, who was hospitalized for an acute exacerbation of COPD and has been noted to have worsening of her tremor. 2. On neurological examination, at this time, she does demonstrate problems with orientation, recent and remote memory, visuospatial function, and higher cognitive function. She also has a right hemiparesis involving the face and upper and lower extremities, brisker deep tendon reflexes on the right side and a parkinsonian tremor involving predominantly in the right upper extremity and in addition, a mild essential tremor involving both upper extremities. 3. Laboratory tests obtained thus far have revealed that her WBC count is elevated to 11,100. She is anemic with a hemoglobin of 11.4. Her chemistry panel reveals a BUN elevated at 35, glucose elevated at 140. TSH low at 0.26 with a free T4 normal at 1.09 and free T3 low at 1.3. Her urinalysis reveals 2+ leukocyte esterase with 0 to 2 red blood cells and white blood cells per high-power field. 4. 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 In addition, she also has a mild essential tremor. 5. She also has cognitive dysfunction and right hemiparesis, which is most probably related to her old stroke. RECOMMENDATIONS: 1. Agree with management thus far. 2. We would change the patient's Sinemet regimen to Sinemet 25/100 mg one and half tablets to be taken at 7 a.m., 12 noon, and 5 p.m. 3. Treatment of intercurrent illness as per Dr. Bose. 4. A CT scan of the brain without contrast will be ordered to evaluate the patient for the exact type of intracranial pathology. 5. The patient will be observed closely and depending on how she fares, further recommendations will be given. Thank you for entrusting me with the care of Ms. Atwood. I shall follow her with you. Kedar John M.D., M.S.P.H. DR: BRITNI JOB#: [id number] MTDD
[2017-11-17] MEDS ORDERED: MONTELUKAST SOD10 MG ORAL (11:15)
[2017-11-17] MEDS ORDERED: Levodopa/Carbidopa 25/100 ORAL (11:15)
--- NOTE | 2017-11-17 11:16 | Pulmonology Progress Note ---
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 to skilled nursing Subjective ROS Limited/Unobtainable: No Constitutional: Reports: no symptoms HEENT: Repors: no symptoms Respiratory: Reports: no symptoms Allergies: Coded Allergies: MORPHINE (Verified Allergy, Unknown, 11/07/15) Objective Last 24 Hour Vital Signs Date Time Temp Pulse Resp B/P (MAP) Pulse Ox O2 Delivery O2 Flow Rate FiO2 11/17/17 09:29 Room Air 11/17/17 09:28 Room Air 11/17/17 09:00 Room Air 11/17/17 08:00 97.8 89 18 160/76 (104) 93 97.8 11/17/17 07:46 79 20 98 Room Air 21 11/17/17 07:36 81 20 94 Room Air 21 11/17/17 04:00 98.1 61 18 119/81 (94) 93 98.1 11/17/17 00:00 98.3 67 18 127/60 (82) 94 98.3 11/16/17 22:05 84 18 98 Room Air 21 11/16/17 21:53 73 18 94 Room Air 21 11/16/17 21:00 Room Air 11/16/17 20:00 98.6 70 20 160/87 (111) 93 98.6 11/16/17 19:34 78 18 94 Room Air 21 11/16/17 19:30 76 18 94 Room Air 11/16/17 16:00 98.1 76 18 161/74 (103) 96 98.1 11/16/17 15:08 87 16 99 Room Air 11/16/17 14:58 80 20 94 Room Air 11/16/17 13:27 170/71 11/16/17 12:00 97.3 76 19 170/71 (104) 96 97.3 11/16/17 11:34 97.3 Intake and Output 11/16/17 11/17/17 19:00 07:00 Intake Total 710.0 ml 410.0 ml Balance 710.0 ml 410.0 ml Intake Oral 600 ml 300 ml IV Total 110.0 ml 110.0 ml # Voids 3 3 General Appearance: WD/WN HEENT: normocephalic Respiratory/Chest: chest wall non-tender, lungs clear, normal breath sounds Breasts: no masses Abdomen: normal bowel sounds, soft, non tender Genitourinary: normal external genitalia Extremities: no clubbing Skin: no rash, no ulcers Neurologic/Psychiatric: no motor/sensory deficits, abnormal gait Lymphatic: no neck adenopathy Musculoskeletal: normal muscle bulk Microbiology Date/Time Source Procedure Growth Status 11/15/17 18:10 Urine,Clean Catch Urine Culture - Preliminary NO GROWTH AFTER 24 HOURS Resulted Current Medications Medications (Trade) Dose Ordered Sig/Isaiah Route PRN Reason Start Time Stop Time Status Last Admin Dose Admin Acetaminophen (Tylenol) 650 mg Q6H PRN ORAL Fever/Headache/Mild Pain 11/15/17 17:15 12/14/17 17:14 Budesonide/ Formoterol Fumarate (Symbicort 160/ 4.5) 2 puff TWICE A DAY INH 11/15/17 18:00 12/14/17 17:59 11/16/17 19:30 Carbidopa/Levodopa (Sinemet 25/100) 1.5 tab 0700,1200,1700 ORAL 11/17/17 07:00 12/17/17 06:59 11/17/17 06:47 Clonidine HCl (Catapres Tab) 0.1 mg Q6H PRN ORAL For High Blood Pressure 11/16/17 13:00 12/16/17 12:59 11/16/17 13:27 Dextrose (Dextrose 50%) 25 ml STAT PRN IV Hypoglycemia 11/15/17 14:00 12/15/17 13:59 Dextrose (Dextrose 50%) 50 ml STAT PRN IV Hypoglycemia 11/15/17 14:00 12/15/17 13:59 Fluoxetine HCl (PROzac) 10 mg DAILY ORAL 11/16/17 09:00 12/15/17 08:59 11/17/17 08:16 Gabapentin (Neurontin) 100 mg BID ORAL 11/15/17 18:00 12/14/17 17:59 11/17/17 08:15 Heparin Sodium (Porcine) (Heparin 5000 units/ml) 5,000 units EVERY 12 HOURS SUBQ 11/15/17 21:00 12/14/17 20:59 11/17/17 08:17 Ipratropium [place] (Atrovent) 500 mcg Q4H PRN HHN Shortness of Breath 11/15/17 14:00 11/19/17 13:59 Ipratropium [place] (Atrovent) 500 mcg Q8HRT HHN 11/15/17 15:00 11/19/17 22:59 11/17/17 07:36 Ketorolac Tromethamine (Toradol 30mg) 30 mg Q8H PRN IV moderate pain 4-6 11/15/17 14:00 11/19/17 13:59 11/17/17 09:38 Lorazepam (Ativan 2mg/ml 1ml) 0.5 mg Q4H PRN IV For Anxiety 11/15/17 14:00 11/21/17 13:59 Methylprednisolone Sodium Succinate (Solu-MEDROL) 60 mg DAILY IVP 11/17/17 09:00 12/14/17 11:59 11/17/17 08:16 Montelukast Sodium (Singulair) 10 mg QPM ORAL 11/15/17 16:30 12/14/17 16:29 11/16/17 17:02 Nitroglycerin (Ntg) 0.4 mg Q5M X 3 DOSES PRN SL Prn Chest Pain 11/15/17 13:45 12/14/17 09:29 Ondansetron HCl (Zofran) 4 mg Q6H PRN IVP Nausea & Vomiting 11/15/17 14:00 12/14/17 13:59 Piperacillin Sod/ Tazobactam Sod 3.375 gm/Sodium Chloride 110 ml @ 27.5 mls/hr EVERY 8 HOURS IVPB 11/15/17 14:00 11/19/17 13:59 11/17/17 05:43 Promethazine HCl/ Codeine (Phenergan with Codeine) 5 ml Q6H PRN ORAL cough 11/15/17 14:00 12/14/17 13:59 11/16/17 21:41 Temazepam (Restoril) 15 mg HSPRN PRN ORAL Insomnia 11/15/17 21:00 11/22/17 20:59 Theophylline ([place]-Dur) 100 mg EVERY 12 HOURS ORAL 11/15/17 21:00 12/14/17 20:59 11/17/17 08:16 Klarissa Bose MD Nov 17, 2017 11:16
--- NOTE | 2017-11-17 11:49 | Cardiology Progress Note ---
Assessment/Plan Status: stable Assessment/Plan Assessment: Chest pain Shortness of breath Wheezing Plan: Serial EKG/Troponin Duo nebs Aspirin Singulair Steroids Ambulate Outpatient stress test and echocardiogram Neuro consult pending for tremors CT brain pending Dispo planning Subjective Cardiovascular: Reports: no symptoms Respiratory: Reports: no symptoms Gastrointestinal/Abdominal: Reports: no symptoms Genitourinary: Reports: no symptoms Subjective No acute events, no CP, breathing improved, labs stable, vitals stable, BP a little high today No complaints, Seen by neuro, CT head pending Objective Last 24 Hour Vital Signs Date Time Temp Pulse Resp B/P (MAP) Pulse Ox O2 Delivery O2 Flow Rate FiO2 11/17/17 09:29 Room Air 11/17/17 09:28 Room Air 11/17/17 09:00 Room Air 11/17/17 08:00 97.8 89 18 160/76 (104) 93 97.8 11/17/17 07:46 79 20 98 Room Air 21 11/17/17 07:36 81 20 94 Room Air 21 11/17/17 04:00 98.1 61 18 119/81 (94) 93 98.1 11/17/17 00:00 98.3 67 18 127/60 (82) 94 98.3 11/16/17 22:05 84 18 98 Room Air 21 11/16/17 21:53 73 18 94 Room Air 11/16/17 21:00 Room Air 11/16/17 20:00 98.6 70 20 160/87 (111) 93 98.6 11/16/17 19:34 78 18 94 Room Air 11/16/17 19:30 76 18 94 Room Air 11/16/17 16:00 98.1 76 18 161/74 (103) 96 98.1 11/16/17 15:08 87 16 99 Room Air 11/16/17 14:58 80 20 94 Room Air 11/16/17 13:27 170/71 11/16/17 12:00 97.3 76 19 170/71 (104) 96 97.3 General Appearance: no apparent distress, alert EENT: PERRL/EOMI, normal ENT inspection Neck: non-tender, normal alignment Rhythm: NSR Cardiovascular: normal peripheral pulses, normal rate Respiratory/Chest: chest wall non-tender, lungs clear Abdomen: normal bowel sounds, non tender Extremities: normal range of motion, non-tender 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 Nov 17, 2017 11:49
[2017-11-17 12:00] VITALS: BP 142/61
--- NOTE | 2017-11-17 12:14 | General Progress Note ---
Assessment/Plan Status: stable Assessment/Plan MDD Anxiety d/o -cont current meds -provided ro/st Subjective Date patient seen: Nov 17, 2017 Neurologic/Psychiatric: Reports: anxiety, depressed, emotional problems Allergies: Coded Allergies: MORPHINE (Verified Allergy, Unknown, 11/07/15) Objective Last 24 Hour Vital Signs Date Time Temp Pulse Resp B/P (MAP) Pulse Ox O2 Delivery O2 Flow Rate FiO2 11/17/17 09:29 Room Air 11/17/17 09:28 Room Air 11/17/17 09:00 Room Air 11/17/17 08:00 97.8 89 18 160/76 (104) 93 97.8 11/17/17 07:46 79 20 98 Room Air 21 11/17/17 07:36 81 20 94 Room Air 21 11/17/17 04:00 98.1 61 18 119/81 (94) 93 98.1 11/17/17 00:00 98.3 67 18 127/60 (82) 94 98.3 11/16/17 22:05 84 18 98 Room Air 21 11/16/17 21:53 73 18 94 Room Air 21 11/16/17 21:00 Room Air 11/16/17 20:00 98.6 70 20 160/87 (111) 93 98.6 11/16/17 19:34 78 18 94 Room Air 21 11/16/17 19:30 76 18 94 Room Air 21 11/16/17 16:00 98.1 76 18 161/74 (103) 96 98.1 11/16/17 15:08 87 16 99 Room Air 11/16/17 14:58 80 20 94 Room Air 11/16/17 13:27 170/71 Intake and Output 11/16/17 11/17/17 19:00 07:00 Intake Total 710.0 ml 437.5 ml Balance 710.0 ml 437.5 ml Intake Oral 600 ml 300 ml IV Total 110.0 ml 137.5 ml # Voids 3 3 Height (Feet): 5 Height (Inches): 4.00 Weight (Pounds): 160 General Appearance: no apparent distress, alert Neurologic: oriented x 3, responsive, depressed affect Lauren Amado MD Nov 17, 2017 12:14
[2017-11-17] MEDS ORDERED: Tubing IV Secondary IV ONE (15:46)
[2017-11-17] MEDS ORDERED: NS 275ml ONE (15:46)
--- NOTE | 2017-11-20 08:19 | Discharge Summary ---
Discharge Summary Discharge Summary _ DATE OF ADMISSION: 11/14/17 DATE OF DISCHARGE: 11/17/2017 REASON FOR ADMISSION: 72 years old female with past medical history significant for hypertension, hyperlipidemia, COPD, CVA, Parkinson disease, presented with increased shortness of breath. She denied chest pain. No vomiting, no diarrhea. Laboratory workup revealed negative troponin, pro BNP 241. Chest x-ray revealed no acute cardiopulmonary pathology. EKG revealed normal sinus rhythm, nonspecific ST and T wave changes, but no evidence of acute ischemia. No leukocytosis, stable hemoglobin and hematocrit. Lactic acid 1.4. Stable renal parameters Patient admitted with diagnoses of COPD exacerbation, dyspnea, acute on chronic respiratory failure , hypertension ,Parkinson disease. CONSULTANTS: supervisor filling and packing dr. Mixon neurologist Dr. John psychiatrist [facility] COURSE: Patient admitted. Patient started on intravenous steroids which gradually tapered down and changed to Medrol dose pack upon discharge. Patient started on empiric antibiotic. Chest x-ray revealed no evidence of acute pathology. Blood culture were negative . Antitussive provided as needed. Trial of theophylline initiated. Singular and steroid inhaler were continued. Supplemental oxygen titrated to keep pulse oximetry above 92%. Pulmonary toilet provided around the clock and as needed. DVT prophylaxis provided. Cardiology consult was requested. Iron Melter recommended outpatient echocardiogram and stress test and continue antiembolic prophylaxis with aspirin. Neurologist seen and evaluated patient for Parkinson disease and tremors. Per neurologist, patient history neurological examination were most compatible with Parkinson syndrome poststroke, predominantly involving the right upper extremity which was not controlled. \ In addition patient had mild essential tremor. Patient also had mild cognitive dysfunction Hemiparesis was likely related to old stroke. Neurologist optimized Sinemet regimen. He recommended CT scan of the brain to evaluate exact type of intracranial pathology, which will be done as outpatient. Psychiatrist seen and evaluated patient. Psychiatrist diagnosed patient with major depressive disorder and anxiety. Reality orientation and supportive therapy provided. Current antidepressant therapy was continued. Symptomatic treatment provided. Bowel regimen instituted. Pain management was addressed. Patient clinically improved and was stable for transfer back to halfway facility FINAL DIAGNOSES: COPD exacerbation Acute on chronic respiratory failure Hypertension Parkinson disease Mild essential tremor Major depressive disorder Anxiety disorder DISCHARGE MEDICATIONS: See Medication Reconciliation list. DISCHARGE INSTRUCTIONS: Patient was discharged to the halfway facility. Follow up with medical doctor at the facility. I have been assigned to dictate discharge summary for this account. I was not involved in the patient's management. Melinda Carver NP Nov 20, 2017 08:19
== END 2017-11-17 15:47 | DRG 190 ==
LOC: EDBD 07:54 → EMR 08:18 → EDBEDREQ 08:27 → 2E 08:30 → EDBEDREQ 08:58 → 4E 11-15 13:25
DX: J44.1 Chronic obstructive pulmonary disease with (acute) exacerbation (principal); J96.20 Acute and chronic respiratory failure, unspecified whether with hypoxia or hypercapnia; I69.351 Hemiplegia and hemiparesis following cerebral infarction affecting right dominant side; I10 Essential (primary) hypertension; G20 Parkinson's disease; F32.9 Major depressive disorder, single episode, unspecified; F41.9 Anxiety disorder, unspecified; Z88.6 Allergy status to analgesic agent; E78.5 Hyperlipidemia, unspecified; R26.2 Difficulty in walking, not elsewhere classified
CPT/HCPCS: 36415; 71045; 80053; 81001; 81003; 82533; 82550; 82553; 83605; 83690; 83880; 83930; 83935; 84300; 84439; 84443; 84481; 84484; 84550; 85007; 85025; 87040; 87081; 87086; 93005; 94640; 94664; J7620

== ENCOUNTER 2018-05-18 15:37 | Emergency (ER) | payer MEDICARE, OTHER ==
[~2018-05-18] VITALS: Ht 149.9 cm; Wt 56.7 kg
[~2018-05-18 15:37] MED LIST changes: +FISH OIL CAP1000 MG ORAL; +Levodopa/Carbidopa 25/100 ORAL; +MONTELUKAST SOD10 MG ORAL; +MULTIVITAMINS1 EAC8 ORAL; +PROZAC10 MG ORAL
--- NOTE | 2018-05-18 15:40 | NUR ---
ED Nurse Note: BROUGHT IN BY DMITRY FROM [facility] DUE TO SLIPPED AND FALL INJURY. LACERATION ON RIGHT SIDE OF FOREHEAD AND PAIN ON RIGHT ELBOW. A/OX3.
[2018-05-18 15:42] VITALS: BP 146/79
[2018-05-18] MEDS: Lidocaine 1% 10mg/ml/Epi 0.005mg/ml 30ml vial INJ ONE (16:00)
--- NOTE | 2018-05-18 16:41 | Diagnostic Imaging Report ---
Indications: Pain, status post fall Technique: Spiral acquisitions obtained through the brain. Angled axial and coronal 5 x 5 mm slices were reconstructed. Total dose length product 1302.19 mGycm. CTDI vol(s) 70.38 mGy. Dose reduction achieved using automated exposure control Comparison: None. Findings: There is image degradation due to motion artifact. There is age-related enlargement of the ventricles and extra-axial CSF spaces. There is extensive periventricular deep white matter low-attenuation, consistent with chronic small vessel ischemic change. No acute intracranial hemorrhage or edema, mass effect, nor midline shift. The calvarium is intact. The included sinuses and orbits are unremarkable. The mastoids are clear. Impression: Limited exam, due to motion artifact Chronic and age-related changes, as described. Negative for acute intracranial bleed or mass effect The CT scanner at [facility] is accredited by the [employer] and the scans are performed using protocols designed to limit radiation exposure to as low as reasonably achievable to attain images of sufficient resolution adequate for diagnostic evaluation.
--- NOTE | 2018-05-18 17:27 | Diagnostic Imaging Report ---
Indication: Pain, status post fall Technique: 3 views of the right knee Comparison: None Findings: There is severe medial compartmental degenerative joint space narrowing, with extensive degenerative remodeling and irregularity of the articular surfaces. The lateral joint compartment is preserved. No acute fractures. No dislocations. No suprapatellar effusion Impression: Degenerative changes as described No acute bony trauma
--- NOTE | 2018-05-18 17:28 | Diagnostic Imaging Report ---
Indications: Pain, status post fall Technique: Two views of the right forearm Comparison: None Findings: No acute fractures. No dislocations. No radiopaque foreign body. Bones are osteoporotic Impression: No acute bony trauma
[2018-05-18] MEDS ORDERED: Lidocaine 1% 10mg/ml/Epi 0.005mg/ml 30ml vial INJ ONE (18:01)
[2018-05-18] MEDS ORDERED: Bacitracin Oint UD TOPIC ONE (18:01)
[2018-05-18] MEDS ORDERED: Tetanus/Diptheria/Pertussis Vaccine 0.5ml Syr IM ONE (18:03)
[2018-05-18] MEDS: Tetanus/Diptheria/Pertussis Vaccine 0.5ml Syr IM ONE (18:05)
[2018-05-18] MEDS: Bacitracin Oint UD TOPIC ONE (18:05)
--- NOTE | 2018-05-18 19:05 | NUR ---
ED Nurse Note: RECEIVED VERBAL ORDER FORM DR. Meneses TO SEE IF PT IS AMBULATORY. MADHURI REESE ASSISTED PT STAND, PT WAS NOT ABLE TO STAND AND AMBULATE WITH FULL ASSISTANCE. DR. Meneses WITNESSED. ASSIGNED DORIE REESE TO CHECK THE VS.
--- NOTE | 2018-05-18 19:10 | Emergency Room Report ---
History of Present Illness General Chief Complaint: Multiple Trauma/Fall Source: Patient, EMS Present Illness HPI Patient was trying to clean up something on the floor. She fell forward and hit her right knee her right arm and her forehead. There was no loss of consciousness. She's not sure when her last tetanus shot was. She has a cut on her forehead a scrape on her arm. Pain rated 10/10, but more in knees and less head and arm. Slightly worse than chronic pain she suffers from DJD. Pain in head and arm is sharp. Not radiating, constant. The patient has chronic knee pain bilaterally. Diabetic Parkinson's COPD/asthma - no cough or wheezing No fevers, chills, chest pain, palpitations, nausea, vomiting, diarrhea, dysuria , abdominal pain, shortness of breath, depression, visual changes. Allergies: Coded Allergies: MORPHINE (Verified Allergy, Unknown, 11/07/15) Patient History Past Medical History: see triage record Social History: Denies: smoking Social History Narrative From [facility]. Born in [facility] Reviewed Nursing Documentation: PMH: Agreed; PSxH: Agreed Nursing Documentation-PMH Past Medical History: No History, Except For Hx Cardiac Problems: Yes - Hyperlipidemia Hx Hypertension: Yes Hx Pacemaker: No Hx Asthma: Yes Hx COPD: Yes Hx Diabetes: Yes Hx Cancer: No Hx Gastrointestinal Problems: No - Bilateral osteoarthritis of knee Hx Cerebrovascular Accident: Yes Hx Parkinson's Disease: Yes Hx Tremors: Yes - parkinsons Hx Weakness: Yes Hx Neurologic Surgery: No Review of Systems All Other Systems: negative except mentioned in HPI Physical Exam Vital Signs Date Time Temp Pulse Resp B/P (MAP) Pulse Ox O2 Delivery O2 Flow Rate FiO2 05/18/18 15:36 98.8 80 16 146/79 99 Room Air Sp02 EP Interpretation: reviewed, normal General Appearance: no apparent distress, GCS 15, Chronically Ill Head: normocephalic, other - Laceration right forehead Eyes: bilateral eye normal inspection, bilateral eye PERRL, bilateral eye EOMI ENT: moist mucus membranes Neck: supple, no bony tend Respiratory: chest non-tender, lungs clear, normal breath sounds Cardiovascular #1: regular rate, rhythm Cardiovascular #2: 2+ radial (R) Gastrointestinal: normal inspection, normal bowel sounds, non tender, no mass, non-distended Musculoskeletal: back normal, normal range of motion, no calf tenderness, swelling - Bilateral knees, tender - Right forearm Neurologic: alert, oriented x3, regulatory affairs consultant III-XII nml as tested, DTRs symmetric, sensory intact, speech normal, motor weakness - Lower extremities bilaterally Psychiatric: mood/affect normal Skin: warm/dry, abrasions - Right forearm, laceration - Right forehead Procedures Laceration/Wound Repair Laceration/Wound Repair : Consent: Verbal Wound Location: face Wound's Depth, Shape: into muscle, linear Wound Length (cm): 3 Wound Explored: clean Irrigated w/ Saline (ccs): 20 Betadine Prep?: Yes Anesthesia: Lidocaine w/ Epi Volume Anesthetic (ccs): 2 Wound Repaired With: sutures Suture Size/Type: 6:0, nylon Sterile Dressing Applied?: Yes Patient Tolerated: Well Complications: None Medical Decision Making Diagnostic Impression: Primary Impression: Multiple injuries due to trauma Additional Impressions: Head injury Qualified Codes: S09.90XA - Unspecified injury of head, initial encounter Multiple contusions Abrasion Parkinson disease ER Course Patient presents with a non-syncopal fall with injury to her head, right forearm and right knee. Differential includes bleed, laceration, contusion, abrasion, knee fracture, forearm fracture. CT the head is indicated as well as right forearm and knee films. Patient will receive tetanus and laceration repair. CT with involutional changes. Forearm without fracture. Right knee with degenerative changes. Laceration repaired and tolerated well. Patient unable to stand or ambulate. Discussed with SNF who are able to take care of her in this condition. Patient stable for outpatient observation and treatment. Other X-Ray Diagnostic Results Other X-Ray Diagnostic Results #1: X-Ray ordered: R forearm # of Views/Limited Vs Complete: 2 View Indication: Pain EP Interpretation: Yes Interpretation: no dislocation, no soft tissue swelling, no fractures Impression: No acute disease Electronically Signed by: Electronically signed by James Kirby MD Other X-Ray Diagnostic Results #2: X-Ray ordered: R knee # of Views/Limited Vs Complete: 3 View Indication: Pain Interpretation: no dislocation, no soft tissue swelling, no fractures, other - severe DJD Impression: Other Electronically Signed by: Electronically signed by James Kirby MD CT/MRI/US Diagnostic Results CT/MRI/US Diagnostic Results : Imaging Test Ordered: head Impression involutional changes Last Vital Signs Date Time Temp Pulse Resp B/P (MAP) Pulse Ox O2 Delivery O2 Flow Rate FiO2 05/18/18 20:41 98.8 74 16 138/78 99 Room Air Status: improved Disposition: XFER SNF Condition: Improved Scripts Bacitracin (Bacitracin) 28.4 Gm Oint...g. 1 APPLIC TOPIC BID, #20 GM Prov: James Kirby MD 05/18/18 Acetaminophen (Tylenol) 325 Mg Tablet 650 MG ORAL Q6H PRN for Prn Pain/Headache/Temp > 101, #20 TAB 0 Refills Prov: James Kirby MD 05/18/18 James Kirby MD May 18, 2018 19:10
--- NOTE | 2018-05-18 19:12 | NUR ---
HAND-OFF: Report given to DORIE RUTH. PT IN BED, RESTING. Addendum: 05/18/18 at 1914 by [email or web address] HAND-OFF: Report given to DORIE RUTH. PT IN BED, RESTING. HR 89, RA 96%, BP 175/88
[2018-05-18] MEDS ORDERED: TYLENOL325 MG ORAL (19:19)
[2018-05-18] MEDS ORDERED: BACITRACIN15 GM TOPIC (19:19)
[2018-05-18 19:30] VITALS: BP 138/78
--- NOTE | 2018-05-18 20:30 | NUR ---
ED Nurse Note: Pt report given to RANI RN from [facility]. pt status, condition, and vital sings was reported to receving RN. pt is stable for transfer. all Dc info and prescriptions have left with PT and transfering unit.
--- NOTE | 2018-05-18 20:39 | NUR ---
ED Nurse Note: Gave report to [facility]. Pt VSS stable for transfer
[2018-05-18 20:41] VITALS: BP 138/78
== END 2018-05-18 20:40 ==
LOC: EDBD 15:37 → EMR 16:15
DX: S01.81XA Laceration without foreign body of other part of head, initial encounter (principal); S50.811A Abrasion of right forearm, initial encounter; W19.XXXA Unspecified fall, initial encounter; Y92.009 Unspecified place in unspecified non-institutional (private) residence as the place of occurrence of the external cause; G20 Parkinson's disease; Z23 Encounter for immunization; I10 Essential (primary) hypertension; J44.9 Chronic obstructive pulmonary disease, unspecified; M17.0 Bilateral primary osteoarthritis of knee; E11.9 Type 2 diabetes mellitus without complications; E78.5 Hyperlipidemia, unspecified; Z88.5 Allergy status to narcotic agent
CPT/HCPCS: 70450; 90471; 90715; 99284

== ENCOUNTER 2018-07-07 04:03 | Inpatient (IN) | payer MEDICARE, OTHER ==
[~2018-07-07] VITALS: Ht 147.3 cm; Wt 58.5 kg
[2018-07-07] VITALS (9 sets, daily range): BP systolic 103–163; BP diastolic 60–99
[~2018-07-07 04:03] MED LIST changes: +BACITRACIN15 GM TOPIC; +TYLENOL325 MG ORAL
[2018-07-07] MEDS ORDERED: Albuterol/Ipratropium 3ml neb HHN ONE (04:15)
--- NOTE | 2018-07-07 04:15 | NUR ---
ED Nurse Note: Pt was brought in by DMITRY from [facility] c/o increased confusion started earlier yesterday. NAD. VSS.
--- NOTE | 2018-07-07 04:19 | Emergency Room Report ---
History of Present Illness General Chief Complaint: Altered Mental Status Source: Patient, Medical Record, EMS Present Illness HPI This is a 73-year-old female with multiple medical problem including CAD, hypertension, diabetes and COPD. She presents with altered mental status. Per jail and EMS, increasing confusion. Onset for 1 day. Patient complained of shortness of breath and cough. No fever chills but no nausea no vomiting. No chest pain. She does complain of knee pain. Nothing made it better. Nothing made it worse. Allergies: Coded Allergies: MORPHINE (Verified Allergy, Unknown, 11/07/15) Patient History Past Medical History: see triage record, old chart reviewed, DM, HTN, CAD, COPD Past Surgical History: other Pertinent Family History: none Social History: Denies: smoking Last Menstrual Period: menopause Immunizations: other Reviewed Nursing Documentation: PMH: Agreed; PSxH: Agreed Nursing Documentation-PMH Hx Cardiac Problems: Yes - Hyperlipidemia Hx Hypertension: Yes Hx Pacemaker: No Hx Asthma: Yes Hx COPD: Yes Hx Diabetes: Yes Hx Cancer: No Hx Gastrointestinal Problems: No - Bilateral osteoarthritis of knee Hx Cerebrovascular Accident: Yes Hx Parkinson's Disease: Yes Hx Tremors: Yes - parkinsons Hx Weakness: Yes Hx Neurologic Surgery: No Review of Systems Constitutional: Reports: weakness Eye: Denies: eye pain, blurred vision ENT: Denies: ear pain, nose congestion, throat swelling Respiratory: Reports: cough; Denies: shortness of breath Cardiovascular: Denies: chest pain, palpitations Gastrointestinal: Denies: abdominal pain, diarrhea, nausea, vomiting Musculoskeletal: Denies: back pain, joint pain Skin: Denies: rash Neurological: Denies: headache, numbness Endocrine: Denies: increased thirst, increased urine Hematologic/Lymphatic: Denies: easy bruising All Other Systems: negative except mentioned in HPI Physical Exam Vital Signs Date Time Temp Pulse Resp B/P (MAP) Pulse Ox O2 Delivery O2 Flow Rate FiO2 07/07/18 04:08 98.8 90 16 115/60 92 Room Air vitals with hypoxia Sp02 EP Interpretation: reviewed, abnormal General Appearance: well appearing, alert, mild distress Head: normocephalic, atraumatic Eyes: bilateral eye PERRL, bilateral eye EOMI ENT: hearing grossly normal, normal pharynx Neck: full range of motion, supple, no meningismus Respiratory: chest non-tender, accessory muscle use, wheezing Cardiovascular #1: regular rate, rhythm, no murmur Gastrointestinal: normal bowel sounds, non tender, no mass, no organomegaly, no bruit, non-distended Musculoskeletal: back normal, normal range of motion Neurologic: grossly normal Psychiatric: mood/affect normal Skin: warm/dry Medical Decision Making Diagnostic Impression: Primary Impression: COPD with exacerbation ER Course Patient with altered mental status and confusion. She has wheezing and mild hypoxia. Symptom improved after treatment. No evidence of ACS, PE, dissection to name a few. This of her age and risk factors, will admit for further workup. I discussed the case with Dr. Bose who will admit. Lab Results Impression labs unremarkable EKG Diagnostic Results Rate: normal Rhythm: NSR ST Segments: no acute changes Rhythm Strip Diag. Results EP Interpretation: yes Rate: 87 Rhythm: NSR, no PVC's, no ectopy Chest X-Ray Diagnostic Results Chest X-Ray Diagnostic Results : Chest X-Ray Ordered: Yes # of Views/Limited/Complete: 1 View Indication: Shortness of Breath EP Interpretation: Yes Interpretation: no consolidation, no effusion, no pneumothorax, other - Hypoventilation Impression: No acute disease Electronically Signed by: Jame Galarza MD Last Vital Signs Date Time Temp Pulse Resp B/P (MAP) Pulse Ox O2 Delivery O2 Flow Rate FiO2 07/07/18 04:08 98.8 90 16 115/60 92 Room Air Status: improved Disposition: ADMITTED INPATIENT Condition: Serious Jame Galarza MD Jul 07, 2018 04:19
[2018-07-07] MEDS ORDERED: Solu-MEDROL 125mg Inj IVP ONE (04:30)
--- NOTE | 2018-07-07 04:45 | NUR ---
ED Nurse Note: IV access established. CRE VRE MRSA swabs blood and urine collected; sent down to lab.
[2018-07-07 04:53] LABS: APPEARANCE,URINE CLEAR; BILIRUBIN, URINE NEGATIVE (NEGATIVE); COLOR,URINE PALE YELLOW; GLUCOSE, URINE (UA) NEGATIVE (NEGATIVE); KETONES,URINE NEGATIVE (NEGATIVE); LEUKOCYTE ESTERASE ,URINE NEGATIVE (NEGATIVE); NITRITE,URINE NEGATIVE (NEGATIVE); PH,URINE 8 (4.5-8.0); PROTEIN,URINE NEGATIVE (NEGATIVE); UROBILINOGEN,URINE NORMAL MG/DL (0.0-1.0)
[2018-07-07 04:54] LABS: BASOPHILS % (AUTO) 1.9 % (0.0-2.0); EOSINOPHILS % (AUTO) 8.7 % (0.0-3.0); HEMATOCRIT 40.5 % (37.0-47.0); HEMOGLOBIN 13.6 G/DL (12.0-16.0); LYMPHOCYTES % (AUTO) 16.5 % (20.0-45.0); MEAN CORPUSCULAR VOLUME 96 FL (80-99); MONOCYTES % (AUTO) 10.2 % (1.0-10.0); NEUTROPHILS % (AUTO) 62.8 % (45.0-75.0); PLATELET COUNT 287 K/UL (150-450); RED BLOOD COUNT 4.21 M/UL (4.20-5.40); RED CELL DISTRIBUTION WIDTH 12.3 % (11.6-14.8); WHITE BLOOD COUNT 8.6 K/UL (4.8-10.8)
[2018-07-07 05:06] LABS: ANION GAP 8 mmol/L (5-15); BLOOD UREA NITROGEN 18 mg/dL (7-18); CALCIUM 9.5 MG/DL (8.5-10.1); CARBON DIOXIDE 30 MMOL/L (21-32); CHLORIDE 99 MMOL/L (98-107); CREATININE 1.1 MG/DL (0.55-1.30); POTASSIUM 4.4 MMOL/L (3.5-5.1); SODIUM 137 MMOL/L (136-145)
[2018-07-07 05:20] LABS: ALANINE AMINOTRANSFERASE 11 U/L (12-78); ALBUMIN 4.1 G/DL (3.4-5.0); ALKALINE PHOSPHATASE 132 U/L (46-116); ASPARTATE AMINO TRANSFERASE 26 U/L (15-37); BILIRUBIN,TOTAL 0.8 MG/DL (0.2-1.0); CKMB 2.1 NG/ML (0.0-3.6); CREATINE KINASE 247 U/L (26-308)
--- NOTE | 2018-07-07 05:30 | NUR ---
TRANSFER TO FLOOR: Patient transferred to MED SURG 411-2 as ordered, per MD PRAKASH. Report given to DORIE JOINER. PATIENT IN STABLE CONDITION. BELONGINGS LIST COMPLETED WITH RECEIVING RN
--- NOTE | 2018-07-07 06:00 | NUR ---
NURSE NOTES: Patient admitted from ER via rney. AOX2. IV left forearm intact. Belongings include just earrings, verified at bedside. Patient wheezing VSS. Bilateral heels red and tender to touch. Patient c/o chronic pain on right knee d/t arthritis. Patient oriented to room and unit. Call light provided. Contacted Dr. Bose for admission orders. Patient has DNR POLST on file.
[2018-07-07] MEDS ORDERED: DULCOLAX10 MG RC (06:09)
[2018-07-07] MEDS ORDERED: FLUOXETINE HCL10 M2 ORAL (06:09)
[2018-07-07] MEDS ORDERED: MILK OF MA400 MG/51 ORAL (06:09)
[2018-07-07] MEDS ORDERED: ARTIFICIALS TEA30 M1 OP (06:09)
[2018-07-07] MEDS ORDERED: SOLARAZE100 GM TP (06:09)
[2018-07-07] MEDS ORDERED: FLEET ENEMA133 ML RECTAL (06:09)
[2018-07-07] MEDS ORDERED: BENADRYL25 MG ORAL (06:09)
[2018-07-07] MEDS ORDERED: SINEMET 25-1001 EAC1 ORAL (06:09)
[2018-07-07] MEDS ORDERED: Nitroglycerin Subl 0.4mg tab SL PRN (07:30)
[2018-07-07] MEDS ORDERED: Ketorolac 30mg Inj IV PRN (07:30)
[2018-07-07] MEDS ORDERED: Albuterol/Ipratropium 3ml neb HHN PRN (07:30)
--- NOTE | 2018-07-07 07:30 | NUR ---
HAND-OFF: Report given to Krissy OSHEA.
--- NOTE | 2018-07-07 07:40 | NUR ---
NURSE NOTES: Received patient in bed, awake alert and oriented x2-3. not in acute respiratory distress @ this time. Denies pain while on bed, IV intact, no s/s of infiltration. Call light within reach. Bed is in low position. Placed a call to Dr. Bose to clarify code status, sinemet and prozac. Awaiting for return call.
[2018-07-07] MEDS ORDERED: Theophylline ER 100mg ORAL SCH (09:00)
[2018-07-07] MEDS: Theophylline ER 100mg ORAL SCH ×2 (09:34→20:36)
[2018-07-07] MEDS: FLUoxetine 10mg cap ORAL SCH (09:34)
[2018-07-07] MEDS: Zosyn 3.375gm in NS 110ml IVPB SCH ×2 (09:34→20:36)
[2018-07-07] MEDS: Heparin 5000 units/ml inj SUBQ SCH ×2 (09:35→20:38)
--- NOTE | 2018-07-07 11:22 | Diagnostic Imaging Report ---
Indication: Shortness of breath Technique: One view of the chest Comparison: 11/14/2017 Findings: The heart is borderline enlarged. The aorta is tortuous ectatic and calcified. Surgical hardware is seen in the left shoulder Impression: No acute process
--- NOTE | 2018-07-07 11:38 | NUR ---
CASE MANGER REVIEW 73 Y/O BIBA FROM [facility] [place] [facility] [place] CC:ALTERED MENTAL STATUS SI:COPD WITH EXACERBATION VS: BP 115/60, P 90, T 98.8, RR 16, SpO2 92 URINE BLOOD 2+, ALT 11, ALK PHOS 132 CXR Findings: The heart is borderline enlarged. The aorta is tortuous ectatic and calcified. Surgical hardware is seen in the left shoulder. IS:ALBUTEROL 3ml HHN SOLU-MEDROL 125mg IVP ADMITTED TO MED/SURG DC PLAN: RETURN TO [facility]
[2018-07-07] MEDS: Levodopa/Carbidopa 25/100 tab ORAL SCH ×4 (13:44→20:36)
[2018-07-07] MEDS: Solu-MEDROL 125mg Inj IV SCH ×2 (13:44→18:09)
[2018-07-07] MEDS ORDERED: Piperacillin/Tazobactam 2.25 GM in D5W 55 ML IV SCH (14:00)
--- NOTE | 2018-07-07 14:42 | NUR ---
NURSE NOTES:WOUND CARE NOTES:Pt presented on admission with non-blanchable erythema R elbow,tender when minimally palpated. L elbow dry and blanchable. Sacrum pink and dry without evidence of skin breakdown. Pt has B and B incontinence and was educated of risks for skin breakdown.Pt instructed to call staff for asst when soiled to prevent prolonged exposure to incontinence. Non-blanchable erythema with fluctuance R heel. Pt complained of tenderness when R heel minimally palpated. Non-blanchable erythema without fluctuance L heel,non-tender when minimally palpated. Pt further educated on wound prevention and encouraged to frequently turn in bed and to keep heels off-loaded with pillow. Recommendations:Apply Cavilon Skin Barrier to R and L elbows. Cover each elbow with Optifoam drsg. Change every 7 days and prn. Apply Cavilon Skin Barrier to R and L heels. Cover each heel with Optifoam. Change every 7 days and prn. Apply Moisture Barrier Paste to Buttocks. Cover with Optifoam drsg. Change every 3 days and prn. Reposition at least every 2 hours or as tolerated. Off-load heels with pillow.
[2018-07-07] MEDS: Promethazine/Codeine 5ml UD ORAL PRN (15:47)
--- NOTE | 2018-07-07 19:39 | NUR ---
NURSE NOTES: Received patient in bed, no acute distress noted, VSS, afebrile, patient is B[place] speaking only, pleasant, awake, alert x2, call light is within reach, bed is in low position, locked and alarm is on. Will continue to monitor for safety and comfort.
[2018-07-08] VITALS: BP 131/86
[2018-07-08] MEDS: Levodopa/Carbidopa 25/100 tab ORAL SCH ×8 (00:25→21:00)
[2018-07-08] MEDS: Solu-MEDROL 125mg Inj IV SCH ×4 (00:26→17:43)
[2018-07-08 04:00] VITALS: BP 160/83
--- NOTE | 2018-07-08 06:49 | NUR ---
HAND-OFF: Report given to Madeline OSHEA.
--- NOTE | 2018-07-08 07:50 | NUR ---
NURSE NOTES: Patient received in stable condition, eating breakfast in bed. Breathing unlabored on room air, denies pain or distress at this time. Bed locked in lowest position, call light placed within reach. Will continue to monitor.
[2018-07-08 08:00] VITALS: BP 151/78
[2018-07-08] MEDS: FLUoxetine 10mg cap ORAL SCH (08:59)
[2018-07-08] MEDS: Theophylline ER 100mg ORAL SCH ×2 (08:59→21:00)
[2018-07-08] MEDS: Zosyn 3.375gm in NS 110ml IVPB SCH ×2 (09:02→16:08)
[2018-07-08] MEDS: Heparin 5000 units/ml inj SUBQ SCH ×2 (09:15→21:28)
[2018-07-08 12:00] VITALS: BP 159/89
[2018-07-08] MEDS: LORazepam Inj 2mg/ml 1ml IV PRN (12:18)
--- NOTE | 2018-07-08 14:18 | History and Physical ---
History of Present Illness General Date patient seen: Jul 07, 2018 Reason for Hospitalization: Altered Mental Status Present Illness HPI 73-year-old female with RA, severe deforming arthritis, CAD, Asthma, COPD, DM, [facility] resident brought in with CC of with altered mental status. Patient complained of shortness of breath and cough. No fever chills but no nausea no vomiting. No chest pain. She does complain of knee pain. She was diagnosed to have acute bronchitis and exacerbation of her COPD and admitted for further treatment.. Allergies: Coded Allergies: MORPHINE (Verified Allergy, Unknown, 11/07/15) Medication History Scheduled Aspirin* (Aspir 81*), 81 MG ORAL DAILY, (Reported) Atenolol* (Tenormin*), 25 MG ORAL DAILY, (Reported) Atorvastatin Calcium* (Atorvastatin Calcium*), 20 MG ORAL BEDTIME, (Reported) Carbidopa/Levodopa 25-100 Mg* (Sinemet 25-100 Mg Tablet*), 1 TAB ORAL Q3HR, ( Reported) Diclofenac Sodium (Solaraze), 2 GM TP BID, (Reported) Docusate Sodium* (Docusate Sodium*), 100 MG ORAL DAILY, (Reported) Fish Oil (Fish Oil 1,000 mg Capsule), 2,000 MG ORAL DAILY, (Reported) Fluoxetine Hcl* (Fluoxetine Hcl*), 15 MG ORAL DAILY, (Reported) Gabapentin* (Gabapentin*), 100 MG ORAL BID, (Reported) Montelukast Sodium* (Montelukast Sodium*), 10 MG ORAL QPM Nitroglycerin (Nitroglycerin), 0.4 MG SL NEEDED, (Reported) Theophylline (Theodur*), 100 MG ORAL TWICE A DAY, (Reported) Tramadol Hcl* (Ultram*), 50 MG ORAL Q12HR, (Reported) Scheduled PRN Acetaminophen* (Acetaminophen 325MG Tablet*), 650 MG ORAL Q4H PRN for For Pain, (Reported) Albuterol Sulfate* (Albuterol Sulfate Hhn*), 3 ML INH Q4H PRN for Shortness of Breath, (Reported) Bisacodyl (Dulcolax), 10 MG RC DAILY PRN for Constipation, (Reported) Clonidine Hcl* (Catapres*), 0.1 MG ORAL EVERY 6 HOURS PRN for For High Blood Pressure, (Reported) Dextran 70/Hypromellose (Artificial Tears Eye Drops*), 1 DROP BOTH EYES HS PRN for Dry Eyes, (Reported) Dextran 70/Hypromellose (Artificials Tears Drops), 1 DRP OP TID PRN for Dry Eyes , (Reported) Diphenhydramine Hcl* (Benadryl*), 25 MG ORAL Q6H PRN for Itching, (Reported) Guaifenesin* (Guaifenesin), 5 ML ORAL Q4H PRN for For Cough, (Reported) Magnesium Hydroxide* (Milk Of Magnesia*), 30 ML ORAL DAILY PRN for Constipation, (Reported) Na Phos,M-B/Na Phos,Di-Ba* (Fleet Enema*), 133 ML RECTAL DAILY PRN for Constipation, (Reported) Patient History Healthcare decision maker Resuscitation status Do Not Resuscitate Advanced Directive on File Past Medical/Surgical History Past Medical/Surgical History: (1) Parkinson disease (2) History of asthma (3) HTN (hypertension) (4) Rheumatoid arteritis (5) Debilitated Review of Systems Respiratory: Reports: shortness of breath, wheezing Physical Exam General Appearance: WD/WN, no apparent distress Lines, tubes and drains: peripheral HEENT: normocephalic, atraumatic Neck: non-tender, normal alignment Respiratory/Chest: chest wall non-tender, lungs clear Breasts: no masses Cardiovascular/Chest: normal peripheral pulses Abdomen: normal bowel sounds, hyperactive bowel sounds Last 24 Hour Vital Signs Date Time Temp Pulse Resp B/P (MAP) Pulse Ox O2 Delivery O2 Flow Rate FiO2 07/08/18 12:00 97.7 90 20 159/89 (112) 95 07/08/18 09:00 Room Air 07/08/18 08:17 89 18 Room Air 21 07/08/18 08:00 97.6 88 19 151/78 (102) 95 07/08/18 04:00 97.6 98 18 160/83 (108) 07/08/18 00:00 97.8 95 18 131/86 (101) 07/07/18 21:47 157/85 (109) 07/07/18 21:02 93 18 99 Room Air 21 07/07/18 21:00 Room Air 07/07/18 20:52 82 18 97 Room Air 21 07/07/18 20:03 91 18 Room Air 21 07/07/18 20:00 96.0 105 22 163/80 (107) 07/07/18 16:00 97.3 101 19 151/99 (116) 96 Intake and Output 07/07/18 07/08/18 19:00 07:00 Intake Total 1070.0 ml Balance 1070.0 ml Intake Oral 960 ml IV Total 110.0 ml # Voids 10 2 # Bowel Movements 2 1 Height (Feet): 4 Height (Inches): 10.00 Weight (Pounds): 129 Medications Current Medications Medications (Trade) Dose Ordered Sig/Isaiah Route PRN Reason Start Time Stop Time Status Last Admin Dose Admin Albuterol/ Ipratropium (Albuterol/ Ipratropium) 3 ml Q4H PRN HHN dyspnea 07/07/18 07:30 07/12/18 07:29 07/07/18 20:52 Carbidopa/Levodopa (Sinemet 25/100) 1 tab Q3HR ORAL 07/07/18 12:00 08/06/18 11:59 07/08/18 12:18 Clonidine HCl (Catapres Tab) 0.1 mg Q6H PRN ORAL For High Blood Pressure 07/07/18 07:30 08/06/18 07:29 Dextrose (Dextrose 50%) 25 ml Q30M PRN IV Hypoglycemia 07/07/18 07:30 08/06/18 07:29 Dextrose (Dextrose 50%) 50 ml Q30M PRN IV Hypoglycemia 07/07/18 07:30 08/06/18 07:29 Fluoxetine HCl (PROzac) 10 mg DAILY ORAL 07/07/18 09:00 08/06/18 08:59 07/08/18 08:59 Gabapentin (Neurontin) 100 mg BID ORAL 07/07/18 09:00 08/06/18 08:59 07/08/18 08:59 Heparin Sodium (Porcine) (Heparin 5000 units/ml) 5,000 units EVERY 12 HOURS SUBQ 07/07/18 09:00 08/06/18 08:59 07/08/18 09:15 Ketorolac Tromethamine (Toradol 30mg) 30 mg Q8H PRN IV moderate pain 4-6 07/07/18 07:30 07/12/18 07:29 07/08/18 11:26 Lorazepam (Ativan 2mg/ml 1ml) 0.5 mg Q4H PRN IV For Anxiety 07/07/18 07:30 07/14/18 07:29 07/08/18 12:18 Methylprednisolone Sodium Succinate (Solu-MEDROL) 60 mg EVERY 6 HOURS IV 07/07/18 12:00 08/06/18 11:59 07/08/18 11:26 Nitroglycerin (Ntg) 0.4 mg Q5M X 3 DOSES PRN SL Prn Chest Pain 07/07/18 07:30 08/06/18 07:29 Ondansetron HCl (Zofran) 4 mg Q6H PRN IVP Nausea & Vomiting 07/07/18 07:30 08/06/18 07:29 Piperacillin Sod/ Tazobactam Sod 3.375 gm/Sodium Chloride 110 ml @ 27.5 mls/hr Q8H IVPB 07/08/18 17:00 07/15/18 16:59 Promethazine HCl/ Codeine (Phenergan with Codeine) 5 ml Q6H PRN ORAL cough 07/07/18 07:30 08/06/18 07:29 07/07/18 15:47 Temazepam (Restoril) 15 mg HSPRN PRN ORAL Insomnia 07/07/18 07:30 07/14/18 07:29 Theophylline (Edilson-Dur) 100 mg EVERY 12 HOURS ORAL 07/07/18 09:00 08/06/18 08:59 07/08/18 08:59 Assessment/Plan Problem List: (1) COPD with exacerbation ICD Codes: J44.1 - Chronic obstructive pulmonary disease with (acute) exacerbation SNOMED: 378892202 (2) Purulent bronchitis ICD Codes: J41.1 - Mucopurulent chronic bronchitis SNOMED: 49025203 (3) HTN (hypertension) ICD Codes: I10 - Essential (primary) hypertension SNOMED: 22214736 (4) Parkinson disease ICD Codes: G20 - Parkinson's disease SNOMED: 73171037 (5) History of asthma ICD Codes: Z87.09 - Personal history of other diseases of the respiratory system SNOMED: 642379538 (6) Debilitated ICD Codes: R53.81 - Other malaise SNOMED: 90451407 (7) Rheumatoid arteritis ICD Codes: I00 - Rheumatic fever without heart involvement SNOMED: 801094485 Assessment/Plan respiratory treatment check sputum titrate fio2 to sat of 92% monitor BP iv steroids and abx chest physical therapy continue parkinson emily BP meds dvt prophylaxis. Klarissa Bose MD Jul 08, 2018 14:18
--- NOTE | 2018-07-08 14:20 | Pulmonology Progress Note ---
Assessment/Plan Problems: (1) COPD with exacerbation (2) Purulent bronchitis (3) HTN (hypertension) (4) Parkinson disease (5) History of asthma (6) Debilitated (7) Rheumatoid arteritis Assessment/Plan respiratory treatment check sputum stipp pending titrate fio2 to sat of 92% monitor BP iv steroids, taper to QD today IV abx chest physical therapy continue parkinson emily BP meds dvt prophylaxis. Subjective ROS Limited/Unobtainable: No Constitutional: Reports: no symptoms HEENT: Repors: no symptoms Allergies: Coded Allergies: MORPHINE (Verified Allergy, Unknown, 11/07/15) Objective Last 24 Hour Vital Signs Date Time Temp Pulse Resp B/P (MAP) Pulse Ox O2 Delivery O2 Flow Rate FiO2 07/08/18 12:00 97.7 90 20 159/89 (112) 95 07/08/18 09:00 Room Air 07/08/18 08:17 89 18 Room Air 21 07/08/18 08:00 97.6 88 19 151/78 (102) 95 07/08/18 04:00 97.6 98 18 160/83 (108) 07/08/18 00:00 97.8 95 18 131/86 (101) 07/07/18 21:47 157/85 (109) 07/07/18 21:02 93 18 99 Room Air 21 07/07/18 21:00 Room Air 07/07/18 20:52 82 18 97 Room Air 21 07/07/18 20:03 91 18 Room Air 21 07/07/18 20:00 96.0 105 22 163/80 (107) 07/07/18 16:00 97.3 101 19 151/99 (116) 96 Intake and Output 07/07/18 07/08/18 19:00 07:00 Intake Total 1070.0 ml Balance 1070.0 ml Intake Oral 960 ml IV Total 110.0 ml # Voids 10 2 # Bowel Movements 2 1 General Appearance: WD/WN HEENT: normocephalic Respiratory/Chest: chest wall non-tender, normal breath sounds Breasts: no masses Cardiovascular: normal peripheral pulses Abdomen: normal bowel sounds, no mass Skin: no rash, no lesions Microbiology Date/Time Source Procedure Growth Status 07/07/18 04:30 Nasal Nares MRSA Culture - Final Staphylococcus Aureus - Mrsa Complete 07/07/18 04:30 Rectum Received Current Medications Medications (Trade) Dose Ordered Sig/Isaiah Route PRN Reason Start Time Stop Time Status Last Admin Dose Admin Albuterol/ Ipratropium (Albuterol/ Ipratropium) 3 ml Q4H PRN HHN dyspnea 07/07/18 07:30 07/12/18 07:29 07/07/18 20:52 Carbidopa/Levodopa (Sinemet 25/100) 1 tab Q3HR ORAL 07/07/18 12:00 08/06/18 11:59 07/08/18 12:18 Clonidine HCl (Catapres Tab) 0.1 mg Q6H PRN ORAL For High Blood Pressure 07/07/18 07:30 08/06/18 07:29 Dextrose (Dextrose 50%) 25 ml Q30M PRN IV Hypoglycemia 07/07/18 07:30 08/06/18 07:29 Dextrose (Dextrose 50%) 50 ml Q30M PRN IV Hypoglycemia 07/07/18 07:30 08/06/18 07:29 Fluoxetine HCl (PROzac) 10 mg DAILY ORAL 07/07/18 09:00 08/06/18 08:59 07/08/18 08:59 Gabapentin (Neurontin) 100 mg BID ORAL 07/07/18 09:00 08/06/18 08:59 07/08/18 08:59 Heparin Sodium (Porcine) (Heparin 5000 units/ml) 5,000 units EVERY 12 HOURS SUBQ 07/07/18 09:00 08/06/18 08:59 07/08/18 09:15 Ketorolac Tromethamine (Toradol 30mg) 30 mg Q8H PRN IV moderate pain 4-6 07/07/18 07:30 07/12/18 07:29 07/08/18 11:26 Lorazepam (Ativan 2mg/ml 1ml) 0.5 mg Q4H PRN IV For Anxiety 07/07/18 07:30 07/14/18 07:29 07/08/18 12:18 Methylprednisolone Sodium Succinate (Solu-MEDROL) 60 mg EVERY 6 HOURS IV 07/07/18 12:00 08/06/18 11:59 07/08/18 11:26 Nitroglycerin (Ntg) 0.4 mg Q5M X 3 DOSES PRN SL Prn Chest Pain 07/07/18 07:30 08/06/18 07:29 Ondansetron HCl (Zofran) 4 mg Q6H PRN IVP Nausea & Vomiting 07/07/18 07:30 08/06/18 07:29 Piperacillin Sod/ Tazobactam Sod 3.375 gm/Sodium Chloride 110 ml @ 27.5 mls/hr Q8H IVPB 07/08/18 17:00 07/15/18 16:59 Promethazine HCl/ Codeine (Phenergan with Codeine) 5 ml Q6H PRN ORAL cough 07/07/18 07:30 08/06/18 07:29 07/07/18 15:47 Temazepam (Restoril) 15 mg HSPRN PRN ORAL Insomnia 07/07/18 07:30 07/14/18 07:29 Theophylline (Edilson-Dur) 100 mg EVERY 12 HOURS ORAL 07/07/18 09:00 08/06/18 08:59 07/08/18 08:59 Klarissa Bose MD Jul 08, 2018 14:20
[2018-07-08] MEDS ORDERED: Ketorolac 30mg Inj IV PRN (14:30)
[2018-07-08] MEDS ORDERED: Tubing IV Secondary IV ONE (14:57)
[2018-07-08 16:00] VITALS: BP 164/94
--- NOTE | 2018-07-08 16:03 | Cardiology Report ---
APPROVED REPORT EKG Measurement Heart [id number] CO 154P51 [id number] Normal sinus rhythm Cannot rule out Anterior infarct, age undetermined Abnormal ECG
--- NOTE | 2018-07-08 19:05 | NUR ---
HAND-OFF: Report given to Grecia OSHEA.
[2018-07-08 20:00] VITALS: BP 152/81
--- NOTE | 2018-07-08 22:13 | NUR ---
NURSE NOTES: Received patient in stable condition. Patient was alert, oriented x1. Patient is on room air, unlabored breathing, denies pain or distress at this time. IV line noted on pt's left hand, no redness or swelling noted. Redness noted on bilateral heels and elbows. Applied octofoam. Patient at risk for fall, was trying to get out of bed. Moved patient to another room near the nurses station for closer monitoring. Bed is locked in lowest position with bed alarm active. Call light is within reach. Will continue to monitor.
[2018-07-09] VITALS: BP 154/79
[2018-07-09] MEDS: Zosyn 3.375gm in NS 110ml IVPB SCH ×2 (00:21→08:28)
[2018-07-09] MEDS: Solu-MEDROL 125mg Inj IV SCH ×5 (00:23→23:46)
[2018-07-09] MEDS: Levodopa/Carbidopa 25/100 tab ORAL SCH ×9 (03:00→23:53)
--- NOTE | 2018-07-09 03:40 | NUR ---
NURSE NOTES: Pt was asleep and verbally refused Edilson-Kade (theophylline) 100mg at 2100, and Sinemet (levodopa/carbidopa) 25/100 tab at 2100, 0000, and 0300.
[2018-07-09 04:00] VITALS: BP 148/100
--- NOTE | 2018-07-09 07:48 | NUR ---
NURSE NOTES: Patient received in stable condition, breathing unlabored on room air. No signs of respiratory distress or pain observed. IV site patent and intact. Bed locked in low position, call light placed within reach. Will continue to monitor.
--- NOTE | 2018-07-09 07:59 | NUR ---
HAND-OFF: Report given to DORIE Correa.
[2018-07-09 08:00] VITALS: BP 168/102
--- NOTE | 2018-07-09 08:00 | Consultation ---
History of Present Illness General Date patient seen: Jul 09, 2018 Chief Complaint: Altered Mental Status Reason for Consultation: Cough Present Illness HPI Ms. Leonard is a 73 yo female with PMHx of DM, Parkinson's, Asthma, HTN, RA, CAD and COPD who was brought in from her [facility]18 with AMS and SOB. The patient had cough but no fever, chills, N/V. She denies CP. In the ED she was Aferbile with no leukocytosis. CXR showed no PNA. Her UA was also negative. Today she is awake and alert with minimal cough ID consulted for cough PMHx/PSHx DM Parkinson's Asthma HTN RA CAD COPD SocHx No E/T/D FamHx Not contributory Allergies: Coded Allergies: MORPHINE (Verified Allergy, Unknown, 11/07/15) Medication History Scheduled Aspirin* (Aspir 81*), 81 MG ORAL DAILY, (Reported) Atenolol* (Tenormin*), 25 MG ORAL DAILY, (Reported) Atorvastatin Calcium* (Atorvastatin Calcium*), 20 MG ORAL BEDTIME, (Reported) Carbidopa/Levodopa 25-100 Mg* (Sinemet 25-100 Mg Tablet*), 1 TAB ORAL Q3HR, ( Reported) Diclofenac Sodium (Solaraze), 2 GM TP BID, (Reported) Docusate Sodium* (Docusate Sodium*), 100 MG ORAL DAILY, (Reported) Fish Oil (Fish Oil 1,000 mg Capsule), 2,000 MG ORAL DAILY, (Reported) Fluoxetine Hcl* (Fluoxetine Hcl*), 15 MG ORAL DAILY, (Reported) Gabapentin* (Gabapentin*), 100 MG ORAL BID, (Reported) Montelukast Sodium* (Montelukast Sodium*), 10 MG ORAL QPM Nitroglycerin (Nitroglycerin), 0.4 MG SL NEEDED, (Reported) Theophylline (Theodur*), 100 MG ORAL TWICE A DAY, (Reported) Tramadol Hcl* (Ultram*), 50 MG ORAL Q12HR, (Reported) Scheduled PRN Acetaminophen* (Acetaminophen 325MG Tablet*), 650 MG ORAL Q4H PRN for For Pain, (Reported) Albuterol Sulfate* (Albuterol Sulfate Hhn*), 3 ML INH Q4H PRN for Shortness of Breath, (Reported) Bisacodyl (Dulcolax), 10 MG RC DAILY PRN for Constipation, (Reported) Clonidine Hcl* (Catapres*), 0.1 MG ORAL EVERY 6 HOURS PRN for For High Blood Pressure, (Reported) Dextran 70/Hypromellose (Artificial Tears Eye Drops*), 1 DROP BOTH EYES HS PRN for Dry Eyes, (Reported) Dextran 70/Hypromellose (Artificials Tears Drops), 1 DRP OP TID PRN for Dry Eyes , (Reported) Diphenhydramine Hcl* (Benadryl*), 25 MG ORAL Q6H PRN for Itching, (Reported) Guaifenesin* (Guaifenesin), 5 ML ORAL Q4H PRN for For Cough, (Reported) Magnesium Hydroxide* (Milk Of Magnesia*), 30 ML ORAL DAILY PRN for Constipation, (Reported) Na Phos,M-B/Na Phos,Di-Ba* (Fleet Enema*), 133 ML RECTAL DAILY PRN for Constipation, (Reported) Patient History Healthcare decision maker Resuscitation status Do Not Resuscitate Advanced Directive on File Review of Systems ROS Narrative 12 point ROS negative except as note in the HPI. Physical Exam Last 24 Hour Vital Signs Date Time Temp Pulse Resp B/P (MAP) Pulse Ox O2 Delivery O2 Flow Rate FiO2 07/09/18 04:00 98.3 73 17 148/100 (116) 94 07/09/18 00:00 98.5 76 18 154/79 (104) 95 07/08/18 22:38 Room Air 07/08/18 20:00 97.7 81 17 152/81 (104) 95 07/08/18 19:45 85 20 Room Air 21 07/08/18 16:09 161/94 07/08/18 16:00 97.7 98 18 164/94 (117) 95 07/08/18 12:00 97.7 90 20 159/89 (112) 95 07/08/18 09:00 Room Air 07/08/18 08:17 89 18 Room Air 21 07/08/18 08:00 97.6 88 19 151/78 (102) 95 Intake and Output 07/08/18 07/09/18 18:59 06:59 Intake Total 360 ml Balance 360 ml Intake Oral 360 ml # Voids 3 2 Height (Feet): 4 Height (Inches): 10.00 Weight (Pounds): 129 Medications Current Medications Medications (Trade) Dose Ordered Sig/Isaiah Route PRN Reason Start Time Stop Time Status Last Admin Dose Admin Albuterol/ Ipratropium (Albuterol/ Ipratropium) 3 ml Q4H PRN HHN dyspnea 07/07/18 07:30 07/12/18 07:29 07/07/18 20:52 Carbidopa/Levodopa (Sinemet 25/100) 1 tab Q3HR ORAL 07/07/18 12:00 08/06/18 11:59 07/09/18 06:11 Clonidine HCl (Catapres Tab) 0.1 mg Q6H PRN ORAL For High Blood Pressure 07/07/18 07:30 08/06/18 07:29 07/08/18 16:09 Dextrose (Dextrose 50%) 25 ml Q30M PRN IV Hypoglycemia 07/07/18 07:30 08/06/18 07:29 Dextrose (Dextrose 50%) 50 ml Q30M PRN IV Hypoglycemia 07/07/18 07:30 08/06/18 07:29 Fluoxetine HCl (PROzac) 10 mg DAILY ORAL 07/07/18 09:00 08/06/18 08:59 07/08/18 08:59 Gabapentin (Neurontin) 100 mg BID ORAL 07/07/18 09:00 08/06/18 08:59 07/08/18 17:42 Heparin Sodium (Porcine) (Heparin 5000 units/ml) 5,000 units EVERY 12 HOURS SUBQ 07/07/18 09:00 08/06/18 08:59 07/08/18 21:28 Ketorolac Tromethamine (Toradol 30mg) 30 mg DAILYPRN PRN IV moderate pain 4-07/08/18 14:30 07/13/18 14:29 Lorazepam (Ativan 2mg/ml 1ml) 0.5 mg Q4H PRN IV For Anxiety 07/07/18 07:30 07/14/18 07:29 07/08/18 12:18 Methylprednisolone Sodium Succinate (Solu-MEDROL) 60 mg EVERY 6 HOURS IV 07/07/18 12:00 08/06/18 11:59 07/09/18 06:11 Nitroglycerin (Ntg) 0.4 mg Q5M X 3 DOSES PRN SL Prn Chest Pain 07/07/18 07:30 08/06/18 07:29 Ondansetron HCl (Zofran) 4 mg Q6H PRN IVP Nausea & Vomiting 07/07/18 07:30 08/06/18 07:29 Piperacillin Sod/ Tazobactam Sod 3.375 gm/Sodium Chloride 110 ml @ 27.5 mls/hr Q8H IVPB 07/08/18 17:00 07/15/18 16:59 07/09/18 00:21 Promethazine HCl/ Codeine (Phenergan with Codeine) 5 ml Q6H PRN ORAL cough 07/07/18 07:30 08/06/18 07:29 07/07/18 15:47 Temazepam (Restoril) 15 mg HSPRN PRN ORAL Insomnia 07/07/18 07:30 07/14/18 07:29 Theophylline (Edilson-Dur) 100 mg EVERY 12 HOURS ORAL 07/07/18 09:00 08/06/18 08:59 07/08/18 08:59 Objective Narrative Gen: NAD, well appearing, alert HEENT: NCAT, MMM, EOMI, PERRL, No Oral lesion, no scleral icterus NECK: full range of motion, supple, no meningismus, No LAD, No JVD LUNGS: left sided wheezing, Right clear CARDS: RRR, S1, S2, No M/R/G, ABD: Soft, NT, ND, No R/G, + BS, No HSM, No Masses : Deferred Ext: C/C/E, Pulses 2+ B/L (DP, Rad): NEURO: A/O x 4, Strength and Sensation Grossly intact PSYCH: Mood/affect normal SKIN: Warm/dry, No rashes Assessment/Plan Assessment/Plan 73 yo female with PMHx of DM, Parkinson's, Asthma, HTN, RA, CAD and COPD Cough and SOB Hx of COPD and Asthma Currently on steroids SOB resolved Still with some cough - likely viral CXR no sign of pna No fever No leukocytosis AMS Unknown baseline Due to COPD exacerbation? DM Parkinson's Asthma HTN RA CAD COPD PLAN - Moniotor off abx - 07/09/18 S/P Zosyn - f/u bloodCx - Monitor CBC and Temps - Montior clinically Thank you for this consult. We will continue to follow the patient during this hospitalization. James Meeks MD Jul 09, 2018 08:00
[2018-07-09] MEDS: FLUoxetine 10mg cap ORAL SCH (08:28)
[2018-07-09] MEDS: Theophylline ER 100mg ORAL SCH ×2 (08:28→21:24)
[2018-07-09] MEDS: Heparin 5000 units/ml inj SUBQ SCH ×2 (08:38→21:25)
[2018-07-09] MEDS: Promethazine/Codeine 5ml UD ORAL PRN ×2 (11:16→22:00)
[2018-07-09 11:52] VITALS: BP 158/81
[2018-07-09] MEDS ORDERED: THEOPHYLLINE A100 MG ORAL (14:56)
--- NOTE | 2018-07-09 14:58 | Pulmonology Progress Note ---
Assessment/Plan Problems: (1) COPD with exacerbation (2) Purulent bronchitis (3) HTN (hypertension) (4) Parkinson disease (5) History of asthma (6) Debilitated (7) Rheumatoid arteritis Assessment/Plan respiratory treatment sputum negative titrate fio2 to sat of 92% monitor BP chest physical therapy continue parkinson emily BP meds dvt prophylaxis. wants to go back to [facility] Subjective ROS Limited/Unobtainable: No Constitutional: Reports: no symptoms HEENT: Repors: no symptoms Allergies: Coded Allergies: MORPHINE (Verified Allergy, Unknown, 11/07/15) Objective Last 24 Hour Vital Signs Date Time Temp Pulse Resp B/P (MAP) Pulse Ox O2 Delivery O2 Flow Rate FiO2 07/09/18 11:52 98.4 78 20 158/81 (106) 94 07/09/18 09:00 Room Air 07/09/18 08:35 83 20 Room Air 21 07/09/18 08:29 168/102 07/09/18 08:00 98.5 80 20 168/102 (124) 94 07/09/18 04:00 98.3 73 17 148/100 (116) 94 07/09/18 00:00 98.5 76 18 154/79 (104) 95 07/08/18 22:38 Room Air 07/08/18 20:00 97.7 81 17 152/81 (104) 95 07/08/18 19:45 85 20 Room Air 21 07/08/18 16:09 161/94 07/08/18 16:00 97.7 98 18 164/94 (117) 95 Intake and Output 07/08/18 07/09/18 19:00 07:00 Intake Total 360 ml Balance 360 ml Intake Oral 360 ml # Voids 3 2 Objective General Appearance: WD/WN HEENT: normocephalic, anicteric Respiratory/Chest: chest wall non-tender, lungs clear Cardiovascular: normal peripheral pulses, normal rate Abdomen: normal bowel sounds, soft, non tender, no scars Extremities: no clubbing Skin: no rash Microbiology Date/Time Source Procedure Growth Status 07/07/18 04:30 Blood Blood Culture - Preliminary NO GROWTH AFTER 24 HOURS Resulted 07/07/18 04:15 Blood Blood Culture - Preliminary NO GROWTH AFTER 24 HOURS Resulted 07/07/18 04:30 Nasal Nares MRSA Culture - Final Staphylococcus Aureus - Mrsa Complete 07/07/18 04:30 Rectum - Final NO CARBAPENEM-RESISTANT ENTEROBACTERI... Complete 07/07/18 04:30 Rectum VRE Culture - Final Enterococcus Faecalis - Vre Complete Current Medications Medications (Trade) Dose Ordered Sig/Isaiah Route PRN Reason Start Time Stop Time Status Last Admin Dose Admin Albuterol/ Ipratropium (Albuterol/ Ipratropium) 3 ml Q4H PRN HHN dyspnea 07/07/18 07:30 07/12/18 07:29 07/07/18 20:52 Carbidopa/Levodopa (Sinemet 25/100) 1 tab Q3HR ORAL 07/07/18 12:00 08/06/18 11:59 07/09/18 11:16 Clonidine HCl (Catapres Tab) 0.1 mg Q6H PRN ORAL For High Blood Pressure 07/07/18 07:30 08/06/18 07:29 07/09/18 08:29 Dextrose (Dextrose 50%) 25 ml Q30M PRN IV Hypoglycemia 07/07/18 07:30 08/06/18 07:29 Dextrose (Dextrose 50%) 50 ml Q30M PRN IV Hypoglycemia 07/07/18 07:30 08/06/18 07:29 Fluoxetine HCl (PROzac) 10 mg DAILY ORAL 07/07/18 09:00 08/06/18 08:59 07/09/18 08:28 Gabapentin (Neurontin) 100 mg BID ORAL 07/07/18 09:00 08/06/18 08:59 07/09/18 08:28 Heparin Sodium (Porcine) (Heparin 5000 units/ml) 5,000 units EVERY 12 HOURS SUBQ 07/07/18 09:00 08/06/18 08:59 07/09/18 08:38 Ketorolac Tromethamine (Toradol 30mg) 30 mg DAILYPRN PRN IV moderate pain 4-6 07/08/18 14:30 07/13/18 14:29 Lorazepam (Ativan 2mg/ml 1ml) 0.5 mg Q4H PRN IV For Anxiety 07/07/18 07:30 07/14/18 07:29 07/08/18 12:18 Methylprednisolone Sodium Succinate (Solu-MEDROL) 60 mg EVERY 6 HOURS IV 07/07/18 12:00 08/06/18 11:59 07/09/18 11:16 Nitroglycerin (Ntg) 0.4 mg Q5M X 3 DOSES PRN SL Prn Chest Pain 07/07/18 07:30 08/06/18 07:29 Ondansetron HCl (Zofran) 4 mg Q6H PRN IVP Nausea & Vomiting 07/07/18 07:30 08/06/18 07:29 Promethazine HCl/ Codeine (Phenergan with Codeine) 5 ml Q6H PRN ORAL cough 07/07/18 07:30 08/06/18 07:29 07/09/18 11:16 Temazepam (Restoril) 15 mg HSPRN PRN ORAL Insomnia 07/07/18 07:30 07/14/18 07:29 Theophylline (Edilson-Dur) 100 mg EVERY 12 HOURS ORAL 07/07/18 09:00 08/06/18 08:59 07/09/18 08:28 Klarissa Bose MD Jul 09, 2018 14:58
[2018-07-09 16:00] VITALS: BP 148/86
--- NOTE | 2018-07-09 17:34 | NUR ---
ENGINE REPAIRER NOTES PLACED CALL TO [facility] ADMISSION COORDINATOR NOT AVAILABLE. CRISTIN DAM OPERATOR STATED SHE WILL BE IN TOMORROW AM.CRISTIN IS UNABLE TO ASSIGN BED @ THIS TIME. WILL HAVE WEEKEND ENGINE REPAIRER FOLLOW UP IN AM.
--- NOTE | 2018-07-09 19:18 | NUR ---
HAND-OFF: Report given to Urmila OSHEA.
--- NOTE | 2018-07-09 19:30 | NUR ---
NURSE NOTES: PATIENT IN BED, ON RA, NO SOB, NO ACUTE DISTRESS, NO C/O PAIN. LFA IV INTACT, PATENT RUNNING TKO. BED IN LOWEST POSITION, LOCKED, ALARMS ON. CALL LIGHT IN REACH. D/T HX OF FALL, WILL MOVE PT TO ROOM 420.
[2018-07-09 20:00] VITALS: BP 162/86
[2018-07-09] MEDS: LORazepam Inj 2mg/ml 1ml IV PRN (23:53)
[2018-07-10] VITALS (8 sets, daily range): BP systolic 124–182; BP diastolic 72–102
--- NOTE | 2018-07-10 00:30 | NUR ---
NURSE NOTES: Pt noted BP 162/86 at 2145. PRN q6h Clonidine 0.1mg given at 2200. Pt still noted with high BP of 176/85, HR [address] Bose and received orders for onetime dose of Clonidine 0.1mg and change PRN Clonidine dose to 0.2mg q6h. Onetime dose given, pt denies pain, QUIÑONEZ, discomfort. Will cont monitor closely.
--- NOTE | 2018-07-10 02:00 | NUR ---
NURSE NOTES: Current BP noted at 161/82, HR 69. Pt asleep, asymptomatic. Will cont monitor closely.
[2018-07-10] MEDS: Levodopa/Carbidopa 25/100 tab ORAL SCH ×6 (03:09→17:20)
[2018-07-10] MEDS: Solu-MEDROL 125mg Inj IV SCH ×3 (05:59→17:20)
--- NOTE | 2018-07-10 06:00 | NUR ---
NURSE NOTES: Patient is noncompliant. Refused Sinemet for 0600, refused to change dressing on IV site, refused to change pad. Patient states, "I don't want to do anything. Are you trying to kill me?" Explained risk and benefit but patient refused to listen. Will try again later.
[2018-07-10] MEDS ORDERED: cloNIDine 0.2mg Tab ORAL PRN (06:15)
--- NOTE | 2018-07-10 07:22 | NUR ---
HAND-OFF: Report given to Grace OSHEA.
--- NOTE | 2018-07-10 08:01 | NUR ---
NURSE NOTES: Received report from DORIE Kearns. Pt in bed, awake, talkative, confused, rambling, set up breakfast tray for pt to eat, no complaints of pain, no apparent distress noted, call light within reach, bed in lowest position.
[2018-07-10] MEDS: FLUoxetine 10mg cap ORAL SCH (08:35)
[2018-07-10] MEDS: Theophylline ER 100mg ORAL SCH (08:36)
[2018-07-10] MEDS: Heparin 5000 units/ml inj SUBQ SCH (08:39)
[2018-07-10] MEDS ORDERED: NS 275ml ONE (09:59)
--- NOTE | 2018-07-10 11:33 | NUR ---
CHARGE NURSE NOTES: CALLED [facility], SPOKE WITH ADMISSION COORDINATOR, REFERRAL REQUESTED. SENT. AWAITING CALL BACK .
--- NOTE | 2018-07-10 12:13 | Pulmonology Progress Note ---
Assessment/Plan Problems: (1) COPD with exacerbation (2) Purulent bronchitis (3) HTN (hypertension) (4) Parkinson disease (5) History of asthma (6) Debilitated (7) Rheumatoid arteritis Assessment/Plan no new complains respiratory treatment sputum negative titrate fio2 to sat of 92% monitor BP chest physical therapy continue parkinson emily BP meds dvt prophylaxis. wants to go back to long term Subjective ROS Limited/Unobtainable: No Interval Events: doing better Constitutional: Reports: no symptoms Allergies: Coded Allergies: MORPHINE (Verified Allergy, Unknown, 11/07/15) Objective Last 24 Hour Vital Signs Date Time Temp Pulse Resp B/P (MAP) Pulse Ox O2 Delivery O2 Flow Rate FiO2 07/10/18 11:32 96.8 07/10/18 10:09 82 124/72 (89) 07/10/18 09:00 Room Air 07/10/18 08:00 96.8 91 20 163/102 (122) 96 07/10/18 07:11 80 17 Room Air 21 07/10/18 04:00 97.3 82 18 149/96 (113) 94 07/10/18 02:00 97.6 69 17 161/82 (108) 96 07/10/18 00:30 176/85 07/10/18 00:00 97.9 70 18 176/85 (115) 95 07/09/18 21:57 162/86 07/09/18 21:00 Room Air 07/09/18 20:35 85 20 Room Air 21 07/09/18 20:00 98.5 91 18 162/86 (111) 97 07/09/18 16:00 98.5 89 20 148/86 (106) 95 Intake and Output 07/09/18 07/10/18 18:59 06:59 Intake Total 720 ml 180 ml Output Total 500 ml Balance 220 ml 180 ml Intake Oral 720 ml 180 ml Output Urine Total 500 ml # Voids 2 1 Objective General Appearance: WD/WN HEENT: normocephalic, anicteric Respiratory/Chest: chest wall non-tender, lungs clear Cardiovascular: normal peripheral pulses, normal rate Abdomen: normal bowel sounds, soft, non tender, no scars Extremities: no clubbing Skin: no rash Current Medications Medications (Trade) Dose Ordered Sig/Isaiah Route PRN Reason Start Time Stop Time Status Last Admin Dose Admin Albuterol/ Ipratropium (Albuterol/ Ipratropium) 3 ml Q4H PRN HHN dyspnea 07/07/18 07:30 07/12/18 07:29 07/07/18 20:52 Carbidopa/Levodopa (Sinemet 25/100) 1 tab Q3HR ORAL 07/07/18 12:00 08/06/18 11:59 07/10/18 11:01 Clonidine HCl (Catapres tab) 0.2 mg Q6HR PRN ORAL >160 SBP 07/10/18 06:15 08/09/18 06:14 Dextrose (Dextrose 50%) 25 ml Q30M PRN IV Hypoglycemia 07/07/18 07:30 08/06/18 07:29 Dextrose (Dextrose 50%) 50 ml Q30M PRN IV Hypoglycemia 07/07/18 07:30 08/06/18 07:29 Fluoxetine HCl (PROzac) 10 mg DAILY ORAL 07/07/18 09:00 08/06/18 08:59 07/10/18 08:35 Gabapentin (Neurontin) 100 mg BID ORAL 07/07/18 09:00 08/06/18 08:59 07/10/18 08:36 Heparin Sodium (Porcine) (Heparin 5000 units/ml) 5,000 units EVERY 12 HOURS SUBQ 07/07/18 09:00 08/06/18 08:59 07/10/18 08:39 Ketorolac Tromethamine (Toradol 30mg) 30 mg DAILYPRN PRN IV moderate pain 4-07/08/18 14:30 07/13/18 14:29 07/10/18 11:02 Lorazepam (Ativan 2mg/ml 1ml) 0.5 mg Q4H PRN IV For Anxiety 07/07/18 07:30 07/14/18 07:29 07/09/18 23:53 Methylprednisolone Sodium Succinate (Solu-MEDROL) 60 mg EVERY 6 HOURS IV 07/07/18 12:00 08/06/18 11:59 07/10/18 11:01 Nitroglycerin (Ntg) 0.4 mg Q5M X 3 DOSES PRN SL Prn Chest Pain 07/07/18 07:30 08/06/18 07:29 Ondansetron HCl (Zofran) 4 mg Q6H PRN IVP Nausea & Vomiting 07/07/18 07:30 08/06/18 07:29 Promethazine HCl/ Codeine (Phenergan with Codeine) 5 ml Q6H PRN ORAL cough 07/07/18 07:30 08/06/18 07:29 07/09/18 22:00 Temazepam (Restoril) 15 mg HSPRN PRN ORAL Insomnia 07/07/18 07:30 07/14/18 07:29 Theophylline (Edilson-Dur) 100 mg EVERY 12 HOURS ORAL 07/07/18 09:00 08/06/18 08:59 07/10/18 08:36 Klarissa Bose MD Jul 10, 2018 12:13
--- NOTE | 2018-07-10 14:36 | NUR ---
DISCHARGE PLANNING: NOTE PER MARIA DEL ROSARIO PATIENT IS STILL ON BED HOLD. CLINICALS BEING REVIEWED WITH DON FOR ACCEPTANCE. MARIA DEL ROSARIO [phone]
--- NOTE | 2018-07-10 15:07 | NUR ---
DISCHARGE DISPOSITION: PLEASE READ PATIENT TO BE DISCHARGE TO [facility] [address] [facility] [address] PER MARIA DEL ROSARIO T: [phone]>>> CALL RN SUP FOR REPORT [facility] ETA [phone] TRANSFER REPORT TO BE PROVIDED
--- NOTE | 2018-07-10 15:18 | Infectious Diseases Prog Note ---
Assessment/Plan Assessment/Plan Assessment/Plan 73 yo female with PMHx of DM, Parkinson's, Asthma, HTN, RA, CAD and COPD Cough and SOB Hx of COPD and Asthma Currently on steroids SOB resolved Still with some cough - likely viral CXR no sign of pna -CXR: No acute process No fever No leukocytosis AMS Unknown baseline Due to COPD exacerbation? DM Parkinson's Asthma HTN RA CAD COPD PLAN - Monitor off abx - 07/09/18 S/P Zosyn - f/u bloodCx - Monitor CBC and Temps - Montior clinically Thank you for this consult. We will continue to follow the patient during this hospitalization. Subjective Allergies: Coded Allergies: MORPHINE (Verified Allergy, Unknown, 11/07/15) Subjective afebrile no leukocytosis at RA Objective Vital Signs Last 24 Hour Vital Signs Date Time Temp Pulse Resp B/P (MAP) Pulse Ox O2 Delivery O2 Flow Rate FiO2 07/10/18 15:13 181/92 07/10/18 12:40 94 133/78 (96) 07/10/18 12:00 98.1 71 18 182/90 (120) 94 07/10/18 11:32 96.8 07/10/18 10:09 82 124/72 (89) 07/10/18 09:00 Room Air 07/10/18 08:00 96.8 91 20 163/102 (122) 96 07/10/18 07:11 80 17 Room Air 21 07/10/18 04:00 97.3 82 18 149/96 (113) 94 07/10/18 02:00 97.6 69 17 161/82 (108) 96 07/10/18 00:30 176/85 07/10/18 00:00 97.9 70 18 176/85 (115) 95 07/09/18 21:57 162/86 07/09/18 21:00 Room Air 07/09/18 20:35 85 20 Room Air 21 07/09/18 20:00 98.5 91 18 162/86 (111) 97 07/09/18 16:00 98.5 89 20 148/86 (106) 95 Height (Feet): 4 Height (Inches): 10.00 Weight (Pounds): 129 Objective Objective Narrative Gen: NAD, well appearing, alert HEENT: NCAT, MMM, EOMI, PERRL, No Oral lesion, no scleral icterus NECK: full range of motion, supple, no meningismus, No LAD, No JVD LUNGS: left sided wheezing, Right clear CARDS: RRR, S1, S2, No M/R/G, ABD: Soft, NT, ND, No R/G, + BS, No HSM, No Masses : Deferred Ext: C/C/E, Pulses 2+ B/L (DP, Rad): NEURO: A/O x 4, Strength and Sensation Grossly intact PSYCH: Mood/affect normal SKIN: Warm/dry, No rashes Current Medications Medications (Trade) Dose Ordered Sig/Isaiah Route PRN Reason Start Time Stop Time Status Last Admin Dose Admin Albuterol/ Ipratropium (Albuterol/ Ipratropium) 3 ml Q4H PRN HHN dyspnea 07/07/18 07:30 07/12/18 07:29 07/07/18 20:52 Carbidopa/Levodopa (Sinemet 25/100) 1 tab Q3HR ORAL 07/07/18 12:00 08/06/18 11:59 07/10/18 15:02 Clonidine HCl (Catapres tab) 0.2 mg Q6HR PRN ORAL >160 SBP 07/10/18 06:15 08/09/18 06:14 07/10/18 15:13 Dextrose (Dextrose 50%) 25 ml Q30M PRN IV Hypoglycemia 07/07/18 07:30 08/06/18 07:29 Dextrose (Dextrose 50%) 50 ml Q30M PRN IV Hypoglycemia 07/07/18 07:30 08/06/18 07:29 Fluoxetine HCl (PROzac) 10 mg DAILY ORAL 07/07/18 09:00 08/06/18 08:59 07/10/18 08:35 Gabapentin (Neurontin) 100 mg BID ORAL 07/07/18 09:00 08/06/18 08:59 07/10/18 08:36 Heparin Sodium (Porcine) (Heparin 5000 units/ml) 5,000 units EVERY 12 HOURS SUBQ 07/07/18 09:00 08/06/18 08:59 07/10/18 08:39 Ketorolac Tromethamine (Toradol 30mg) 30 mg DAILYPRN PRN IV moderate pain 4-07/08/18 14:30 07/13/18 14:29 07/10/18 11:02 Lorazepam (Ativan 2mg/ml 1ml) 0.5 mg Q4H PRN IV For Anxiety 07/07/18 07:30 07/14/18 07:29 07/09/18 23:53 Methylprednisolone Sodium Succinate (Solu-MEDROL) 60 mg EVERY 6 HOURS IV 07/07/18 12:00 08/06/18 11:59 07/10/18 11:01 Nitroglycerin (Ntg) 0.4 mg Q5M X 3 DOSES PRN SL Prn Chest Pain 07/07/18 07:30 08/06/18 07:29 Ondansetron HCl (Zofran) 4 mg Q6H PRN IVP Nausea & Vomiting 07/07/18 07:30 08/06/18 07:29 Promethazine HCl/ Codeine (Phenergan with Codeine) 5 ml Q6H PRN ORAL cough 07/07/18 07:30 08/06/18 07:29 07/09/18 22:00 Temazepam (Restoril) 15 mg HSPRN PRN ORAL Insomnia 07/07/18 07:30 07/14/18 07:29 Theophylline (Edilson-Dur) 100 mg EVERY 12 HOURS ORAL 07/07/18 09:00 08/06/18 08:59 07/10/18 08:36 Jaylyn Lombardo M.D. Jul 10, 2018 15:17
--- NOTE | 2018-07-10 15:44 | NUR ---
NURSE NOTES: Called report to COOPER Yeung at [facility]. 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 Notified celine Brown's nephew
--- NOTE | 2018-07-10 18:00 | NUR ---
NURSE NOTES: Pt discharged back to [facility]. Pt had no belongings, IV removed, ID band removed, HTN reported to COOPER Yeung during report, pt stable for discharge.
--- NOTE | 2018-07-13 12:16 | Discharge Summary ---
Discharge Summary Discharge Summary _ DATE OF ADMISSION: 07/07/2018 DATE OF DISCHARGE: 07/10/2018 DISCHARGED BY: Dr. Bose REASON FOR ADMISSION: 73 years old female with past medical history of hypertension, coronary artery disease, diabetes mellitus, COPD, Parkinson disease, rheumatoid arthritis, presented with altered mental status. Per nursing staff report patient had increased confusion for 1 day. Patient was complaining of shortness of breath and cough. No reported fever or chills. No nausea, no vomiting. No chest pain. Upon evaluation pulse oximetry was 92% on room air. No fevers. Laboratory workup was unremarkable. EKG revealed normal sinus rhythm , no acute ischemic changes. Troponin was negative. Lactic acid 1.5. Urinalysis revealed no evidence of UTI. Chest x-ray revealed no acute cardiopulmonary pathology. Patient admitted with COPD exacerbation for further management CONSULTANTS: ID specialist Dr. Segovia [facility] COURSE: Patient was admitted to medical surgical floor. Supplemental oxygen provided as needed to keep pulse oximetry above 90%. Pulmonary toilet provided with nebulizing therapy around the clock and as needed. Patient was started on intravenous steroids with gradual tapering down. Blood cultures were negative. Patient was on empiric antibiotic. CXR revealed no acute cardiopulmonary pathology. Trial of theophylline started . Antitussive provided as needed DVT prophylaxis provided. Singulair at nighttime continued. Blood pressure was closely monitored and managed with beta-osmin. Fall precaution maintained. Sinemet continued. Pain management was addressed as needed. Supportive care provided. Bowel regimen instituted. Patient clinically stabilized and was ready for transfer back to [facility] facility for continuation of care. FINAL DIAGNOSES: COPD exacerbation Purulent bronchitis Hypertension Parkinson disease Rheumatoid arthritis DISCHARGE MEDICATIONS: See Medication Reconciliation list. DISCHARGE INSTRUCTIONS: Patient was discharged to the [facility] facility. Follow up with medical doctor at the facility. I have been assigned to dictate discharge summary for this account. I was not involved in the patient's management. Melinda Carver NP Jul 13, 2018 12:16
== END 2018-07-10 18:00 | DRG 192 ==
LOC: EDBD 04:03 → EDUNIT# 04:03 → EMR 04:18 → 4E 04:57 → EDBEDREQ 05:29 → 4E 23:23
DX: J44.1 Chronic obstructive pulmonary disease with (acute) exacerbation (principal); M06.9 Rheumatoid arthritis, unspecified; I25.10 Atherosclerotic heart disease of native coronary artery without angina pectoris; Z66 Do not resuscitate; G20 Parkinson's disease; I10 Essential (primary) hypertension; E11.9 Type 2 diabetes mellitus without complications; J41.1 Mucopurulent chronic bronchitis; Z88.6 Allergy status to analgesic agent; Z79.82 Long term (current) use of aspirin; R53.81 Other malaise
CPT/HCPCS: 36415; 71045; 80053; 81003; 82550; 82553; 83605; 84484; 85025; 87040; 87081; 93005; 94640; 94664; 96374; 99285; J7620